=== PATIENT | male | born 1950 | race Caucasian/White ===

== ENCOUNTER → 2016-08-14 | Outpatient (CLI) | payer BC ==
[~2016-08-14] MED LIST: ACET-1311 PO; AMLO-114 PO; ASPI325T45 PO; CARV25TA PO; CLB/200 PO; CLOT1CRE47 TD; DICL1GEL28 TD; EYE; FLCO60 TOP; FLUO0.0543 TD; FRS/40 PO; IPRA1AER2 INH; LATA0.009 OPB; MULT-190 PO; OMEG10007 PO; POTA20TA16 PO; SPIR25TA PO; TRIA0.1C20 TD; [UNRECOGNIZED DRUG - CODE] PO
--- NOTE | 2016-08-14 12:46 | DIAGNOSTIC IMAGING REPORT ---
CHEST CT WITHOUT CONTRAST CT DOSE: 898.43 mGycm HISTORY: Lung nodule R91.1 Lung nodule, solitary ct chest in mid [id number] TECHNIQUE: Multiaxial CT images of the chest were performed without contrast. COMPARISON: CT 02/24/2016. PET CT scan 04/11/2016 FINDINGS: Unchanging 18 x 19 mm nodular density left lung base. Configuration is unaltered. Emphysematous changes previously described as well as bleb formation in the upper right and to a lesser extent upper left lobes appear stable. Several mediastinal as well as subcarinal nodes unchanged IMPRESSION: Stable examination of the chest including unchanging nodular density left lung base. No new or interval process. Electronically signed by: Blayne Pennington M.D. 08/14/2016 12:45 PM Dictated Date/Time: 08/14/2016 12:36 PM
== END | disposition home or self-care (01) ==
LOC: C.CTS 11:44
PROVIDERS: ATTEND Internal Medicine Pulmonary Disease
DX: R91.1 Solitary pulmonary nodule (principal)

== ENCOUNTER → 2017-02-12 | Outpatient (CLI) | payer BC ==
--- NOTE | 2017-02-12 15:49 | DIAGNOSTIC IMAGING REPORT ---
(CHEST) THORAX WITHOUT CLINICAL HISTORY: 67 years-old Male presenting with 6 month follow-up of solitary pulmonary nodule. TECHNIQUE: Multidetector CT imaging of the chest was performed without the use of intravenous contrast. IV contrast: None. A dose lowering technique was used consistent with the principles of ALARA (as low as reasonably achievable). COMPARISON: 08/14/2016. CT DOSE (mGy.cm): The estimated cumulative dose is 1455.59 mGy.cm. FINDINGS: [employer] topogram: Cardiomegaly. On soft tissue windows, 3 mm nodule in the right thyroid lobe. Multiple prominent precarinal and subcarinal lymph nodes measuring up to 11-12 mm in the short axis, previously 11 mm. These are stable to slightly decreased in size overall since the prior exam. Mild atherosclerosis of aortic arch and major branch vessels. Multichamber enlargement of the heart. Aortic valve and coronary artery calcification. No pericardial or pleural effusion. Cholelithiasis noted. On lung windows, extensive paraseptal emphysema and multiple subpleural bulla/blebs noted, the largest at the anterior right upper lobe. Centrilobular emphysema also noted. Similar appearance of the lobular left lower lobe nodule measuring up to 19 mm. The configuration of the nodule and apparent continuity with the pulmonary vasculature could suggest a vascular etiology. Central airways patent. On bone windows, degenerative changes of the spine. IMPRESSION: 1. Stable appearance of the left lower lobe nodular density through the configuration of the nodule and apparent continuity with the pulmonary vasculature could suggest a vascular etiology. Subsequent examination with intravenous contrast is recommended to assess for this possibility. 2. Extensive paraseptal and centrilobular emphysema. 3. Stable to slight interval decrease in prominence of enlarged mediastinal lymph nodes, which could be reactive. 4. Cardiomegaly. Electronically signed by: Chapo Mari M.D. 02/12/2017 3:48 PM Dictated Date/Time: 02/12/2017 3:40 PM
== END | disposition home or self-care (01) ==
LOC: C.CTS 15:26
PROVIDERS: ATTEND Internal Medicine Pulmonary Disease
DX: R91.1 Solitary pulmonary nodule (principal); R91.8 Other nonspecific abnormal finding of lung field; J43.9 Emphysema, unspecified; R59.0 Localized enlarged lymph nodes; I51.7 Cardiomegaly

== ENCOUNTER → 2018-01-23 | Outpatient (CLI) | payer BC ==
[~2018-01-23] MED LIST changes: -AMLO-114 PO; +AMLO10TA3 PO; +ASPECOTC PO; -ASPI325T45 PO; -CLB/200 PO; +POTA-639 PO; -POTA20TA16 PO; +REGADENOSON 0.4 MG/5 ML SYR ONE
--- NOTE | 2018-01-23 19:41 | Myocardial Perfusion Study ---
Myocardial Perfusion Study Rpt Myocardial Perfusion Study Rpt Date of Service 01/23/18 Myocardial Perfusion Study Rpt Procedure: 1. Myocardial perfusion study performed in multiple views/images 2. Lexiscan pharmacologic stress ECG Indications: 1. Preop evaluation 2. Nonischemic cardiomyopathy Consent: Informed written consent was obtained prior to the procedure. Ordering physician: Dr. Joshi Procedural details: For the stress portion of the study, Lexiscan 0.4 mg was intravenously administered followed by a saline flush. This was followed by 34.175 mCi of technetium 99m Cardiolite, injected at 11:20 a.m. on 01/23/2018. 30 minutes following the injection, imaging of the heart was performed in multiple projections. For the rest portion of the study, 11.4 mCi technetium 99m Cardiolite was injected intravenously at 9:20 a.m. on 01/23/2018. 1 hour following the injection, imaging of the heart was performed in the same projections. Lexiscan stress ECG: Resting ECG demonstrated: Sinus rhythm 74 bpm. LBBB. Maximum heart rate: 92 bpm Resting blood pressure: 153/84 mmHg Maximum blood pressure: 160/88 mmHg Maximal, age-predicted heart rate: 60 % Significant ST changes: None Arrhythmia: None Symptoms: Shortness of breath Findings: Rotating raw imaging demonstrated no significant lung uptake. There is no significant motion artifact. Heart size appeared mildly enlarged. Myocardial perfusion demonstrated a small area of mildly reduced uptake involving the basal inferior and inferoseptal wall segments. This defect was fixed and actually appeared to be worse and more extensive in the rest images. There were no significant reversible defects to suggest ischemia. Ejection fraction: 36 % Wall motion: Global hypokinesis with abnormal septal motion, likely secondary to bundle-branch block. No significant transient ischemic dilation. Impression: 1. Myocardial perfusion study was negative for ischemic changes. 2. Fixed defect may be secondary to attenuation artifact, but cannot rule out infarct. 3. Moderately reduced left ventricular systolic function. EF 36%. 4. Global hypokinesis with abnormal septal motion likely secondary to bundle- branch block. 5. Indeterminate Lexiscan ECG.
== END | disposition home or self-care (01) ==
LOC: C.NUCL 08:48
PROVIDERS: ATTEND Internal Medicine Cardiovascular Disease
DX: Z01.818 Encounter for other preprocedural examination (principal); I44.7 Left bundle-branch block, unspecified; I42.9 Cardiomyopathy, unspecified

== ENCOUNTER 2019-12-30 15:33 | Inpatient (IN) ==
[2019-12-30] MEDS ORDERED: SODIUM CHLORIDE 0.9% 500 ML IV SCH (16:15)
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
[2019-12-30 16:43] LABS: Basophils # (auto) 0.03 K/uL (0-0.2); Basophils % (auto) 0.7 %; Eosinophils # (auto) 0.12 K/uL (0-0.5); Eosinophils % (auto) 2.6 %; Hematocrit (blood only) 36.9 % (42-52); Hemoglobin 12.6 g/dL (14.0-18.0); Immature Granulocytes # (auto) 0.03 K/uL (0.00-0.02); Immature Granulocytes % (auto) 0.7 %; Lymphocytes % (auto) 24.1 %; Mean Corpuscular Hemoglobin 34.6 pg (25-34); Mean Corpuscular Hgb Conc 34.1 g/dL (32-36); Mean Corpuscular Volume 101.4 fL (80-100); Mean Platelet Volume 10.4 fL (7.4-10.4); Monocytes # (auto) 0.49 K/uL (0.11-0.59); Monocytes % (auto) 10.7 %; Neutrophils % (auto) 61.2 %; Platelet Count 293 K/uL (130-400); RDW Standard Deviation 62.5 fL (36.4-46.3); Red Blood Count 3.64 M/uL (4.7-6.1); White Blood Count 4.57 K/uL (4.8-10.8)
[2019-12-30 16:52] LABS: Appearance Urine Clear (Clear); Bacteria Urine Automated Negative (Negative); Blood Urine Negative (Negative); Color Urine Dark Yellow; Epithelial Cell Urine Auto 20-30 /lpf (0-5); Glucose Urine UA Negative (Negative); Ketones Urine Negative (Negative); Leukocyte Esterase Urine 3+ (Negative); Nitrite Urine Positive (Negative); Protein Urine Negative (Negative); Specific Gravity Urine 1.016 (1.000-1.030); Urobilinogen Urine Negative (Negative); pH Urine 5.5 (4.5-7.5)
[2019-12-30 17:02] LABS: Partial Thromboplastin Ratio 1.6; Partial Thromboplastin Time 44.8 Seconds (21.0-31.0); Prothrombin Time 61.1 Seconds (9.0-12.0)
[2019-12-30 17:10] LABS: Alanine Aminotransferase 139 U/L (12-78); Albumin Globulin Ratio 0.5 (0.9-2); Albumin Level 2.6 gm/dl (3.4-5.0); Alkaline Phosphatase 443 U/L (45-117); Aspartate Aminotransferase 118 U/L (15-37); BUN Creatinine Ratio 16.9 (10-20); Bilirubin,Total 11.8 mg/dl (0.2-1); Blood Urea Nitrogen 15 mg/dl (7-18); Calcium 8.8 mg/dl (8.5-10.1); Carbon Dioxide 25 mmol/L (21-32); Chloride 107 mmol/L (98-107); Creatinine Clr Calc Pharmacy 106.4 ml/min; Est GFR (African American) 100.2; Est GFR (Non-African American) 86.4; Globulin 4.9 gm/dl (2.5-4.0); Glucose 100 mg/dl (70-99); Lipase 182 U/L (73-393); Potassium 3.4 mmol/L (3.5-5.1); Sodium 139 mmol/L (136-145); Total Protein 7.5 gm/dl (6.4-8.2); Troponin I < 0.015 ng/ml (0-0.045)
[2019-12-30 17:12] LABS: Bilirubin Urine 3+ (Negative)
[2019-12-30 17:13] LABS: Ictotest Urine Positive (Negative)
[2019-12-30 17:14] LABS: Calcium Oxalate Crystals Urine Present (None Prsent); RBC Urine Automated 0-4 /hpf (0-4)
[2019-12-30 17:19] LABS: INR 6.4 (0.9-1.1)
[2019-12-30] MEDS ORDERED: IOVERSOL 100ml IV PRN (18:15)
--- NOTE | 2019-12-30 18:34 | CT Scan Report ---
CT abd pelvis IV con only CT DOSE: 1992.73 mGy.cm HISTORY: Pain. Nausea. yellow, bloating TECHNIQUE: Multiaxial CT images of the abdomen and pelvis were performed following the use of intrave nous contrast. A dose lowering technique was utilized adhering to the principles of ALARA. COMPARISON STUDY: 07/14/2018 FINDINGS: Chronic interstitial change at both lung bases. 1.2 cm nodular density left lung base uncha nged from the prior exam. Gallbladder demonstrates edematous wall change. There is a 9 mm gallstone in the mid common bile duct . There is dilatation the intrahepatic biliary ductal systems of the right as well as left hepatic lo be. Pancreas appears unremarkable. There is no dilatation of the pancreatic duct. There is moderate cortical scarring of the kidneys bilaterally. There is no evidence for renal hydron ephrosis. The bowel pattern overall is nonobstructive. The bladder is midline. There is no significant abdomina l pelvic or inguinal adenopathy. IMPRESSION: 1. Choledocholithiasis with a 9 mm gallstone within the mid common bile duct. 2. Dilated/distended intrahepatic bile ducts 3. Edematous wall of the gallbladder 4. 1.2 cm nodule left lung base considered stable compared to the prior exam. ACT 112: Negative or not required by law. The above report was generated using voice recognition software. It may contain grammatical, syntax or spelling errors. Electronically signed by: Blayne Pennington M.D. 12/30/2019 6:32 PM
[2019-12-30] MEDS ORDERED: CEFEPIME 2,000 MG/20 ML VIAL IV STA (18:43)
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
[2019-12-30] MEDS ORDERED: AZTREONAM 1,000 MG in DEXTROSE 5% 100 ML IV STA (20:16)
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
[2019-12-30] MEDS ORDERED: TRIAMCINOLONE ACET 0.1% CR 15 GM TUBE TOP PRN (21:53)
[2019-12-30] MEDS ORDERED: DICLOFENAC SOD 1% GEL 100 GM TUBE EXT PRN (21:53)
[2019-12-30] MEDS ORDERED: PHYTONADIONE 10 MG in SODIUM CHLORIDE 0.9% 50 ML IV ONE (22:30)
[2019-12-30] MEDS: SODIUM CHLORIDE 0.9% 1000ML 1,000 ML IV SCH (22:49)
[2019-12-30] MEDS: carvediloL 25 MG TAB PO SCH (22:57)
[2019-12-31] MEDS: SODIUM CHLORIDE 0.9% 1000ML 1,000 ML IV SCH ×2 (05:15→09:31)
[2019-12-31 06:14] LABS: Basophils # (auto) 0.03 K/uL (0-0.2); Basophils % (auto) 0.6 %; Eosinophils # (auto) 0.09 K/uL (0-0.5); Eosinophils % (auto) 1.9 %; Hematocrit (blood only) 32.6 % (42-52); Hemoglobin 11.3 g/dL (14.0-18.0); Immature Granulocytes # (auto) 0.03 K/uL (0.00-0.02); Immature Granulocytes % (auto) 0.6 %; Lymphocytes # (auto) 0.86 K/uL (1.2-3.4); Mean Corpuscular Hgb Conc 34.7 g/dL (32-36); Mean Corpuscular Volume 100.9 fL (80-100); Mean Platelet Volume 10.3 fL (7.4-10.4); Monocytes # (auto) 0.45 K/uL (0.11-0.59); Monocytes % (auto) 9.4 %; Neutrophils # (auto) 3.33 K/uL (1.4-6.5); Neutrophils % (auto) 69.5 %; Platelet Count 247 K/uL (130-400); RDW Coefficient of Variation 17.3 % (11.5-14.5); RDW Standard Deviation 63.4 fL (36.4-46.3); Red Blood Count 3.23 M/uL (4.7-6.1); White Blood Count 4.79 K/uL (4.8-10.8)
[2019-12-31 06:23] LABS: INR 1.8 (0.9-1.1); Partial Thromboplastin Ratio 1.2; Partial Thromboplastin Time 34.2 Seconds (21.0-31.0); Prothrombin Time 18.4 Seconds (9.0-12.0)
[2019-12-31 06:56] LABS: Albumin Level 2.3 gm/dl (3.4-5.0); Calcium 8.6 mg/dl (8.5-10.1); Creatinine Clr Calc Pharmacy 134.4 ml/min; Est GFR (Non-African American) 94.9; Potassium 3.1 mmol/L (3.5-5.1)
[2019-12-31 07:00] LABS: Albumin Globulin Ratio 0.6 (0.9-2); Ferritin 288.3 ng/ml (8-388); Globulin 3.9 gm/dl (2.5-4.0); Total Protein 6.2 gm/dl (6.4-8.2)
[2019-12-31] MEDS ORDERED: INDOMETHACIN 50 MG SUPP PR PRN (07:20)
--- NOTE | 2019-12-31 08:09 | Electrocardiogram Report ---
Test Reason : Blood Pressure : / mmHG Vent. Rate : 091 BPM Atrial Rate : 074 BPM P-R Int : 000 ms QRS Dur : 180 ms QT Int : 454 ms P-R-T Axes : 000 254 045 degrees QTc Int : 558 ms Ventricular-paced rhythm with frequent Premature ventricular complexes Biventricular pacemaker detected Abnormal ECG When compared with ECG of 15-JUL-2018 09:09, Premature ventricular complexes are now Present Vent. rate has increased BY 14 BPM Confirmed by Neptali Aguilar ([id number]) on 12/31/2019 8:09:02 AM Referred By: REFERRED SELF Confirmed By:Neptali Aguilar
[2019-12-31] MEDS ORDERED: MULTIVITAMIN TAB PO SCH (09:00)
[2019-12-31] MEDS ORDERED: allopurinoL 300 MG TAB PO SCH (09:00)
[2019-12-31] MEDS ORDERED: SPIRONOLACTONE 25 MG TAB PO SCH (09:00)
[2019-12-31] MEDS: CIPROFLOXACIN / D5W 400 MG/200 ML BAG IV SCH ×2 (09:30→19:45)
[2019-12-31] MEDS: carvediloL 25 MG TAB PO SCH ×2 (09:31→20:55)
--- NOTE | 2019-12-31 10:22 | Hospitalist Progress Note ---
Date of Service December 31, 2019 Assessment & Plan Admission and Anticipated Discharge Date Admission Date: December 30, 2019 Results & Data Results & Data ([facility]) Vital Signs (Past 12 Hours) Vital Signs Temp Pulse Pulse Resp BP BP Pulse Ox 12/31/19 07:08 36.5 C 76 16 97/60 L 94 12/31/19 03:22 76 18 95 12/31/19 00:20 12/31/19 00:00 78 18 94 12/30/19 23:50 36.4 C 78 12 111/76 95 12/30/19 23:04 36.4 C L 81 17 120/75 90 12/30/19 22:44 79 109/63 96 Pulse Ox 12/31/19 07:08 12/31/19 03:22 12/31/19 00:20 94 12/31/19 00:00 12/30/19 23:50 12/30/19 23:04 12/30/19 22:44 PG Care Time/CCT Total # of Minutes Spent Total Time Spent with Patient: Total time spent is greater than 50% in coordination of care (as documented) at patient's floor/unit and/or counseling patient: Coding
[2019-12-31] MEDS ORDERED: GLUCOSE 10 TABS/TUBE PO PRN (10:25)
[2019-12-31] MEDS ORDERED: CARBOHYDRATES FOR HYPOGLYCEMIA PO PRN (10:25)
[2019-12-31] MEDS ORDERED: DEXTROSE 50% 50 ML SYRINGE IV PRN (10:25)
[2019-12-31] MEDS ORDERED: GLUCAGON FOR INJ 1 MG VIAL SQ PRN (10:25)
[2019-12-31] MEDS ORDERED: GLUCOSE 40% GEL 15 GM TUBE PO PRN (10:25)
[2019-12-31] MEDS: POTASSIUM CHLORIDE 40 MEQ in SODIUM CHLORIDE 0.9% 1000ML 1,000 ML IV SCH ×2 (12:29→16:47)
[2019-12-31] MEDS: INSULIN ASPART 100 UNITS/ML 3 ML PEN SC SCH ×3 (12:29→20:56)
[2019-12-31] MEDS ORDERED: carvediloL 12.5 MG TAB PO ONE (12:31)
--- NOTE | 2019-12-31 13:00 | Surgery Progress Note ---
Date of Service December 31, 2019 Assessment & Plan (1) Common bile duct calculus: Patient with history of open cholecystectomy in [place], now with choledocholithiasis. On the initial CT scan there was some concern about gallbladder wall edema. We reviewed the records from his surgery in 2019 from [facility] which showed that he had a laparoscopic converted to open subtotal cholecystectomy. The cystic duct was oversewn and the posterior gallbladder wall was fulgurated and left in place which likely explains the imaging findings. It is unlikely that there is any residual gallbladder to create stones. This is likely either an old stone but now became symptomatic or he may be a common bile duct stone former. There is no surgical intervention indicated at this time. Care per GI and ERCP. Surgery will sign off, call with questions or concerns Subjective 69-year-old male with history of open cholecystectomy for gangrenous cholecystitis now with choledocholithiasis on CT. No change since last night, still no pain, still jaundiced. Physical Exam Constitutional: WD/WN, vitals as above Gastrointestinal (Abdomen): normal bowel sounds, soft, nontender, no hepatosplenomegaly Skin: + jaundice Results & Data Vital Signs (Past 12 Hours) Vital Signs Temp Pulse Pulse Resp BP Pulse Ox 12/31/19 07:08 36.5 C 76 16 97/60 L 94 12/31/19 03:22 76 18 95 PG Care Time/CCT Total # of Minutes Spent Total Time Spent with Patient: Total time spent is greater than 50% in coor dination of care (as documented) at patient's floor/unit and/or counseling patient: Coding Level of Care Code 45076 Inpt Consult Level 2 Diagnoses Common bile duct calculus K80.50
[2019-12-31] MEDS ORDERED: fentaNYL citrate 100 MCG/2 ML VIAL ONE (13:33)
[2019-12-31] MEDS ORDERED: MIDAZOLAM HCL 1 MG/ML 2ML VIAL ONE (13:33)
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
[2019-12-31] MEDS ORDERED: fentaNYL citrate 100 MCG/2 ML VIAL IV PRN (14:12)
[2019-12-31] MEDS ORDERED: ePHEDrine sulfate 50 MG/ML AMP IV PRN (14:12)
[2019-12-31] MEDS ORDERED: ONDANSETRON INJ 2 MG/ML 2 ML VIAL IV PRN (14:12)
[2019-12-31] MEDS ORDERED: ATROPINE SULFATE 0.1 MG/ML 10ML SYR IV PRN (14:12)
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
--- NOTE | 2019-12-31 14:24 | Consultation Report ---
DATE OF CONSULTATION: 12/31/2019 GASTROINTESTINAL CONSULTATION NOTE REASON FOR EVALUATION: Jaundice and probable common bile duct stone. HISTORY OF PRESENT ILLNESS: The patient is a 69-year-old who had a complicated cholecystectomy at [place] in 07/2018 when he presented with right upper quadrant pain at [facility] due to his underlying health conditions. He was transferred to [place] and ended up having an open cholecystectomy. There was a stone in the neck of the gallbladder. The patient for the last month has been complaining of dark urine. He has lost about 6 pounds, but no nausea or vomiting. No fevers or chills. He presented to the hospital and underwent a CAT scan that showed a 9 mm stone in the bile duct and his CAT scan was also interpreted as showing a thickened gallbladder, which is interesting since he ostensibly had a cholecystectomy year and a half ago. The patient does have a history of alcohol consumption. PAST MEDICAL HISTORY: Remarkable for COPD, atrial fibrillation, congestive heart failure, type 2 diabetes, gout, hemochromatosis with phlebotomies in the past. He has hypertension, hyperlipidemia, obesity, metabolic syndrome, obstructive sleep apnea, osteoarthritis. He has a pacemaker, seizure disorder a year ago and history of a pulmonary nodule. He has also had carpal tunnel surgery, cholecystectomy, mandibular surgery. MEDICATIONS: Per list. ALLERGIES: INCLUDE CLINDAMYCIN, SOREN INHIBITORS, AMINOGLYCOSIDES, BACITRACIN, NEOMYCIN, PENICILLIN, POLYMYXIN B AND SULFA. PHYSICAL EXAMINATION: GENERAL: The patient is overweight but in no acute distress. SKIN: Obviously jaundiced. HEENT: Sclerae are icteric. LUNGS: Showed decreased breath sounds. CHEST: Pacemaker in the anterior chest. ABDOMEN: Shows right upper quadrant scar. No masses or tenderness. IMPRESSION AND PLAN: The patient has what appears to be a common duct stone. The patient will undergo an ERCP today. I discussed the risks and benefits of the procedure and he agreed to proceed and signed consent. We will pretreat him with IV Cipro 400 mg and 100 mg of Indocin per rectum to help reduce the risk for pancreatitis.
[2019-12-31] MEDS ORDERED: ONDANSETRON INJ 2 MG/ML 2 ML VIAL ONE (14:39)
[2019-12-31] MEDS ORDERED: LIDOCAINE HCL 2% 2 ML VIAL/AMP(20MG/ML) INFIL ONE (14:39)
[2019-12-31] MEDS ORDERED: PROPOFOL IV EMULSION 10 MG/ML 20 ML VIAL IV ONE (14:39)
[2019-12-31] MEDS ORDERED: SUCCINYLCHOLINE CHLORIDE 20 MG/ML 10 ML VIAL IV ONE (14:39)
[2019-12-31] MEDS ORDERED: PHENYLEPHRINE 100MCG/ML 5ML SYR ONE (14:40)
--- NOTE | 2019-12-31 15:06 | GI REPORT ---
Patient Name: Haresh Morris Procedure Date: 12/31/2019 1:35 PM Date of : 1950 Admit Type: Inpatient Age: 69 Gender: Male Attending MD: Clay Cordova MD Procedure: ERCP Providers: Clay Cordova MD Referring MD: Danielle Granados Md Indications: Bile duct stone(s) Medicines: General Anesthesia, Cipro 400 mg IV Complications: No immediate complications. Estimated Blood Loss: Estimated blood loss: none. Procedure: Pre-Anesthesia Assessment: - Prior to the procedure, a History and Physical was performed, and patient medications, allergies and sensitivities were reviewed. The patient's tolerance of previous anesthesia was reviewed. - The risks and benefits of the procedure and the sedation options and risks were discussed with the patient. All questions were answered and informed consent was obtained. After obtaining informed consent, the scope was passed under direct vision. Throughout the procedure, the patient's blood pressure, pulse, and oxygen saturations were monitored continuously. The scope was introduced through the mouth, and advanced to the duodenum and used to cannulate the bile duct. The ERCP was accomplished without difficulty. The patient tolerated the procedure well. Findings: The major papilla was adjacent to a diverticulum. The bile duct was deeply cannulated with the short-nosed traction sphincterotome. Contrast was injected. I personally interpreted the bile duct images. There was brisk flow of contrast through the ducts. Image quality was excellent. Contrast extended to the main bile duct. The middle third of the main bile duct contained one stone, which was 10 mm in diameter. The lower third of the main bile duct contained a single moderate stenosis 30 mm in length. The dorsal pancreatic sphincterotomy was extended to a total of 7 mm in length with a short nose sphincterotome using ERBE electrocautery. There was no post-sphincterotomy bleeding. One 7 Fr by 7 cm temporary stent with a single external flap and a single internal flap was placed 7 cm into the common bile duct. Bile flowed through the stent. The stent was in good position. Impression: - The major papilla was adjacent to a diverticulum. - A single moderate biliary stricture was found in the lower third of the main bile duct. The stricture was benign appearing. - Choledocholithiasis was found. Removal was not attempted; a stent was inserted. - A minor papilla sphincterotomy was performed. - One temporary stent was placed into the common bile duct. Recommendation: - Return [facility] to [facility] for [facility] care. Clay Cordova M.D. Clay Cordova MD 12/31/2019 3:06:10 PM This report has been signed electronically. Note Initiated On: 12/31/2019 1:35 PM Number of Addenda: 0 I attest to the content of the Intraoperative Record and orders documented therein, exceptions below {[id number]}
--- NOTE | 2019-12-31 15:27 | Operative Report (OR) ---
DATE OF OPERATION: 12/31/2019 The patient underwent an ERCP for common duct stone seen on CT scan along with being jaundiced. The patient received IV Cipro 400 mg prior to the procedure as well as 100 mg of Indocin rectally for pancreatitis prophylaxis. During the procedure, the patient was noted to have a papilla adjacent to a diverticulum. Common bile duct was cannulated preferentially and injected. There is a 1 cm stone in the mid biliary tree with a long bent distal bile duct that is strictured making extraction of the stone impossible without breaking it up. A 7 mm sphincterotomy was performed and a 7-Iranian 7 cm plastic stent was placed to provide biliary drainage, which was accomplished successfully upon placement of the stent. There was no bleeding and the patient tolerated the procedure well. He will need to be transferred to a tertiary center for probable lithotripsy of the stone in order to extract it. I attest to the content of the Intraoperative Record and any orders documented therein. Any exception s are noted below.
--- NOTE | 2019-12-31 15:47 | Anesthesiology Progress Note ---
Date of Service December 31, 2019 Anesthesia Post Procedure Vital Signs Vital Signs: Temp Pulse Pulse Pulse Resp BP BP 12/31/19 15:30 74 18 135/70 12/31/19 15:20 71 18 132/69 12/31/19 15:09 36.1 C L 71 20 135/76 12/31/19 14:07 36.6 C 71 20 116/71 12/31/19 13:30 74 12/31/19 07:08 36.5 C 76 16 97/60 L 12/31/19 03:22 76 18 12/31/19 00:20 12/31/19 00:00 78 18 12/30/19 23:50 36.4 C 78 12 111/76 12/30/19 23:04 36.4 C L 81 17 120/75 12/30/19 22:44 79 12/30/19 22:19 36.6 C 75 20 12/30/19 21:01 70 22 12/30/19 19:44 83 18 12/30/19 18:31 71 14 122/76 12/30/19 17:30 70 14 12/30/19 17:06 70 14 122/69 12/30/19 17:00 72 14 12/30/19 16:45 71 16 12/30/19 15:49 36.5 C 131/88 BP Pulse Ox Pulse Ox 12/31/19 15:30 100 12/31/19 15:20 100 12/31/19 15:09 100 12/31/19 14:07 95 12/31/19 13:30 122/69 94 12/31/19 07:08 94 12/31/19 03:22 95 12/31/19 00:20 94 12/31/19 00:00 94 12/30/19 23:50 95 12/30/19 23:04 90 12/30/19 22:44 109/63 96 12/30/19 22:19 131/84 94 12/30/19 21:01 140/85 98 12/30/19 19:44 140/85 98 12/30/19 18:31 95 12/30/19 17:30 12/30/19 17:06 12/30/19 17:00 12/30/19 16:45 12/30/19 15:49 97 Pain Intensity Generalized: Pain Intensity: 0 Transfer of Care Handoff Completed per policy Notes Mental Status: alert / awake / arousable Patient Amnestic to Procedure: Yes Nausea / Vomiting: adequately controlled Pain: adequately controlled Airway Patency, RR, SpO2: stable & adequate BP & HR: stable & adequate Hydration State: stable & adequate Anesthetic Complications: no major complications apparent and Pt Satisfied with anesthetic care Notes: The patient is awake and his vital signs are stable.
--- NOTE | 2019-12-31 16:06 | Fluoroscopy Report ---
[place] ERCP biliary ductal CLINICAL HISTORY: EXPLORE DUCTS COMPARISON STUDY: CT abdomen and pelvis 12/30/2019 FLUOROSCOPY TIME: 1 minute 18 seconds NUMBER OF FLUOROSCOPIC IMAGES: 7 FINDINGS: Retrograde cannulation of the common bile duct was performed. This confirms presence of a 7 mm filling defect of the mid common duct. This followed by placement of a stent. Stent appears to be adjacent to the distal aspect of the stent. No further images are obtained. IMPRESSION: Confirmation of a 7 mm gallstone within the mid common duct. Placement of a common duct s tent. ACT 112: Negative or not required by law. The above report was generated using voice recognition software. It may contain grammatical, syntax or spelling errors. Electronically signed by: Blayne Pennington M.D. 12/31/2019 4:05 PM
--- NOTE | 2019-12-31 17:56 | Discharge Summary ---
Date of Service December 31, 2019 Admission HPI Per Admitting Provider 69 yo M with PMH PAF, LBBB, bullous emphysema, nonischemic cardiomyopathy s/p ICD placement, DM2, FREDRICK, Htn, CHF, HLD who was advised to come to ED by PCP and software engineer backend due to jaundice. Reports that and daughter have commented that he's been turning yellow for the past 2 days. Denies any nausea, vomiting, abdominal pain, diarrhea. Stools have been pale. Denies hematemesis or hematochezia. Decreased appetite and early satiety; feels like his "stomach is a basketball". WEight loss of 5 pounds in a year. Takes 2.5 mg warfarin daily for PAF. Chart reports hx hemochromatosis but no phlebotomy tests found. Reports 30-40 years of alcohol use with 15 years of "serious drinking". At highest point, drank 1/2 a fifth of alcohol daily, nowdays normally just drinks 1-2 large glasses of wine or a shot of whiskey. Though 1 week ago he was playing cards with his buddies and between the 4 of them they finished 2 fifths of alcohol. Primary Care Provider: Kojo Jacinto MD Admission Exam Per Admitting Provider Constitutional: + morbidly obese (frankly jaundiced) and cooperative; no acute distress and not ill appearing Eyes: scleral icterus, PERRLA Neck: + short neck, + thick neck and + facial hair Respiratory: normal respiratory effort and able to speak in complete sentences; no respiratory distress, no labored breathing, no retractions, no cough and no audible wheezes Auscultation: lungs clear to auscultation bilaterally; no crackles, no rales, no rhonchi and no wheezes Cardiovascular: Rate/Rhythm: regular rate and regular rhythm Heart Sounds: normal S1 and normal S2; no gallop, no murmur and no cardiac rub Vessels: posterior tibial pulses present Extremities: normal capillary refill; no calf tenderness, no pedal edema and no edema Gastrointestinal (Abdomen): Inspection/Auscultation: abdomen normal to inspection, + abdomen distended and normal bowel sounds Percussion/Palpation: abdomen soft and + tympanic to percussion; abdomen nontender, no guarding, abdomen not rigid and no abdominal mass Skin: + jaundice; no purpura Principal Diagnosis Choledocholithiasis, Jaundice Discharge Exam Constitutional + ill appearing and + obese jaundice Eyes + scleral abnormality (icteric sclerae) and PERRL Neck trachea midline, no thyromegaly Respiratory normal respiratory effort; no respiratory distress and no labored breathing Auscultation: + diminished lung sounds Cardiovascular Rate/Rhythm: + irregularly irregular Heart Sounds: + murmur Extremities: normal capillary refill; no calf tenderness Chest (Breasts) Additional Comments: pacemaker Gastrointestinal (Abdomen) Inspection/Auscultation: + abdomen distended, normal bowel sounds and + abdominal edema Percussion/Palpation: abdomen soft; abdomen nontender, no guarding and abdomen not rigid Musculoskeletal Head/Neck/Chest: normocephalic and head atraumatic Extremities: strength 5/5 throughout Skin jaundice diffusely Neurologic PERRL, EOMI, accommodation nl, no face palsy, no dysarthria Psychiatric Orientation: alert and oriented x 3 Lymphatic no cervical or axillary lymphadenopathy Discharge Data Allergies Allergy/AdvReac Type Severity Reaction Status Date / Time sodium phosphate Allergy Severe THROAT Verified 12/30/19 17:33 SWELLING clindamycin Allergy Intermediate RASH Verified 12/30/19 17:33 SOREN Inhibitors Allergy Unknown Unknown Verified 12/30/19 17:33 Aminoglycosides Allergy Unknown Unknown Verified 12/30/19 17:33 bacitracin Allergy Unknown Unknown Verified 12/30/19 17:33 neomycin Allergy Unknown Unknown Verified 12/30/19 17:33 Penicillins Allergy Unknown RASH Verified 12/30/19 17:33 polymyxin B Allergy Unknown Unknown Verified 12/30/19 17:33 Sulfa (Sulfonamide Allergy Unknown Rash Verified 12/30/19 17:33 Antibiotics) Consultations 12/30/19 19:30 ED Decision to Admit Stat 12/30/19 21:53 Consult Gastroenterology Routine Procedures Performed Operation Date: 12/31/19 10:30 Actual Procedures p Endoscopic Retrograde Cholangiopancreatogram,sphincterotomy, placement of biliary stent (Not Applicable) - Clay Cordova Ordered Studies 12/30/19 16:15 CT abd pelvis IV con only Stat 12/31/19 15:00 FL ERCP biliary ductal Routine Hospital Course (1) Choledocholithiasis: (2) Elevated liver enzymes: (3) Jaundice: (4) Chronic systolic CHF (congestive heart failure): (5) Hypertension: (6) Bullous emphysema: (7) Diabetes: (8) Nonischemic cardiomyopathy: (9) FREDRICK (obstructive sleep apnea): (10) Paroxysmal atrial fibrillation: (11) LBBB (left bundle branch block): (12) Pulmonary nodule: (13) Hyperlipidemia: (14) Morbid obesity: (15) DVT prophylaxis: 1.Choledocholithiasis: 69 yo M with PMH PAF, LBBB, bullous emphysema, nonischemic cardiomyopathy, DM2, FREDRICK, HTN, CHF, HLD setn to ED for concern of PAINLESS JAUNDICE, found to have choledocholithiasis despite s/p cholecystectomy Jul [address] [facility] [address] Abd/pelv read: 1. Choledocholithiasis with a 9 mm gallstone within the mid common bile duct. 2. Dilated/distended intrahepatic bile ducts 3. Edematous wall of the gallbladder 4. 1.2 cm nodule left lung base considered stable compared to the prior exam. GI consulted COVID testing negative pre-op ERCP Tbili up to 12.0 AST 99, ALT 114, Alk phos 379 INR was 6.4 on admission --> given 10mg Vit K IV x 1 with repeat INR 1.8 prior to ERCP Cipro IV Abx from Cefepime to cover for cholangitis per GI prior to ERCP * ERCP on 12/30 with stricture below area of stone --> recommended transfer for endoscopic lithotripsy vs ERCP with stone repairer screen crusher tool as not available at this facility. General surgery consulted -- rec transfer Given complex cardiac history, patient had been sent to [facility] for cholecystectomy Jul 2018. --> Nonischemic cardiomyopathy with AV alphonse ablation, s/p pacemaker and EF 25% Spoke with Dr. Cano at [facility], accepted patient. 2. Elevated Liver Enzymes with coagulopathy Secondary to #1 - AST 118, ALT 139, Alk Phos 443 - INR 6.4, PT 61.1, APTT 44.8 --> INR 1.8 after Vit K 10mg IV x 1 (hx ETOH, admits to 1-2 wine per night at [facility] on way home). Follows with coag clinic. Has been elevated despite holding for 5 days and vit K 2.5mg PO per most recent note - ALbumin 2.6 - Ammonia <10 - Lipase WNL - No mention of cirrhosis on CT Abd, but extensive alcohol abuse hx and rapid INR elevation is concerning - Chart says hx hemochromatosis however no iron profile or gene testing found. Iron profile ordered which showed iron elevated at 176H, others--> TIBC 238, transferrin 195L, ferritin 288 Hypokalemia K 3.4 on admission with drop to 3.1 on repeat --> added 40meq to IVF currently infusing Macrocytic Anemia - Hg 11.3/32.6 101.4 - likely secondary to alcohol abuse --> would recommend obtaining B12/folate levels Asymptomatic Bacteriuria - UA positive for nitrite, 3+ bilirubin 3+ Leuk Esterase, epithelial cells and calcium oxalate crystal Gout - continue allopurinol once no longer NPO Chronic systolic CHF, Nonischemic Cardiomyopathy s/p ICD placement carvedilol 25 mg BID, Spironolactone 25 mg as outpatient --> to be continued s/p AV alphonse ablation. Most recent EF 25%. s/p ICD-- Follows with Dr. Joshi locally Paroxysmal Afib rate control as above held INR as was 6.4 on admission and got Vit K 10mg IV x 1. Repeat 1.8 Being transferred --> continue to hold coumadin for intervention DM2 metformin 500 mg BID outpatient holding while inpatient, ISS, bsg ac/hs FREDRICK CPAP nightly Dispo: Patient to be transferred to [facility] via BLS for Endoscopic lithotripsy vs ERCP with stone scarping tool Total Time Total Time Spent Total Time Spent (In Minutes): 180 Discharge Plan Discharge Items Patient Disposition: Transfer Acute Care Hospital Reason For Visit: JAUNDICE Discharge Diagnosis: Choledocholithiasis Condition on Discharge: Good Goals: To remove obstructing common dile duct stone at tertiary facility Activity: As commented below Activity Comment: per accepting facility Non-emergency contact: Primary Care Provider Call non-emergency contact if: you have any medication questions Follow-up/Referrals: Kojo Jacinto MD [Primary Care Provider] - Diet: Other - See Diet Comment Diet Comment: Clear liquids, NPO after midnight Addtl Attending Provider Instructions: You were admitted for jaundice and found to have a stone in your common bile duct. Gastroenterology was consulted and you had an ERCP which was unable to remove this stone. Recommended transfer for further intervention to remove this stone. It has been a pleasure being a part of the medical team providing for you while you have been in the hospital. Take care! Discharged to [facility] with BLS to [facility], Room 524 Pending Studies at Discharge: Yes Studies:: Hemochromatosis DNA Stand-Alone Forms: My [facility] Skilled Items Patient informed of condition?: Yes DNR: No Discharge Level of Care: Other Communicable Disease: No Discharge Prognosis: Stable Lines: Peripheral IV Urinary Catheter: No Medications and DC Order Prescriptions: Continued carvedilol 25 mg tablet 25 mg PO BID RF: 0 metformin 500 mg tablet 500 mg PO BID RF: 0 diclofenac sodium [Voltaren] 1 % gel 1 % TOP UD PRN (Reason: Pain) RF: 0 triamcinolone acetonide 0.1 % cream 1 appln TOP UD RF: 0 fluocinonide 0.05 % cream 1 appln TOP BID PRN (Reason: iritation) RF: 0 warfarin 5 mg tablet 2.5 mg PO DAILY RF: 0 spironolactone 25 mg Tablet 25 mg PO QAM Qty: 1 RF: 0 multivitamin Capsule 1 cap PO QAM RF: 0 allopurinol 300 mg Tablet 300 mg PO DAILY RF: 0 Discharge Orders: Discharge Order (Routine); Ordered 12/31/19 Ordered By: Naheed Patten Admission Data Admit Date/Time: 12/30/19 20:32 Attending Provider: Danielle Granados Admit Provider: Viji Calabrese Primary Care Provider: Kojo Jacinto Other Providers: Adithya Braga ; Clay Cordova Other Interventions: Discharge Summary Assessment (RN) Last Done: 12/31/19 18:40 DC Date/Time DO NOT enter until pt leaves facility: 12/31/19 21:20 Supervising Physician Co-Signing Physician Notes PA Supervision Note: I personally saw and examined the patient. I verified all harden points and agree with VIDAL Patten with the following exceptions and/or additions: Pt had ERCP today which revealed CBD stone and stricture, temporary stent palced. Needs transfer to tertiary care facility for resolution of stone. Pt denies nausea or abd pain. Has low appetite. Denies chest pain or SOB. Vitals reviewed NAD, obese, AAOx3 +scleral icterus RRR no mgr CTAB no wcr Abd +BS soft , mild distension, NT Ext 1+ pitting edema LEs Skin-jaundiced 69 yo male with choledocholithiasis and jaundice. Stable for transfer to [facility] for advanced endoscopic technique for stone removal. -dc IVFs continue abx Coding Level of Care Code D/C Day Management >30 mins Diagnoses Choledocholithiasis K80.50 Elevated liver enzymes R74.8 Jaundice R17 Chronic systolic CHF (congestive heart failure) I50.22 Hypertension I10 Hypertension type: essential hypertension Bullous emphysema J43.9 Diabetes E11.9 Diabetes mellitus complication status: without complication Diabetes mellitus halfway insulin use: without intermodal customer service use Diabetes mellitus type: type 2 Nonischemic cardiomyopathy I42.8 FREDRICK (obstructive sleep apnea) G47.33 Paroxysmal atrial fibrillation I48.0 LBBB (left bundle branch block) I44.7 Pulmonary nodule R91.1 Hyperlipidemia E78.5 Morbid obesity E66.01 DVT prophylaxis Z29.9
--- NOTE | 2020-01-01 01:41 | Billing Data ---
Date of Service January 01, 2020 Coding Level of Care Code 78968 Initial Inpt Care Lvl 3
[2020-01-01] MEDS ORDERED: METFORMIN HCL 500 MG TAB PO SCH (08:00)
== END 2019-12-31 21:20 | disposition short-term general hospital (02) | DRG 445 ==
LOC: ED 15:33 → SUATTDRO 20:32 → 3N 20:32

== ENCOUNTER 2022-09-17 08:00 | Observation (INO) ==
[~2022-09-17 08:00] MED LIST changes: -ACET-1311 PO; -AMLO10TA3 PO; -ASPECOTC PO; +BUPIVACAINE 0.25% PF 30 ML VIAL ONE; -CARV25TA PO; -CLOT1CRE47 TD; -DICL1GEL28 TD; -EYE; -FLCO60 TOP; -FLUO0.0543 TD; -FRS/40 PO; -IPRA1AER2 INH; -LATA0.009 OPB; +LIDOCAINE 1% LOCAL 20 ML VIAL ONE; -MULT-190 PO; -OMEG10007 PO; -POTA-639 PO; -REGADENOSON 0.4 MG/5 ML SYR ONE; -SPIR25TA PO; -TRIA0.1C20 TD; +VANCOMYCIN HCL 1000MG/20ML VIAL ONE; +WATER, STERILE FOR INJ 10 ML VIAL ONE; -[UNRECOGNIZED DRUG - CODE] PO
--- NOTE | 2022-09-17 08:42 | History & Physical Bridge Note ---
Date of Service September 17, 2022 History & Physical Bridge Note I have examined the patient, reviewed the History & Physical and in the interval since the performance of the History & Physical I have noted the following changes of clinical significance: no changes noted
[2022-09-17] MEDS ORDERED: ceFAZolin 330 MG/ML 1 GM VIAL ONE (08:43)
[2022-09-17] MEDS ORDERED: MIDAZOLAM HCL 5 MG/ML 1 ML VIAL ONE (08:43)
[2022-09-17] MEDS ORDERED: fentaNYL citrate PF 100 MCG/2 ML VIAL ONE ×2 (08:43→09:25)
--- NOTE | 2022-09-17 08:45 | Pre Anesthesia Assessment ---
Date of Service September 17, 2022 Pre Sedation Assessment Vital Signs Pulse Resp BP Pulse Ox O2 Del Method 09/17/22 08:23 70 16 137/92 97 Room Air Cardiovascular + regular rate and + regular rhythm Respiratory + respiratory effort normal Pre-Sedation Airway Assessment Smoking Status: Former smoker Hx Sleep Apnea: Yes Hx Difficult Intubation: No Short, Thick Neck: No Thyromental Distance: > or= 3.5 Finger Breadths Oral Cavity: + Dental Abnormalities Mallampati Class: II ASA: ASA3 NPO Status Date of Last Intake of Fluids: 09/16/22 Time of Last Intake of Fluids: 21:00 Procedure Planning Contraindications for Sedation: none Current Medications Reviewed: Yes Notes The planned sedation has been discussed with the patient. Informed Consent was obtained. I have identified the patient, determined the appropriateness of sedation and have assessed the patient immediately prior to the procedure. All medicine(s) and interventions are by my order.
[2022-09-17] MEDS ORDERED: MIDAZOLAM HCL 1 MG/ML 2ML VIAL ONE (09:37)
[2022-09-17] MEDS ORDERED: oxyCODONE HCL IR 5 MG TAB (IMMEDIATE RELEASE) PO PRN (10:11)
[2022-09-17] MEDS ORDERED: ACETAMINOPHEN 325 MG TAB PO PRN ×2 (10:11→10:24)
--- NOTE | 2022-09-17 10:11 | Electrophysiology Report ---
Date of Service September 17, 2022 Electrophysiology Procedure Electrophysiology Procedure Report Procedure performed: Pulse generator change for biventricular ICD and right ventricular lead revision Staff public safety police: Teddy Becker MD Indication: The patient is a 72-year-old gentleman with a history of an ischemic cardiomyopathy who previously undergone implantation of a biventricular ICD. Was noted on outpatient monitoring to have pacing inhibition on the right ventricular lead and presumed lead malfunction. He was subsequently referred for a lead revision. Procedure detail: The patient was informed the risks benefits and alternatives to the intended procedure. He understood which proceed. He was taken to the electrophysiology suite in a fasting state. Conscious sedation was administered per protocol the patient was monitored electrocardiographically throughout today's procedure. Preoperative antibiotic was also administered. The area over the previously implanted device was anesthetized using subcutaneous menstruation of lidocaine and Marcaine solution. Incision was made at this site and carried down to the previously implanted device using a plasma blade. Hemostasis was also achieved using the PlasmaBlade. Device and leads were then freed from the surrounding scar tissue. Attempts were made at this point to evaluate the lead and device. Despite active manipulation of the lead and header no notable inhibition or noise was noted. However, based on prior evaluations was felt that a lead revision was required. The left axillary vein was subsequently accessed using modified Seldinger technique and a sheath was placed over guidewire at this site. Due to some tortuosity a long sheath was required for passage of the right ventricular lead past the bend in the superior vena cava. Under fluoroscopy the lead was advanced into the right ventricular apex. Adequate sensing threshold parameters were obtained prior to active fixation of lead to the endocardial surface. The proximal portion lead was then sutured to the prepectoralis fascia using nonabsorbable suture. The leads were then detached from the old device. New device was subsequently used and the leads attached. The retained right ventricular lead was capped. The leads and device were then encased in an antibiotic impregnated pouch prior to being placed back in the pocket. The pocket was irrigated with an antibiotic solution. It was subsequently closed with 3 layers of absorbable suture. Steri-Strips and sterile dressing were applied. Device was tested noninvasively prior conclusion the procedure. The patient tolerated procedure well. There were no immediate complications. Equipment used: Explanted pulse generator: Delphi Developer Priv[employer] model number [id number] serial number: [id number] New pulse generator: Delphi Developer Medtronic model number [id number] serial number: [id number] Retained and capped right ventricular lead: Delphi Developer Medtronic model 6935 mm serial number [id number] New right ventricular lead: Delphi Developer Medtronic model 6. 935 mm serial number [id number] Right atrial port was plugged with a pin plug model 6725 Measured data: Right ventricular lead: No intrinsic R-waves were measured. Pacing threshold 0.5 volts at 0.4 milliseconds with a pacing impedance of 361 Ohms Impression: Successful right ventricular lead revision and pulse generator change for biventricular ICD MNPG Electrophysiology codes ICD Procedure 1: ICD: 18363 Multi ICD replacement Procedure 2: ICD: 72730 Insert/replace leads, single PG Moderate Sedation Codes Moderate Sedation Codes Procedure 1: Sedation/Anesthesia: 37748 Mod Sedation by the same physician;Init15 Min Child Age 5 & Up Procedure 2: Sedation/Anesthesia: 69355 Mod Sedation by the same physician; Ea Beglllsfma46 Minutes
--- NOTE | 2022-09-17 10:11 | Post Anesthesia Assessment ---
Date of Service September 17, 2022 Post Sedation Assessment Vital Signs Pulse Resp BP Pulse Ox O2 Del Method 09/17/22 08:23 70 16 137/92 97 Room Air Recovery Score Activity: Moves 4 extremities Respiration: Deep Breath/Cough Circulation: +/-20% PreAnes Value Consciousness: Fully Awake Oxygen Saturation: > 92% On Room Air Discharge Sedation Level of Care: Fast Track Phase II Post Sedation Plan On clinical assessment, the patient appears to have tolerated the sedation without complications. Patient is recovering as anticipated. Patient will continue to be monitored by nursing and may be discharged when sedation discharge criteria are met per below protocol. Upon Completions of procedure up to 15 minutes continue every 5 minute vital signs and the P.A.R. score; then discharge to a Phase I or Fast Track to Phase II per the following guidelines: * Discharge Patient to appropriate Phase II area if PAR is 8 or greater or return to pre- procedure baseline. The post - procedure orders will be as directed. * If PAR score is less than 8 or not return to pre-procedure baseline then patient will follow Phase I monitoring till PAR is reached for Phase II. The Phase I may be done in procedure room or may call to secure a Phase I area. * If naloxone or flumazenil are used for reversal, hold in Phase I for continued monitoring from when last reversal dose was given for a minimum of 60 minutes or longer pending the nurse and/or physician discretion of patient condition before discharge to Phase II. Please call the Sedation Physician to re-evaluate and complete post-note for discharge to Phase II area. Do NOT discharge from procedure sedation or Phase 1 until post- sedation evaluation note is complete by procedure /sedation MD Sedation Discharge Instructions to be given to the patient at discharge to home.
[2022-09-17] MEDS ORDERED: ceFAZolin 3000MG/72.5 ML BAG IV SCH (10:45)
[2022-09-17] MEDS: [UNRECOGNIZED DRUG - OTHER] SCH ×3 (11:47→23:37)
[2022-09-17] MEDS ORDERED: LORazepam 1 MG TAB PO PRN (13:17)
[2022-09-17] MEDS ORDERED: carvediloL 12.5 MG TAB PO ONE (13:22)
[2022-09-17] MEDS ORDERED: FUROSEMIDE 20 MG TAB PO ONE (13:24)
[2022-09-17] MEDS ORDERED: ceFAZolin 2000MG 2,000 MG/15 ML SYR IV SCH (17:00)
[2022-09-17] MEDS: carvediloL 25 MG TAB PO SCH (21:07)
[2022-09-18] MEDS: carvediloL 25 MG TAB PO SCH (08:11)
[2022-09-18] MEDS: [UNRECOGNIZED DRUG - OTHER] SCH (08:12)
--- NOTE | 2022-09-18 08:21 | XRay Report ---
XR chest 2V PA/lateral CLINICAL HISTORY: EXACT TIME ORDERED Evaluate for pneumothorax and l TECHNIQUE: 2 views of the chest were obtained. Comparison: Comparison is made to chest radiograph 05/17/2022 FINDINGS: Exam is limited by underpenetration. Partial visualization of an implanted defibrillator. Cardiomegal y is noted. Reticular interstitial opacities are seen. No evidence of pleural effusion or pneumothora x. IMPRESSION: No evidence of pneumothorax. Cardiomegaly and interstitial lung disease again noted. ACT 112: Negative or not required by law. Electronically signed by: Noel Weaver M.D. 09/18/2022 8:20 AM
[2022-09-18] MEDS ORDERED: FUROSEMIDE 20 MG TAB PO SCH (09:00)
--- NOTE | 2022-09-18 09:15 | Discharge Summary ---
Date of Service September 18, 2022 Admission HPI Per Admitting Provider PAtient with prior implant of BiV ICD found to have oversensing and pacing inhibition on outpatient evaluation referred for lead revision. Principal Diagnosis Heart failure Discharge Exam Alert Normal respiratory effort WOund without hematoma, drainage or erythema Discharge Data Allergies Allergy/AdvReac Type Severity Reaction Status Date / Time sodium phosphate Allergy Severe THROAT Verified 09/20/22 10:32 SWELLING clindamycin Allergy Intermediate RASH Verified 09/20/22 10:32 Penicillins Allergy Intermediate RASH Verified 09/20/22 10:32 Sulfa (Sulfonamide Allergy Intermediate Rash Verified 09/20/22 10:32 Antibiotics) SOREN Inhibitors Allergy Unknown Unknown Verified 09/20/22 10:32 Aminoglycosides Allergy Unknown Unknown Verified 09/20/22 10:32 bacitracin Allergy Unknown Unknown Verified 09/20/22 10:32 neomycin Allergy Unknown Unknown Verified 09/20/22 10:32 polymyxin B Allergy Unknown Unknown Verified 09/20/22 10:32 Procedures Performed Operation Date: 09/17/22 09:00 Actual Procedures p ICD Gen Change Multiple - Teddy Becker MD p Insertion Single Lead Only - Teddy Becker MD Ordered Studies 09/17/22 07:00 EP Lab Images for PACS ONCE Hospital Course (1) Nonischemic cardiomyopathy: Plan PAtient underwent ICD generator change and RV lead revision (new implant) on the day of admission. NO complications. Discharged the following day. CXR demonstrated good lead position. No PTX Interrogation revealed good LV lead function. Good threshold on RV lead with poor sensing (R-waves 2.5mV) Total Time Total Time Spent Total Time Spent (In Minutes): 20 Discharge Plan Discharge Items Patient Disposition: Home - Self-Care Reason For Visit: Fractured ICD Lead; Cardiomyopathy Discharge Diagnosis: ICD malfunction Activity: Per Instructions section Lifting Comment: No lifting left arm above shoulder or behind neck for 6 weeks Bathing: Keep incision dry Bathing Comment: Keep wound dry and steri strips intact until f/u in 1 week Driving/Machine Use: Resume 1 day after discharge Non-emergency contact: Athlete Manager Call non-emergency contact if: you have any medication questions, you have a fever, your wound has increased redness, your wound has increased drainage and your wound pain has increased Follow-up/Referrals: Kojo Jacinto MD [Primary Care Provider] - 09/19/22 9:05 am (Will be seen by Iza Santillan at the [facility]) Diet: Carb Consistent or DM2 and Heart Healthy Addtl Attending Provider Instructions: do not resume Xarelto until SaturdaySeptember 21 Pending Studies at Discharge: No Stand-Alone Forms: [facility], Smoking Cessation Medications and DC Order Prescriptions: Continued carvedilol 25 mg tablet 25 mg PO BID triamcinolone acetonide 0.1 % cream 1 appln TOP DIRECTED PRN (Reason: Skin Irritation) fluocinonide 0.05 % cream 1 appln TOP BID PRN (Reason: iritation) Medical Marijuana 0 dose inhalation BID Rx Instructions: INHALATION OR DROP (OIL) (DME) CPAP Supplies Misc .Route Qty: 1 0RF Rx Instructions: Patient needs new tubing, attachments, filters, and masks. Lifetime need, aero care furosemide 20 mg tablet 20 mg PO DAILY oxycodone 5 mg tablet 5 mg PO Q4H Qty: 15 0RF multivitamin Tablet 1 tab PO QAM acetaminophen [Tylenol] 325 mg Tablet 325 mg PO QID PRN (Reason: Pain) Probiotic 3 billion cell Capsule 6 - 12 mmu cells PO DAILY Rx Instructions: administer with a meal, 2 TO 4 CAPSULES DAILY Xarelto 20 mg tablet 20 mg PO QPM Rx Instructions: Must administer with evening meal. Per [facility]. eplerenone 25 mg tablet 25 mg PO DAILY diclofenac sodium 1 % gel 1 ea TOPICAL DIRECTED PRN (Reason: Pain) Discharge Orders: Discharge Order (Routine); Ordered 09/18/22 Ordered By: Teddy Becker Admission Data Admit Date/Time: 09/17/22 10:20 Attending Provider: Teddy Becker Admit Provider: Teddy Becker Primary Care Provider: Kojo Jacinto Other Interventions: Discharge Summary Assessment (RN) Last Done: 09/18/22 09:31 Coding Level of Care Code 38068 IN/OBS DISCH 30 MIN/LESS Diagnoses Nonischemic cardiomyopathy I42.8
== END 2022-09-18 10:15 | disposition home or self-care (01) ==
LOC: 2S 08:00 → EP 08:00

== ENCOUNTER 2022-11-13 15:30 | Observation (INO) ==
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
[2022-11-13 16:06] LABS: Basophils # (auto) 0.03 K/uL (0-0.2); Basophils % (auto) 0.2 %; Eosinophils # (auto) 0.03 K/uL (0-0.50); Eosinophils % (auto) 0.2 %; Hematocrit (blood only) 23.3 % (42.0-52.0); Hemoglobin 7.3 g/dl (14.0-18.0); Immature Granulocytes # (auto) 0.12 K/uL (0.01-0.20); Immature Granulocytes % (auto) 0.9 %; Lymphocytes # (auto) 0.84 K/uL (1.2-3.4); Mean Corpuscular Hemoglobin 26.3 pg (25.0-34.0); Mean Corpuscular Hgb Conc 31.3 g/dL (32.0-36.0); Mean Corpuscular Volume 83.8 fL (80.0-100.0); Mean Platelet Volume 10.6 fL (9.4-12.4); Monocytes # (auto) 0.89 K/uL (0.11-0.59); Monocytes % (auto) 6.3 %; Neutrophils % (auto) 86.4 %; Platelet Count 273 K/uL (130-400); RDW Standard Deviation 52.3 fL (36.4-46.3); Red Blood Count 2.78 M/uL (4.70-6.10); White Blood Count 14.11 K/ul (4.8-10.8)
[2022-11-13] MEDS ORDERED: SODIUM CHLORIDE 0.9% 250 ML IV PRN (16:20)
[2022-11-13 16:23] LABS: Albumin Level 2.8 gm/dl (3.4-5.0); Bilirubin,Total 0.4 mg/dl (0.2-1.0); Calcium 9.2 mg/dl (8.6-10.3); Potassium 4.8 mmol/L (3.5-5.1)
--- NOTE | 2022-11-13 16:24 | XRay Report ---
XR chest 1V portable CLINICAL HISTORY: Chest pain, nonspecific TECHNIQUE: Single frontal radiograph of the chest was obtained. Comparison: Comparison is made to chest radiograph 09/18/2022 FINDINGS: Dual lead pacemaker is seen. Cardiomegaly is noted. Reticular interstitial opacities are seen. No jennifer dence of pleural effusion or pneumothorax. IMPRESSION: Interstitial lung disease and cardiomegaly without acute abnormality. ACT 112: Negative or not required by law. Electronically signed by: Noel Weaver M.D. 11/13/2022 4:22 PM
[2022-11-13 16:28] LABS: Hypochromasia Present
[2022-11-13 16:31] LABS: Albumin Globulin Ratio 0.9 (0.9-2); BUN Creatinine Ratio 25.8 (10-20); Creatinine Clr Calc Pharmacy 52.6 ml/min; Est GFR (African American) 47.4 ml/min; Est GFR (Non-African American) 40.9 ml/min; Globulin 3.7 gm/dl (2.5-4.0); Total Protein 7.1 gm/dl (6.0-8.3)
[2022-11-13 16:32] LABS: Troponin I High Sensitivity 6.9 pg/ml (0-20)
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
[2022-11-13 17:47] LABS: Ferritin 114.4 ng/ml (8-388)
[2022-11-13 18:04] LABS: Vitamin B12 310 pg/ml (180-914)
[2022-11-13 18:05] LABS: Prothrombin Time 10.9 Seconds (9.0-12.0)
[2022-11-13] MEDS ORDERED: DEXTROSE 50% 50 ML SYRINGE IV PRN (18:25)
[2022-11-13] MEDS ORDERED: GLUCAGON FOR INJ 1 MG VIAL SQ PRN (18:25)
[2022-11-13] MEDS ORDERED: CARBOHYDRATES FOR HYPOGLYCEMIA PO PRN (18:25)
[2022-11-13] MEDS ORDERED: GLUCOSE 10 TAB/TUBE PO PRN (18:25)
[2022-11-13] MEDS ORDERED: GLUCOSE 40% GEL 15 GM TUBE PO PRN (18:25)
[2022-11-13 18:30] LABS: Hematocrit (blood only) 37.8 % (42.0-52.0); Hemoglobin 13.2 g/dl (14.0-18.0)
[2022-11-13] MEDS ORDERED: INSULIN ASPART PER UNIT CHARGE SC SCH (18:30)
[2022-11-13] MEDS ORDERED: ALBUT/IPRATROP 3MG/0.5MG NEB 3 ML VIAL NEB STA (18:38)
[2022-11-13] MEDS ORDERED: LACTATED RINGER'S 1,000 ML IV SCH (18:45)
[2022-11-13 19:02] LABS: Reticulocyte % 1.8 % (0.5-2.0); Reticulocytes # 0.07 10^6/uL (0.02-0.10)
--- NOTE | 2022-11-13 20:03 | CT Scan Report ---
Exam(s): CT CHEST Without Contrast EXAM: CT Chest Without Intravenous Contrast CLINICAL HISTORY: Reason for exam: REYES. TECHNIQUE: Axial computed tomography images of the chest without intravenous contrast. CTDI is 20.72 mGy and DLP is 720.87 mGy-cm. Automated exposure control was utilized for the study. A dose lowering technique was utilized adhering to the principles of ALARA. COMPARISON: No relevant prior studies available. FINDINGS: Lungs: Paraseptal emphysema and bullous changes, preferentially involving the anterior aspect of the RIGHT upper lobe. Mild dependent atelectasis/scarring. Pleural space: Unremarkable. No focal infiltrate, pleural effusion, or pneumothorax. Heart: Cardiomegaly. No pericardial effusion. No significant coronary artery calcifications. Bones/joints: Degenerative changes of the spine. No acute fracture. No dislocation. Moderate compression deformity of T12, which appears chronic. Soft tissues: Unremarkable. Vasculature: Atherosclerotic change of the aorta. No thoracic aortic aneurysm. Lymph nodes: Unremarkable. No enlarged lymph nodes. Tubes, lines and devices: Pacemaker leads. IMPRESSION: No focal infiltrate, pleural effusion, or pneumothorax. Moderate compression deformity of T12, which appears chronic. Correlate for site of pain. Electronically signed by: Krishna Solomon MD 11/13/22 20:02 PM
[2022-11-13 20:24] LABS: Adenovirus PCR Not Detected (NotDetected); Bordetella parapertussis PCR Not Detected (NotDetected); Bordetella pertussis PCR Not Detected (NotDetected); Chlamydia pneumoniae PCR Not Detected (NotDetected); Coronavirus 229E PCR Not Detected (NotDetected); Coronavirus CoV-2 (COVID19)PCR Not Detected (NotDetected); Coronavirus HKU1 PCR Not Detected (NotDetected); Coronavirus NL63 PCR Not Detected (NotDetected); Coronavirus OC43PCR Not Detected (NotDetected); Human Metapneumovirus PCR Not Detected (NotDetected); Influenza A PCR Not Detected (NotDetected); Influenza B PCR Not Detected (NotDetected); Mycoplasma pneumoniae PCR Not Detected (NotDetected); Parainfluenza Virus 1 PCR Not Detected (NotDetected); Parainfluenza Virus 2 PCR Not Detected (NotDetected); Parainfluenza Virus 3 PCR Not Detected (NotDetected); Parainfluenza Virus 4 PCR Not Detected (NotDetected); Respiratory Syncytial VirusPCR Not Detected (NotDetected); Rhinovirus/Enterovirus PCR Not Detected (NotDetected)
--- NOTE | 2022-11-13 20:33 | Electrocardiogram Report ---
Test Reason : Blood Pressure : / mmHG Vent. Rate : 084 BPM Atrial Rate : 081 BPM P-R Int : 000 ms QRS Dur : 152 ms QT Int : 426 ms P-R-T Axes : 000 235 072 degrees QTc Int : 503 ms Poor data quality, interpretation may be adversely affected Ventricular-paced rhythm Abnormal ECG When compared with ECG of 20-AUG-2022 16:04, Vent. rate has increased BY 14 BPM Confirmed by Teddy Becker ([id number]) on 11/13/2022 8:33:10 PM Referred By: Confirmed By:Srini Becker
[2022-11-13] MEDS: LANTUS PER UNIT CHARGE SQ SCH (21:44)
[2022-11-13] MEDS: INSULIN ASPART PER UNIT CHARGE SC SCH (21:44)
[2022-11-14] MEDS ORDERED: ACETAMINOPHEN 325 MG TAB PO PRN (00:06)
--- NOTE | 2022-11-14 02:00 | Ultrasound Report ---
Exam(s): US RENAL EXAM: US Retroperitoneal Limited, Renal CLINICAL HISTORY: Reason for exam: APURVA, please monitor for obstruction. TECHNIQUE: Real-time limited ultrasound of the retroperitoneum with image documentation. COMPARISON: Comparison made to prior abdominal ultrasound from November 02, 2022. FINDINGS: Right kidney: Measures 13.9 x 6.8 x 5.5 cm. Upper pole simple cyst measuring 1.6 x 1.6 x 1.5 cm. No stones. No solid mass. No hydronephrosis. Left kidney: Measures 13.1 x 5.5 x 5.1 cm. Mid pole cyst measuring 1.5 x 1.4 x 1 cm. No stones. No solid mass. No hydronephrosis. The urinary bladder is unremarkable. The urinary jets were not identified on today's study. IMPRESSION: No evidence of acute renal pathology. Electronically signed by: Mara Lyn MD 11/14/22 01:59 AM
--- NOTE | 2022-11-14 07:11 | Hospitalist Progress Note ---
Date of Service November 14, 2022 Assessment & Plan (1) APURVA (acute kidney injury): Plan: -Admit to med/tele -Currently stable -Cr today at 1.65, baseline appears to be near 1.0 -Likely due to poor intake and continue diuretic use. -Hold diuretics for now, will give 1L LR at 80 mL/hr -Avoid nephrotoxic agents at this time -Continue xarelto for DVT PPX -AM CBC, CMP, PT/INR (2) Anemia: Plan: -Resolved -Repeat H&H in the ED shows a stable Hgb of 13 -Will cancel 2 units PRBC's ordered by the ED -Continue to monitor am CBC's for now -Will obtain Renal US to monitor to rule out obstruction (3) REYES (dyspnea on exertion): Plan: -Unsure of the etiology of the patient's progressive REYES with acute worsening t suellen during PT -The patient has a previous 30 pack yr smoking hx but stopped approximately 20 yrs ago -Is noted to have interstitial lung disease on CXR today, will obtain a non-con CT for further evaluation -Does have a hx of HFrEF, will obtain repeat TTE tomorrow -On Xarelto, not hypoxic, and without pleuritic chest pain, low suspicion for PE at this time -High sen trop is negative, could consider a stress test during this admission if the rest of his workup is negative -Will give him a DuoNeb now to see if he has any improvement -Continue to monitor on tele for now (4) Hyponatremia: Plan: -Noted to be 128 today -Likely due to dehydration and continued diuretic use -FU on am electrolytes after IV hydration tonight and holding diuretics (5) Cirrhosis: Plan: -Currently stable -Resume furosemide and eplerenone until renal function improves (6) Diabetes: Plan: -Will monitor BSG ACHS, goal is 110-140 -Start 5 units lantus BID, CF of 50 and CR of 15 -DM II diet -Adjust regimen as neded (7) Nonischemic cardiomyopathy: Plan: -Hold diuretics for now until APURVA resolves -Would be cautious with additional IV fluids after the initial 1L LR on admission to prevent volume overload -Continue Carvedilol (8) Paroxysmal atrial fibrillation: Plan: -HR currently controlled -Continue Carvedilol and Xarelto (9) Hypertension: Plan: -Stable -Continue Carvedilol, hold diuretics with APURVA (10) FREDRICK (obstructive sleep apnea): Plan: -HS CPAP ordered Plan The patient was discussed with Dr. Gaytan at the time of the admission Admission and Anticipated Discharge Date Admission Date: November 13, 2022 Review of Systems Review of Systems: All systems reviewed & are unremarkable except as noted in HPI & below Results & Data Results & Data Vital Signs (Past 12 Hours) Vital Signs Temp Pulse Pulse Resp BP Pulse Ox O2 Del Method 11/14/22 02:44 71 14 99 11/14/22 04:22 36.8 C 89 20 107/69 97 Room Air, CPAP 11/14/22 00:11 36.6 C 68 18 105/65 95 Room Air, CPAP 11/13/22 23:21 84 11/13/22 21:20 72 11/13/22 22:58 72 15 98 11/13/22 21:10 Room Air 11/13/22 21:10 36.3 C L 93 H 18 156/94 H 92 Room Air 11/13/22 20:00 71 22 143/91 H 95 Room Air O2 Flow Rate 11/14/22 02:44 2 11/14/22 04:22 11/14/22 00:11 11/13/22 23:21 11/13/22 21:20 11/13/22 22:58 2 11/13/22 21:10 11/13/22 21:10 11/13/22 20:00 (6) Diabetes Diabetes mellitus type: type 2 Diabetes mellitus residential insulin use: without terminal computer operator use Diabetes mellitus complication status: without complication Qualified Code(s): E11.9 - Type 2 diabetes mellitus without complications (9) Hypertension Hypertension type: essential hypertension Qualified Code(s): I10 - Essential (primary) hypertension
[2022-11-14 07:37] LABS: Albumin Globulin Ratio 0.9 (0.9-2); Albumin Level 3.1 gm/dl (3.4-5.0); BUN Creatinine Ratio 18.6 (10-20); Bilirubin,Total 0.6 mg/dl (0.2-1.0); Calcium 9.1 mg/dl (8.6-10.3); Creatinine Clr Calc Pharmacy 130.5 ml/min; Est GFR (African American) 107.8 ml/min; Globulin 3.3 gm/dl (2.5-4.0); Total Protein 6.4 gm/dl (6.0-8.3)
[2022-11-14] MEDS: LANTUS PER UNIT CHARGE SQ SCH ×2 (08:14→08:18)
[2022-11-14] MEDS: INSULIN ASPART PER UNIT CHARGE SC SCH ×3 (08:15→12:26)
[2022-11-14 10:06] LABS: Hematocrit (blood only) 36.1 % (42.0-52.0); Hemoglobin 12.2 g/dl (14.0-18.0); Mean Corpuscular Hemoglobin 34.7 pg (25.0-34.0); Mean Corpuscular Hgb Conc 33.8 g/dL (32.0-36.0); Mean Corpuscular Volume 102.6 fL (80.0-100.0); Platelet Count 210 K/uL (130-400); RDW Coefficient of Variation 14.8 % (11.5-14.5); Red Blood Count 3.52 M/uL (4.70-6.10); White Blood Count 4.66 K/ul (4.8-10.8)
--- NOTE | 2022-11-14 11:30 | XCELERA ---
[id number]
[2022-11-14] MEDS ORDERED: COUGH DROP (SUGAR FREE) LOZ 24 LOZ/1 BOX BUCCAL PRN (13:00)
--- NOTE | 2022-11-14 15:36 | Discharge Summary ---
Date of Service November 14, 2022 Admission HPI Per Admitting Provider Haresh is a 72 year old male with a PMH significant for paroxysmal afib on Xarelto, Porphyria Cutanea Tarda, cirrhosis without esophageal varices, alcohol abuse, FREDRICK, Nonischemic cardiomyopathy S/P biventricular pacemaker placement, HFrEF (LVEF of 50% with grade 2 diastolic dysfunction as of 04/05/22), HTN who presented to the [facility] ED on 11/13/22 due to increased SOB and chest pain while participating in physial therapy. In the ED the patient was found to be stable. Labs were significant for a leukocytosis of 14 with left shift of 12, Hgb of 7.3 (down from 14.3 as of 10/17/22), increased RDW and decreased HCT and MCHC, Cr of 1.63 (baseline is near 1.0), sodium of 128, Bicarb of 17 with AG of 11, alk phos of 137, and covid 19 negative. Chest xray was read as "Interstitial lung disease and cardiomegaly without acute abnormality.". Prior to admission the patient was blood consented and ordered 2 units of PRBC's. At the time of the exam the patient was sitting in bed in no acute distress. He states that he has been having issues with ongoing SOB for the past 5 months or so. Recently he has been going to outpatient PT for his SOB and had been improving. He noticed over the past few weeks that he has been more SOB with exertion than his baseline. Today, while at PT his therapist also noticed that he was very SOB, he also noted increased fatigue and minimal chest tightness with exertion, because of this they sent him into the ED. Of note, he tells me that he has a 20+ year history of Polycythemia and [facility] with his last being earlier this month. He quit smoking approximately 30 years ago and quick drinking approximately a year ago with occasional drinking with friends. He denies recent fever, chills, productive cough, nausea, vomiting, abd pain, dysuria, hematuria, LE swelling, and recent trauma. When asked, he does not believe that he has had recent bloody BM's or melena. He is unsure of the medications he takes as he gets them in pill packs. He has not noticed any recent major bleeding or bruising. He is a full code and would want his to make medical decisions for him if he cannot make them himself. I was able to speak with Dr. Nevarez of [facility], appreciate his help. He was able to confirm that the patient has Porphyria Cutanea Tarda. The typical treatment is phlebotomy to induce an iron deficiency anemia. He agrees with the plan to hold the PRBC's and repeat the H&H and also recommended obtaining a reticulocyte count to rule out hemolysis. Dr. Nevarez stressed that we should be very judicious with transfusions as they can significantly elevated his iron levels causing exacerbations of his condition. He recommended 1 unit of PRBC's at a time if a transfusion is needed overnight. Dr. Nevarez confimred that the patient follows with Dr. Cueva. Please refer to Dr. Gaytan's attestation for any changes to the treatment plan Admission Exam Per Admitting Provider General:In no acute distress, stated age, chronically ill-appearing HEENT:Normocephalic, atraumatic, no scleral icterus, pupils around round, symmetrical, and reactive to light, moist mucus membranes, trachea midline, no thyromegaly Chest/Pulm:No respiratory distress, symmetrical chest expansion, clear breath sounds throughout Cardiac:RRR, no murmurs noted Abdomen:Negative for ascites and bruising, normoactive bowel sounds, soft, non-tender to palpation throughout Musculoskeletal:Symmetrical and without signs of acute trauma, upper and lower extremities with full ROM, no atrophy, spasticity, or flaccidity Extremities:Radial, dorsalis pedis, and posterior tibial pulses are intact and symmetrical, currently with BL compression stockings in place Skin:Warm, dry, no rashes , lesions, or scars noted Neuro:Alert and oriented to person, place, month, year, and president, no focal defects, CN II-XII tested and intact, no tremors noted Psych:No acute distress, calm and cooperative during the exam Principal Diagnosis APURVA Discharge Exam General: No acute distress HEENT: PERRLA. Normal conjunctiva, anicteric sclera. Oropharynx normal. Respiratory: Normal respiratory effort, CTABL. Cardiovascular: RRR without murmurs, gallops, or rubs. No pedal edema. GI: Soft abdomen with normal bowel sounds heard on auscultation. Nontender x4 quadrants Neuro: Alert and oriented x3. Discharge Data Allergies Allergy/AdvReac Type Severity Reaction Status Date / Time sodium phosphate Allergy Severe THROAT Verified 09/20/22 10:32 SWELLING clindamycin Allergy Intermediate RASH Verified 09/20/22 10:32 Penicillins Allergy Intermediate RASH Verified 09/20/22 10:32 Sulfa (Sulfonamide Allergy Intermediate Rash Verified 09/20/22 10:32 Antibiotics) SOREN Inhibitors Allergy Unknown Unknown Verified 09/20/22 10:32 Aminoglycosides Allergy Unknown Unknown Verified 09/20/22 10:32 bacitracin Allergy Unknown Unknown Verified 09/20/22 10:32 neomycin Allergy Unknown Unknown Verified 09/20/22 10:32 polymyxin B Allergy Unknown Unknown Verified 09/20/22 10:32 Consultations 11/13/22 16:37 ED Decision to Admit Stat Ordered Studies 11/13/22 18:12 US Renal Bladder [US renal/blad retro comp] Urgent 11/13/22 18:54 CT chest diagnostic wo con Routine Hospital Course (1) APURVA (acute kidney injury): 72 M with PMH of A-fib (Xarelto), PCT, polycythemia vera, cirrhosis without esophageal varices, alcohol abuse, nonischemic cardiomyopathy status post BiV pacemaker placement, HFrEF, and hypertension presenting with increased shortness of breath and fatigue. Admitted for further work-up, which has been negative. Ready for discharge now that APURVA has resolved on 1 L IV LR. APURVA (acute kidney injury) -Admit to med/tele -Currently stable -Cr on admission at 1.65, baseline appears to be near 1.0 -Likely due to poor intake and continue diuretic use. -Hold diuretics for now, will give 1L LR at 80 mL/hr -Avoid nephrotoxic agents at this time -Continue Xarelto for DVT PPX -APURVA completely resolved. A.m. creatinine 0.7 Anemia -Resolved -Repeat H&H in the ED shows a stable Hgb of 13 -Will cancel 2 units PRBC's ordered by the ED -Continue to monitor am CBC's for now -Will obtain Renal US to monitor to rule out obstruction REYES (dyspnea on exertion) -Unsure of the etiology of the patient's progressive REYES with acute worsening today during PT -The patient has a previous 30 pack yr smoking hx but stopped approximately 20 yrs ago -Is noted to have interstitial lung disease on CXR today, will obtain a non-con CT for further evaluation -Does have a hx of HFrEF, will obtain repeat TTE tomorrow -On Xarelto, not hypoxic, and without pleuritic chest pain, low suspicion for PE at this time -High sen trop is negative, could consider a stress test during this admission if the rest of his workup is negative -Procalcitonin, TSH within normal limits. Hyponatremia -Noted to be 128 today -Likely due to dehydration and continued diuretic use -FU on am electrolytes after IV hydration tonight and holding diuretics Cirrhosis -Currently stable -Resume furosemide and eplerenone until renal function improves Diabetes -Will monitor BSG ACHS, goal is 110-140 -Start 5 units lantus BID, CF of 50 and CR of 15 -DM II diet -Adjust regimen as needed Nonischemic cardiomyopathy -Hold diuretics for now until APURVA resolves -Would be cautious with additional IV fluids after the initial 1L LR on admission to prevent volume overload -Continue Carvedilol Paroxysmal atrial fibrillation -HR currently controlled -Continue Carvedilol and Xarelto Hypertension -Stable -Continue Carvedilol, hold diuretics with APURVA FREDRICK (obstructive sleep apnea) -HS CPAP ordered (2) Anemia: (3) REYES (dyspnea on exertion): (4) Hyponatremia: (5) Cirrhosis: (6) Diabetes: (7) Nonischemic cardiomyopathy: (8) Paroxysmal atrial fibrillation: (9) Hypertension: (10) FREDRICK (obstructive sleep apnea): Total Time Total Time Spent Total Time Spent (In Minutes): Please see attending attestation. Discharge Plan Discharge Items Patient Disposition: Home - Self-Care Reason For Visit: SOB Discharge Diagnosis: APURVA Activity: Per Instructions section Non-emergency contact: Primary Care Provider Call non-emergency contact if: you have any medication questions and your symptoms worsen Follow-up/Referrals: Kojo Jacinto MD [Primary Care Provider] - Diet: Regular Addtl Attending Provider Instructions: Dear Haresh, You came to the emergency room because of fatigue and shortness of breath. You were found to have acute damage to your kidneys, known as acute kidney injury (APURVA). We ordered labs to rule out likely causes of your fatigue. We were able to determine that this was not caused by anemia, or blood loss. We gave you IV fluids to improve your kidney function, which occurred. We now feel you are ready to be discharged home. 1. We made no changes to your medications. Please continue to take your medications as previously instructed unless otherwise directed by your primary care physician. 2. 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 You should also let them know if your symptoms persist at your follow-up clinic appointments. It has been our pleasure to care for you here at [facility]. If you have any questions or concerns about your care, please reach out to us at [phone]. Pending Studies at Discharge: No Stand-Alone Forms: My [facility], Smoking Cessation Medications and DC Order Prescriptions: Continued carvedilol 25 mg tablet 25 mg PO BID triamcinolone acetonide 0.1 % cream 1 appln TOP DIRECTED PRN (Reason: Skin Irritation) Medical Marijuana 0 dose inhalation BID Rx Instructions: INHALATION OR DROP (OIL) (DME) CPAP Supplies Misc .Route Qty: 1 0RF Rx Instructions: Patient needs new tubing, attachments, filters, and masks. Lifetime need, aero care furosemide 20 mg tablet 20 mg PO DAILY allopurinol 300 mg tablet 150 mg PO DAILY multivitamin Tablet 1 tab PO QAM acetaminophen [Tylenol] 325 mg Tablet 325 mg PO QID PRN (Reason: Pain) Xarelto 20 mg tablet 20 mg PO QPM Rx Instructions: Must administer with evening meal. Per [facility]. eplerenone 25 mg tablet 25 mg PO DAILY diclofenac sodium 1 % gel 1 ea TOPICAL DIRECTED PRN (Reason: Pain) Discharge Orders: Discharge Order (Routine); Ordered 11/14/22 Ordered By: Cristian Katz Admission Data Admit Date/Time: 11/13/22 17:54 Attending Provider: Jose M Jackson Admit Provider: Chapo Gaytan Primary Care Provider: Kojo Jacinto Other Providers: Chapo Gaytan Other Interventions: Discharge Summary Assessment (RN) Last Done: 11/14/22 16:35 Supervising Physician Co-Signing Physician Notes Attending attestation Pt seen and examined in concert with Dr. Katz. In agreement with the docume nted findings as noted in the resident documentation with any exceptions or additions as noted here. Resting comfortably in bed. Reports breathing at chronic baseline without chest pain, palpitations, lightheadedness or similar. On examination, S1/S2 nl RRR no MCG. CTAB. Abd NT/ND BS+ve Dyspnea, chronic in the setting of HFrEF, ILD and significant remote smoking hx - baseline at present. Negative procalcitonin, troponins, TSH WNL. APURVA - resolved on repeat BMP, avoid nephrotoxic agents Anemia - resolved on repeat CBC. Hyponatremia - impoved. Else see resident documentation as noted. Total attending physician time spent with this patient's care on the day of discharge: 35 minutes. Resident Activity Tracking Resident Involvement: Resident Care Provided Care Provided: Adult Hospital Medicine
== END 2022-11-14 17:00 | disposition home or self-care (01) | DRG 683 ==
LOC: ED 15:30 → SUATTDRO 17:54 → 2N 17:54 → INTOOBSV 17:54 → 2N 21:01

== ENCOUNTER 2023-10-02 11:27 | Inpatient (IN) ==
[2023-10-02 12:15] LABS: Basophils # (auto) 0.03 K/uL (0.00-0.20); Basophils % (auto) 0.4 %; Eosinophils # (auto) 0.13 K/uL (0.00-0.50); Eosinophils % (auto) 1.9 %; Hematocrit (blood only) 42.3 % (42.0-52.0); Hemoglobin 14.6 g/dl (14.0-18.0); Immature Granulocytes # (auto) 0.02 K/uL (0.01-0.20); Immature Granulocytes % (auto) 0.3 %; Lymphocytes # (auto) 1.59 K/uL (1.20-3.40); Lymphocytes % (auto) 23.3 %; Mean Corpuscular Hemoglobin 34.5 pg (25.0-34.0); Mean Corpuscular Hgb Conc 34.5 g/dL (32.0-36.0); Monocytes # (auto) 0.68 K/uL (0.11-0.59); Neutrophils # (auto) 4.37 K/uL (1.40-6.50); Neutrophils % (auto) 64.1 %; Platelet Count 147 K/uL (130-400); RDW Coefficient of Variation 15.9 % (11.5-14.5); RDW Standard Deviation 58.6 fL (36.4-46.3); Red Blood Count 4.23 M/uL (4.70-6.10); White Blood Count 6.82 K/ul (4.8-10.8)
[2023-10-02 12:21] LABS: INR 1.1 (0.9-1.1); Partial Thromboplastin Ratio 1.1; Partial Thromboplastin Time 31 Seconds (21-31); Prothrombin Time 11.5 Seconds (9.0-12.0)
[2023-10-02 12:45] LABS: Albumin Globulin Ratio 0.9 (0.9-2); Albumin Level 3.7 gm/dl (3.4-5.0); BUN Creatinine Ratio 23.4 (10-20); Bilirubin,Total 0.7 mg/dl (0.2-1.0); Calcium 9.6 mg/dl (8.6-10.3); Creatinine Clr Calc Pharmacy 118.2 ml/min; Est GFR (African American) 102.9 ml/min; Est GFR (Non-African American) 88.8 ml/min; Globulin 4.3 gm/dl (2.5-4.0); Potassium 3.8 mmol/L (3.5-5.1)
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
[2023-10-02] MEDS: SODIUM CHLORIDE 0.9% 1,000 ML IV ONE (16:22)
[2023-10-02] MEDS: MoRPHine SULFATE 4 MG/ML 1 ML CARP\\VIAL IV STA (16:24)
[2023-10-02] MEDS: ONDANSETRON INJ 2 MG/ML 2 ML VIAL IV STA (16:24)
[2023-10-02] MEDS: OPTIRAY 320 100ml IV ONE (16:43)
--- NOTE | 2023-10-02 16:57 | CT Scan Report ---
CT pelvis w/IV con only HISTORY: 73 years-old Male groin/scrotal cellulitis, eval for gas formation acute soft tissue swelli ng of the inguinal tissues COMPARISON: 11/24/2020 TECHNIQUE: Multiple axial CT images of the pelvis were obtained with IV contrast. A dose lowering elda hnique was used consistent with the principals of SAADIA. FINDINGS: Nonspecific perinephric stranding of the kidneys. 4 mm nonobstructing calculus in the inferior pole r ight kidney. Atherosclerosis of the aorta. No pathologically enlarged lymph nodes. Partial distention of the urinary bladder. Prostate calcifications. Colonic diverticulosis. No free fluid within the pe lvis. There is dermal thickening with subcutaneous edema of the scrotum. No acute inflammatory changes in t he peritoneum. No subcutaneous or deep tissue gas. No fluid collections. No acute fracture. Degenerat niocl changes of the spine, pelvis and hips. IMPRESSION: 1. Findings suggestive of scrotal cellulitis. 2. No abscess or perineal inflammatory changes. 3. No acute intrapelvic abnormality. 4. Colonic diverticulosis. ACT 112: Negative or not required by law. The above report was generated using voice recognition software. It may contain grammatical, syntax o r spelling errors. Electronically signed by: John Nichols M.D. 10/02/2023 4:54 PM
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
[2023-10-02] MEDS: DOXYCYCLINE HYCLATE 100 MG in DEXTROSE 5% MINI-B 100 ML IV STA (18:26)
[2023-10-02] MEDS: CEFEPIME 2,000 MG in SYRINGE 0 ML IV STA (18:26)
[2023-10-02] MEDS ORDERED: CARBOHYDRATES FOR HYPOGLYCEMIA PO PRN (18:39)
[2023-10-02] MEDS ORDERED: GLUCAGON FOR INJ 1 MG VIAL SQ PRN (18:39)
[2023-10-02] MEDS ORDERED: DEXTROSE 50% 50 ML SYRINGE IV PRN (18:39)
[2023-10-02] MEDS ORDERED: GLUCOSE 40% GEL 15 GM TUBE PO PRN (18:39)
[2023-10-02] MEDS ORDERED: GLUCOSE 10 TAB/TUBE PO PRN (18:39)
[2023-10-02 18:44] LABS: Appearance Urine Clear (Clear); Bacteria Urine Automated 2+ (Negative); Bilirubin Urine Negative (Negative); Blood Urine 3+ (Negative); Cast Urine Automated 0 /lpf (0-5); Color Urine Yellow; Glucose Urine UA Negative (Negative); Ketones Urine Negative (Negative); Leukocyte Esterase Urine 3+ (Negative); Nitrite Urine Negative (Negative); Protein Urine Negative (Negative); RBC Urine Automated >30 /hpf (0-4); Specific Gravity Urine 1.029 (1.000-1.030); Urobilinogen Urine Negative (Negative); WBC Urine Automated >30 /hpf (0-5)
[2023-10-02] MEDS: ACETAMINOPHEN 500 MG TAB PO STA (18:46)
[2023-10-02] MEDS: TAMSULOSIN HCL 0.4 MG CAP PO ONE (18:46)
[2023-10-02 18:48] LABS: C Reactive Protein 1.42 mg/dl (0-0.5)
--- NOTE | 2023-10-02 19:27 | XRay Report ---
SINGLE VIEW CHEST CLINICAL HISTORY: Hypoxia. FINDINGS: 3 AP, portable, upright chest radiograph is compared to chest x-ray and chest CT dated 11/13. A cardiac AICD is unchanged in position. The heart is enlarged noting atherosclerotic calcific ation of the thoracic aorta. There is pulmonary vascular congestion. Emphysema and chronic interstiti al thickening is similar to previous. Mild bilateral airspace opacities are noted. No large pleural e ffusion or pneumothorax is seen. The skeletal structures are osteopenic. The bony thorax is grossly i ntact. IMPRESSION: 1. Cardiomegaly and AICD without evidence of congestive failure. 2. Bilateral airspace opacities may represent mild pulmonary edema. Chronic clinically. Radiographic follow-up to resolution is recommended. ACT 112: Negative or not required by law. Electronically signed by: Andrés Smith M.D. 10/02/2023 7:26 PM
[2023-10-02] MEDS: INSULIN ASPART PER UNIT CHARGE SC SCH (20:31)
[2023-10-02] MEDS ORDERED: hydrOXYzine HCl 25 MG TAB PO PRN (22:07)
[2023-10-02] MEDS: EPLERENONE~ORDER AWAITING ACTION SCH (22:49)
[2023-10-02] MEDS: allopurinoL 300 MG TAB PO SCH (22:52)
[2023-10-02] MEDS: RIVAROXABAN 20 MG TAB PO SCH (22:52)
[2023-10-02] MEDS: carvediloL 12.5 MG TAB PO SCH (22:53)
--- OUTSIDE RECORDS SUMMARY | 2023-10-02 22:58 | External Medical Summary | Continuity of Care Document ---
Author Name Unknown Organization [facility] [address] [facility] Address [address] [place], [place] [id number] Care Team Providers Care Plastic Shaper Name Role Phone OrvilleKojo parker Primary Care Physician [phone] [id number] Date(s): 08/16/23 - 08/16/[address], [address] [place] [address] [phone] Encounter Diagnosis Atrial fibrillation(Discharge Diagnosis) - 08/16/23 Biventricular implantable cardioverter-defibrillator (ICD) in situ(Discharge Diagnosis) - 08/16/23 Dyslipidemia(Discharge Diagnosis) - 08/16/23 Edema(Discharge Diagnosis) - 08/16/23 HYPERTENSION(Discharge Diagnosis) - 08/16/23 LBBB (left bundle branch block)(Discharge Diagnosis) - 08/16/23 Non-ischemic cardiomyopathy(Discharge Diagnosis) - 08/16/23 Discharge Disposition: Home or Self Care Attending Physician: DO Joshi Jason D Allergies, Adverse Reactions, Alerts Substance Reaction Severity Status clindamycin unknown Active SOREN Inhibitors anaphylaxis Active penicillin Rash Active sulfa drugs lethargy, chills, disorientation Active Assessment and Plan Extracted from: Title:Cardiology Office Visit Note Author:DO Joshi Jason D Date:08/16/23 1.Atrial fibrillation 2.Biventricular implantable cardioverter-defibrillator (ICD) in situ 3.Dyslipidemia 4.Edema 5.HYPERTENSION 6.LBBB (left bundle branch block) 7.Non-ischemic cardiomyopathy From our standpoint he is stable. He is BiV pacing almost 97% of the time. His LV function has improved dramatically with BiV pacing. He is on appropriate heart failure regimens at this point. We discussed a low- salt diet and continuing to monitor his weights. Unfortunately he is back to drinking at least 3 mixed drinks and evening. This is a difficult combination with his alcohol abuse and anticoagulation. He has chronic atrial fibrillation and remains on anticoagulation. This is always a risk-benefit. If he were to have falls or easy bleeding especially with his alcohol use and liver disease we would have to consider stopping it. He will be seen in device clinic in August. We discussed when he could use additional diuretics if he needs them. I reviewed his most recent laboratory studies from 10 days ago and his renal function is stable and he is not excessively prerenal. Will see Yulissa in 4 months time. Immunizations Given and Recorded Vaccine Date Status Refusal Reason influenza virus vaccine, inactivated 05/04/22 Give n influenza virus vaccine, inactivated 03/27/21 Give n influenza virus vaccine, inactivated 04/27/20 Give n influenza virus vaccine, inactivated 03/26/19 Give n influenza virus vaccine, inactivated 03/09/16 Give n influenza virus vaccine, inactivated 05/13/15 Give n influenza virus vaccine, inactivated 03/30/14 Give n influenza virus vaccine, inactivated 04/22/13 Give n influenza virus vaccine, inactivated 06/09/12 Give n hepatitis B adult vaccine 08/28/21 Given hepatitis B adult vaccine 03/27/21 Given hepatitis B adult vaccine 02/23/21 Given hepatitis A adult vaccine 08/28/21 Given hepatitis A adult vaccine 02/23/21 Given SARS-CoV-2 (COVID-19) mRNA BNT-162b2 vax 1 05/22/21 Recorded SARS-CoV-2 (COVID-19) mRNA-1273 vaccine 2 10/03/20 Recorded SARS-CoV-2 (COVID-19) mRNA-1273 vaccine 3 09/05/20 Recorded zoster vaccine, inactivated 04/09/19 Given zoster vaccine, inactivated 01/08/18 Given pneumococcal 23-valent vaccine 4 07/15/18 Recorded pneumococcal 23-valent vaccine 04/05/14 Given tetanus toxoids-diphtheria, Td (Adult) 04/18/16 Gi shasha tetanus toxoids-diphtheria, Td (Adult) 11/29/98 Re corded pneumococcal 13-valent vaccine 06/20/15 Given zoster vaccine live 04/05/14 Given tetanus/diphtheria/pertuss, acel (Tdap) 07/03/05 R ecorded 1Result Comment: 2022-10-01: Historical information-source unspecified 2Result Comment: 2020-11-11: Historical information-source unspecified 3Result Comment: 2020-11-11: Historical information-source unspecified 4Result Comment: 2020-11-11: Historical information-source unspecified Medications allopurinol 300 mg oral tablet Start: 01/02/19 10:12:00 EDT, 1 tab, PO, Daily Start Date: 01/02/19 Status: Ordered bumetanide 1 mg oral tablet Start: 08/16/23 13:45:00 EST, 1 tab, PO, Daily Start Date: 08/16/23 Status: Ordered carvedilol 12.5 mg oral tablet Start: 03/18/23 16:23:00 EDT, See Instructions, Disp# 90 tab, Refills: 11, Take 1 tab (12.5 mg) every morning and 2 tabs (12.5 mg tabs) in the PM for total of 25 mg in the PM., Pharmacy: [id number] Start Date: 03/18/23 Status: Ordered diclofenac 1% topical gel Start: 02/26/22 14:05:00 EDT, See Instructions, Disp# 100 g, Refills: 5, APPLY 2 GRAMS TOPICALLY 4 TIMES A DAY NEEDED FOR PAIN, Pharmacy: [id number] Start Date: 02/26/22 Status: Ordered eplerenone 25 mg oral tablet Start: 04/15/23 15:57:00 EDT, 1 tab, PO, Daily, Disp# 30 tab, Refills: 11, Pharmacy: [id number] Start Date: 04/15/23 Status: Ordered fluocinonide 0.05% topical cream Start: 01/05/22 16:14:00 EDT, See Instructions, Disp# 60 g, Refills: 4, apply topically twice a day, Pharmacy: [id number] Start Date: 01/05/22 Status: Ordered hydrOXYzine pamoate 25 mg oral capsule Start: 01/06/21 16:44:00 EDT, 1 cap, PO, qid, PRN: as needed for itching Start Date: 01/06/21 Status: Ordered Medical Marijuana Start: 02/20/22 14:09:00 EDT Start Date: 02/20/22 Status: Ordered multivitamin Start: 01/19/21 13:07:00 EDT, 1 tab, PO, Daily Start Date: 01/19/21 Status: Ordered Probiotic Formula Start: 03/30/22 15:20:00 EDT Start Date: 03/30/22 Status: Ordered rosuvastatin 5 mg oral tablet Start: 04/17/23 15:55:00 EDT, 1 tab, PO, Daily, Disp# 90 tab, Refills: 3, Pharmacy: [id number] Start Date: 04/17/23 Status: Ordered triamcinolone 0.1% topical cream Start: 12/17/22 16:17:00 EDT, See Instructions, Disp# 454 g, Refills: 2, apply two times a day as directed, Pharmacy: [id number] Start Date: 12/17/22 Status: Ordered Tylenol 500 mg oral tablet Start: 07/28/20 13:24:00 EST, 1-2 tab up to 3 times a day as needed for pain Start Date: 07/28/20 Status: Ordered Xarelto 20 mg oral tablet Start: 01/06/21 16:44:00 EDT, 1 tab, PO, Daily, Rx'ed by Dr. Tirado Start Date: 01/06/21 Status: Ordered Mental Status 08/16/23 Barriers to Learning one year None evide nt Mandatory Health Literacy Documentation Yes Health Literacy Communication Barriers N ever Primary Language Serbian Problem List Condition Confirmation Course Effective Dates Status H ealth Status Informant Macular degeneration (senile) of retina Confirmed Active Alcohol dependence 1 Confirmed Active Atrial fibrillation Confirmed Active Cholelithiasis Confirmed Active Biventricular implantable cardioverter-defibril lator (ICD) in situ Confirmed Active Non-ischemic cardiomyopathy 2 Confirmed Active Left carpal tunnel syndrome Confirmed Active Systolic CHF, chronic Confirmed Active Cirrhosis Confirmed Active Common bile duct stone 3 Confirmed Active COPD 4 Confirmed Active Cubital tunnel syndrome on left Confirmed Active Dyslipidemia Confirmed Active Edema Confirmed Active Gout Confirmed Active S/P carpal tunnel release Confirmed Active HYPERTENSION Confirmed 03/17/10 Active Impaired fasting glucose Confirmed Active LBBB Confirmed Active MRSA carrier 5 Confirmed 03/06/16 Active MORBID OBESITY Confirmed 03/17/10 Active Nodule of flexor tendon sheath Confirmed Active Toenail fungus Confirmed Active Osteoarthritis Confirmed Active PERSONAL HISTORY OF COLONIC POLYPS 6 Confirmed 03/17/10 Active Colon polyp 7 Confirmed Active Porphyria cutanea tarda 8, 9, 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 Joshi 3intraoperational [place] [facility] [place] 4PFT in 07/2012: mild to moderate COPD responsive to bronchodialtor Wound Culture Abscess Right Axilla Swab 2+MRSA 6colonoscopy 2008 7Hx of colon polyp. colonoscopy in 2014 was normal. repeat in [address] Cordova. 8Do not draw if HB<13 9Do not draw if Hct < 34% 10needs theraputic phlebotomy every 2 weeks : auto bipap machine with pressures 5-20 with 2 LPM 02 12sleep study in 07/2012: CPAP at 12cm H2O with c-flex of 2. Diagnosis Diagnosis Type Effective Dates Health Status Clinical Service Informant Atrial fibrillation Discharge Diagnosis 08/16/23 HYPERTENSION Discharge Diagnosis 08/16/23 LBBB (left bundle branch block) Discharge Diagnosis 08/16/23 Edema Discharge Diagnosis 08/16/23 Non-ischemic cardiomyopathy Discharge Diagnosis 08/16/23 Biventricular implantable cardioverter-defibri llator (ICD) in situ Discharge Diagnosis 08/16/23 Dyslipidemia Discharge Diagnosis 08/16/23 Procedures Procedure Date Related Diagnosis Body Site Status Chest CT 1 11/13/22 Completed Chest x-ray 2 11/13/22 Completed Ultrasound--abdomen 3 11/02/22 Com pleted Eye examination 4 10/10/[address] of cervical spine 5 08/20/[address] of head 6 08/20/[address] of thoracic and lumbar spine 7 08/20/22 Completed EGD - Esophagogastroduodenoscopy 8 02/01/22 Completed Ultrasound--abdomen 9 11/02/21 Com pleted Shave biopsy and cauterization of skin 09/21/21 Completed Colonoscopy 10, 11, 12 05/05/[address] of chest 13 01/12/[address] of abdomen and pelvis 14 11/24/20 Completed ERCP 15 12/31/[address] of abdomen and pelvis con only 16 12/30/19 Completed Carpal tunnel release 03/10/19 Com pleted Carpal tunnel release Left 17 03/10/19 Completed X-ray tomography of right shoulder 18 09/21/18 Completed US scan of gallbladder 19 08/01/[address] of abdomen and pelvis 20 07/25/18 Completed CXR - Chest X-ray 21 07/25/18 Comp leted Cholecystectomy 07/2018 Completed Insertion of cardiac biventr icular implantable cardioverter defibrillator (ICD) using fluoroscopic guidance 22 04/22/18 Completed Doppler ultrasound -Arterial - left lower extremity 23 03/18/18 Completed ECHO TRANSESOPHAGEAL 03/18/18 Comp leted Echocardiogram 24 03/13/18 Complet ed CXR - Chest X-ray 25 03/12/[address] 26 12/25/17 Completed X-ray 27 05/17/[address] Thorax 28 02/12/17 Comple ricardo Aortoiliac 29 10/26/[address] of chest 30 08/14/16 Completed Transthoracic echocardiography 31 05/22/16 Completed PET scan 32 04/11/16 Completed Knee X-ray right 33 03/06/16 Compl eted X-ray of left knee 34 03/06/16 Com pleted X-ray of right knee 35 03/06/16 Co mpleted Ultrasound-Right Axillary 36 02/27/16 Completed US - Ultrasound right axillary 37 02/27/[address] of chest 38 02/24/16 Completed US - Ultrasound or right axilla 39 02/23/16 Completed Left wrist x-ray 40 09/23/15 Compl eted Colonoscopy 41 08/13/14 Completed CXR - Chest X-ray 42 08/13/14 Comp leted Cataract surgery--left eye 09/16/13 Completed Right eye cataract surgery 08/26/13 Completed Electroencephalograph 43 07/09/12 Completed Sleep study, simultaneous re cording of ventilation, respiratory effort, ECG or heart rate, and oxygen saturation, attended by a technologist 07/09/12 Compl eted Colonoscopy 08/2008 Completed R CTS Completed Urethral Stricture Repair Completed 1no focal infiltrate, pleural effusion or pneumothorax. moderate compression deformity of T12, whichappears chronic. correlated for site of pain 2interstitial lung disease and cardiomegaly without acute abnormality 31) Possible cirrhosis. NO hepatic lesions identified although sensitvity diminshed given suboptimalpenetration. 2) Obsured pancreas 41. 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 intermediate nonexudative age-related macular degeneration left eye 3. glaucoma suspect both eyes 4. pseudophakia both eyes 5. h/o inferior corneal ulcer left eye 5Impression: There is no evidence of fracture or subluxation involving the cervical spine. Osteopenia and spondylotic change as above Periodontal disease as above. Follow-up with dentistry is recommended. 6Impression: No acute intracranial abnormality. Atrophy and microvascular ischemic changes. 7Impression: An acute superior endplate compression fracture at T12 demonstrating minimal loss of height. No associated retropulsion. There is a mild superior endplate compression fracture at T2 which is age indeterminate but may be acute. Old superior endplate compression deformities at T4 and T9. No acute fractures or subluxation within the lumbar spine. 8Normal esophagus. Portal hypertensive gastropathy, biopsied. Normal duodenal bulb and second portion of the duodenum. 91) Possible cirrhosis. NO hepatic lesions identified although sensitivity diminshed on this exam 2) Mild dilatation of the common bile duct. This could be related to cholecystectomy although correlation with obstructive liver function tests is recommended. 3) Partially obscured pancreas. 10Pathology results: A) Colon, sigmoid, "two polyps", polypectomy: Single fragment of hyperplastic polyp B) Rectum, polypectomy: hyperplastic polyp 11Repeat in 10 years. 12Impression: Redundant colon. Diverticulosis from sigmoid to transverse colon. Two 2 mm polyps in the sigmoid colon, removed with cold biopsy forceps. Resected and retrieved. One 3 mm polyp in the rectum, removed with a cold biopsy forces. Resected and retrieved. The examination was otherwise normalon direct and rertroflexion views. 13Impression: Pulmonary emphysema Stable tubular 20 mm left lower lobwe pulmonary nodule, unchanged in size since 2016 Pneumoblia Interval deveopment of superior endplate T4 and T9 vertebral body compression fractures. 14Impression: Possible proctitis as detailed above. Evaluation is limited due to lack of IV contrast. Previously seen intrahepatic biliar y dilatation is no longer visualized. No definite gallbladder seen however there are multiple fluid-filled ducts are seen within gallbladder fossa associated with mild surrounding fat stranding. Questionable punctate calculus within the anatomical region of he distal common bile duct. Possible compression fracture deformity of T9. Please correlate above-mentioned findings with pointtenderness and recent prior history of back pain. Nonobstructive nephrolithiasis on the right. Stable small left adrenal myelolipoma. Interstitial lung fibrosis and pulmonary nodule within left lower lobe, stable since prior. Furtherevaluation with CT of the chest on nonemergency basis is suggested. 15The major papilla was adjacent to a diverticulum. A single moderate biliary stricture was found in the lower third of the main bile duct. The stricture was benign appearing. Choledocholithiasis was found. Removal was not attempted, a stent was inserted. A minor papilla sphincterotomy was performed. One temprorary stent was placed in the common bile duct. 161. choledocholithiasis with a 9mm gallstone within the mid common bile duct. 2. dilated/ distended intrahepatic bile ducts. 3. edematous wall of the gallbladder. 4. 1.2 cm nodule left lung base considered stable compared to the prior exam 17DrJuancarlos Dee. 18[facility] Impression: 1. No acute fracture 2. Moderate osteoarthritis of the right shoulder 3. A few calcific densities along the superolateral aspect of the right humeral head which suggest calcific tendinitis 191. Findings highly suggestive of acute calculus cholecystitis. Surgical consultation. 2. Hepatomegaly. 20[facility]: 1. Gallbladder distention with moderate pericholecystic infiltrative change. 2. Mild, nonobstructive reactive ileuns. 21Chronic congestive heart failure. 22Implantation of biventricular ICD. 23No evidence of heodynamic significant left lower extremity atrial stenosis 24EF of 20-25% with mild LVH 25Interstitial thickening which favors mild pulmonary edema. Stable cardiomegaly 261. Essentially stable size of the solid 1.7 cm left lower lobe nodule. The possibility of neoplasm cannot exluded. Further evaluation with PET/CT or tissue sampling to be considered. 2. Emphysema. 3. Hepatic steatosis. 27left ankle subacute appearing nondisplaced intra-artucular fracture of the medical malleolus with moderate soft tissue swelling. Romote appearing fractures of the talus with suggested aavascular necrosis and partial articular collapse. Associated at least noderate degenerative changes of the tibiotalar joint Heterogeneous mild bone demineralization. 28Impression: Stable appearance of the left lower lobe nodular density through the configuration o fthe nodule and apparent continuity with the pulmonary vasculature could suggest a vascular etiology. Subsequent examination with intravenous contrast is recommended to assess for this possibility. Extensive paraseptal and centrilobular emphysema Stable to slight interval decreaase in proiminence of enlarged mediastinal lymph nodes, which couldbe reactive. Cardiomegaly 291. Juxtarenal and infrarenal abdominal aorta is within normal limits, no aneurysm or significant stenosis identified. 2. the bilateral iliac arteries are within normal limits; no aneurysm or significant stenosis identified. 30Stable examination of the chest including unchanging nodular density left lung base. No new or interval process. 31Very technically difficulty study, even with the use of Definity contrast, due to patient body havitus. Study is limited. Mildly dilated left ventricle. Mild global hypokinesis with mildly reduced LVsystolic function. Abnormal septal motion consistent with bundle branch block. EF is 45-50%. Severeconcentric left ventricular hypertrophy. Grade I distastolic dysfunction of the left ventricle. Indeterminate E/e'ration. Since prior study of 07/04/12 the LV function has declined from 65% to mildly reduced. A complete report is available with the images in [employer] and is also available in Powerchart. 32The patients 21 mm left lower lobe pulmonary nodule is not FDG avid No evidence of pathological alphonse activity Emphysema 33impression: No acute fracture Advanced 3 compartment osteoarthritis. 34Tricompartmental left knee osteoarthritis as described above most pronounced at the medial compartment where there is frul-ao-uvpa articulation. 351. no acute fracture. 2. Advanced 3 compartment osteoarthritis. 36Interval development of a suspected subcutaneous fluid collection within the right axilla that measures approximately 3.8x1.2x3.6 cm. While nonspecific, this may reflect an abscess. Please correlate with clinical evidence for an infectious process. 37Impression: Interval development of a suspected subcutaneous fluid collection within the right axilla that measures approximately 3.8 x 1.2 x 3.6 cm. While nonspecific, this may reflect an abscess. please correlate with clinical evidence for an infectious process. 38Impression: There is a 3.6 x 1.3 x 2.1 cm irregular lesion a the left lung base. Neoplasm is the diagnosis of exclusion. Moderate emphysema. No airspace consolidation or pleural effusion is seen. Cardiiomegaly with evidence of pulmonary artery hypertension. There is induration of the subcutaneous soft tissues in the right axillary region. Correlate clinically for evidence of contusion or cellulitis. hepatomegaly and hepatic steatosis. Cholelithiasis. Additional changes as above. 39Impression: No fluid collection or other sonographic abnormality identified within the right axilla. 40Impression: negative study 41No specimens taken. Repeat in 5 years. 42Mild bibasilar opacities. The findings could reflect atelectasis or less likely consolidation. Radipgraphic f/u is recommended. Pulmonary vascular congestion w/o overt pulmonary edema. Mild cardipmegaly. 43Dr. Dempsey The study suggests the patient responds well to c-pap with a final setting of continuous positive airway pressure of 12 cm of water with a c-flex of 2. A repeat study in one year would be recommended. Vital Signs Most recent to oldest [Reference Range]: 1 Patient Weight 135 kg (08/16/23 1:54 PM) Heart Rate 71 bpm (08/16/23 1:54 PM) Blood Pressure 114/70mmHg (08/16/23 1:54 PM) BP Location # 1 Right Arm (08/16/23 1:54 PM) Social History Social History Type Response Tobacco 1 Smoking Status Former Smoker, quit > 1 yr Sex Male 1smoked pipe for and cig for 45 year 1ppd or 14oz every 2 weeks ( I had pipe in my mouth at leat 50%of the time). quite1998 Cardiology Outpatient Note * DO Joshi Jason D: PERFORM Event Display: Cardiology Outpt Note Authored Date: [id number] Primary Care Provider MD Jacinto Juan Chief Complaint 4 mon f/u History of Present Illness He denies any chest pain or chest pressure. He is short of breath walking from the waiting room to one of the close exam rooms. This is chronic. He notes he was working in his raised [employer] beds. He drives to them and then sits and works next to them. He has no lightheadedness or dizziness. He denies any palpitations or fluttering. He has had noworsening lower extremity edema and his weight is very stable. He notes his appetite remains quite good. Unfortunately he is back to drinking again. He is tolerating his current medical regimen. He is due to have his device checked in August. He has had no falls or syncopal episodes. He denies any orthostatic symptoms except first thing in the morning. He is on Xarelto with some bruising but denies any dark stools or black stools. Review of Systems PAST MEDICAL HISTORY: 1. Hx of a Severe nonischemic cardiomyopathy with a most recentejection fraction in the range of 50% 04/19/2022. 2. Negative nuclear stress test for ischemia 01/2018 with ejection fraction in the range of 35%. 3. Improvement in his LV function and carotid upstrokes status post BiV pacer and AV alphonse ablation (EF 50% 04/19/2022). 4. Chronic atrial fibrillation status post failed cardioversion and inability to rate control with AV alphonse blockers. 5. Chronic systolic heart failure. 6. Morbid obesity. 7. Obstructive sleep apnea and obesity hypoventilation syndrome, wearing CPAP. 8. Diabetes mellitus type 2. 9. Hypertension. 10. Hyperlipidemia. 11. Chronic anticoagulation with Xarelto. 12. COPD, diabetes mellitus type 2. b. 1.7 cm lung nodule followed by CAT scan. 13. History of left bundle branch block. 14. Status post biventricular defibrillator and AV node ablation 03/2018 to [facility]. 15. History of significant alcohol abuse. Physical Exam Vitals & Measurements HR:71(Monitored) BP:114/70 SpO2:96% WT:135kg WT:135.000kg(Dosing) PHYSICAL EXAMINATION: He is awake, alert, oriented x3, looks older than his stated age. ENT: His carotid upstrokes felt normal. His jugular venous pressure could not be assessed due to his neck size. He had no evidence of carotid bruits. His sclerae are anicteric. His hearing is normal. Lungs: Clear auscultation bilaterally, no rales, rhonchi or wheezing. Heart: Regular rate and rhythm, no appreciable murmurs, rubs, or gallops. Abdomen: Obese, soft, nontender, mildly distended. Positive bowel sounds. Extremities: No clubbing, cyanosis. Mild bilateral lower extremity edema. Diagnostic Results 30 Day Labs Last Updated 08/09/23 13:25 08/09/23 1325 Estimated [id number] 02/09/24 1232 Chol/HDL3 Kord852F HDL34L LDL Chol, [id number] TG101 Non-HDL77 Anion Gap5 BUN17 Ca9.3 Cl-107 KSK076 Cret0.80 Trp665E K4.2 Na139 eGFR CKD-EPI>90 HbA1c6.5H Estimated Average [id number] Alk Lahn786 ALT26 AST26 T Bili0.6 Alb3.8 Prot7.9 Assessment/Plan 1.Atrial fibrillation 2.Biventricular implantable cardioverter-defibrillator (ICD) in situ 3.Dyslipidemia 4.Edema 5.HYPERTENSION 6.LBBB (left bundle branch block) 7.Non-ischemic cardiomyopathy From our standpoint he is stable. He is BiV pacing almost 97% of the time. His LV function has improved dramatically with BiV pacing. He is on appropriate heart failure regimens at this point. We discussed a low- salt diet and continuing to monitor his weights. Unfortunately he is back to drinking at least 3 mixed drinks and evening. This is a difficult combination with his alcohol abuse and anticoagulation. He has chronicatrial fibrillation and remains on anticoagulation. This is always a risk-benefit. If he were to have falls or easy bleeding especially with his alcohol use and liver disease we would have to consider stopping it. He will be seen in device clinic in August. We discussed when he could use additional diuretics ifhe needs them. I reviewed his most recent laboratory studies from 10 days ago and his renal function is stable and he is not excessively prerenal. Will see Yulissa in 4 months time. Problem List/Past Medical History Ongoing Alcohol dependence Ambulatory dysfunction Atrial fibrillation Biventricular implantable cardioverter-defibrillator (ICD) in situ Cholelithiasis Cirrhosis Colon polyp Common bile duct stone COPD Cubital tunnel syndrome on left Dyslipidemia Edema Gout HYPERTENSION Impaired fasting glucose LBBB Left carpal tunnel syndrome Macular degeneration (senile) of retina MORBID OBESITY MRSA carrier Nodule of flexor tendon sheath Non-ischemic cardiomyopathy Osteoarthritis PERSONAL HISTORY OF COLONIC POLYPS Porphyria cutanea tarda Portal hypertensive gastropathy S/P carpal tunnel release Sleep apnea Systolic CHF, chronic Toenail fungus UNSPECIFIED IDIOPATHIC PERIPHERAL NEUROPATHY URIC ACID NEPHROLITHIASIS VITAMIN D DEFICIENCY Weight disorder Historical Abnormal liver enzymes Acute CHF Acute shoulder pain Cirrhosis of liver Collar bone pain Dermatitis 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, right eye, with inactive choroidal neovascularization Hand numbness Hemochromatosis Hypertensive heart disease with CHF (congestive heart failure) Lung mass Numbness and tingling in left hand RUPTURE OF BLADDER, NONTRAUMATIC SEIZURE DISORDER Stiffness of finger joint of right hand Systolic dysfunction Tobacco abuse Procedure/Surgical History Chest x-ray (11/13/2022)Chest CT (11/13/2022)Ultrasound--abdomen (11/02/2022)Eye examination (10/10/2022)CT of thoracic and lumbar spine (08/20/2022)CT of cervical spine (08/20/2022)CT of head (08/20/2022)EGD - Esophagogastroduodenoscopy (02/01/2022)Ultrasound--abdomen ()Shave biopsy and cauterization of skin (09/21/2021)Colonoscopy (05/05/2021)CT of chest (01/12/2021)CT of abdomen and pelvis (11/24/2020)ERCP (12/31/2019)CT of abdomen and pelvis con only (12/30/2019)Carpal tunnel release Left (03/10/2019)Carpal tunnel release (03/10/2019)X-ray tomography of right shoulder (09/21/2018)US scan of gallbladder (08/01/2018)CXR- Chest X-ray (07/25/2018)CT of abdomen and pelvis (07/25/2018)Cholecystectomy (07/2018)Insertion of cardiac biventricular implantable cardioverter defibrillator (ICD) using fluoroscopic guidance (04/22/2018)Doppler ultrasound -Arterial - left lower extremity (03/18/2018)ECHO TRANSESOPHAGEAL (03/18/2018)Echocardiogram (03/13/2018)CXR - Chest X-ray (03/12/2018)Chest CT (12/25/2017)X-ray (05/17/2017)Chest CT Thorax (02/12/2017)Aortoiliac (10/26/2016)CT of chest(08/14/2016)Transthoracic echocardiography (05/22/2016)PET scan (04/11/2016)Knee X-ray right (03/06/2016)X-ray of right knee (03/06/2016)X-ray of left knee (03/06/2016)US - Ultrasound right axillary (02/27/2016)Ultrasound-Right Axillary (02/27/2016)CT of chest (02/24/2016)US - Ultrasound or right axilla (02/23/2016)Left wrist x-ray (09/23/2015)CXR - Chest X-ray (08/13/2014)Colonoscopy (08/13/2014)Cataract surgery--left eye (09/16/2013)Right eye cataract surgery (08/26/2013)Sleep study, simultaneous recording of ventilation, respiratory effort, ECG or heart rate, and oxygen saturation, attended by a technologist (07/09/2012)Electroencephalograph (07/09/2012)Colonoscopy (08/2008)R CTSUrethral Stricture Repair Medications acetaminophen(Tylenol 500 mg oral tablet) allopurinol(allopurinol 300 mg oral tablet), 300 mg= 1 tab, PO, Daily bifidobacterium-lactobacillus(Probiotic Formula) bumetanide(bumetanide 1 mg oral tablet), 1 mg= 1 tab, PO, Daily cannabis(Medical Marijuana) carvedilol(carvedilol 12.5 mg oral tablet), See Instructions, 11 refills diclofenac topical(diclofenac 1% topical gel), See Instructions eplerenone(eplerenone 25 mg oral tablet), 25 mg= 1 tab, PO, Daily, 11 refills fluocinonide topical(fluocinonide 0.05% topical cream), See Instructions, 4 refills hydrOXYzine(hydrOXYzine pamoate 25 mg oral capsule), 25 mg= 1 cap, PO, qid, PRN multivitamin, 1 tab, PO, Daily rivaroxaban(Xarelto 20 mg oral tablet), 20 mg= 1 tab, PO, Daily rosuvastatin(rosuvastatin 5 mg oral tablet), 5 mg= 1 tab, PO, Daily, 3 refills triamcinolone topical(triamcinolone 0.1% topical cream), See Instructions Allergies SOREN Inhibitorsanaphylaxis clindamycinunknown penicillinRash sulfa drugslethargy, chills, disorientation Social History Smoking Status Former Smoker, quit > 1 yr Alcohol - High Risk Type:Liquor - Comments: 10 shots a night Exercise - Does not exercise Tobacco - Denies Tobacco Use - Comments: smoked pipe for and cig for 45 year 1ppd or 14oz every 2 weeks ( I had pipe in my mouth at leat 50% of the time). josé 1998 Family History Brain cancer..: Sister. Diabetes: Father. Stomach cancer..: MGM. Health Status Family Member(s) Mother: History is negative Electronic Signature on File CC: Kojo Jacinto MD [address] [place] [id number] Electronically Reviewed/Signed by: yS Joshi DO Author Signature Dt/Tm:08/16/2023 02:26 PM Marketing Strategistmission worker [facility] [place] [address] [facility], [address] [place] [address] JDF Patient Care team information Care Team Personnel Name: GABBIE Cedillo Tara Position: Nurse Pract - Family Med Member Role: Lifetime Relationship Address: Address: [address] [place] [id number] [place] Name: MD Jacinto Juan Position: Physician - Family Med Member Role: Primary Care Provider Address: Address: [address] [place] [address] [place] Care Team Related Persons Name: CAMI CLEMENTS Address: home [address] [place], [id number]
--- OUTSIDE RECORDS SUMMARY | 2023-10-02 22:58 | External Medical Summary | Summary of Care ---
Author Name Unknown Organization [facility] Address [address] [facility] [place] [address] Phone [phone] Care Team Providers Care Wastewater Engineer Name Role Phone Kojo Jacinto MD Primary Care Provider [phone] Reason for Visit * Reason Comments Follow Up 6-8 weeks dilate OCT OU Eylea * Precert (Within 10 days (routine)) - Authorized Specialty Diagnoses / Procedures Referred By Ashu morales Referred To Contact Ophthalmology Diagnoses Exudative age-related macular degeneration, right eye, with inactive choroidal neovascularization (HCC) Procedures [place] AFLIBERCEPT INJECTION [place] INTRAVITREAL NJX PHARMACOLOGIC AGT SPX Teddy Hawkins DO [address] [place] [address] Referral ID Status Reason Start Date Expiration Date V isits Requested Visits Authorized [id number] Authorized Precert 01/02/2023 01/01/2024 [id number] Encounter Details Date Type Department Care Team (Late st Contact Info) Description 08/15/2023 1:45 PM EST Office Visit Ophthalmology, [facility] [address] [place] [address] Teddy Hawkins DO [address] [place] [address] Exudative age-related macular degeneration of right eye with inactive choroidal neovascularization (HCC)* Allergies Active Allergy Reactions Criticality Noted Date Comments Salvador Inhibitors Anaphylaxis High 07/16/2018 Aminoglycosides Unknown 12/31/2019 Bacitracin Unknown 12/31/2019 Clindamycin Rash Medium 12/31/2019 Neomycin Unknown 12/31/2019 Penicillins 03/29/2010 Elevated temp Polymyxin B Unknown 12/31/2019 Sodium Phosphate Edema airway High 12/31/2019 Sulfa Antibiotics 03/29/2010 Does not remember reaction documented as of this encounter (statuses as of 08/15/2023) Medications Medication Sig Dispensed Refills Start Date End Date Status VOLTAREN 1 % TD GEL topically as directed 0 Active FLUOCINONIDE 0.05 % EX OINT Apply topically to affected area 2 times a day as needed. 0 Active PRESERVISION AREDS 2 PO CAPS Take 1 Capsule by mouth in the morning and 1 Capsule before bedtime. 0 Active spironolactone (ALDACTONE) 25 MG Tablet Take 1 Tablet by mouth in the morning. 0 04/25/2015 Active Carvedilol 25 MG Oral Tablet Take 1 Tablet by mouth in the morning. 0 Active rosuvastatin (CRESTOR) 5 MG Tablet Take 1 Tablet by mouth in the morning. 0 03/27/2019 Active nystatin (NYSTOP) 458222 UNIT/GM powder Apply topically to affected area 3 times a day. 0 11/25/2019 Active acetaminophen (TYLENOL) 500 MG Tablet 2 caps every 8 hours for 3 days, then 1 cap every 4 hours as needed for pain. Do not exceed 3000mg acetaminophen (Tylenol) every 24 hours. 30 Tab 0 01/07/2020 Active senna-docusate (SENOKOT-S) 8.6-50 MG per tablet Take 2 Tabs by mouth 2 times a day. For constipation 60 Tab 0 01/07/2020 Active polyethylene glycol 3350 (MIRALAX) packet Take 1 Packet by mouth 2 times a day. For constipation 14 Each 0 01/07/2020 Active omeprazole (PRILOSEC) 40 MG CPDR Take 1 Cap by mouth 2 times a day 30 minutes before morning and evening meals. 60 Cap 1 03/01/2020 Active Xarelto 20 MG Oral Tablet 1 daily 0 04/06/2021 Active hydrOXYzine Pamoate 25 MG Oral Capsule (Vistaril) As needed 0 03/07/2021 Active Triamcinolone Acetonide 0.025 % External Cream (Aristocort) Apply 1 Application Dosing Unit topically to affected area daily. 0 Active Diclofenac Sodium 1 % External Gel (Voltaren) Apply 1 Application Dosing Unit topically to affected area as needed. 0 05/29/2021 Active Eplerenone 25 MG Oral Tablet Take 1 Tablet by mouth in the morning. 0 04/28/2021 Active Continuation of patient use of medical marijuana is approved Inhale by mouth 1 Dose daily . 0 02/20/2022 Active Allopurinol 300 MG Oral Tablet (Zyloprim) TAKE 1/2 TABLET BY MOUTH ONCE DAILY 45 Tablet 11 12/04/2022 Active Bumex 1 MG Oral Tablet 1 Tablet. 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 Obesity, morbid (more than 1 00 lbs over ideal weight or BMI > 40) Overview: ICD-10 update of inactive term Sleep apnea Overview: uses CPAP History of tobacco use documented as of this encounter (statuses as of 08/15/2023) Resolved Problems Problem Noted Date Diagnosed Date Resolved Date Calculus of bile duct with o bstruction and without cholangitis or cholecystitis 01/02/2020 Respiratory failure without hypercapnia 01/02/2020 01/03/2020 Acute cholecystitis 07/25/2018 01/02/20 20 Serologic abnormality 04/08/20122019 documented as of this encounter (statuses as of 08/15/2023) Immunizations Name Administration Dates Next Due COVID-19 mRNA, LNP-s, No Pre serve, 2-Dose Series (Moderna) 10/03/2020,09/05/2020 HEP A - Hepatitis A (Adult > 18 yrs) 08/28/2021, 02/23/2021 Hepatitis B, 20+ yrs 08/28/2021,03/27/2021,02/23 Pneumococcal Conjugate Vacc, 13 Valent (Prevnar) 06/20/2015 Pneumococcal Polysaccharide PPV23 (Pneumovax) 07/15/2018,04/05/2014 Seasonal Influenza Virus Vac cine, Unspecified Formulation 03/27/2021,05/13/2015,03/30/2014 Seasonal Influenza, PF, 6 M & above, IM , (FluLaval or Fluzone) 03/31/2018 Seasonal Influenza, Quadriva lent Hd (Fluzone Hd) 03/18/2023 Seasonal Influenza, Quadriva lent Hd, 65+ Yrs 04/27/2020 Seasonal Influenza, Split, I IV3, With Preserve, Inj 04/22/2013,06/09/2012 Seasonal Influenza, Trivalen t, Adjuvanted, 65+ yrs 03/25/2019 Seasonal Influenza, Trivalen t, High Dose, No Preserve, IM 03/26/2019,03/09/2016 Varicella Zoster Vaccine (Adult) 04/05/2014 Zoster Vaccine Recombinant (Shingrix) 04/09/2019 ,01/08/2018 documented as of this encounter Social History Tobacco Use Types Packs/Day Years Used Date Smoking Tobacco: Former Cigarettes Q uit: 04/03/1999 Smokeless Tobacco: Never Tobacco Cessation:Counseling Given: No Alcohol Use Standard Drinks/Week Comments Yes 14 (1 standard drink = 0.6 oz pu re alcohol) Sex and Gender Information Value Date Recorded Sex Assigned at Male 04/22/2022 1:13 AM EDT Gender Identity Male 04/22/2022 1:13 AM EDT Sexual Orientation Straight 04/22/2022 1: 13 AM EDT Job Start Date Occupation Industry Not on file Not on file Not on file documented as of this encounter Functional Status Functional Status Response Date of Assess ment Are you deaf or do you have serious difficulty h earing? No 12/31/2019 Are you blind or do you have serious difficulty seeing, even when wearing glasses? No 12/31/2019 Do you have serious difficul ty walking or climbing stairs? (5 years old or older) No 12/31/2019 Do you have difficulty dress ing or bathing? (5 years old or older) No 12/31/2019 Because of a physical, menta l, or emotional condition, do you have difficulty doing errands alone such as visiting a doctor s office or shopping? (15 years old or older) No 12/31/19 20 Cognitive Status Response Date of Assessm ent Because of a physical, menta l, or emotional condition, do you have serious difficulty concentrating, remembering, or making decisions? (5 years old or older) No 12/31/2019 documented as of this encounter Progress Notes * Teddy Hawkins, DO - 08/15/2023 1:45 PM EST [facility]MAIRA [facility]LOOD [facility] [place] Nursing notes reviewed. Eye vitals reviewed. Mood and Affect: normal HPI: Haresh Clements is a 73 year old male who presents for AMD No other eye complaints. Denies significant pain. Base Eye Exam Visual Acuity (Snellen - Linear) Right Left Dist cc 20/30 20/20 -1 Correction: Glasses Tonometry (Tonopen, 1:45 PM) Right Left Pressure 13 11 Pupils Pupils Light Shape React APD Right PERRL 3 Round Brisk None Left PERRL 3 Round Brisk None Visual Agudelo (Counting fingers) Right Left Full Full Extraocular Movement Right Left Full Full Neuro/Psych Oriented x3: Yes Dilation Both eyes: 0.5% Proparacaine @ 1:45 PM Dilation #2 Both eyes: 1.0% Mydriacyl, 2.5% Phenylephrine @ 1:45 PM Dilation Comments Patient cautioned that effects of dilation may last 2-7 hours dependant upon individual reaction. It was discussed that driving while dilated is not recommended. EXTERNAL: The ocular adnexae are unremarkable. SLE: Lids/Lashes: wnl OU Conjunctiva/Sclera: quiet OU Cornea: clear OD; small scar inferiorly OS Anterior Chamber: deep and quiet OU Iris: normal OU; no NVI OU Lens: PCIOL OU Dilated fundus exam OD: vitreous: clear optic nerve: 0.8, no edema/pallor/NVD macula: +rpe mottling, +drusen vessels: wnl midperiphery: wnl periphery: no RT/RD Dilated fundus exam OS: vitreous: clear optic nerve: 0.8, no edema/pallor/NVD macula: +drusen vessels: wnl midperiphery: wnl periphery: no RT/RD OCT Interpretation: OD: +PED w/ resolved recurrent mild SRFluid, no CME -STABLE, prior STABLE, prior STABLE, prior improved, prior worse, prior STABLE, prior STABLE, prior STABLE, prior improved, prior worse, prior STABLE, prior STABLE, prior worse, prior improved/dry worse, prior improved, prior worse, prior 11/15/2020 : +mild druse, no CME/SRfluid - stable OS: +mild drusen, no CME/SRfluid - stable OCT Optic nerve Interpretation - 01/13/2015: OD: 0.83, +ST thinning and possible inferior thinning OS: 0.80, +ST thinning A/P: 1. Exudative Age-Related Macular Degeneration OD -s/p Eylea (05/02/21.......05-31-20, 11-05-19, 09-03-19, 07-02-19, 05-14-19, 02-05-19, 01/16/18, 10-17-2017, 07-25-2017, 04-19-17, 01-10-17, 10-11-16, 07/19/16, 04/24/16, 02/07/16, 11/29/15, 09/27/15, 08/02/15, 06/14/15, 04/26/15, 03/01/15, 01/13/15, 11/19/14, 09/23/14, 08/26/14, 07/15/14, 06/03/14, 04/29/14, 03/25/14, 02/10/14, 12/29/13, 11/19/13, 10/20/13) ->2year since last injection - has gone 30 weeks, 11 months-- h/o mildly worsening SRFluid at 6-8 and 14 weeks on multiple occasions; has gone 1 year in past -pt wants prn tx 2. Intermediate Nonexudative Age-Related Macular Degeneration OS -recommend AREDS2 MVI as directed and Amsler grid qday 3. Glaucoma Suspect OU -IOP wnl, ?NTG -based on c/d ratio and nrr thinning on OCT and exam -HVF 24-2 01/12/[address] Can office shows arcuate defect OD and nasal step OS -monitored by [facility] 4. Pseudophakia OU -08/14 -stable 5. H/o Inferior Corneal ulcer OS -uses cpap at nightime, ?related to exposure -resolved F/u 6-8 weeks - dilate and OCT OU Teddy Hawkins DO [id number] CC: Cherry Blanco, OD PCP: Kojo Jacinto MD documented in this encounter Nursing Notes * Rashmi Orantes, RN - 08/15/2023 1:46 PM EST Haresh Clements is a 73 year old year old male who presents for AMD OD. Last Office Visit: 07/04/2023 (in office), Visit date not found (telemedicine) Patient currently states no change in vision. Are you diabetic? No Do you drive? yes OCT image(s) of both eyes acquired and filed/scanned into chart. documented in this encounter Plan of Treatment Upcoming Encounters Date Type Department Care Team (Late st Contact Info) Description 10/15/2023 2:00 PM EDT Office Visit Ophthalmology, [facility] [address] [place] [address] Teddy Hawkins DO [address] [place] [address] 05/04/2024 1:20 PM EST Office Visit Rheumatology [place] [id number] [facility] [place] [address] Bradley Juárez MD [address] [place] [address] Scheduled Orders Name Type Priority Associated Diagnoses Orde r Schedule RETINA SCAN DIAGNOSTIC IMAGE, POSTERIOR Procedures Routine Exudative age-related macular degeneration of right eye with inactive choroidal neovascularization (HCC) Ordered: 08/15/2023 Health Maintenance Due Date Last Done Comments Depression Screening 1962 DTaP,Tdap,and Td Vaccines (1 - Tdap) 02/10/1967 COLONOSCOPY-EVERY 5 YRS AGES 18-100 08/26/2013 08/26/2008 COVID-19 Vaccine ( - 2022- season) 2023 05/22/2021, 10/03/2020, 09/05/2020 Pneumococcal Vaccine: 65+ Years Completed 07/15/2018, 06/20/2015, 04/05/2014 Zoster Vaccines Completed 04/09/2019, 12/29, 04/05/2014 Hepatitis B Completed 08/28/2021, 03/02, 02/23/2021 Influenza Vaccine (FLU shot) Completed , 03/27/2021, 04/27/2020, Additional history exists GARDASIL-HPV IMMUNIZATION SERIES Aged Out No longer eligible based on patient's age to complete this topic MENINGOCOCCAL (MENACTRA/MENVEO) Aged Out No longer eligible based on patient's age to complete this topic documented as of this encounter Medical Devices Not on filedocumented as of this encounter Visit Diagnoses Diagnosis Exudative age-related macular degeneration of right eye with inactive choroidal neovascularization (HCC)- Primary documented in this encounter Advance Directives Latest Code Status on File Code Status Date Activated Date Inactivated Comments Full Code 01/01/2020 11:13 AM 01/07/2020 7:18 PM Question Answer Comments Discussion of Advance Direct aida occurred with: Not Discussed Does the patient have a Living Will? No Does the patient have Health Care Power of Barnworker Groom? No Code Status History Code Status Date Activated Date Inactivated Comments Full Code 07/16/2018 12:50 AM 07/25/2018 10:04 PM Thi s order reflects the patients wishes and were consensually agreed upon. Care Teams Wastewater Engineer Relationship Specialty Start Date End Date Kojo Jacinto MD [address] [facility] [place] [address] PCP - General Family Medicine 04/29/14 documented as of this encounter
--- OUTSIDE RECORDS SUMMARY | 2023-10-02 22:58 | External Medical Summary | Continuity of Care Document ---
Author Name Unknown Organization [address] [id number] Care Team Providers Care Materials Management Clerk Name Role Phone Kojo Jacinto Primary Care Physician [phone] Encounter [facility] [id number] Date(s): 08/14/23 - 08/14/[address] [address] [phone] Encounter Diagnosis Impaired fasting glucose(Discharge Diagnosis) - 08/14/23 Cirrhosis(Discharge Diagnosis) - 08/14/23 Cyst of skin(Discharge Diagnosis) - 08/14/23 Discharge Disposition: Home or Self Care Attending Physician: GABBIE Cedillo Tara Allergies, Adverse Reactions, Alerts Substance Reaction Severity Status clindamycin unknown Active penicillin Rash Active sulfa drugs lethargy, chills, disorientation Active SOREN Inhibitors anaphylaxis Active Assessment and Plan Extracted from: Title:follow up Author:GABBIE Cedillo Tara Date: 1.Impaired fasting glucose Acute/Chronic: chronic Goal:Resolution/ control Status:stable/controlled Data: records/pt report Plan:Discussed his [id number] is on borderline of pre-diabetes and diabetes. He had been on metformin in the past. He does not want to start another medication. Will hold on meds at this time. Will repeat in 3 mo. Also discussed dietary modification. 2.Cirrhosis Acute/Chronic: chronic Goal:Resolution/ control Status:stable/controlled Data: records/pt report Plan:LFTs are nl. He contd to drink. He is aware of harm. 3.Cyst of skin Acute/Chronic: chronic Goal:Resolution/ control Status:stable/controlled Data: records/pt report Plan: Will give him the [facility] surgery number. time spent reviewing chart, face to face visit, ordersand documentation: 30 min Immunizations Given and Recorded Vaccine Date Status [...] of 25 mg in the PM., Pharmacy: [id number] Start Date: 03/18/23 Status: Ordered diclofenac 1% topical gel Start: 02/26/22 14:05:00 EDT, See Instructions, Disp# 100 g, Refills: 5, APPLY 2 GRAMS TOPICALLY 4 TIMES A DAY NEEDED FOR PAIN, Pharmacy: [id number] Start Date: 02/26/22 Status: Ordered eplerenone 25 mg oral tablet Start: 04/15/23 15:57:00 EDT, 1 tab, PO, Daily, Disp# 30 tab, Refills: 11, Pharmacy: [id number] Start Date: 04/15/23 Status: Ordered fluocinonide 0.05% topical cream Start: 01/05/22 16:14:00 EDT, See Instructions, Disp# 60 g, Refills: 4, apply topically twice a day, Pharmacy: [id number] Start Date: 01/05/22 Status: Ordered [...] Daily, Disp# 90 tab, Refills: 3, Pharmacy: [id number] Start Date: 04/17/23 Status: Ordered triamcinolone 0.1% topical cream Start: 12/17/22 16:17:00 EDT, See Instructions, Disp# 454 g, Refills: 2, apply two times a day as directed, Pharmacy: [id number] Start Date: 12/17/22 Status: Ordered Tylenol 500 mg oral tablet Start: 07/28/20 13:24:00 EST, 1-2 tab up to 3 times a day as needed for pain Start Date: 07/28/20 Status: Ordered Xarelto 20 mg oral tablet Start: 01/06/21 16:44:00 EDT, 1 tab, PO, Daily, Rx'ed by Dr. 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 colonoscopy in 2014 [...] Diagnosis Diagnosis Type Effective Dates Health Status Cl inical Service Informant Cirrhosis Discharge Diagnosis 08/14/23 Impaired fasting glucose Discharge Diagnosis 08/14/23 Cyst of skin Discharge Diagnosis 08/14/23 Procedures Procedure Date Related Diagnosis Body Site [...] implantable cardioverter defibrillator (ICD) using fluoroscopic guidance 04/22/18 Completed Doppler ultrasound -Arterial - left [...] considered stable compared to the prior exam 17Dr. Luiz. 18[facility] Impression: 1. No acute fracture 2. Moderate osteoarthritis of the right shoulder 3. A few calcific densities along the superolateral aspect of the right humeral head which suggest calcific tendinitis 191. Findings highly suggestive of acute calculus cholecystitis. Surgical consultation. 2. Hepatomegaly. 20MN: 1. Gallbladder distention with moderate pericholecystic infiltrative [...] at the medial compartment where there is duty-mf-uall articulation. 351. no acute fracture. 2. Advanced [...] Most recent to oldest [Reference Range]: 1 Height 180.9 cm (08/14/23 1:23 PM) Patient Weight 134.9 kg (08/14/23 1:23 PM) Body Mass Index 41.22 kg/m2 (08/14/23 1:23 PM) Heart Rate 74 bpm (08/14/23 1:23 PM) Respiratory Rate 16 br/min (08/14/23 1:23 PM) Blood Pressure 138/82mmHg (08/14/23 1:23 PM) Cuff Pulse Pressure 56 mmHg (08/14/23 1:23 PM) Social History Social History Type Response Tobacco 1 Smoking Status Former Smoker, quit > 1 yr Sex Male 1smoked pipe for and cig for 45 year 1ppd or 14oz every 2 weeks ( I had pipe in my mouth at leat 50%of the time). quite1998 [facility] Outpt Note * GABBIE Cedillo Tara: PERFORM Event Display: [facility] Outpt Note Authored Date: [id number] Chief Complaint f/u for sore on left buttock History of Present Illness This appt was really supposed to be with VIDAL Alvarado with derm not with me. However pt had labsdone recently and his hgba1c was elevated so we addressed this issue. I had recommended starting metformin. He had been on this in the past and his levels had gone down so did not need it anymore. His LFTs were nl. Review of Systems Constitutional: No fever, chills, sweats EENT:No vision change, eye pain, rhinorrhea, sinus pain, epistaxis, dysphagia, change in hearing,tinnitus, vertigo, oral ulcers or lesions. Pulmonary: No shortness of breath, dyspnea with exertion, cough, hemoptysis, wheezing, chest pain. Cardiovascular: No chest pain, palpitations, syncope, edema, cyanosis, claudication, orthopnea. Psychiatric: No depression, anxiety Dermatologic: cyst on buttocks Endocrine: No weight change, heat or cold intolerance, tremor, insomnia, polyuria, polydipsia, polyphagia, abnormal hair growth, change in nails Physical Exam Vitals & Measurements HR:74(Monitored) RR:16 BP:138/82 SpO2:97% HT:180.9cm WT:134.900kg(Dosing) WT:134.9kg BMI:41.22 PHQ2 Data(Data Documented on:08/14/2023 13:23) Emotional health assessment NEGATIVE head- normocephalic Pulmonary- chest expansion symmetric, CTA (clear to auscultation), eupnea, no adventitious sounds (rales, crackles, wheezes) CV (cardiovascular)- RRR no m/r/g (systolic ejection murmur, rubs, gallops), good peripheral perfusion Neuro:Alert, Oriented Psy:no homicidal or suicidal ideations. Assessment/Plan 1.Impaired fasting glucose Acute/Chronic: chronic Goal:Resolution/ control Status:stable/controlled Data: records/pt report Plan:Discussed his [id number] is on borderline of pre-diabetes and diabetes. He had been on metformin in the past. He does not want to start another medication. Will hold on meds at this time. Will repeat in 3 mo. Also discussed dietary modification. 2.Cirrhosis Acute/Chronic: chronic Goal:Resolution/ control Status:stable/controlled Data: records/pt report Plan:LFTs are nl. He contd to drink. He is aware of harm. 3.Cyst of skin Acute/Chronic: chronic Goal:Resolution/ control Status:stable/controlled Data: records/pt report Plan:Will give him the [facility] surgery number. time spent reviewing chart, face to face visit, ordersand documentation: 30 min Problem List/Past Medical History Ongoing Alcohol dependence [...] mg= 1 tab, PO, Daily bifidobacterium-lactobacillus(Probiotic Formula) cannabis(Medical Marijuana) carvedilol(carvedilol 12.5 mg oral tablet), See Instructions, 11 refills diclofenac topical(diclofenac 1% topical gel), See Instructions eplerenone(eplerenone 25 mg oral tablet), 25 mg= 1 tab, PO, Daily, 11 refills fluocinonide topical(fluocinonide 0.05% topical cream), See Instructions, 4 refills fluticasone-vilanterol(Breo Ellipta 100 mcg-25 mcg/inh inhalation powder), 1 puff, inhaled, Daily furosemide(furosemide 20 mg oral tablet), 20 mg= 1 tab, PO, Daily, 3 refills hydrOXYzine(hydrOXYzine pamoate 25 mg oral capsule), 25 mg= 1 cap, PO, qid, PRN multivitamin, 1 tab, PO, Daily predniSONE(predniSONE 20 mg oral tablet), 20 mg= 1 tab, PO, Daily rivaroxaban(Xarelto 20 mg [...] mouth at leat 50% of the time). quited 1998 Family History Brain cancer..: Sister. Diabetes: Father. Stomach cancer..: MGM. Health Status Family Member(s) Mother: History is negative Immunizations Vaccine Date Status influenza virus vaccine, inactivated 05/04/2022 Given hepatitis B adult vaccine 08/28/2021 Given hepatitis A adult vaccine 08/28/2021 Given SARS-CoV-2 (COVID-19) mRNA BNT-162b2 vax 05/22/2021 Recorded Comments : 2022-10-01: Historical information-source unspecified hepatitis B adult vaccine 03/27/2021 Given influenza virus vaccine, inactivated 03/27/2021 Given hepatitis B adult vaccine 02/23/2021 Given hepatitis A adult vaccine 02/23/2021 Given SARS-CoV-2 (COVID-19) mRNA-1273 vaccine 10/03/2020 Recorded Comments : 2020-11-11: Historical information-source unspecified SARS-CoV-2 (COVID-19) mRNA-1273 vaccine 09/05/2020 Recorded Comments : 2020-11-11: Historical information-source unspecified influenza virus vaccine, inactivated 04/27/2020 Given zoster vaccine, inactivated 04/09/2019 Given influenza virus vaccine, inactivated 03/26/2019 Given pneumococcal 23-valent vaccine 07/15/2018 Recorded Comments : 2020-11-11: Historical information-source unspecified zoster vaccine, inactivated 01/08/2018 Given tetanus toxoids-diphtheria, Td (Adult) 04/18/2016 Given influenza virus vaccine, inactivated 03/09/2016 Given pneumococcal 13-valent vaccine 06/20/2015 Given influenza virus vaccine, inactivated 05/13/2015 Given pneumococcal 23-valent vaccine 04/05/2014 Given zoster vaccine live 04/05/2014 Given influenza virus vaccine, inactivated 03/30/2014 Given influenza virus vaccine, inactivated 04/22/2013 Given influenza virus vaccine, inactivated 06/09/2012 Given tetanus/diphtheria/pertuss, acel (Tdap) 07/03/2005 Recorded tetanus toxoids-diphtheria, Td (Adult) 11/29/1998 Recorded Recommendations Health Maintenance Pending(in the next year) OverDue Medicare Annual Wellness Visit due11/20/22and every 1year Adult Influenza Vaccine due02/28/23and every 1year Due Adult COVID-19 Vaccination due08/14/23Unknown Frequency Adult Social Determinants of Health Screening due08/14/23Unknown Frequency Falls Plan of Care due08/14/23Unknown Frequency Due In Future Diabetic Eye Exam not due until05/13/24and every 366day Diabetes Management A1c not due until08/09/24and every 366day Satisfied(in the past 1 year) Satisfied Body Mass Index on08/14/23.Satisfied by MARIOLA Mohan Heather Diabetes Management A1c on08/09/23.Satisfied by Contributor_system, [email or web address] Lipid Screening on08/09/23.Satisfied by Contributor_system, [id number] Electronic Signature on File Electronically Reviewed/Signed by: GABBIE Reyes Author Signature Dt/Tm:08/14/2023 04:04 PM Department of Family Medicine TB Patient Care team information Care Team Personnel Name: GABBIE Cedillo Tara Position: Nurse Pract - Family Med Member Role: Lifetime Relationship Address: Address: [address] [place] [address] [place] Name: MD Jacinto Juan Position: Physician - Family Med Member Role: Primary Care Provider Address: Address: [address] [place] [address] Care Team Related Persons Name: CAMI CLEMENTS Address: home [address] [place] [address] DR SWANN, [phone]
--- OUTSIDE RECORDS SUMMARY | 2023-10-02 22:58 | External Medical Summary | Continuity of Care Document ---
Author Name Unknown Organization [address] [id number] Care Team Providers Care Animal Ride Manager Name Role Phone Kojo Jacinto Primary Care Physician [phone] Encounter [facility] [id number] Date(s): 08/06/23 - 08/06/[address] [address] [phone] Encounter Diagnosis HYPERTENSION(Discharge Diagnosis) - 08/06/23 Dyslipidemia(Discharge Diagnosis) - 08/06/23 COPD(Discharge Diagnosis) - 08/06/23 Atrial fibrillation(Discharge Diagnosis) - 08/06/23 Non-ischemic cardiomyopathy(Discharge Diagnosis) - 08/06/23 Systolic CHF, chronic(Discharge Diagnosis) - 08/06/23 Cirrhosis(Discharge Diagnosis) - 08/06/23 Portal hypertensive gastropathy(Discharge Diagnosis) - 08/06/23 Alcohol dependence(Discharge Diagnosis) - 08/06/23 Porphyria cutanea tarda(Discharge Diagnosis) - 08/06/23 MORBID OBESITY(Discharge Diagnosis) - 08/06/23 Cyst of skin(Discharge Diagnosis) - 08/06/23 Impaired fasting glucose(Discharge Diagnosis) - 08/06/23 Discharge Disposition: Home or Self Care Attending Physician: GABBIE Cedillo Tara Referring Physician: GABBIE Cedillo Tara Allergies, Adverse Reactions, Alerts Substance Reaction Severity Status clindamycin unknown Active SOREN Inhibitors anaphylaxis Active penicillin Rash Active sulfa drugs lethargy, chills, disorientation Active Assessment and Plan Extracted from: Title:follow up Author:GABBIE Cedillo Tara Date:08/06/23 1.HYPERTENSION Acute/Chronic: chronic Goal:Resolution/ control Status:stable/controlled Data: records/pt report Plan:Contd on present regimen. 2.Dyslipidemia Acute/Chronic: chronic Goal:Resolution/ control Status:stable/controlled Data: records/pt report Plan:will check lipid. 3.COPD Acute/Chronic: chronic Goal:Resolution/ control Status:stable/controlled Data: records/pt report Plan:Dyspnea is stable. Using inhalers. 4.Atrial fibrillation 5.Non-ischemic cardiomyopathy 6.Systolic CHF, chronic Acute/Chronic: chronic Goal:Resolution/ control Status:stable/controlled Data: records/pt report Plan:No signs of CHF. HRR today. Contd on regimen per card. 7.Cirrhosis 8.Portal hypertensive gastropathy 9.Alcohol dependence Acute/Chronic: chronic Goal:Resolution/ control Status:stable/controlled Data: records/pt report Plan:He contd to drink. He is followed by GI. 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 11.MORBID OBESITY Acute/Chronic: chronic Goal:Resolution/ control Status:stable/controlled Data: records/pt report Plan:No weight loss. His mobility is limited so it is hard for him to be active. 12.Cyst of skin Acute/Chronic: chronic Goal:Resolution/ control Status:stable/controlled Data: records/pt report Plan: Refer to surgeon. 13.Impaired fasting glucose Acute/Chronic: chronic Goal:Resolution/ control Status:stable/controlled Data: records/pt report Plan: Will check hgba1c time spent reviewing chart, face to face visit, ordersand documentation: 43 min Immunizations Given and Recorded Vaccine Date [...] PO, Daily Start Date: 01/02/19 Status: Ordered Breo Ellipta 100 mcg-25 mcg/inh inhalation powder Start: 02/08/23 13:53:00 EDT, 1 puff, inhaled, Daily, Disp# 1 each Start Date: 02/08/23 Stop Date: 03/10/23 Status: Ordered carvedilol 12.5 mg oral tablet Start: 03/18/23 16:23:00 EDT, See Instructions, Disp# 90 tab, Refills: 11, Take 1 tab (12.5 mg) every morning and 2 tabs (12.5 mg tabs) in the PM for total of 25 mg in the PM., Pharmacy: [id number] Start Date: 03/18/23 Status: Ordered diclofenac 1% topical gel Start: 02/26/22 14:05:00 EDT, See Instructions, Disp# 100 g, Refills: 5, APPLY 2 GRAMS TOPICALLY 4 TIMES A DAY NEEDED FOR PAIN, Pharmacy: [id number] Start Date: 02/26/22 Status: Ordered eplerenone 25 mg oral tablet Start: 04/15/23 15:57:00 EDT, 1 tab, PO, Daily, Disp# 30 tab, Refills: 11, Pharmacy: [id number] Start Date: 04/15/23 Status: Ordered fluocinonide 0.05% topical cream Start: 01/05/22 16:14:00 EDT, See Instructions, Disp# 60 g, Refills: 4, apply topically twice a day, Pharmacy: [id number] Start Date: 01/05/22 Status: Ordered furosemide 20 mg oral tablet Start: 04/17/23 16:00:00 EDT, 1 tab, PO, Daily, Disp# 90 tab, Refills: 3, Pharmacy: [id number] Start Date: 04/17/23 Status: Ordered hydrOXYzine pamoate 25 mg oral capsule Start: 01/06/21 16:44:00 EDT, 1 cap, PO, qid, PRN: as needed for itching Start Date: 01/06/21 Status: Ordered Medical Marijuana Start: 02/20/22 14:09:00 EDT Start Date: 02/20/22 Status: Ordered multivitamin Start: 01/19/21 13:07:00 EDT, 1 tab, PO, Daily Start Date: 01/19/21 Status: Ordered predniSONE 20 mg oral tablet Start: 08/24/22 14:56:00 EST, 1 tab, PO, Daily Start Date: 08/24/22 Status: Ordered Probiotic Formula Start: 03/30/22 15:20:00 EDT Start Date: 03/30/22 Status: Ordered rosuvastatin 5 mg oral tablet Start: 04/17/23 15:55:00 EDT, 1 tab, PO, Daily, Disp# 90 tab, Refills: 3, Pharmacy: [id number] Start Date: 04/17/23 Status: Ordered triamcinolone 0.1% topical cream Start: 12/17/22 16:17:00 EDT, See Instructions, Disp# 454 g, Refills: 2, apply two times a day as directed, Pharmacy: [id number] Start Date: 12/17/22 Status: Ordered Tylenol 500 mg oral tablet Start: 07/28/20 13:24:00 EST, 1-2 tab up to 3 times a day as needed for pain Start Date: 07/28/20 Status: Ordered Xarelto 20 mg oral tablet Start: 01/06/21 16:44:00 EDT, 1 tab, PO, Daily, Rx'ed by Dr. Tirado Start Date: 01/06/21 Status: Ordered Mental Status 08/06/23 Barriers to Learning one year None evide nt Mandatory Health Literacy Documentation Yes Health Literacy Communication Barriers N ever Primary Language [place] Problem List Condition Confirmation Course Effective Dates [...] Joshi 3intraoperational [place] [facility] [place] 07/2012: mild to moderate [...] Effective Dates Health Status Clinical Service Informant HYPERTENSION Discharge Diagnosis 08/06/23 Dyslipidemia Discharge Diagnosis 08/06/23 COPD Discharge Diagnosis 08/06/23 Non-ischemic cardiomyopathy Discharge Diagnosis 08/06/23 Systolic CHF, chronic Discharge Diagnosis 08/06/23 Portal hypertensive gastropathy Discharge Diagnosis 08/06/23 Porphyria cutanea tarda Discharge Diagnosis 08/06/23 MORBID OBESITY Discharge Diagnosis 08/06/23 Atrial fibrillation Discharge Diagnosis 08/06/23 Cirrhosis Discharge Diagnosis 08/06/23 Alcohol dependence Discharge Diagnosis 08/06/23 Cyst of skin Discharge Diagnosis 08/06/23 Impaired fasting glucose Discharge Diagnosis 08/06/23 Procedures Procedure Date Related Diagnosis Body Site [...] to the prior exam 17Dr. Luiz. 18[facility] Impression: 1. No acute fracture 2. [...] at the medial compartment where there is [id number] articulation. 351. no acute fracture. 2. Advanced [...] oldest [Reference Range]: 1 Height 180.9 cm (08/06/23 2:25 PM) Patient Weight 134.9 kg (08/06/23 2:25 PM) Body Mass Index 41.22 kg/m2 (08/06/23 2:25 PM) Heart Rate 72 bpm (08/06/23 2:25 PM) Respiratory Rate 16 br/min (08/06/23 2:25 PM) Blood Pressure 144/72mmHg (08/06/23 2:25 PM) Cuff Pulse Pressure 72 mmHg (08/06/23 2:25 PM) Social History Social History Type Response Tobacco 1 Smoking Status Former Smoker, quit > 1 yr Sex Male 1smoked pipe for and cig for 45 year 1ppd or 14oz every 2 weeks ( I had pipe in my mouth at leat 50%of the time). quited 1998 [facility] Outpt Note * GABBIE Cedillo Tara: PERFORM Event Display: [facility] Outpt Note Authored Date: [id number] Chief Complaint f/u CHF/HTN, c/o sore on leftt buttock over the last few months, notes had treated in the past History of Present Illness Has cyst on buttock that he has had in the past that is bothering him again. It is not draining at this time. He has been seen by surgeon in the past. Drinking He quit for awhile. He is back to having 2-3 shots a night. FREDRICK uses CPAP nightly. Still having dyspnea on exertion. No worse. Quit smoking 1998. He follows with [facility] for porphyria/phlebotomies. Review of Systems Constitutional: No fever, chills, sweats EENT:No vision change, eye pain, rhinorrhea, sinus pain, epistaxis, dysphagia, change in hearing,tinnitus, vertigo, oral ulcers or lesions. Pulmonary: No shortness of breath, , cough, hemoptysis, wheezing, chest pain. +dyspnea with exertion. Cardiovascular: No chest pain, palpitations, syncope, edema, cyanosis, claudication, orthopnea. Wears compression socks due to edema. GI: No nausea, vomiting, diarrhea, melena, hematochezia, change in appetite, abdominal pain, changein bowel habits or stools Neurologic: No headache, lightheadedness, dizziness Psychiatric: No depression, anxiety, hallucinations, [place], suicidal/homicidal thoughts, binging, purging Dermatologic: Buttock cyst Endocrine: No weight change, heat or cold intolerance, tremor, insomnia, polyuria, polydipsia, polyphagia, abnormal hair growth, change in nails Physical Exam Vitals & Measurements HR:72(Monitored) RR:16 BP:144/72 SpO2:98% HT:180.9cm WT:134.9kg WT:134.900kg(Dosing) BMI:41.22 PHQ2 Data(Data Documented on:08/06/2023 14:25) Emotional health assessment NEGATIVE head- normocephalic eyes- PERRLA , conjunctiva clear, sclera white, anicteric, neck-no lymphadenopathy, masses, or thyromegaly, +carotid pulses, no bruits, trachea midline Pulmonary- chest expansion symmetric, CTA (clear to auscultation), eupnea, no adventitious sounds (rales, crackles, wheezes) CV (cardiovascular)- RRR no m/r/g (systolic ejection murmur, rubs, gallops), good peripheral perfusion extremitiesNo edema. . Has compression stockings on. skin-good turgor w/o lesions, redness, cyanosis, edema nails- no clubbing or deformities w good cap refill Neuro:Alert, Oriented, Psy:no homicidal or suicidal ideations. Assessment/Plan 1.HYPERTENSION Acute/Chronic: chronic Goal:Resolution/ control Status:stable/controlled Data: records/pt report Plan:Contd on present regimen. 2.Dyslipidemia Acute/Chronic: chronic Goal:Resolution/ control Status:stable/controlled Data: records/pt report Plan:will check lipid. 3.COPD Acute/Chronic: chronic Goal:Resolution/ control Status:stable/controlled Data: records/pt report Plan:Dyspnea is stable. Using inhalers. 4.Atrial fibrillation 5.Non-ischemic cardiomyopathy 6.Systolic CHF, chronic Acute/Chronic: chronic Goal:Resolution/ control Status:stable/controlled Data: records/pt report Plan:No signs of CHF. HRR today. Contd on regimen per card. 7.Cirrhosis 8.Portal hypertensive gastropathy 9.Alcohol dependence Acute/Chronic: chronic Goal:Resolution/ control Status:stable/controlled Data: records/pt report Plan:He contd to drink. He is followed by GI. 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 11.MORBID OBESITY Acute/Chronic: chronic Goal:Resolution/ control Status:stable/controlled Data: records/pt report Plan:No weight loss. His mobility is limited so it is hard for him to be active. 12.Cyst of skin Acute/Chronic: chronic Goal:Resolution/ control Status:stable/controlled Data: records/pt report Plan:Refer to surgeon. 13.Impaired fasting glucose Acute/Chronic: chronic Goal:Resolution/ control Status:stable/controlled Data: records/pt report Plan:Will check hgba1c time spent reviewing chart, face to face visit, ordersand documentation: 43 min Problem List/Past Medical History Ongoing Alcohol [...] mouth at leat 50% of the time). quite1998 Family History Brain cancer..: Sister. Diabetes: Father. [...] next year) OverDue Medicare Annual Wellness Visit due05/23/23and every 1year Adult Influenza Vaccine due02/28/23and every 1year Due Diabetes Management A1c due06/13/23and every 366day Adult COVID-19 Vaccination due08/06/23Unknown Frequency Adult Social Determinants of Health Screening due08/06/23Unknown Frequency Falls Plan of Care due08/06/23Unknown Frequency Due In Future Diabetic Eye Exam not due until05/13/24and every 366day Satisfied(in the past 1 year) Satisfied Body Mass Index on08/06/23.Satisfied by MARIOLA Mohan [facility] Lab Results Test Name Test Result Date/Time Na 142 mmol/L 04/05/2023 14:56 EDT K 3.9 mmol/L 04/05/2023 14:56 EDT Cl- 106 mmol/L 04/05/2023 14:56 EDT HCO3 27 mmol/L 04/05/2023 14:56 EDT Anion Gap 9 mmol/L 04/05/2023 14:56 EDT BUN 27 mg/dL 04/05/2023 14:56 EDT Cret 0.83 mg/dL 04/05/2023 14:56 EDT eGFR CKD-EPI >90 mL/min/1.73 m2 04/05/2023 14:56 EDT Glu 115 mg/dL 04/05/2023 14:56 EDT Ca 9.6 mg/dL 04/05/2023 14:56 EDT WBC 6.72 K/uL 04/05/2023 14:56 EDT Hgb 14.9 g/dL 04/05/2023 14:56 EDT Hct 43.0 % 04/05/2023 14:56 EDT RBC 4.22 M/uL 04/05/2023 14:56 EDT MCV 101.9 fL 04/05/2023 14:56 EDT MCHC 34.7 g/dL 04/05/2023 14:56 EDT MCH 35.3 pg 04/05/2023 14:56 EDT RDW 14.3 % 04/05/2023 14:56 EDT Plts 147 K/uL 04/05/2023 14:56 EDT MPV 9.9 fL 04/05/2023 14:56 EDT Type of Diff: AUTO 04/05/2023 14:56 EDT Immature Gran% 0.4 % 04/05/2023 14:56 EDT Neut% 54.9 % 04/05/2023 14:56 EDT Lymph% 30.4 % 04/05/2023 14:56 EDT Upson% 11.0 % 04/05/2023 14:56 EDT Baso% 0.3 % 04/05/2023 14:56 EDT Eos% 3.0 % 04/05/2023 14:56 EDT Immat Gran, Abs 0.03 K/uL 04/05/2023 14:56 EDT Neut, Abs 3.69 K/uL 04/05/2023 14:56 EDT Lymph, Abs 2.04 K/uL 04/05/2023 14:56 EDT Upson, Abs 0.74 K/uL 04/05/2023 14:56 EDT Baso, Abs 0.02 K/uL 04/05/2023 14:56 EDT Eos, Abs 0.20 K/uL 04/05/2023 14:56 EDT ALT 21 unit/L 04/05/2023 14:56 EDT T Bili 0.3 mg/dL 04/05/2023 14:56 EDT Alk Phos 92 unit/L 04/05/2023 14:56 EDT AST 24 unit/L 04/05/2023 14:56 EDT Alb 4.0 g/dL 04/05/2023 14:56 EDT Prot 8.1 g/dL 04/05/2023 14:56 EDT Ferritin 105.9 ng/mL 04/05/2023 14:56 EDT Electronic Signature on File Electronically Reviewed/Signed by: GABBIE Reyes Author Signature Dt/Tm:08/06/2023 03:27 PM Department of Family Medicine TB Patient Care team information Care Team Personnel Name: GABBIE Cedillo Tara Position: Nurse Pract - Family Med Member Role: Lifetime Relationship Address: Address: [address] [place] [address] Name: MD Jacinto Juan Position: Physician - Family Med Member Role: Primary Care Provider Address: Address: [address] [place] [address] Care Team Related Persons Name: CAMI CLEMENTS Address: home [address] [place], [phone]
--- OUTSIDE RECORDS SUMMARY | 2023-10-02 22:58 | External Medical Summary | Continuity of Care Document ---
Author Name Unknown Organization [facility] [address] [place], [place] [id number] Care Team Providers Care Epic Trainer Name Role Phone Kojo Jacinto Primary Care Physician [phone] [id number] Date(s): 08/09/23 - 08/09/23 [facility] 1 [facility] [address] [facility] 1 [place], [place] [phone] Encounter Diagnosis Impaired fasting glucose(Final) - Unspecified cirrhosis of liver(Final) - Hyperlipidemia, unspecified(Final) - Discharge Disposition: Home or Self Care Attending Physician: GABBIE Cedillo Tara Referring Physician: GABBIE Cedillo Tara Allergies, Adverse Reactions, Alerts Substance Reaction Severity Status clindamycin unknown Active sulfa drugs lethargy, chills, disorientation Active SOREN Inhibitors anaphylaxis Active penicillin Rash Active Immunizations Given and Recorded Vaccine Date Status [...] of 25 mg in the PM., Pharmacy: [id number] Start Date: 03/18/23 Status: Ordered diclofenac 1% topical gel Start: 02/26/22 14:05:00 EDT, See Instructions, Disp# 100 g, Refills: 5, APPLY 2 GRAMS TOPICALLY 4 TIMES A DAY NEEDED FOR PAIN, Pharmacy: [id number] Start Date: 02/26/22 Status: Ordered eplerenone 25 mg oral tablet Start: 04/15/23 15:57:00 EDT, 1 tab, PO, Daily, Disp# 30 tab, Refills: 11, Pharmacy: [id number] Start Date: 04/15/23 Status: Ordered fluocinonide 0.05% topical cream Start: 01/05/22 16:14:00 EDT, See Instructions, Disp# 60 g, Refills: 4, apply topically twice a day, Pharmacy: [id number] Start Date: 01/05/22 Status: Ordered furosemide 20 mg oral tablet Start: 04/17/23 16:00:00 EDT, 1 tab, PO, Daily, Disp# 90 tab, Refills: 3, Pharmacy: [id number] Start Date: 04/17/23 Status: [...] Daily, Disp# 90 tab, Refills: 3, Pharmacy: [id number] Start Date: 04/17/23 Status: Ordered triamcinolone 0.1% topical cream Start: 12/17/22 16:17:00 EDT, See Instructions, Disp# 454 g, Refills: 2, apply two times a day as directed, Pharmacy: [id number] Start Date: 12/17/22 Status: Ordered Tylenol 500 mg oral tablet Start: 07/28/20 13:24:00 EST, 1-2 tab up to 3 times a day as needed for pain Start Date: 07/28/20 Status: Ordered Xarelto 20 mg oral tablet Start: 01/06/21 16:44:00 EDT, 1 tab, PO, Daily, Rx'ed by Dr. Tirado Start Date: 01/06/21 Status: Ordered Problem List Condition Confirmation Course Effective Dates [...] Joshi 3intraoperational ERCP removal [place] [facility] [place] [place] 4[place]FT in 07/2012: mild to moderate [...] at 12cm H2O with c-flex of 2. Procedures Procedure Date Related Diagnosis Body Site [...] to the prior exam 17DrJuancarlos Dee. [facility] Impression: 1. No acute fracture 2. Moderate [...] at the medial compartment where there is [id number] articulation. 351. no acute fracture. 2. Advanced [...] study in one year would be recommended. Results Laboratory List Name Date Comprehensive Metabolic Panel (COMP META B PANEL) 08/09/23 Hemoglobin A1C (HEMOGLOBIN, A1C) 08/09/23 Lipid Profile (LIPOPROTEINS) 08/09/23 Most recent to oldest [Reference Range]: 1 eGFR CKD-EPI [>60 mL/min/1.73 m2] >90 mL /min/1.73 m2 1 (08/09/23 12:32 PM) Estimated Average Glucose 140 mg/dL 2 (08/09/23 12:32 PM) Non-HDL 77 mg/dL 3 (08/09/23 12:32 PM) Estimated CrCl 112.22 mL/min (08/09/23 1:25 PM) Anion Gap [5-14 mmol/L] 5 mmol/L (08/09/23 PM) Alb [3.5-5.0 g/dL] 3.8 g/dL (08/09/23 PM) Alk Phos [38-126 unit/L] 112 unit/L (08/09/23 PM) ALT [<50 unit/L] 26 unit/L (08/09/23 PM) AST [15-46 unit/L] 26 unit/L (08/09/23 PM) BUN [7-20 mg/dL] 17 mg/dL (08/09/23 PM) Ca [8.4-10.2 mg/dL] 9.3 mg/dL (08/09/23 PM) Chol/HDL 3 (08/09/23 PM) Chol [125-200 mg/dL] 111 mg/dL *LOW* (08/09/23 PM) Cl- [96-107 mmol/L] 107 mmol/L (08/09/23 PM) HCO3 [22-30 mmol/L] 27 mmol/L (08/09/23 PM) Cret [0.70-1.30 mg/dL] 0.80 mg/dL (08/09/23 PM) HbA1c [4.0-6.0 %] 6.5 % *HI* (08/09/23 PM) Glu [74-106 mg/dL] 119 mg/dL *HI* (08/09/23 PM) HDL [>35 mg/dL] 34 mg/dL *LOW* (08/09/23 PM) K [3.5-5.1 mmol/L] 4.2 mmol/L (08/09/23 PM) LDL Chol, Calculated [50-130 mg/dL] 57 m g/dL (08/09/23 PM) Na [137-145 mmol/L] 139 mmol/L (08/09/23 PM) T Bili [0.2-1.3 mg/dL] 0.6 mg/dL (08/09/23 12:32 PM) Prot [6.3-8.2 g/dL] 7.9 g/dL (08/09/23 12:32 PM) TG [<200 mg/dL] 101 mg/dL (08/09/23 12:32 PM) 1Result Comment: Testing Performed By: Dept of [facility] [address], [address], [place] [address] 2Result Comment: Testing Performed By: Dept of Pathology [facility] [address], [address], [place] [address] 3Result Comment: Testing Performed By: Dept of Pathology [facility] [address], [address], [place] [address] Social History Social History Type Response Tobacco 1 Smoking Status Former Smoker, quit > 1 yr Sex Male 1smoked pipe for and cig for 45 year 1ppd or 14oz every 2 weeks ( I had pipe in my mouth at leat 50%of the time). quite1998 Patient Care team information Care Team Personnel Name: GABBIE Cedillo Tara Position: Nurse Pract - Family Med Member Role: Lifetime Relationship Address: Address: [address] [place] [address] [place] Name: MD Jacinto Juan Position: Physician - Family Med Member Role: Primary Care Provider Address: Address: [address] [place] [address] Care Team Related Persons Name: CAMI CLEMENTS Address: home [address] [place] [address] [address] [place], [phone]
--- OUTSIDE RECORDS SUMMARY | 2023-10-02 22:58 | External Medical Summary | Summary of Care ---
Author Name Unknown Organization [facility] Address [address] [place] [address] Phone [phone] Care Team Providers Care Mortgage Sales Manager Name Role Phone Kojo Jacinto MD Primary Care Provider [phone] Reason for Visit * Reason Comments Follow Up 6-8 week f/u; pt rep orts not feeling as stable/well balanced as of recent * Precert (Within 10 days (routine)) - Authorized Specialty Diagnoses / Procedures Referred By Ashu morales Referred To Contact Ophthalmology Diagnoses Exudative age-related macular degeneration, right eye, with inactive choroidal neovascularization (HCC) Procedures MT AFLIBERCEPT INJECTION MT INTRAVITREAL NJX PHARMACOLOGIC AGT SPX Teddy Hawkins DO [address] [place] [address] Referral ID Status Reason Start Date Expiration Date V isits Requested Visits Authorized [id number] Authorized Precert 01/02/2023 01/01/2024 [id number] Encounter Details Date Type Department Care Team (Late st Contact Info) Description 07/04/2023 1:00 PM EST Office Visit Ophthalmology, [facility] [address] [place] [address] Teddy Hawkins DO [address] [place] [address] Exudative age-related macular degeneration of right eye with inactive choroidal neovascularization (HCC)*; Intermediate stage nonexudative age-related macular degeneration of left eye Allergies Active Allergy Reactions Criticality Noted Date Comments Salvador Inhibitors Anaphylaxis High 07/16/2018 Aminoglycosides Unknown 12/31/2019 Bacitracin Unknown 12/31/2019 Clindamycin Rash Medium 12/31/2019 Neomycin Unknown 12/31/2019 Penicillins 03/29/2010 Elevated temp Polymyxin B Unknown 12/31/2019 Sodium Phosphate Edema airway High 12/31/2019 Sulfa Antibiotics 03/29/2010 Does not remember reaction documented as of this encounter (statuses as of 07/04/2023) Medications Medication Sig Dispensed Refills Start Date [...] the morning. 0 03/27/2019 Active nystatin (NYSTOP) 102641 UNIT/GM powder Apply topically to affected area [...] as of this encounter (statuses as of 07/04/2023) Active Problems Problem Noted Date Diagnosed Date [...] as of this encounter (statuses as of 07/04/2023) Resolved Problems Problem Noted Date Diagnosed Date Resolved Date Calculus of bile duct with o bstruction and without cholangitis or cholecystitis 01/02/2020 Respiratory failure without hypercapnia 01/02/2020 01/03/2020 Acute cholecystitis 07/25/2018 01/02/20 Serologic abnormality 04/08/20122019 documented as of this encounter (statuses as of 07/04/2023) Immunizations Name Administration Dates Next Due COVID-19 [...] Cigarettes Q uit: 04/03/1999 Smokeless Tobacco: Never Alcohol Use Standard Drinks/Week Comments Yes 14 [...] Progress Notes * Teddy Hawkins, DO - 07/04/2023 1:00 PM EST HUMAIRA BLOOD [facility] [place] Nursing notes reviewed. Eye vitals reviewed. Mood and Affect: normal HPI: Haresh Clements is a 73 year old male who presents for AMD No other eye complaints. Denies significant pain. Base Eye Exam Visual Acuity (Snellen - Linear) Right Left Dist cc 20/25 -1 20/25 -1 Tonometry (Tonopen, 1:02 PM) Right Left Pressure 12 12 Pupils Pupils Right PERRL Left PERRL Visual Agudelo (Counting fingers) Right Left Full Full Extraocular Movement Right Left Full, Ortho Full, Ortho Neuro/Psych Oriented x3: Yes Mood/Affect: Normal Dilation Both eyes: 0.5% Proparacaine @ 1:00 PM Dilation #2 Both eyes: 1.0% Mydriacyl, 2.5% Phenylephrine @ 1:01 PM Dilation Comments Patient cautioned that effects [...] Age-Related Macular Degeneration OD -s/p Eylea (05/02/21.......05-31-20, 20, 09-03-19, 07-02-19, 05-14-19, 02-05-19, 01/16/18, 10-17-2017, 07-25-2017, [...] documented in this encounter Nursing Notes * Karuna Foote, MED ASSIST - 07/04/2023 12:55 PM EST Haresh Clements is a 73 year old year old male who presents for exud AMD OD . Last Office Visit: 05/13/2023 (in office), Visit date not found (telemedicine) Patient currently states no change in vision. Are you diabetic? No Do you drive? yes OCT image(s) of both eyes acquired and filed/scanned into chart. documented in this encounter Plan of Treatment Upcoming Encounters Date Type Department Care Team (Late st Contact Info) Description 08/15/2023 1:45 PM EST Office Visit Ophthalmology, [facility] [address] [place] [address] Teddy Hawkins DO [address] [place] [address] 05/04/2024 1:20 PM EST Office Visit Rheumatology [place] [id number] [employer] [place] [address] Bradley Juárez MD [facility] [employer] [place] [address] Scheduled Orders Name Type Priority Associated Diagnoses Orde r Schedule RETINA SCAN DIAGNOSTIC IMAGE, POSTERIOR Procedures Routine Exudative age-related macular degeneration of right eye with inactive choroidal neovascularization (HCC) Intermediate stage nonexudative age-related macular degeneration of left eye Ordered: 07/04/2023 Health Maintenance Due Date Last Done Comments Depression Screening 1962 DTaP,Tdap,and Td Vaccines (1 - Tdap) 02/10/1967 COLONOSCOPY-EVERY 5 YRS AGES 18-100 08/26/2013 08/26/2008 COVID-19 Vaccine (2022-24 season) 2023 05/22/2021, 10/03/2020, 09/05/2020 Pneumococcal Vaccine: [...] eye with inactive choroidal neovascularization (HCC)- Primary Intermediate stage nonexudative age-related macular degeneration of left eye documented in this encounter Advance Directives Latest Code Status on File Code Status Date Activated Date Inactivated Comments Full Code 01/01/2020 11:13 AM 01/07/2020 7:18 PM Question Answer Comments Discussion of Advance Direct aida occurred with: Not Discussed Does the patient have a Living Will? No Does the patient have Health Care Power of Vending Manager? No Code Status History Code Status Date Activated Date Inactivated Comments Full Code 07/16/2018 12:50 AM 07/25/2018 10:04 PM Thi s order reflects the patients wishes and were consensually agreed upon. Care Teams Mortgage Sales Manager Relationship Specialty Start Date End Date Kojo Jacinto MD [address] [place] [address] PCP - General Family Medicine 04/29/14 documented as of this encounter
--- OUTSIDE RECORDS SUMMARY | 2023-10-02 22:58 | External Medical Summary | Continuity of Care Document ---
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 Name Role Phone Kojo Jacinto Primary Care Physician [phone] [facility] [id number] Date(s): 09/13/23 - 09/13/23 [facility] [address] [facility] 2 [facility] RE[address] S[address]ER [address] [phone] Encounter Diagnosis Changing skin lesion(Discharge Diagnosis) - 09/13/23 Candidal intertrigo(Discharge Diagnosis) - 09/13/23 Discharge Disposition: Home or Self Care Attending Physician: JONNY Cedillo Holly C Referring Physician: JONNY Cedillo Holly C Allergies, Adverse Reactions, Alerts Substance Reaction Severity Status clindamycin unknown Active SOREN Inhibitors anaphylaxis Active penicillin Rash Active sulfa drugs lethargy, chills, disorientation Active Assessment and Plan Extracted from: Title:Dermatology Office Visit Note Author:JONNY Cedillo Holly C Date:09/13/23 1.Changing skin lesion Shave biopsy:After thorough discussion of the risks, benefits, and alternatives to the procedure, verbal consent was obtained. All questions were answered to the patient s satisfaction. A timeout process was then performed, during which the patient s name, date, and surgical site were confirmed. The surgical site was prepped with alcohol and anesthetized using 1% lidocainewithepinephrine. The lesion was then removed via tangential shave at the base using aDermabladeand sent for pathology. Hemostasis was achieved withaluminum chloride and electrodessication.Vaseline and dressing applied. The patient was educated on wound healing and scar formation and counseled on proper wound care and signs of infection. Verbal and written instructions were provided. The patient left the clinic ingood condition.Advised we will contact him with a phone call or a letter. If he does not hear from us in 2 weeks please call the office for results. Pictures in chart. Location: 1.6cm Size:left medial buttock 2.Candidal intertrigo Start nystatincream and nystatin powder both ordered twice a day,but will use nystatin cream in the morningand the powder in the eveningdue tothere is not a large amount of powderin the prescription size bottle. Will try to keep dry. He does put pads under abdomen fold to keep dry. Advised patient to call with any problems, questions, or concerns. States understanding. Patient was seen independently,Dr Fossavailable for immediate collaboration as needed during this visit. Will follow up in as needed Immunizations Given and Recorded Vaccine Date Status [...] of 25 mg in the PM., Pharmacy: [id number] Start Date: 03/18/23 Status: Ordered diclofenac 1% topical gel Start: 02/26/22 14:05:00 EDT, See Instructions, Disp# 100 g, Refills: 5, APPLY 2 GRAMS TOPICALLY 4 TIMES A DAY NEEDED FOR PAIN, Pharmacy: [id number] Start Date: 02/26/22 Status: Ordered eplerenone 25 mg oral tablet Start: 04/15/23 15:57:00 EDT, 1 tab, PO, Daily, Disp# 30 tab, Refills: 11, Pharmacy: [id number] Start Date: 04/15/23 Status: Ordered fluocinonide 0.05% topical cream Start: 01/05/22 16:14:00 EDT, See Instructions, Disp# 60 g, Refills: 4, apply topically twice a day, Pharmacy: [id number] Start Date: 01/05/22 Status: Ordered furosemide 20 mg oral tablet Start: 09/13/23 14:14:00 EDT, 1 tab, PO, Daily Start Date: 09/13/23 Status: Ordered hydrOXYzine pamoate 25 mg oral capsule Start: 01/06/21 16:44:00 EDT, 1 cap, PO, qid, PRN: as needed for itching Start Date: 01/06/21 Status: Ordered Medical Marijuana Start: 02/20/22 14:09:00 EDT Start Date: 02/20/22 Status: Ordered multivitamin Start: 01/19/21 13:07:00 EDT, 1 tab, PO, Daily Start Date: 01/19/21 Status: Ordered nystatin 100,000 units/g topical cream Start: 09/13/23 14:44:00 EDT, apply, topical, bid, Disp# 30 g, Refills: 5, apply under abdominal fold bid, Pharmacy: [id number] Start Date: 09/13/23 Status: Ordered nystatin 100,000 units/g topical powder Start: 09/13/23 14:43:00 EDT, apply, topical, bid, Disp# 60 g, Refills: 5, apply under abdominal fold bid, Pharmacy: [id number] Start Date: 09/13/23 Status: Ordered ofloxacin 0.3% ophthalmic solution Start: 09/13/23 14:12:00 EDT, 1 drop, both eyes, qid Start Date: 09/13/23 Status: Ordered prednisoLONE acetate 1% ophthalmic suspension Start: 09/13/23 14:11:00 EDT, 1 drop, both eyes, qid Start Date: 09/13/23 Status: Ordered Probiotic Formula Start: 03/30/22 15:20:00 EDT Start Date: 03/30/22 Status: Ordered rosuvastatin 5 mg oral tablet Start: 04/17/23 15:55:00 EDT, 1 tab, PO, Daily, Disp# 90 tab, Refills: 3, Pharmacy: [id number] Start Date: 04/17/23 Status: Ordered triamcinolone 0.1% topical cream Start: 12/17/22 16:17:00 EDT, See Instructions, Disp# 454 g, Refills: 2, apply two times a day as directed, Pharmacy: [id number] Start Date: 12/17/22 Status: Ordered Tylenol 500 mg oral tablet Start: 07/28/20 13:24:00 EST, 1-2 tab up to 3 times a day as needed for pain Start Date: 07/28/20 Status: Ordered Xarelto 20 mg oral tablet Start: 01/06/21 16:44:00 EDT, 1 tab, PO, Daily, Rx'ed by Dr. Tirado Start Date: 01/06/21 Status: Ordered Xarelto 20 mg oral tablet Start: 09/13/23 14:14:00 EDT Start Date: 09/13/23 Status: Ordered Problem List Condition Confirmation Course Effective Dates Status H ealth Status Informant Macular degeneration (senile) of retina Confirmed Active Alcohol dependence 1 Confirmed Active Atrial fibrillation Confirmed Active Cholelithiasis Confirmed Active Biventricular implantable cardioverter-defibril lator (ICD) in situ Confirmed Active Body mass index 40.0-44.9, adult Confirmed Active Non-ischemic cardiomyopathy 2 Confirmed Active Left carpal tunnel syndrome Confirmed Active Systolic CHF, chronic Confirmed Active Cirrhosis Confirmed Active Common bile duct stone 3 Confirmed Active COPD 4 Confirmed Active Cubital tunnel syndrome on left Confirmed Active Dyslipidemia Confirmed Active Edema Confirmed Active Gout Confirmed Active S/P carpal tunnel release Confirmed Active HYPERTENSION Confirmed 03/17/10 Active Hypertensive heart disease with heart failure Confirmed Active Impaired fasting glucose Confirmed Active LBBB [...] Joshi 3intraoperational ERCP removal of stone in [facility] 01/02/2020 4PFT in 07/2012: mild to moderate [...] Effective Dates Health Status Clinical Service Informant Changing skin lesion Discharge Diagnosis 09/13/23 Candidal intertrigo Discharge Diagnosis 09/13/23 Procedures Procedure Date Related Diagnosis Body Site Status Shave biopsy 1 09/13/[address] 2 11/13/22 Completed Chest x-ray 3 11/13/22 Completed Ultrasound--abdomen 4 11/02/22 Com pleted Eye examination 5 10/10/[address] of cervical spine 6 08/20/[address] of head 7 08/20/[address] of thoracic and lumbar spine 8 08/20/22 Completed EGD - Esophagogastroduodenoscopy 9 02/01/22 Completed Ultrasound--abdomen 10 11/02/21 Co mpleted Shave biopsy and cauterization of skin 09/21/21 Completed Colonoscopy 11, 12, 13 05/05/[address] of chest 14 01/12/[address] of abdomen and pelvis 15 11/24/20 Completed ERCP 16 12/31/[address] of abdomen and pelvis con only 17 12/30/19 Completed Carpal tunnel release 03/10/19 Com pleted Carpal tunnel release Left 18 03/10/19 Completed X-ray tomography of right shoulder 19 09/21/18 Completed US scan of gallbladder 20 08/01/[address] of abdomen and pelvis 21 07/25/18 Completed CXR - Chest X-ray 22 07/25/18 Comp leted Cholecystectomy 07/2018 Completed Insertion of cardiac biventr icular implantable cardioverter defibrillator (ICD) using fluoroscopic guidance 23 04/22/18 Completed Doppler ultrasound -Arterial - left lower extremity 24 03/18/18 Completed ECHO TRANSESOPHAGEAL 03/18/18 Comp leted Echocardiogram 25 03/13/18 Complet ed CXR - Chest X-ray 26 03/12/[address] 27 12/25/17 Completed X-ray 28 05/17/[address] Thorax 29 02/12/17 Comple ricardo Aortoiliac 30 10/26/[address] of chest 31 08/14/16 Completed Transthoracic echocardiography 32 05/22/16 Completed PET scan 33 04/11/16 Completed Knee X-ray right 34 03/06/16 Compl eted X-ray of left knee 35 03/06/16 Com pleted X-ray of right knee 36 03/06/16 Co mpleted Ultrasound-Right Axillary 37 02/27/16 Completed US - Ultrasound right axillary 38 02/27/[address] of chest 39 02/24/16 Completed US - Ultrasound or right axilla 40 02/23/16 Completed Left wrist x-ray 41 09/23/15 Compl eted Colonoscopy 42 08/13/14 Completed CXR - Chest X-ray 43 08/13/14 Comp leted Cataract surgery--left eye 09/16/13 Completed Right eye cataract surgery 08/26/13 Completed Electroencephalograph 44 07/09/12 Completed Sleep study, simultaneous re cording of ventilation, respiratory effort, ECG or heart rate, and oxygen saturation, attended by a technologist 07/09/12 Compl eted Colonoscopy 08/2008 Completed R CTS Completed Urethral Stricture Repair Completed 1left medial buttock 2no focal infiltrate, pleural effusion or pneumothorax. moderate compression deformity of T12, whichappears chronic. correlated for site of pain 3interstitial lung disease and cardiomegaly without acute abnormality 41) Possible cirrhosis. NO hepatic lesions identified although sensitvity diminshed given suboptimalpenetration. 2) Obsured pancreas 51. 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 intermediate nonexudative age-related macular degeneration left eye 3. glaucoma suspect both eyes 4. pseudophakia both eyes 5. h/o inferior corneal ulcer left eye 6Impression: There is no evidence of fracture or subluxation involving the cervical spine. Osteopenia and spondylotic change as above Periodontal disease as above. Follow-up with dentistry is recommended. 7Impression: No acute intracranial abnormality. Atrophy and microvascular ischemic changes. 8Impression: An acute superior endplate compression fracture at T12 demonstrating minimal loss of height. No associated retropulsion. There is a mild superior endplate compression fracture at T2 which is age indeterminate but may be acute. Old superior endplate compression deformities at T4 and T9. No acute fractures or subluxation within the lumbar spine. 9Normal esophagus. Portal hypertensive gastropathy, biopsied. Normal duodenal bulb and second portion of the duodenum. 101) Possible cirrhosis. NO hepatic lesions identified although sensitivity diminshed on this exam 2) Mild dilatation of the common bile duct. This could be related to cholecystectomy although correlation with obstructive liver function tests is recommended. 3) Partially obscured pancreas. 11Pathology results: A) Colon, sigmoid, "two polyps", polypectomy: Single fragment of hyperplastic polyp B) Rectum, polypectomy: hyperplastic polyp 12Repeat in 10 years. 13Impression: Redundant colon. Diverticulosis from sigmoid to transverse colon. Two 2 mm polyps in the sigmoid colon, removed with cold biopsy forceps. Resected and retrieved. One 3 mm polyp in the rectum, removed with a cold biopsy forces. Resected and retrieved. The examination was otherwise normal on direct and rertroflexion views. 14Impression: Pulmonary emphysema Stable tubular 20 mm left lower lobwe pulmonary nodule, unchanged in size since 2016 Pneumoblia Interval deveopment of superior endplate T4 and T9 vertebral body compression fractures. 15Impression: Possible proctitis as detailed above. Evaluation is [...] the chest on nonemergency basis is suggested. 16The major papilla was adjacent to a diverticulum. A single moderate biliary stricture was found in the lower third of the main bile duct. The stricture was benign appearing. Choledocholithiasis was found. Removal was not attempted, a stent was inserted. A minor papilla sphincterotomy was performed. One temprorary stent was placed in the common bile duct. 171. choledocholithiasis with a 9mm gallstone within the mid common bile duct. 2. dilated/ distended intrahepatic bile ducts. 3. edematous wall of the gallbladder. 4. 1.2 cm nodule left lung base considered stable compared to the prior exam 18Dr. Luiz. 19[facility] Impression: 1. No acute fracture 2. Moderate osteoarthritis of the right shoulder 3. A few calcific densities along the superolateral aspect of the right humeral head which suggest calcific tendinitis 201. Findings highly suggestive of acute calculus cholecystitis. Surgical consultation. 2. Hepatomegaly. 21MN: 1. Gallbladder distention with moderate pericholecystic infiltrative change. 2. Mild, nonobstructive reactive ileuns. 22Chronic congestive heart failure. 23Implantation of biventricular ICD. 24No evidence of heodynamic significant left lower extremity atrial stenosis 25EF of 20-25% with mild LVH 26Interstitial thickening which favors mild pulmonary edema. Stable cardiomegaly 271. Essentially stable size of the solid 1.7 cm left lower lobe nodule. The possibility of neoplasm cannot exluded. Further evaluation with PET/CT or tissue sampling to be considered. 2. Emphysema. 3. Hepatic steatosis. 28left ankle subacute appearing nondisplaced intra-artucular fracture of the medical malleolus with moderate soft tissue swelling. Romote appearing fractures of the talus with suggested aavascular necrosis and partial articular collapse. Associated at least noderate degenerative changes of the tibiotalar joint Heterogeneous mild bone demineralization. 29Impression: Stable appearance of the left lower lobe nodular density through the configuration o fthe nodule and apparent continuity with the pulmonary vasculature could suggest a vascular etiology. Subsequent examination with intravenous contrast is recommended to assess for this possibility. Extensive paraseptal and centrilobular emphysema Stable to slight interval decreaase in proiminence of enlarged mediastinal lymph nodes, which couldbe reactive. Cardiomegaly 301. Juxtarenal and infrarenal abdominal aorta is within normal limits, no aneurysm or significant stenosis identified. 2. the bilateral iliac arteries are within normal limits; no aneurysm or significant stenosis identified. 31Stable examination of the chest including unchanging nodular density left lung base. No new or interval process. 32Very technically difficulty study, even with the use of Definity contrast, due to patient body havitus. Study is limited. Mildly dilated left ventricle. Mild global hypokinesis with mildly reduced LVsystolic function. Abnormal septal motion consistent with bundle branch block. EF is 45-50%. Severeconcentric left ventricular hypertrophy. Grade I distastolic dysfunction of the left ventricle. Indeterminate E/e'ration. Since prior study of 1/4/13 the LV function has declined from 65% to mildly reduced. A complete report is available with the images in [employer] and is also available in Powerchart. 33The patients 21 mm left lower lobe pulmonary nodule is not FDG avid No evidence of pathological alphonse activity Emphysema 34impression: No acute fracture Advanced 3 compartment osteoarthritis. 35Tricompartmental left knee osteoarthritis as described above most pronounced at the medial compartment where there is [id number] articulation. 361. no acute fracture. 2. Advanced 3 compartment osteoarthritis. 37Interval development of a suspected subcutaneous fluid collection within the right axilla that measures approximately 3.8x1.2x3.6 cm. While nonspecific, this may reflect an abscess. Please correlate with clinical evidence for an infectious process. 38Impression: Interval development of a suspected subcutaneous fluid collection within the right axilla that measures approximately 3.8 x 1.2 x 3.6 cm. While nonspecific, this may reflect an abscess. please correlate with clinical evidence for an infectious process. 39Impression: There is a 3.6 x 1.3 x [...] hepatic steatosis. Cholelithiasis. Additional changes as above. 40Impression: No fluid collection or other sonographic abnormality identified within the right axilla. 41Impression: negative study 42No specimens taken. Repeat in 5 years. 43Mild bibasilar opacities. The findings could reflect atelectasis or less likely consolidation. Radipgraphic f/u is recommended. Pulmonary vascular congestion w/o overt pulmonary edema. Mild cardipmegaly. 44Dr. Dempsey The study suggests the patient responds well to c-pap with a final setting of continuous positive airway pressure of 12 cm of water with a c-flex of 2. A repeat study in one year would be recommended. Social History Social History Type Response Tobacco 1 Smoking Status Former Smoker, quit > 1 yr Sex Male 1smoked pipe for and cig for 45 year 1ppd or 14oz every 2 weeks ( I had pipe in my mouth at leat 50%of the time). quited 1998 Dermatology Outpatient Note * JONNY Cedillo, Laly Briones: PERFORM, MODIFY Event Display: Dermatology Outpt Note Authored Date: [id number] Chief Complaint RIGHT BUTT CHEEK: HX OF PIMPLE AND BOIL. REMOVED. Returned, not puss filled, causes pain to sit. Comes to a head then heals. History of Present Illness 73 YearsoldMalepatient here for acute visit. Patient reports area of concern today:Lesion on left medialbuttock. Has had off-and-on for years. Has had 2 biopsies in the pastbut is back again. Has a scab area, is very tender at timesto sit on. Cannot get it to heal. It does bleed on occasion. Her abdominal foldred, itchy, burning, for years uses [id number]-[id number] powders and creamswhich keep it under control. Family history melanoma:no Family history of BCC or SCC no Denies history of skin cancer. No other skin areas of concern. Otherwise healthy. 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 Lives with . Physical Exam Well developed, well nourished. no acute distress. normal mood and affect. alert and oriented x 3. Walks with cane and is pain from back. Able to get on exam table. Focused skin exam was performed todayof thebuttocks, 1.6cm tender, thick crusty lesion on left medial buttock. Under abdominal foldblotchy, erythemic, beefy red, with satellitosis. No unusual features under dermoscopy. Further exam was declined. Patient denies any other lesions of concern. Diagnostic Results Diagnosis 1. Skin, left buttock, shave biopsy: - Verrucal keratosis. Mei Smith MD (Electronically signed by) Verified: 09/26/2021 13:13 EDT Performing Location: [facility] Diagnosis 1Skin, buttocks, shave biopsy: - Verrucal keratosis, base not visualized (see Comment). Comment: The findings are consistent with a diagnosis of a wart; however, since the base of thelesion is not visualized, I am unable to entirely exclude the possibility of squamous cell carcinoma (verrucal carcinoma )and if the lesion persists, deeper biopsy may be helpful. Definitive coronoid lamella as can be seen in porokeratosis ptychotropica is not identified. Clinical pathological correlation is required. Vernon Crum MD (Electronically signed by) Verified: 08/04/2021 14:24 EST Performing Location: [facility] Laboratory Assessment/Plan 1.Changing skin lesion Shave biopsy:After thorough discussion of the risks, benefits, and alternatives to the procedure,verbal consent was obtained. All questions were answered to the patients satisfaction. A timeoutprocess was then performed, during which the patients name, date, and surgical site were confirmed. The surgical site was prepped with alcohol and anesthetized using 1% lidocainewithepinephrine. The lesion was then removed via tangential shave at the base using aDermabladeand sent for pathology. Hemostasis was achieved withaluminum chloride and electrodessication.Vaseline and dressing applied. The patient was educated on wound healing and scar formation and counseled on proper wound care and signs of infection. Verbal and written instructions were provided. The patient left the clinic ingood condition.Advised we will contact him with a phone call or a letter. If he doesnot hear from us in 2 weeks please call the office for results. Pictures in chart. Location: 1.6cm Size:left medial buttock 2.Candidal intertrigo Start nystatincream and nystatin powder both ordered twice a day,but will use nystatin cream inthe morningand the powder in the eveningdue tothere is not a large amount of powderin the prescription size bottle. Will try to keep dry. He does put pads under abdomen fold to keep dry. Advised patient to call with any problems, questions, or concerns. States understanding. Patient was seenindependently,Dr Fossavailable for immediate collaboration as needed during this visit. Will follow up in as needed Problem List/Past Medical History Ongoing Alcohol dependence Ambulatory dysfunction Atrial fibrillation Biventricular implantable cardioverter-defibrillator (ICD) in situ Body mass index 40.0-44.9, adult Cholelithiasis Cirrhosis Colon polyp Common bile duct stone COPD Cubital tunnel syndrome on left Dyslipidemia Edema Gout HYPERTENSION Hypertensive heart disease with heart failure Impaired fasting glucose LBBB Left carpal tunnel [...] Systolic dysfunction Tobacco abuse Procedure/Surgical History Chest x-ray| Service Date: 3Chest CT| Service Date: 11/13/2022Ultrasound--abdomen| Service Date: 11/02/2022Eye examination| Service Date: 3CT of thoracic and lumbar spine| Service Date: 3CT of cervical spine| Service Date: 3CT of head| Service Date: 08/20/2022EGD - Esophagogastroduodenoscopy| Service Date: 02/01/2022Ultrasound--abdomen| Service Date: 11/02/2021have biopsy and cauterization of skin| Service Date: 2Colonoscopy| Service Date: 1CT of chest| Service Date: 1CT of abdomen and pelvis| Service Date: 1ERCP| Service Date: 12/31/2019CT of abdomen and pelvis con only| Service Date: 12/30/2019Carpal tunnel release Left| Service Date: 03/10/2019Carpal tunnel release| Service Date: 03/10/2019X-ray tomography of right shoulder| Service Date: 09/21/2018US scanof gallbladder| Service Date: 08/01/2018CXR - Chest X-ray| Service Date: 07/25/2018CT of abdomen and pelvis| Service Date: 07/25/2018Cholecystectomy| Service Date: 07/2018Insertion of cardiac biventricular implantable cardioverter defibrillator (ICD) using fluoroscopic guidance| ServiceDate: 04/22/2018Doppler ultrasound -Arterial - left lower extremity| Service Date: 03/18/2018ECHO TRANSESOPHAGEAL| Service Date: 03/18/2018Echocardiogram| Service Date: 03/13/2018CXR - Chest X-ray| Service Date: 03/12/2018Chest CT| Service Date: 12/25/2017X-ray| Service Date: 05/17/2017Chest CT Thorax| Service Date: 02/12/2017Aortoiliac| Service Date: 10/26/2016CT of chest| Service Date: 08/14/2016Transthoracic echocardiography| Service Date: 05/22/2016PET scan|Service Date: 04/11/2016Knee X-ray right| Service Date: 03/06/2016X-ray of right knee| Service Date: 03/06/2016X-ray of left knee| Service Date: 03/06/2016US - Ultrasound right axillary| Service Date: 02/27/2016Ultrasound-Right Axillary| Service Date: 02/27/2016CT of chest| Service Date: 02/24/2016US - Ultrasound or right axilla| Service Date: 02/23/2016Left wrist x-ray| Service Date: 09/23/2015CXR - Chest X-ray| Service Date: 08/13/2014Colonoscopy| Service Date: 08/13/2014Cataract surgery--left eye| Service Date: 09/16/2013Right eye cataract surgery| Servic e Date: 08/26/2013Sleep study, simultaneous recording of ventilation, respiratory effort, ECG orheart rate, and oxygen saturation, attended by a technologist| Service Date: 07/09/2012Electroencephalograph| Service Date: 07/09/2012Colonoscopy| Service Date: 08/2008R CTSUrethral Stricture Repair Medications acetaminophen(Tylenol 500 mg [...] 0.05% topical cream), See Instructions, 4 refills furosemide(furosemide 20 mg oral tablet), 20 mg= 1 tab, PO, Daily hydrOXYzine(hydrOXYzine pamoate 25 mg oral capsule), 25 mg= 1 cap, PO, qid, PRN multivitamin, 1 tab, PO, Daily nystatin topical(nystatin 100,000 units/g topical powder), apply, topical, bid, 5 refills nystatin topical(nystatin 100,000 units/g topical cream), apply, topical, bid, 5 refills ofloxacin ophthalmic(ofloxacin 0.3% ophthalmic solution), 1 drop, both eyes, qid prednisoLONE ophthalmic(prednisoLONE acetate 1% ophthalmic suspension), 1 drop, both eyes, qid rivaroxaban(Xarelto 20 mg oral tablet), 20 mg= 1 tab, PO, Daily rivaroxaban(Xarelto 20 mg oral tablet) rosuvastatin(rosuvastatin 5 mg oral tablet), 5 mg= [...] History is negative Electronic Signature on File Electronically Reviewed/Signed by: Laly Cedillo PA-C Author Signature Dt/Tm:09/13/2023 02:52 PM Department of Dermatology Electronically Reviewed/Signed by: Hiram Foss MD Cosigner Signature Dt/Tm: 09/15/2023 11:28 AM Department of Dermatology [facility] Patient Care team information Care Team Personnel Name: GABBIE Cedillo Tara Position: Nurse Pract - Family Med Member Role: Lifetime Relationship Address: Address: [address] [place] [id number] Name: MD Jacinto Juan Position: Physician - Family Med Member Role: Primary Care Provider Address: Address: [address] [place] [address] Care Team Related Persons Name: CAMI CLEMENTS Address: home [address] [place] [address] [address] SWANN, [phone]
--- OUTSIDE RECORDS SUMMARY | 2023-10-02 22:58 | External Medical Summary | Continuity of Care Document ---
Author Name Unknown Organization [address] Address [address] [place], [place] [id number] Care Team Providers Care Biofuels Technology Manager Name Role Phone OrvilleAnn Marie parkeran Primary Care Physician [phone] Encounter [facility] [id number] Date(s): 09/26/23 - 09/26/[address], [address] [place] [address] [phone] Discharge Disposition: Home or Self Care Attending Physician: DO Joshi Jason D Referring Physician: DO Josih Jason D Allergies, Adverse Reactions, Alerts Substance Reaction Severity Status clindamycin unknown Active SOREN Inhibitors anaphylaxis Active penicillin Rash Active sulfa drugs lethargy, chills, disorientation Active Immunizations Given and Recorded Vaccine Date [...] of 25 mg in the PM., Pharmacy: [id number] Start Date: 03/18/23 Status: Ordered diclofenac 1% topical gel Start: 02/26/22 14:05:00 EDT, See Instructions, Disp# 100 g, Refills: 5, APPLY 2 GRAMS TOPICALLY 4 TIMES A DAY NEEDED FOR PAIN, Pharmacy: [id number] Start Date: 02/26/22 Status: Ordered eplerenone 25 mg oral tablet Start: 04/15/23 15:57:00 EDT, 1 tab, PO, Daily, Disp# 30 tab, Refills: 11, Pharmacy: [id number] Start Date: 04/15/23 Status: Ordered fluocinonide 0.05% topical cream Start: 01/05/22 16:14:00 EDT, See Instructions, Disp# 60 g, Refills: 4, apply topically twice a day, Pharmacy: [id number] Start Date: 01/05/22 [...] 5, apply under abdominal fold bid, Pharmacy: [id number] Start Date: 09/13/23 Status: Ordered nystatin 100,000 units/g topical powder Start: 09/13/23 14:43:00 EDT, apply, topical, bid, Disp# 60 g, Refills: 5, apply under abdominal fold bid, Pharmacy: [id number] Start Date: 09/13/23 Status: Ordered [...] Daily, Disp# 90 tab, Refills: 3, Pharmacy: [id number] Start Date: 04/17/23 Status: Ordered triamcinolone 0.1% topical cream Start: 12/17/22 16:17:00 EDT, See Instructions, Disp# 454 g, Refills: 2, apply two times a day as directed, Pharmacy: [id number] Start Date: 12/17/22 Status: Ordered [...] Joshi 3intraoperational ERCP removal of [place] [facility] [place] 4PFT in 07/2012: mild to moderate [...] was otherwise normalon direct and rertroflexion views. 14Impression: Pulmonary emphysema [...] to the prior exam 18Dr. Luiz. 19[facility] Impression: 1. No acute fracture 2. [...] at the medial compartment where there is aogv-qd-waon articulation. 361. no acute fracture. 2. Advanced [...] at leat 50%of the time). quited 1998 Cardiology * Event Display: Cardiac Device Check Authored Date: Please click on link to see image. Patient Care team information Care Team Personnel Name: GABBIE Cedillo Tara Position: Nurse Pract - Family Med Member Role: Lifetime Relationship Address: Address: [address] [place] [address] Name: MD Jacinto Juan Position: Physician - Family Med Member Role: Primary Care Provider Address: Address: [address] [place] [address] Care Team Related Persons Name: CAMI CLEMENTS Address: home [address] [place], [phone]
[2023-10-03] MEDS: CEFEPIME 2,000 MG in SYRINGE 0 ML IV SCH (00:22)
[2023-10-03] MEDS: ACETAMINOPHEN 325 MG TAB PO SCH (00:22)
[2023-10-03 07:36] LABS: Estimated Average Glucose 134 mg/dl; Hemoglobin A1C 6.3 % (4.5-5.6)
[2023-10-03] MEDS: carvediloL 12.5 MG TAB PO SCH (07:56)
[2023-10-03] MEDS: TAMSULOSIN HCL 0.4 MG CAP PO SCH (07:56)
[2023-10-03] MEDS: BUMETANIDE 1 MG TAB PO SCH (07:57)
--- NOTE | 2023-10-03 15:13 | Hospitalist Progress Note ---
Date of Service October 03, 2023 Assessment & Plan (1) Cellulitis of scrotum: Plan: -Currently stable and non-toxic appearing -Was sent to the ED from [facility] today due to concerns of scrotal cellulitis -Was initially prescribed topical nystatin cream and powder for irritation of the scrotum and groin last month -Patient states these made the irritation worse -Skin overlying the scrotum and BL groin appearred erythematous and boggy, scrotum is mildly swollen but no signs of Jackson gangrene -No signs of infection in the perineal region -CT of the pelvis w/IV con was consistent with scrotal cellulitis >No abscess or perineal inflammatory changes >No signs of gas in the infected area -WBC is WNL Currently on cefepime Urine culture growing gram-negative lisa. Follow culture results Flomax started. Will see if this improves his weak urine stream (2) Hypoxia: Plan: -Patient had an episode of hypoxia to 85% on RA on admission -He was given 4 mg IV morphine at 1614 -Suspect the morphine and his hx of FREDRICK lead to his hypoxia -Currently stable on RA -Lungs are clear on exam, chest x-ray showed mild pulmonary edema. However patient is completely asymptomatic -Incentive spirometry, prn O2 to keep SpO2 at or above 92% -Continue HS CPAP (3) Alcohol abuse: Plan: -Has been drinking 2-3 shots of vodka nightly -Last drink was approximately 2100 last night -No signs of withdrawal at this time, vitals are stable -Continue to monitor for signs of withdrawal (4) Atrial fibrillation: Plan: -Currently in NSR -Will obtain ECG on admission -Continue Xarelto -Continue Carvedilol (5) Hypertension: Plan: -Stable -Continue Carvedilol and Eplerenone (6) Cirrhosis: Plan: -LFT's WNL (7) Diabetes: Plan: -Monitor BSG ACHS, goal is 110-140 with active infection -Does not appear to be on medical management at home -Hgb A1c in 2019 was 5.7 -Start CF of 50 and CR of 15 ACHS for now -Current A1c is 6.3. Patient has been informed that he may need to get started back on metformin (8) Nonischemic cardiomyopathy: Plan: -Euvolemic on exam -Continue Bumex and Eplerenone (9) Porphyria cutanea tarda: Plan: -CBC is stable -Monitor daily CBC (10) FREDRICK (obstructive sleep apnea): Plan: -HS CPAP ordered Admission and Anticipated Discharge Date Admission Date: October 02, 2023 Subjective Patient says that he feels better today. His scrotal pain is improving. Review of Systems Review of Systems: All systems reviewed & are unremarkable except as noted in Subjective Physical Exam Physical Exam: General: Awake, conversant Heart: S1, S2/regular rate and rhythm, no murmur rubs or gallops Lungs: Clear to auscultation bilaterally. Normal effort Abdomen: Soft/nontender/nondistended. No hepatosplenomegaly. Skin over scrotum is erythematous. No open wounds seen. Less boggy today. Extremities: No clubbing/cyanosis. No edema Behavior: Appropriate, cooperative Results & Data Results & Data Vital Signs (Past 12 Hours) Vital Signs Temp Pulse Pulse Resp BP BP Pulse Ox 10/03/23 12:10 36.6 C 71 16 96/63 L 91 10/03/23 10:42 10/03/23 07:50 91 10/03/23 07:43 36.5 C 71 16 106/69 83 L 10/03/23 07:41 36.5 C 71 16 106/69 84 L 10/03/23 06:00 74 10/03/23 03:17 36.6 C 73 18 131/77 92 O2 Del Method 10/03/23 12:10 Room Air 10/03/23 10:42 Room Air 10/03/23 07:50 Room Air 10/03/23 07:43 Room Air 10/03/23 07:41 Room Air 10/03/23 06:00 10/03/23 03:17 Room Air Laboratory Results Abnormal lab results 10/02/23 10/02/23 10/03/23 Range/Units 11:50 18:05 08:11 ESR 53 H (0-20) mm/hr POC Glucose 101 H (70-99) mg/dl Hemoglobin A1c 6.3 H (4.5-5.6) % C-Reactive Protein 1.42 H (0-0.5) mg/dl Urine Blood 3+ H (Negative) Ur Leukocyte Esterase 3+ H (Negative) Urine WBC (Auto) >30 H (0-5) /hpf Urine RBC (Auto) >30 H (0-4) /hpf U Epithel Cells (Auto) 10-20 H (0-5) /lpf Urine Bacteria (Auto) 2+ H (Negative) PG Care Time/CCT Total # of Minutes Spent Total Time Spent with Patient: Total time spent is greater than 50% in coordination of care (as documented) at patient's floor/unit and/or counseling patient: Coding Level of Care Code 47415 SUB INP/OBS CARE 2/35MIN Diagnoses Cellulitis of scrotum N49.2 Hypoxia R09.02 Alcohol abuse F10.10 Atrial fibrillation I48.91 Essential hypertension I10 Hypertension type: essential hypertension Cirrhosis K74.60 Type 2 diabetes mellitus without complication, without long-term current use of insulin E11.9 Diabetes mellitus type: type 2 Diabetes mellitus terminal operations manager insulin use: without terminal operations manager use Diabetes mellitus complication status: without complication Nonischemic cardiomyopathy I42.8 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
[2023-10-03] MEDS: MoRPHine SULFATE 2 MG/ML CARP IV PRN (20:19)
[2023-10-04 06:38] LABS: Hematocrit (blood only) 38.3 % (42.0-52.0); Hemoglobin 12.9 g/dl (14.0-18.0); Mean Corpuscular Hemoglobin 34.4 pg (25.0-34.0); Mean Corpuscular Hgb Conc 33.7 g/dL (32.0-36.0); Mean Corpuscular Volume 102.1 fL (80.0-100.0); Mean Platelet Volume 9.9 fL (9.4-12.4); Platelet Count 132 K/uL (130-400); RDW Coefficient of Variation 15.9 % (11.5-14.5); RDW Standard Deviation 60.2 fL (36.4-46.3); Red Blood Count 3.75 M/uL (4.70-6.10); White Blood Count 5.66 K/ul (4.8-10.8)
[2023-10-04 07:02] LABS: BUN Creatinine Ratio 24.7 (10-20); Calcium 8.7 mg/dl (8.6-10.3); Creatinine Clr Calc Pharmacy 117.3 ml/min; Est GFR (African American) 102.9 ml/min; Est GFR (Non-African American) 88.8 ml/min; Potassium 3.6 mmol/L (3.5-5.1)
[2023-10-04] MEDS ORDERED: cefTRIAXone SODIUM 1,000 MG in DEXTROSE 5 % MINI-B 50 ML IV SCH (08:00)
[2023-10-04] MEDS: cefTRIAXone SODIUM 2,000 MG in DEXTROSE 5 % MINI-B 50 ML IV SCH (08:34)
--- NOTE | 2023-10-04 14:49 | Hospitalist Progress Note ---
Date of Service October 04, 2023 Assessment & Plan (1) Cellulitis of scrotum: Plan: -Currently stable and non-toxic appearing -Was sent to the ED from the Dermatology Clinic today due to concerns of scrotal cellulitis -Was initially prescribed topical nystatin cream and powder for irritation of the scrotum and groin last month -Patient states these made the irritation worse -Skin overlying the scrotum and BL groin appearred erythematous and boggy, scrotum is mildly swollen but no signs of Jackson gangrene -No signs of infection in the perineal region -CT of the pelvis w/IV con was consistent with scrotal cellulitis >No abscess or perineal inflammatory changes >No signs of gas in the infected area -WBC is WNL Switched from cefepime to ceftriaxone Urine culture growing Morganella sensitive to ceftriaxone Flomax started. Will see if this improves his weak urine stream (2) Hypoxia: Plan: -Patient had an episode of hypoxia to 85% on RA on admission -He was given 4 mg IV morphine at 1614 -Suspect the morphine and his hx of FREDRICK lead to his hypoxia -Currently stable on RA -Lungs are clear on exam, chest x-ray showed mild pulmonary edema. However patient is completely asymptomatic -Incentive spirometry, prn O2 to keep SpO2 at or above 92% -Continue HS CPAP (3) Alcohol abuse: Plan: -Has been drinking 2-3 shots of vodka nightly -Last drink was approximately 2100 last night -No signs of withdrawal at this time, vitals are stable -Continue to monitor for signs of withdrawal (4) Atrial fibrillation: Plan: -Currently in NSR -Will obtain ECG on admission -Continue Xarelto -Continue Carvedilol (5) Hypertension: Plan: -Stable -Continue Carvedilol and Eplerenone ( to bring this medicine from home) (6) Cirrhosis: Plan: -LFT's WNL (7) Diabetes: Plan: -Monitor BSG ACHS, goal is 110-140 with active infection -Does not appear to be on medical management at home -Hgb A1c in 2019 was 5.7 -Start CF of 50 and CR of 15 ACHS for now -Current A1c is 6.3. Patient has been informed that he may need to get started back on metformin (8) Nonischemic cardiomyopathy: Plan: -Euvolemic on exam -Continue Bumex and Eplerenone ( to bring this medicine from home) (9) Porphyria cutanea tarda: Plan: -CBC is stable -Monitor daily CBC (10) FREDRICK (obstructive sleep apnea): Plan: -HS CPAP ordered Admission and Anticipated Discharge Date Admission Date: October 02, 2023 Subjective Patient feels better overall. Pain improving. Review of Systems Review of Systems: All systems reviewed & are unremarkable except as noted in Subjective Physical Exam Physical Exam: General: Awake, conversant Heart: S1, S2/regular rate and rhythm, no murmur rubs or gallops Lungs: Clear to auscultation bilaterally. Normal effort Abdomen: Soft/nontender/nondistended. No hepatosplenomegaly. Skin over scrotum is erythematous. No open wounds seen. Swelling improved further. Swelling improved further. Extremities: No clubbing/cyanosis. No edema Behavior: Appropriate, cooperative Results & Data Results & Data Vital Signs (Past 12 Hours) Vital Signs Temp Pulse Pulse Resp BP Pulse Ox O2 Del Method 10/04/23 12:02 36.4 C L 71 17 145/96 H 98 Room Air 10/04/23 09:20 Room Air 10/04/23 09:20 72 10/04/23 08:26 36.3 C L 74 16 163/97 H 95 Room Air 10/04/23 03:26 20 94 10/04/23 03:02 78 18 162/91 H 91 Room Air O2 Flow Rate 10/04/23 12:02 10/04/23 09:20 10/04/23 09:20 10/04/23 08:26 10/04/23 03:26 2 10/04/23 03:02 Laboratory Results Abnormal lab results 10/03/23 10/04/23 10/04/23 Range/Units 20:18 05:55 11:48 RBC 3.75 L (4.70-6.10) M/uL Hgb 12.9 L (14.0-18.0) g/dl Hct 38.3 L (42.0-52.0) % MCV 102.1 H (80.0-100.0) fL MCH 34.4 H (25.0-34.0) pg RDW Std Deviation 60.2 H (36.4-46.3) fL RDW Coeff of Cindy 15.9 H (11.5-14.5) % BUN/Creatinine Ratio 24.7 H (10-20) POC Glucose 104 H 107 H (70-99) mg/dl PG Care Time/CCT Total # of Minutes Spent Total Time Spent with Patient: Total time spent is greater than 50% in coordination of care (as documented) at patient's floor/unit and/or counseling patient: Coding Level of Care Code 53113 SUB INP/OBS CARE 2/35MIN Diagnoses Cellulitis of scrotum N49.2 Hypoxia R09.02 Alcohol abuse F10.10 Atrial fibrillation I48.91 Essential hypertension I10 Hypertension type: essential hypertension Cirrhosis K74.60 Type 2 diabetes mellitus without complication, without long-term current use of insulin E11.9 Diabetes mellitus type: type 2 Diabetes mellitus intermediate insulin use: without intermediate use Diabetes mellitus complication status: without complication Nonischemic cardiomyopathy I42.8 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
--- NOTE | 2023-10-05 06:05 | Electrocardiogram Report ---
Test Reason : Blood Pressure : / mmHG Vent. Rate : 071 BPM Atrial Rate : 375 BPM P-R Int : 000 ms QRS Dur : 168 ms QT Int : 490 ms P-R-T Axes : 000 192 021 degrees QTc Int : 532 ms Poor data quality, interpretation may be adversely affected Ventricular-paced rhythm Abnormal ECG When compared with ECG of 08-MAR-2023 16:30, Vent. rate has decreased BY 17 BPM Confirmed by Kp Corbett ([id number]) on 10/05/2023 6:04:58 AM Referred By: REFERRED SELF Confirmed By:Kp Corbett
[2023-10-05 06:11] LABS: Hematocrit (blood only) 38.6 % (42.0-52.0); Hemoglobin 13.2 g/dl (14.0-18.0); Mean Corpuscular Hemoglobin 34.5 pg (25.0-34.0); Mean Corpuscular Hgb Conc 34.2 g/dL (32.0-36.0); Mean Corpuscular Volume 100.8 fL (80.0-100.0); Platelet Count 137 K/uL (130-400); RDW Coefficient of Variation 15.5 % (11.5-14.5); RDW Standard Deviation 57.5 fL (36.4-46.3); Red Blood Count 3.83 M/uL (4.70-6.10)
--- NOTE | 2023-10-05 13:25 | Hospitalist Progress Note ---
Date of Service October 05, 2023 Assessment & Plan (1) Cellulitis of scrotum: Plan: -Currently stable and non-toxic appearing -Was sent to the ED from the [facility]atology Clinic today due to concerns of scrotal cellulitis -Was initially prescribed topical nystatin cream and powder for irritation of the scrotum and groin last month -Patient states these made the irritation worse -Skin overlying the scrotum and BL groin appearred erythematous and boggy, scrotum is mildly swollen but no signs of Jackson gangrene -No signs of infection in the perineal region -CT of the pelvis w/IV con was consistent with scrotal cellulitis >No abscess or perineal inflammatory changes >No signs of gas in the infected area -WBC is WNL Switched from cefepime to ceftriaxone. Will now transition to p.o. Keflex Urine culture growing Morganella sensitive to cephalosporins Flomax started. Patient reports mild improvement in urinary stream (2) Hypoxia: Plan: -Patient had an episode of hypoxia to 85% on RA on admission -He was given 4 mg IV morphine at 1614 -Suspect the morphine and his hx of FREDRICK lead to his hypoxia -Currently stable on RA -Lungs are clear on exam, chest x-ray showed mild pulmonary edema. However patient is completely asymptomatic -Incentive spirometry, prn O2 to keep SpO2 at or above 92% -Continue HS CPAP (3) Alcohol abuse: Plan: -Has been drinking 2-3 shots of vodka nightly -Last drink was approximately 2100 last night -No signs of withdrawal at this time, vitals are stable -Continue to monitor for signs of withdrawal (4) Atrial fibrillation: Plan: -Currently in NSR -Will obtain ECG on admission -Continue Xarelto -Continue Carvedilol (5) Hypertension: Plan: -Stable -Continue Carvedilol and Eplerenone ( to bring this medicine from home) (6) Cirrhosis: Plan: -LFT's WNL (7) Diabetes: Plan: -Monitor BSG ACHS, goal is 110-140 with active infection -Does not appear to be on medical management at home -Hgb A1c in 2019 was 5.7 -Start CF of 50 and CR of 15 ACHS for now -Current A1c is 6.3. Patient has been informed that he may need to get started back on metformin (8) Nonischemic cardiomyopathy: Plan: -Euvolemic on exam -Continue Bumex and Eplerenone ( to bring this medicine from home) (9) Porphyria cutanea tarda: Plan: -CBC is stable -Monitor daily CBC (10) FREDRICK (obstructive sleep apnea): Plan: -HS CPAP ordered Plan Likely discharge tomorrow Downgrade to Medr unit Admission and Anticipated Discharge Date Admission Date: October 02, 2023 Subjective Patient says that his scrotal pain is improving. He thinks that his urinary frequency and dribbling is also improving Review of Systems Review of Systems: All systems reviewed & are unremarkable except as noted in Subjective Physical Exam Physical Exam: General: Awake, conversant Heart: S1, S2/regular rate and rhythm, no murmur rubs or gallops Lungs: Clear to auscultation bilaterally. Normal effort Abdomen: Soft/nontender/nondistended. No hepatosplenomegaly. Skin over scrotum is less erythematous. No open wounds seen. Swelling improved further. Swelling improved further. Extremities: No clubbing/cyanosis. No edema Behavior: Appropriate, cooperative Results & Data Results & Data Vital Signs (Past 12 Hours) Vital Signs Temp Pulse Pulse Resp BP BP Pulse Ox 10/05/23 11:01 36.5 C 66 17 142/93 H 100 10/05/23 08:18 36.4 C L 71 18 155/102 H 92 10/05/23 07:31 70 10/05/23 07:15 10/05/23 02:54 36.5 C 69 18 122/73 100 O2 Del Method 10/05/23 11:01 Room Air 10/05/23 08:18 Room Air 10/05/23 07:31 10/05/23 07:15 Room Air 10/05/23 02:54 Room Air, CPAP Laboratory Results Abnormal lab results 10/04/23 10/05/23 10/05/23 Range/Units 20:12 05:43 11:43 RBC 3.83 L (4.70-6.10) M/uL Hgb 13.2 L (14.0-18.0) g/dl Hct 38.6 L (42.0-52.0) % MCV 100.8 H (80.0-100.0) fL MCH 34.5 H (25.0-34.0) pg RDW Std Deviation 57.5 H (36.4-46.3) fL RDW Coeff of Cindy 15.5 H (11.5-14.5) % POC Glucose 106 H 114 H (70-99) mg/dl PG Care Time/CCT Total # of Minutes Spent Total Time Spent with Patient: Total time spent is greater than 50% in coordination of care (as documented) at patient's floor/unit and/or counseling patient: Coding Level of Care Code 68713 SUB INP/OBS CARE 2/35MIN Diagnoses Cellulitis of scrotum N49.2 Hypoxia R09.02 Alcohol abuse F10.10 Atrial fibrillation I48.91 Essential hypertension I10 Hypertension type: essential hypertension Cirrhosis K74.60 Type 2 diabetes mellitus without complication, without long-term current use of insulin E11.9 Diabetes mellitus type: type 2 Diabetes mellitus retirement insulin use: without retirement use Diabetes mellitus complication status: without complication Nonischemic cardiomyopathy I42.8 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
[2023-10-05] MEDS: cephALEXin 500 MG CAP PO SCH (18:17)
[2023-10-06 07:20] LABS: Hematocrit (blood only) 38.6 % (42.0-52.0); Hemoglobin 13.6 g/dl (14.0-18.0); Mean Corpuscular Hemoglobin 34.8 pg (25.0-34.0); Mean Corpuscular Hgb Conc 35.2 g/dL (32.0-36.0); Mean Corpuscular Volume 98.7 fL (80.0-100.0); Mean Platelet Volume 9.8 fL (9.4-12.4); Platelet Count 142 K/uL (130-400); RDW Coefficient of Variation 15.5 % (11.5-14.5); RDW Standard Deviation 56.7 fL (36.4-46.3); Red Blood Count 3.91 M/uL (4.70-6.10); White Blood Count 5.65 K/ul (4.8-10.8)
--- NOTE | 2023-10-06 08:56 | Discharge Summary ---
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 He was noted to be stable on arrival to the ED but was reported to be hypoxic at 85% on RA while in the ED. Labs including CBC and CMP were unremarkable. CT of the pelvis w/IV con was read as "1. Findings suggestive of scrotal cellulitis. 2. No abscess or perineal inflammatory changes. 3. No acute intrapelvic abnormality. 4. Colonic diverticulosis.". The patient was given a dose of Doxycycline, 4 mg IV morphine, 1L NSS, and 4 mg IV zofran prior to admission. At the time of the exam the patient was sitting in bed in no acute distress. States that he had been seen by his [facility] [facility] last month for a cyst on his back. While at the appointment they noted erythema and irritation of his scrotum and groin. They prescribed him Nystatin powder and cream for this. Review of his prescription hx shows he picked these up on 09/13/23. He tried the cream for 3 days but it did not appear to be helping. He then switched to the powered for a few days. After trying the powder the irritation became worse. He was seen for follow up in the Urology Clinic this am and they sent him to the ED due to concerns for cellulitis. He is currently drinking 2-3 shots of Vodka a night, last drink was last night around 2100. Denies recent withdrawal symptoms if he does not drink and denies withdrawal symptoms at this time. He denies recent fever, chills, chest pain, SOB, cough, abd pain, nausea, vomiting, dysuria, hematuria, diarrhea, melena, and recent trauma. When asked, he states he has had a weak urine stream for years, this often causes urine to make contact with his scrotum and groin making them wet and irritated. He has not been prescribed medication for his weak stream in the past but would be inserted in trying while admitted. He is a full code and his would make decisions for him if he cannot make them himself. I spoke to the Pharmacy in regards to the patient receiving cephalosporins in the past. The patient has received both Cefepime and Cefazolin at [facility] in the past without reported complications. Please refer to Dr. Olivo's attestation for any changes to the treatment plan Admission Exam Per Admitting Provider General: In no acute distress, stated age, chronically ill appearing but non- toxic HEENT: Normocephalic, atraumatic, no scleral icterus, pupils around round, symmetrical, and reactive to light, moist mucus membranes, trachea midline, no thyromegaly Chest/Pulm: No respiratory distress, symmetrical chest expansion, clear breath sounds throughout Cardiac: RRR, no murmurs noted Abdomen: Negative for ascites and bruising, normoactive bowel sounds, soft, non- tender to palpation throughout : Skin overlying the scrotum is erythematous and boggy, no signs of open wounds or current drainage, no eschar, curst noted near the penile head without signs of acute drainage >Skin overlying the groin and medial upper thigh are similar to scrotal findings Musculoskeletal: Symmetrical and without signs of acute trauma, upper and lower extremities with full ROM, no atrophy, spasticity, or flaccidity Extremities: Radial, dorsalis pedis, and posterior tibial pulses are intact and symmetrical, no edema noted in the BL LE's Skin: See exam Neuro: Alert and oriented to person, place, month, year, and president, no focal defects, no tremors noted Psych: No acute distress, calm and cooperative during the exam Principal Diagnosis Scrotal cellulitis - UTI - Likely BPH Discharge Exam General: Awake, conversant Heart: S1, S2/regular rate and rhythm, no murmur rubs or gallops Lungs: Clear to auscultation bilaterally. Normal effort Abdomen: Soft/nontender/nondistended. No hepatosplenomegaly. Skin over scrotum is much less erythematous. No open wounds seen. Swelling improved further. Extremities: No clubbing/cyanosis. No edema Behavior: Appropriate, cooperative Discharge Data Allergies Allergy/AdvReac Type Severity Reaction Status Date / Time sodium phosphate Allergy Severe THROAT Verified 05/10/23 14:39 SWELLING clindamycin Allergy Intermediate RASH Verified 05/10/23 14:39 Penicillins Allergy Intermediate RASH Verified 05/10/23 14:39 Sulfa (Sulfonamide Allergy Intermediate Rash Verified 05/10/23 14:39 Antibiotics) SOREN Inhibitors Allergy Unknown Unknown Verified 05/10/23 14:39 Aminoglycosides Allergy Unknown Unknown Verified 05/10/23 14:39 bacitracin Allergy Unknown Unknown Verified 05/10/23 14:39 neomycin Allergy Unknown Unknown Verified 05/10/23 14:39 polymyxin B Allergy Unknown Unknown Verified 05/10/23 14:39 Consultations 10/02/23 17:51 ED Decision to Admit Stat Ordered Studies 10/02/23 16:13 CT pelvis w/IV con only Stat Hospital Course (1) Cellulitis of scrotum: -Currently stable and non-toxic appearing -Was sent to the ED from the Dermatology Clinic today due to concerns of scrotal cellulitis -Was initially prescribed topical nystatin cream and powder for irritation of the scrotum and groin last month -Patient states these made the irritation worse -Skin overlying the scrotum and BL groin appearred erythematous and boggy, scrotum is mildly swollen but no signs of Jackson gangrene -No signs of infection in the perineal region -CT of the pelvis w/IV con was consistent with scrotal cellulitis >No abscess or perineal inflammatory changes >No signs of gas in the infected area -WBC is WNL Switched from cefepime to ceftriaxone. Transition to p.o. Keflex yesterday Patient continues to improve on p.o. Keflex Urine culture growing Morganella sensitive to cephalosporins Flomax started. Patient reports mild improvement in urinary stream. Will continue Flomax (2) Hypoxia: -Patient had an episode of hypoxia to 85% on RA on admission -He was given 4 mg IV morphine at 1614 -Suspect the morphine and his hx of FREDRICK lead to his hypoxia -Currently stable on RA -Lungs are clear on exam, chest x-ray showed mild pulmonary edema. However patient is completely asymptomatic -Incentive spirometry, prn O2 to keep SpO2 at or above 92% -Continue HS CPAP (3) Alcohol abuse: -Has been drinking 2-3 shots of vodka nightly -Last drink was approximately 2100 last night -No signs of withdrawal during this hospital stay (4) Atrial fibrillation: -Currently in NSR -Will obtain ECG on admission -Continue Xarelto -Continue Carvedilol (5) Hypertension: -Stable -Continue Carvedilol and Eplerenone (6) Cirrhosis: -LFT's WNL (7) Diabetes: -Monitor BSG ACHS, goal is 110-140 with active infection -Does not appear to be on medical management at home -Hgb A1c in 2019 was 5.7 -Start CF of 50 and CR of 15 ACHS for now -Current A1c is 6.3. Patient has been informed that he may need to get started back on metformin (8) Nonischemic cardiomyopathy: -Euvolemic on exam -Continue Bumex and Eplerenone (9) Porphyria cutanea tarda: -CBC is stable -Monitor daily CBC (10) FREDRICK (obstructive sleep apnea): -HS CPAP ordered Plan Likely discharge tomorrow Downgrade to MedSurg unit Total Time Total Time Spent Total Time Spent (In Minutes): 35 Discharge Plan Discharge Items Patient Disposition: Home - Self-Care Reason For Visit: SCROTAL CELLULITIS, HYPOXIA Discharge Diagnosis: Scrotal cellulitis - UTI - Likely prostate enlargement Activity: Resume your previous activity Non-emergency contact: Primary Care Provider Call non-emergency contact if: you have any medication questions and your symptoms worsen Follow-up/Referrals: Kojo Jacinto MD [Primary Care Provider] - Diet: Carb Consistent or DM2 and Heart Healthy Addtl Attending Provider Instructions: Advised to follow-up with PCP in 1 week Advised to note that your most recent hemoglobin A1c was 6.3. You will need to work on lifestyle modification and may need to go back on metformin. This will need to be pursued by your primary care physician Advised to note that you are being discharged on an antibiotic to complete the course for treatment of scrotal cellulitis as well as urinary tract infection Advised to note that you have been started on Flomax to help with your urinary symptoms. You may have a prostate enlargement that needs to be addressed by your primary care physician Pending Studies at Discharge: No Stand-Alone Forms: My [facility] Medications and DC Order Prescriptions: New tamsulosin 0.4 mg Capsule 0.4 mg PO QAM 30 Days Qty: 30 0RF cephalexin 500 mg Capsule 500 mg PO BID 4 Days Qty: 8 0RF Continued triamcinolone acetonide 0.1 % cream 1 appln TOP DIRECTED PRN (Reason: Skin Irritation) Xarelto 20 mg tablet 20 mg PO QPM Qty: 90 1RF Rx Instructions: Must administer with evening meal. Per [facility]. Medical Marijuana 0 dose inhalation BID PRN (Reason: Pain) Rx Instructions: INHALATION OR DROP (OIL) (DME) CPAP Supplies Misc .Route Qty: 1 0RF Rx Instructions: Patient needs new tubing, attachments, filters, and masks. Lifetime need, aero care allopurinol 300 mg tablet 150 mg PO HS multivitamin Tablet 1 tab PO QAM acetaminophen [Tylenol] 325 mg Tablet 650 mg PO QID PRN (Reason: Pain) eplerenone 25 mg tablet 25 mg PO QAM diclofenac sodium 1 % gel 1 ea TOPICAL DIRECTED PRN (Reason: Pain) hydroxyzine HCl 25 mg Tablet 50 mg PO HS carvedilol 12.5 mg tablet See Rx Instructions .ROUTE .COMPLEX Rx Instructions: Take 12.5mg by mouth in the morning and 25mg by mouth at bedtime Ocuvite Adult 50 Plus 250 mg (90 mg-160 mg) Capsule 1 cap PO BID bumetanide 1 mg tablet 1 mg PO QAM Discharge Orders: Discharge Order (Routine); Ordered 10/06/23 Ordered By: Archana Rodriguez Admission Data Admit Date/Time: 10/02/23 19:37 Attending Provider: Archana Rodriguez Admit Provider: Romeo Olivo Primary Care Provider: Kojo Jacinto Other Providers: Romeo Olivo Coding Level of Care Code 82560 INP/OBS DISCH >30 MIN Diagnoses Cellulitis of scrotum N49.2 Hypoxia R09.02 Alcohol abuse F10.10 Atrial fibrillation I48.91 Essential hypertension I10 Hypertension type: essential hypertension Cirrhosis K74.60 Type 2 diabetes mellitus without complication, without long-term current use of insulin E11.9 Diabetes mellitus complication status: without complication Diabetes mellitus regulatory compliance manager insulin use: without regulatory compliance manager use Diabetes mellitus type: type 2 Nonischemic cardiomyopathy I42.8 Porphyria cutanea tarda E80.1 FREDRICK (obstructive sleep apnea) G47.33
== END 2023-10-06 09:35 | disposition home or self-care (01) | DRG 728 ==
LOC: ED 11:27 → 2N 19:37 → SUATTDRO 19:37 → 2N 21:32

== ENCOUNTER 2024-06-22 16:02 | Inpatient (IN) ==
[2024-06-22 17:20] LABS: Basophils # (auto) 0.04 K/uL (0.00-0.20); Basophils % (auto) 0.4 %; Eosinophils # (auto) 0.13 K/uL (0.00-0.50); Eosinophils % (auto) 1.3 %; Hematocrit (blood only) 41.2 % (42.0-52.0); Hemoglobin 14.4 g/dl (14.0-18.0); Immature Granulocytes # (auto) 0.12 K/uL (0.01-0.20); Immature Granulocytes % (auto) 1.2 %; Lymphocytes # (auto) 1.35 K/uL (1.20-3.40); Mean Platelet Volume 9.9 fL (9.4-12.4); Monocytes # (auto) 0.72 K/uL (0.11-0.59); Monocytes % (auto) 7.4 %; Neutrophils # (auto) 7.31 K/uL (1.40-6.50); Neutrophils % (auto) 75.7 %; Platelet Count 197 K/uL (130-400); RDW Coefficient of Variation 14.3 % (11.5-14.5); RDW Standard Deviation 52.4 fL (36.4-46.3); Red Blood Count 4.12 M/uL (4.70-6.10); White Blood Count 9.67 K/ul (4.8-10.8)
[2024-06-22 17:24] LABS: Alanine Aminotransferase 50 U/L (7-52); Albumin Globulin Ratio 0.9 (0.9-2); Albumin Level 3.7 gm/dl (3.4-5.0); Alkaline Phosphatase 120 U/L (34-104); Anion Gap 7 (3-11); Aspartate Aminotransferase 27 U/L (13-39); BUN Creatinine Ratio 22.7 (10-20); Blood Urea Nitrogen 15 mg/dl (6-23); Calcium 9.5 mg/dl (8.6-10.3); Carbon Dioxide 30 mmol/L (21-32); Chloride 104 mmol/L (98-107); Globulin 4.1 gm/dl (2.5-4.0); Glucose 97 mg/dl (70-99(Fasting)); Potassium 3.8 mmol/L (3.5-5.1); Sodium 141 mmol/L (136-145); Total Protein 7.8 gm/dl (6.0-8.3)
[2024-06-22] MEDS ORDERED: CEFEPIME 2,000 MG in SYRINGE 7.5 ML IV STA (17:40)
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
[2024-06-22 18:16] LABS: Magnesium 1.7 mg/dl (1.7-2.4)
[2024-06-22] MEDS: OPTIRAY 320 100ml IV ONE (18:22)
[2024-06-22 18:38] LABS: Partial Thromboplastin Time 28 Seconds (21-31)
--- NOTE | 2024-06-22 18:45 | CT Scan Report ---
EXAM: CT Abdomen and Pelvis With Intravenous Contrast INDICATION: Left groin and scrotal infection. TECHNIQUE: Axial computed tomography images of the abdomen and pelvis with intravenous contrast. Sagittal and coronal reformatted images were created and reviewed. This CT exam was performed using one or more of the following dose reduction techniques: automated exposure control, adjustment of the mA and/or kV according to patient size, and/or use of iterative reconstruction technique. CONTRAST: 91 ml of Optiray 320 was administered intravenously. COMPARISON: CT pelvis 10/02/[address] abdomen and pelvis 02/13/2021 FINDINGS: Limitations: None. Lung bases: There are now extensive irregular nodules ranging in size in both lung bases largest measuring 3.5 cm diameter. Pleural space: No basilar pleural effusion. Heart: Cardiomegaly noted. Cardiac pacing device noted. Metallic artifact limits assessment of lead integrity. Mediastinum: No abnormality noted. ABDOMEN: Liver: No abnormality noted. Gallbladder and bile ducts: Stable mild left hepatic lobe pneumobilia. Fatty liver. Normal hepatic contour. Small amount of air in the gallbladder likely secondary to prior sphincterotomy. The common bile duct is normal for age. No calcified stones. Pancreas: The pancreatic head is inflamed. Homogeneous enhancement of the pancreas. No mass, gas, calcification or ductal dilatation. Spleen: No significant abnormality noted. Adrenals: No significant abnormality noted. Kidneys and ureters: Simple bilateral renal cysts noted. No follow-up necessary. No stones or hydronephrosis. There is a punctate stone in the lower right kidney. Bilateral renal scarring stable. Stomach and bowel: Moderate amounts of stool scattered throughout the colon. Diverticulosis. No diverticulitis or obstruction. PELVIS: Appendix: No findings to suggest acute appendicitis. Bladder: No filling defects to suggest mass or large stone. No inflammation. Reproductive: No abnormalities noted. ABDOMEN and PELVIS: Intraperitoneal space: No free air. No significant fluid collection. Bones/joints: Moderate to severe degenerative changes noted throughout the spine with multiple chronic appearing compression deformities with mild height loss. No lytic or blastic lesions. Soft tissues: No significant abnormality noted. Vasculature: Atherosclerotic calcification of the aorta and branches. No aneurysm. Lymph nodes: New right retrocrural lymph node measures 3 cm short axis dimension. There are prominent normal-sized peripancreatic nodes likely reactive. There are shotty retroperitoneal nodes. IMPRESSION: 1. Acute pancreatitis. 2. Innumerable pulmonary nodules in the lung bases most consistent with metastatic disease. 3. New retrocrural, peripancreatic and retroperitoneal lymph nodes could reflect metastatic disease. ACT 112: Negative or not required by law. Electronically signed by Beverly Cardenas 06-22-2024 6:45 PM
[2024-06-22] MEDS: SODIUM CHLORIDE 0.9% 1,000 ML IV ONE (18:50)
[2024-06-22 19:13] LABS: Lipase 588 U/L (11-82)
[2024-06-22] MEDS: metroNIDAZOLE 500 MG/100 ML BAG IV STA (19:17)
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
[2024-06-22] MEDS ORDERED: DEXTROSE 50% 50 ML SYRINGE IV PRN (19:22)
[2024-06-22] MEDS ORDERED: CARBOHYDRATES FOR HYPOGLYCEMIA PO PRN (19:22)
[2024-06-22] MEDS ORDERED: GLUCOSE 10 TAB/TUBE PO PRN (19:22)
[2024-06-22] MEDS ORDERED: GLUCAGON FOR INJ 1 MG VIAL SQ PRN (19:22)
[2024-06-22] MEDS ORDERED: GLUCOSE 40% GEL 15 GM TUBE PO PRN (19:22)
[2024-06-22] MEDS ORDERED: LORazepam 2 MG/1 ML VIAL IV PRN (19:53)
[2024-06-22] MEDS ORDERED: ACETAMINOPHEN 500 MG TAB PO PRN (19:56)
[2024-06-22] MEDS: CEFEPIME 2000MG 2,000 MG/20 ML SYR IV STA (20:21)
[2024-06-22] MEDS: cefTRIAXone SODIUM 2,000 MG/50 ML BAG IV ONE (20:23)
[2024-06-22] MEDS: FOLIC ACID 1 MG TAB PO ONE (20:24)
[2024-06-22] MEDS: THIAMINE HCL 100 MG TAB PO ONE (20:24)
[2024-06-22] MEDS ORDERED: ACETAMINOPHEN 325 MG TAB PO PRN (22:52)
[2024-06-22] MEDS: INSULIN ASPART PER UNIT CHARGE SC SCH (22:53)
[2024-06-22] MEDS: LANTUS PER UNIT CHARGE SQ SCH (22:53)
[2024-06-22] MEDS: carvediloL 12.5 MG TAB PO SCH (23:11)
[2024-06-23] MEDS: RIVAROXABAN 20 MG TAB PO SCH (00:21)
[2024-06-23] MEDS: ALBUT/IPRATROP 3MG/0.5MG NEB 3 ML VIAL NEB ONE (01:15)
[2024-06-23] MEDS: metroNIDAZOLE 500 MG/100 ML BAG IV SCH (03:26)
[2024-06-23 07:54] LABS: Calcium 8.5 mg/dl (8.6-10.3); Creatinine Clr Calc Pharmacy 149.2 ml/min; Potassium 3.9 mmol/L (3.5-5.1)
[2024-06-23 07:56] LABS: Basophils # (auto) 0.04 K/uL (0.00-0.20); Basophils % (auto) 0.4 %; Eosinophils # (auto) 0.04 K/uL (0.00-0.50); Eosinophils % (auto) 0.4 %; Hematocrit (blood only) 34.8 % (42.0-52.0); Hemoglobin 11.9 g/dl (14.0-18.0); Immature Granulocytes # (auto) 0.09 K/uL (0.01-0.20); Immature Granulocytes % (auto) 0.8 %; Lymphocytes # (auto) 1.22 K/uL (1.20-3.40); Lymphocytes % (auto) 11.4 %; Mean Corpuscular Hemoglobin 34.3 pg (25.0-34.0); Mean Corpuscular Hgb Conc 34.2 g/dL (32.0-36.0); Mean Corpuscular Volume 100.3 fL (80.0-100.0); Monocytes # (auto) 0.84 K/uL (0.11-0.59); Monocytes % (auto) 7.9 %; Neutrophils # (auto) 8.43 K/uL (1.40-6.50); Neutrophils % (auto) 79.1 %; Platelet Count 167 K/uL (130-400); RDW Coefficient of Variation 14.3 % (11.5-14.5); RDW Standard Deviation 53.1 fL (36.4-46.3); Red Blood Count 3.47 M/uL (4.70-6.10); White Blood Count 10.66 K/ul (4.8-10.8)
[2024-06-23] MEDS: FOLIC ACID 1 MG TAB PO SCH (08:33)
[2024-06-23] MEDS: hydrOXYzine HCl 25 MG TAB PO SCH (08:33)
[2024-06-23] MEDS: ROSUVASTATIN CALCIUM 5 MG TAB PO SCH (08:33)
[2024-06-23] MEDS: BUMETANIDE 1 MG TAB PO SCH (08:34)
[2024-06-23] MEDS: carvediloL 12.5 MG TAB PO SCH (08:35)
[2024-06-23] MEDS: THIAMINE HCL 100 MG TAB PO SCH (08:36)
[2024-06-23] MEDS: OPTIRAY 320 100ml IV ONE (11:06)
--- NOTE | 2024-06-23 11:31 | CT Scan Report ---
CT chest diagnostic w con CLINICAL HISTORY: Further characterize nodules/lymphadenopathy TECHNIQUE: Multidetector row helical CT of the chest was performed with intravenous contrast. Coronal and sagittal reformations were obtained. Automated dose lowering techniques and/or adjustment accord ing to patient size were utilized for this exam. CT DOSE: 1385.55 mGy.cm Comparison: Comparison is made to chest 11/13/[address] abdomen pelvis 06/22/2024 FINDINGS: Lungs and pleura: Predominantly paraseptal emphysematous changes are seen. There are innumerable pulm onary nodules favoring the lower lobes measuring up to 39 mm on the left. Heart and pericardium: Cardiomegaly is seen with biatrial enlargement. Vessels: Mild atherosclerotic changes in the aorta and coronary arteries. No evidence of pulmonary em bolus within the limits of a nondedicated exam. Mediastinum and sterling: Subcentimeter lymph nodes are seen. Chest wall and lower neck: Unremarkable. Abdomen: Partial evaluation of the adrenal nodule and prominent ana hepatis node. Bones: Degenerative changes in the thoracic spine. IMPRESSION: Innumerable pulmonary nodules are concerning for metastatic disease. No shayla lymphadenopathy is seen . ACT 112: Negative or not required by law. Electronically signed by: Noel Weaver M.D. 06/23/2024 11:30 AM
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
--- NOTE | 2024-06-23 15:22 | Hospitalist Progress Note ---
Date of Service June 23, 2024 Assessment & Plan (1) Cellulitis of scrotum: Plan: Presented with recurrent left groin cellulitis x 1 week. History of same infection about 2-3 years ago, completely resolved after treatment at that time - Left leg/groin drainage, warmth, tenderness, erythema consistent with cellulitis - CT A/P does not show any evidence of deep abscess or perineal involvement - Wound care consulted - Blood cultures pending, continue to monitor - Continue Ceftriaxone and Flagyl (2) Pulmonary nodule: Plan: Innumerable pulmonary nodules noted on chest CT, suspect metastatic cancer - CT shows innumerable pulmonary nodules in the lung bases consistent with metastatic disease in addition to new retrocrural, peripancreatic, retroperitoneal lymph nodes - Oncology consulted -- consider IR guided biopsy of pulmonary nodule. Will follow-up to discuss biopsy results outpatient in 1-2 weeks. Will arrange outpatient PET/CT scan with or without brain MRI depending on pathology - IR CT guided left lung biopsy ordered - If IR biopsy not possible, will consult pulmonology for evaluation for bronchoscopy/EBUS with biopsy (3) Diabetes mellitus, type 2: Plan: Well controlled diabetic with A1c 6.3% - BSG 110-180 - Basal bolus insulin with SSI --Goal BSG Range: Low 110_mg/dL, High 180_mg/dL --Correction Factor: 30_mg/dL/unit --Carbohydrate ratio = _15_ g/unit --BSGs ACHS if eating, q6h if npo (4) Pancreatitis: Plan: Acute pancreatitis noted on CT. Do not see evidence of a mass or obstruction. Patient does have chronic alcohol use - Lipase elevated at 588. Bilirubin and LFTs are normal, no evidence of obstructive disease. CBD normal for age, small amount of gallbladder air suspected to be due to prior sphincterotomy - Clinically patient does not have abdominal pain, suspect subacute given elevated lipase and longstanding alcohol use - Diet as tolerated, 1 L supplemental IVF given on admission - If pain develops then make NPO and add antiemetic/narcotic pain control and IV fluids (5) Alcohol use disorder: Plan: History of 3-5 shots of whiskey per night use - Low risk for withdrawal as he is ~1 week out from any alcohol and has had alcohol free weeks recently - Patient is interested in stopping drinking entirely and notes that this has not been good for his health and feels it is likely that time. Encouragement provided - AWSS at risk protocol ordered Plan Ordered chest CT Consulted oncology Ordered IR biopsy Chronic/Stable Problems: - A-fib: Continue Xarelto, carvedilol - Hypertension: Continue beta-jennifer, eplerenone DVT prophylaxis: Anticoagulated CODE STATUS: DNR/DNI Admission and Anticipated Discharge Date Admission Date: June 22, 2024 Supervising Physician Co-Signing Physician Notes The patient was not seen by me. The chart was reviewed. Case discussed with VIDAL Burdick. Agree with assessment and plan Subjective Patient seen and evaluated at bedside. He reports that his groin infection started approximately 1 week ago. He reports he had the same infection about 2- 3 years ago, but it had resolved completely. He states that his current infection "seems improved compared to 1 week ago." He states that he has been short of breath chronically for the past few years, but feels his shortness of breath is acutely exacerbated x 1 week. He reports he can barely climb stairs now due to dyspnea. He reports that he uses a CPAP at bedtime, but denies supplemental O2 use during the day at home. We discussed his antibiotic regimen for his current infection, as well as an oncology consult based on the pulmonary nodules noted on chest CT. No additional complaints or concerns at this time. Physical Exam Physical Exam: General: No acute distress, nondiaphoretic. Class 3 obesity. Skin: Left groin and left abdominal fold with demarcated warmth, erythema, tenderness and superficial ulceration. Some clear drainage but no obvious purulence. Foul odor present. Scrotal edema is present. No crepitus. Cardiac: Regular rate and rhythm without murmurs gallops or rubs. Pulm: Clear to auscultation bilaterally without wheezes, rales or rhonchi. RR 20 bpm. 96% on 4 L via NC. No respiratory distress. Abdominal: Soft, nontender, nondistended. Bowel sounds present. Neuro: A&O x3. No focal neurological deficits. Results & Data Results & Data Vital Signs (Past 12 Hours) Vital Signs Temp Pulse Resp BP Pulse Ox O2 Del Method O2 Flow Rate 06/23/24 14:33 97.5 F L 72 20 131/85 96 Nasal Cannula 06/23/24 08:00 98.1 F 71 22 130/79 93 Nasal Cannula 4 06/23/24 07:30 Nasal Cannula 4 Laboratory Results Reviewed CBC Reviewed BMP Reviewed blood cultures Diagnostic Findings Reviewed chest CT Chest CT 06/23/24 10:23 CT chest diagnostic w con CLINICAL HISTORY: Further characterize nodules/lymphadenopathy TECHNIQUE: Multidetector row helical CT of the chest was performed with intravenous contrast. Coronal and sagittal reformations were obtained. Automated dose lowering techniques and/or adjustment according to patient size were utilized for this exam. CT DOSE: 1385.55 mGy.cm Comparison: Comparison is made to chest 11/13/[address] abdomen pelvis 06/22/2024 FINDINGS: Lungs and pleura: Predominantly paraseptal emphysematous changes are seen. There are innumerable pulmonary nodules favoring the lower lobes measuring up to 39 mm on the left. Heart and pericardium: Cardiomegaly is seen with biatrial enlargement. Vessels: Mild atherosclerotic changes in the aorta and coronary arteries. No evidence of pulmonary embolus within the limits of a nondedicated exam. Mediastinum and sterling: Subcentimeter lymph nodes are seen. Chest wall and lower neck: Unremarkable. Abdomen: Partial evaluation of the adrenal nodule and prominent ana hepatis node. Bones: Degenerative changes in the thoracic spine. IMPRESSION: Innumerable pulmonary nodules are concerning for metastatic disease. No shayla l ymphadenopathy is seen. ACT 112: Negative or not required by law. Electronically signed by: Noel Weaver M.D. 06/23/2024 11:30 AM PG Care Time/CCT Total # of Minutes Spent Total Time Spent with Patient: Total time spent is greater than 50% in coordination of care (as documented) at patient's floor/unit and/or counseling patient: Coding Level of Care Code 68724 SUB INP/OBS CARE 3/50MIN Diagnoses Cellulitis of scrotum N49.2 Pulmonary nodule R91.1 Diabetes mellitus, type 2 E11.9 Pancreatitis K85.90 Acute pancreatitis complication: no infection or necrosis Chronicity: acute Pancreatitis type: unspecified pancreatitis type Alcohol use disorder F10.90 (4) Pancreatitis Acute pancreatitis complication: no infection or necrosis Chronicity: acute Pancreatitis type: unspecified pancreatitis type Qualified Code(s): K85.90 - Acute pancreatitis without necrosis or infection, unspecified
[2024-06-23] MEDS: POLYETHYLENE (MIRALAX) 17 GM PACK PO PRN (16:47)
[2024-06-23] MEDS: INFLUENZA VACC TS2024-25(65y+)/PF (IIV3) 0.5mL Syr IM ONE (18:56)
[2024-06-23] MEDS: cefTRIAXone SODIUM 2,000 MG/50 ML BAG IV SCH (19:42)
[2024-06-24 06:30] LABS: Basophils # (auto) 0.03 K/uL (0.00-0.20); Basophils % (auto) 0.3 %; Eosinophils # (auto) 0.07 K/uL (0.00-0.50); Eosinophils % (auto) 0.7 %; Hematocrit (blood only) 34.7 % (42.0-52.0); Immature Granulocytes # (auto) 0.12 K/uL (0.01-0.20); Immature Granulocytes % (auto) 1.2 %; Lymphocytes # (auto) 1.36 K/uL (1.20-3.40); Lymphocytes % (auto) 13.4 %; Mean Corpuscular Hemoglobin 34.4 pg (25.0-34.0); Mean Corpuscular Hgb Conc 34.6 g/dL (32.0-36.0); Mean Corpuscular Volume 99.4 fL (80.0-100.0); Mean Platelet Volume 9.5 fL (9.4-12.4); Monocytes # (auto) 0.88 K/uL (0.11-0.59); Monocytes % (auto) 8.7 %; Neutrophils # (auto) 7.67 K/uL (1.40-6.50); Neutrophils % (auto) 75.7 %; Platelet Count 157 K/uL (130-400); RDW Coefficient of Variation 14.1 % (11.5-14.5); RDW Standard Deviation 50.9 fL (36.4-46.3); Red Blood Count 3.49 M/uL (4.70-6.10); White Blood Count 10.13 K/ul (4.8-10.8)
[2024-06-24 07:04] LABS: Calcium 8.2 mg/dl (8.6-10.3); Potassium 3.6 mmol/L (3.5-5.1)
[2024-06-24 07:09] LABS: BUN Creatinine Ratio 21.1 (10-20); Creatinine Clr Calc Pharmacy 164.9 ml/min
--- NOTE | 2024-06-24 10:37 | Hospitalist Progress Note ---
Date of Service June 24, 2024 Assessment & Plan (1) Cellulitis of scrotum: Plan: Presented with recurrent left groin cellulitis x 1 week. History of same infection about 2-3 years ago, completely resolved after treatment at that time - Left leg/groin drainage, warmth, tenderness, erythema consistent with cellulitis - CT A/P does not show any evidence of deep abscess or perineal involvement - Wound care consulted - Blood cultures negative x 24 hours, continue to monitor - Continue Ceftriaxone and Flagyl (2) Pulmonary nodule: Plan: Innumerable pulmonary nodules noted on chest CT, suspect metastatic cancer - CT shows innumerable pulmonary nodules in the lung bases consistent with metastatic disease in addition to new retrocrural, peripancreatic, retroperitoneal lymph nodes - Oncology consulted -- consider IR guided biopsy of pulmonary nodule. Will follow-up to discuss biopsy results outpatient in 1-2 weeks. Will arrange outpatient PET/CT scan with or without brain MRI depending on pathology - IR CT guided left lung biopsy ordered - If IR biopsy not possible, will consult pulmonology for evaluation for bronchoscopy/EBUS with biopsy (3) Diabetes mellitus, type 2: Plan: Well controlled diabetic with A1c 6.3% - BSG 110-180 - Basal bolus insulin with SSI --Goal BSG Range: Low 110_mg/dL, High 180_mg/dL --Correction Factor: 30_mg/dL/unit --Carbohydrate ratio = _15_ g/unit --BSGs ACHS if eating, q6h if npo (4) Pancreatitis: Plan: Acute pancreatitis noted on CT. Do not see evidence of a mass or obstruction. Patient does have chronic alcohol use - Lipase elevated at 588. Bilirubin and LFTs are normal, no evidence of obstru ctive disease. CBD normal for age, small amount of gallbladder air suspected to be due to prior sphincterotomy - Clinically patient does not have abdominal pain, suspect subacute given elevated lipase and longstanding alcohol use - Diet as tolerated, 1 L supplemental IVF given on admission - If pain develops then make NPO and add antiemetic/narcotic pain control and IV fluids (5) Alcohol use disorder: Plan: History of 3-5 shots of whiskey per night use - Low risk for withdrawal as he is ~1 week out from any alcohol and has had alcohol free weeks recently - Patient is interested in stopping drinking entirely and notes that this has not been good for his health and feels it is likely that time. Encouragement provided - AWSS at risk protocol ordered Plan Updated at bedside Chronic/Stable Problems: - A-fib: Continue Xarelto, carvedilol - Hypertension: Continue beta-jennifer, eplerenone DVT prophylaxis: Anticoagulated CODE STATUS: DNR/DNI Admission and Anticipated Discharge Date Admission Date: June 22, 2024 Supervising Physician Co-Signing Physician Notes The patient was not seen by me. The chart was reviewed. Case discussed with VIDAL Burdick. Agree with assessment and plan Subjective Patient seen and evaluated at bedside with his present. He reports feeling significantly better today. He notes that his groin infection seems improved, he had a BM, and his appetite is improved. He continues to be dyspneic, more prominently with ambulation or when lying flat. He was not wearing his nasal cannula and reports that it "doesn't make much of a difference." He denies abdominal pain. No additional complaints or concerns at this time. Physical Exam Physical Exam: General: No acute distress, nondiaphoretic. Class 3 obesity. Skin: Left groin and left abdominal fold with IMPROVING warmth, erythema, and superficial ulceration. Some clear drainage but no obvious purulence. No foul odor is present. Scrotal edema is improving. Cardiac: Regular rate and rhythm without murmurs gallops or rubs. Pulm: Clear to auscultation bilaterally without wheezes, rales or rhonchi. No respiratory distress. 92% on 4L via NC. Abdominal: Soft, nontender, nondistended. Bowel sounds present. Neuro: A&O x3. No focal neurological deficits. Results & Data Results & Data Vital Signs (Past 12 Hours) Vital Signs Temp Pulse Resp BP Pulse Ox O2 Del Method O2 Flow Rate 06/24/24 07:45 Nasal Cannula 4 06/24/24 07:33 98.4 F 72 18 129/73 92 Room Air Laboratory Results Reviewed CBC Reviewed BMP Reviewed blood cultures PG Care Time/CCT Total # of Minutes Spent Total Time Spent with Patient: Total time spent is greater than 50% in coordination of care (as documented) at patient's floor/unit and/or counseling patient: Coding Level of Care Code 32287 SUB INP/OBS CARE 3/50MIN Diagnoses Cellulitis of scrotum N49.2 Pulmonary nodule R91.1 Diabetes mellitus, type 2 E11.9 Pancreatitis K85.90 Acute pancreatitis complication: no infection or necrosis Chronicity: acute Pancreatitis type: unspecified pancreatitis type Alcohol use disorder F10.90 (4) Pancreatitis Acute pancreatitis complication: no infection or necrosis Chronicity: acute Pancreatitis type: unspecified pancreatitis type Qualified Code(s): K85.90 - Acute pancreatitis without necrosis or infection, unspecified
[2024-06-25 08:11] LABS: Basophils # (auto) 0.03 K/uL (0.00-0.20); Basophils % (auto) 0.4 %; Eosinophils # (auto) 0.17 K/uL (0.00-0.50); Hematocrit (blood only) 34.9 % (42.0-52.0); Hemoglobin 12.1 g/dl (14.0-18.0); Immature Granulocytes # (auto) 0.06 K/uL (0.01-0.20); Immature Granulocytes % (auto) 0.7 %; Lymphocytes # (auto) 1.24 K/uL (1.20-3.40); Lymphocytes % (auto) 14.9 %; Mean Corpuscular Hemoglobin 34.9 pg (25.0-34.0); Mean Corpuscular Hgb Conc 34.7 g/dL (32.0-36.0); Mean Corpuscular Volume 100.6 fL (80.0-100.0); Monocytes # (auto) 0.67 K/uL (0.11-0.59); Monocytes % (auto) 8.1 %; Neutrophils # (auto) 6.13 K/uL (1.40-6.50); Neutrophils % (auto) 73.9 %; Platelet Count 190 K/uL (130-400); RDW Coefficient of Variation 13.9 % (11.5-14.5); RDW Standard Deviation 51.3 fL (36.4-46.3); Red Blood Count 3.47 M/uL (4.70-6.10)
[2024-06-25 08:12] LABS: BUN Creatinine Ratio 21.7 (10-20); Calcium 8.4 mg/dl (8.6-10.3); Creatinine Clr Calc Pharmacy 136.2 ml/min; Potassium 3.4 mmol/L (3.5-5.1)
--- NOTE | 2024-06-25 08:33 | Hospitalist Progress Note ---
Date of Service June 25, 2024 Assessment & Plan (1) Cellulitis of scrotum: Plan: Presented with recurrent left groin cellulitis x 1 week. History of same infection about 2-3 years ago, completely resolved after treatment at that time Left leg/groin drainage, warmth, tenderness, erythema consistent with cellulitis CT A/P does not show any evidence of deep abscess or perineal involvement Remains on Ceftriaxone/Flagyl WBC wnl, afebrile BCx NGTD x 48 hours - monitor Wound care consulted Consideration for Augmentin (vs Clindamycin) given need for anaerobic coverage in patient w/ hx DM (controlled A1c). Notable was dc last admission w/ such on Keflex Monitor exam/labs in AM (2) Atrial fibrillation: Plan: chronic, follows with Dr Joshi. Pacemaker in place . No EKG on admission obtained K 3.4, PO replacement ordered. Mag wnl 2.0. Continues xarelto, coreg 12.5mg QAM, 25mg HS. Notable has FREDRICK/no CPAP ordered and will ensure in place for this evening - encouraged use) Will interrogate pacemaker given increased SOB symptoms, monitor for CXR if needed On bumex 1mg PO daily , epleronone (non formulary will see if able to have bring in) -- Did have 1L IVF on admission given pancreatitis, will check BNP w/ next labs given EF 50-55% in 2022. Monitor (3) Pancreatitis: Plan: Acute pancreatitis noted on CT. Do not see evidence of a mass or obstruction. Patient does have chronic alcohol use Lipase 588, elevated. suspect subacute given elevated lipase and longstanding alcohol use Bili and LFTs wnl and no obstruction on CTAP. CBD normal for age, small amount of gallbladder air suspected 2nd to prior sphincterotomy Was given 1L IVF on admission, deferred additional and no increased pain and tolerating diabetic diet . As above, possible volume overload Presently tolerating diet without issue but if develops pain would made NPO and need for IVF but again given possible volume overload from IVF w/ increased SOB will defer IVF for now and is tolerating diet without issue (diet changed to LOW FAT for completeness and to prevent issues) Monitor LFTs w/ AM labs and will check B12/folate given MCV >100 likely 2nd to alcohol use (4) Pulmonary nodule: Plan: Innumerable pulmonary nodules noted on chest CT, suspect metastatic cancer CT shows innumerable pulmonary nodules in the lung bases consistent with metastatic disease in addition to new retrocrural, peripancreatic, retroperitoneal lymph nodes Oncology consulted -- consider IR guided biopsy of pulmonary nodule. Per IR provide, not back til Saturday. Per Dr Cueva, can be arranged outpatient. CM to assist with arranging. -- notable if IR bx not possible, will need ref to pulm for eval for bronch/EBUS w/ biopsy (5) Diabetes mellitus, type 2: Plan: Well controlled diabetic with A1c 6.3% BSG 110-180 Basal bolus insulin with SSI --Goal BSG Range: Low 110_mg/dL, High 180_mg/dL --Correction Factor: 30_mg/dL/unit --Carbohydrate ratio = _15_ g/unit --BSGs ACHS if eating, q6h if npo (6) Alcohol use disorder: Plan: History of 3-5 shots of whiskey per night use Low risk for withdrawal as he is ~1 week out from any alcohol and has had alcohol free weeks recently Patient is interested in stopping drinking entirely and notes that this has not been good for his health and feels it is likely that time. Encouragement provided AWSS at risk protocol ordered Check B12/folate, replacement as indicated. empiric thiamine 100mg once daily Plan CODE STATUS: DNR/DNI DVT prophylaxis: Anticoagulated with xarelto given hx afib Dispo: continued inpatient stay on IV abx, can convert to PO in am pending exam. Will see about /family bringing in eplerenone and encouraged CPAP for tonight, possible dose diuretics pending BNP as provided 1L IVF on admission w/ EF 50-55%. Will check EKG for completeness given afib/SOB complaints, also checking pacemaker interrogation. Hopeful dc in next 24-48 hours on PO antibiotics, wound care follow up. Encourage alcohol cessation. Admission and Anticipated Discharge Date Admission Date: June 22, 2024 Supervising Physician Co-Signing Physician Notes The patient was not seen by me. The chart was reviewed. Case discussed with VIDAL Oropeza. Agree with assessment and plan Subjective Eval this morning, sitting up in bed, no acute distress. Reports redness/cellulitis much improved. Discussed appearance on exam and wanting another day of IV antibiotics prior to transition to oral at dc. He does endorse some shortness of breath, worse recently. Does have hx afib, K 3.4 and PO replacement ordered. He does have FREDRICK and has CPAP but hasn' been using while here and will order for tonight. No CP/fever reported. Decent appetite, moving bowels. Discussed possible dc in AM on oral pending exam vs another day if not significantly improved. Questions/concerns addressed at this time. Physical Exam 2 Physical Exam: General: 74yo obese male siting up in bed, NAD, reports improvement in cellulitis/pain, HEENT: head atraumatic, normocephalic, mmm, +facial hair Resp: even/unlabored, slightly diminished in the bases but no cough/tachypnea, on room air CV: regular, faint systolic murmur, trace pedal edema but pulses present/calves nontender GI: +BS, soft/NT : LEFT groin/abdominal fold with IMPROVEMENT in scrotal edema/cellulitic appearance, , decreased tenderness, no active drainage, dressing c/d/i MSK/Neuro: nonfocal, moves all extremities, answering questions appropriately Psych: AOx3, cooperative with exam Results & Data Results & Data Vital Signs (Past 12 Hours) Vital Signs Temp Pulse Resp BP Pulse Ox O2 Del Method 06/25/24 07:42 36.4 C L 40 L 16 152/74 H 95 Room Air Laboratory Results 06/25/24 06:52 06/25/24 06:52 Mg2.0 PG Care Time/CCT Total # of Minutes Spent Total Time Spent with Patient: Total time spent is greater than 50% in coordination of care (as documented) at patient's floor/unit and/or counseling patient: Coding Level of Care Code 60138 SUB INP/OBS CARE 3/50MIN Diagnoses Cellulitis of scrotum N49.2 Atrial fibrillation I48.91 Pancreatitis K85.90 Acute pancreatitis complication: no infection or necrosis Chronicity: acute Pancreatitis type: unspecified pancreatitis type Pulmonary nodule R91.1 Diabetes mellitus, type 2 E11.9 Alcohol use disorder F10.90 (3) Pancreatitis Acute pancreatitis complication: no infection or necrosis Chronicity: acute Pancreatitis type: unspecified pancreatitis type Qualified Code(s): K85.90 - Acute pancreatitis without necrosis or infection, unspecified
[2024-06-25] MEDS: POTASSIUM CHLORIDE CRTAB 20 MEQ TABCR PO STA (08:45)
[2024-06-25 09:56] LABS: Bilirubin Direct 0.1 mg/dl (0-0.2); Bilirubin,Total 0.8 mg/dl (0.2-1.0); Total Protein 6.8 gm/dl (6.0-8.3)
--- NOTE | 2024-06-25 17:25 | Electrocardiogram Report ---
Test Reason : Blood Pressure : */* mmHG Vent. Rate : 76 BPM Atrial Rate : 535 BPM P-R Int : * ms QRS Dur : 182 ms QT Int : 494 ms P-R-T Axes : * 180 22 degrees QTcB Int : 555 ms Ventricular-paced rhythm with PVCs Abnormal ECG When compared with ECG of 02-Oct-2023 19:20, Vent. rate has increased by 5 bpm Confirmed by Teddy Becker ([id number] on 06/25/2024 5:24:57 PM Referred By: REFERRED SELF Confirmed By: Teddy Becker
[2024-06-25] MEDS: metroNIDAZOLE 500 MG TAB PO SCH (20:03)
--- NOTE | 2024-06-26 08:36 | Hospitalist Progress Note ---
Date of Service June 26, 2024 Assessment & Plan (1) Cellulitis of scrotum: Plan: Presented with recurrent left groin cellulitis x 1 week. History of same infection about 2-3 years ago, completely resolved after treatment at that time Left leg/groin drainage, warmth, tenderness, erythema consistent with cellulitis CT A/P does not show any evidence of deep abscess or perineal involvement. No gas concerning for Jackson's however is DM but A1c well controlled Ceftriaxone/Flagyl IV Blood cultures remain NGTD Wound care Improved appearance on exam 06/25 however unchanged appearance today. Notable did get dose Cefepime on admission x 1 --> Was going to switch to Augmentin or Clindamycin however allergy with rash to such --> Discussed w/ supervising provider and SWITCHED TO CIPROFLOXAXIN/continues on FLAGYL and if improvement on exam can dc on such PT/OT consults pending Additional Bumex 1mg for elevated BNP to 167 with SOB symptoms and 1L IVF on admission. CPAP HS encouraged. K stable and mag 2.0. Hopeful dc 06/27 on Cipro/Flagyl to complete the course. (2) Atrial fibrillation: Plan: chronic, follows with Dr Joshi. Pacemaker in place . No EKG on admission obtained Pacemaker with no acute issues, good battery life Repleted K however with additional bumex ordered and will order extra 40meq to keep K closer to 4. Mag stable. Encouraged CPAP last night, did use. Continues on carvedilol, xarelto. HRs stable, no palpitations reported (3) Pancreatitis: Plan: Acute pancreatitis noted on CT. Do not see evidence of a mass or obstruction. Patient does have chronic alcohol use Lipase 588, elevated -suspect subacute given elevated lipase and longstanding alcohol use Bili and LFTs wnl and no obstruction on CTAP. CBD normal for age, small amount of gallbladder air suspected 2nd to prior sphincterotomy 1L IVF on admission, no pain and tolerating low fat diet. LFTs stable on repeat No increased abdominal pain reported and remains on low fat diet Alcohol cessation rec at dc (4) Pulmonary nodule: Plan: Innumerable pulmonary nodules noted on chest CT, suspect metastatic cancer CT shows innumerable pulmonary nodules in the lung bases consistent with metastatic disease in addition to new retrocrural, peripancreatic, retroperitoneal lymph nodes Oncology consulted -- consider IR guided biopsy of pulmonary nodule. Per IR provide, not back til Saturday. Per Dr Cueva, can be arranged outpatient. CM to assist with arranging. -- notable if IR bx not possible, will need ref to pulm for eval for bronch/EBUS w/ biopsy (5) Diabetes mellitus, type 2: Plan: Well controlled diabetic with A1c 6.3% BSG 110-180 Basal bolus insulin with SSI with BSGs acceptable . Plans to resume home regimen at dc (6) Alcohol use disorder: Plan: History of 3-5 shots of whiskey per night use Low risk for withdrawal as he is ~1 week out from any alcohol and has had alcohol free weeks recently Patient is interested in stopping drinking entirely and notes that this has not been good for his health and feels it is likely that time. Encouragement provided AWSS at risk protocol ordered B12/folate wnl, continues on thiamine No evidence for DTs at present time, continued avoidance to be encouraged at dc Plan DVT prophylaxis: Xarelto continued Dispo: continued inpatient stay, converted abx to Levaquin to cover for pseudomonas and continues on flagyl for anaerobic coverage. -->If improved on such plan to dc in AM 06/26 on oral regimen to complete course. PT/OT consults pending Additional bumex x1 for elevated BNP given IVF on admission. Home eplerenone if family able to bring will resume. Will check EKG in AM on FLQ to ensure stable QTC Admission and Anticipated Discharge Date Admission Date: June 22, 2024 Supervising Physician Co-Signing Physician Notes The patient was not seen by me. The chart was reviewed. Case discussed with VIDAL Oropeza. Agree with assessment and plan Subjective Eval this morning, reports feeling better/improvement in cellulitis, hopeful for dc today if possible. Discussed exam does not appear significantly improved and would prefer switching to oral agents to cover and if improved on such can dc in AM. Discussed breathing, stable SOB but hasn't been super active. Did use CPAP last night but not all night -- encouraged. Discussed additional dose lasix. Passing gas but no BM, fullness but no pain. Bowel regimen added. Physical Exam 2 Physical Exam: General: 74yo obese male siting up in bed, NAD, reports improvement in cellulitis/pain, HEENT: head atraumatic, normocephalic, mmm, +facial hair Resp: even/unlabored, slightly diminished in the bases but no cough/tachypnea, on room air CV: regular, faint systolic murmur, trace pedal edema but pulses present/calves nontender GI: +BS, soft/NT : LEFT groin/abdominal fold with UNCHANGED in scrotal edema/cellulitic appearance, , decreased tenderness, scant purulent drainage drainage MSK/Neuro: nonfocal, moves all extremities, answering questions appropriately Psych: AOx3, cooperative with exam Results & Data Results & Data Vital Signs (Past 12 Hours) Vital Signs Temp Pulse Pulse Resp BP Pulse Ox O2 Del Method 06/26/24 07:41 36.6 C 69 18 145/92 H 93 Room Air 06/25/24 23:30 71 22 96 O2 Flow Rate 06/26/24 07:41 06/25/24 23:30 2 Laboratory Results 06/26/24 08:10 06/26/24 08:10 Mag 2.0 BNP 167 B12 405 Folate >22.3 TSH 4.2 PG Care Time/CCT Total # of Minutes Spent Total Time Spent with Patient: Total time spent is greater than 50% in coordination of care (as documented) at patient's floor/unit and/or counseling patient: Coding Level of Care Code 30920 SUB INP/OBS CARE 3/50MIN Diagnoses Cellulitis of scrotum N49.2 Atrial fibrillation I48.91 Pancreatitis K85.90 Acute pancreatitis complication: no infection or necrosis Chronicity: acute Pancreatitis type: unspecified pancreatitis type Pulmonary nodule R91.1 Diabetes mellitus, type 2 E11.9 Alcohol use disorder F10.90 (3) Pancreatitis Acute pancreatitis complication: no infection or necrosis Chronicity: acute Pancreatitis type: unspecified pancreatitis type Qualified Code(s): K85.90 - Acute pancreatitis without necrosis or infection, unspecified
[2024-06-26 08:50] LABS: Hemoglobin 13.1 g/dl (14.0-18.0); Mean Corpuscular Hemoglobin 34.4 pg (25.0-34.0); Mean Corpuscular Hgb Conc 34.5 g/dL (32.0-36.0); Mean Corpuscular Volume 99.7 fL (80.0-100.0); Mean Platelet Volume 9.5 fL (9.4-12.4); Platelet Count 228 K/uL (130-400); RDW Coefficient of Variation 13.9 % (11.5-14.5); RDW Standard Deviation 51.1 fL (36.4-46.3); Red Blood Count 3.81 M/uL (4.70-6.10); White Blood Count 7.52 K/ul (4.8-10.8)
[2024-06-26 08:54] LABS: BUN Creatinine Ratio 20.8 (10-20); Calcium 8.5 mg/dl (8.6-10.3); Creatinine Clr Calc Pharmacy 130.6 ml/min; Potassium 3.5 mmol/L (3.5-5.1)
[2024-06-26 09:08] LABS: Thyroid Stimulating Hormone 4.219 uIu/ml (0.300-4.500)
[2024-06-26 09:19] LABS: Folate (Folic Acid),Ser orPlas > 22.30 ng/ml (>5.38)
[2024-06-26 09:20] LABS: Vitamin B12 405 pg/ml (180-914)
[2024-06-26] MEDS: DOCUSATE SODIUM 100 MG CAP PO SCH (10:18)
[2024-06-26] MEDS: BUMETANIDE 1 MG TAB PO ONE (10:18)
[2024-06-26] MEDS: POTASSIUM CHLORIDE CRTAB 20 MEQ TABCR PO STA (10:18)
[2024-06-26] MEDS: CIPROFLOXACIN 250 MG TAB PO SCH (10:19)
--- NOTE | 2024-06-26 15:54 | Electrocardiogram Report ---
Test Reason : Blood Pressure : */* mmHG Vent. Rate : 72 BPM Atrial Rate : 60 BPM P-R Int : * ms QRS Dur : 182 ms QT Int : 482 ms P-R-T Axes : * 179 32 degrees QTcB Int : 527 ms Ventricular-paced rhythm Abnormal ECG When compared with ECG of 25-Jun-2024 11:48, Vent. rate has decreased by 4 bpm Confirmed by Teddy Becker ([id number]) on 06/26/2024 3:54:13 PM Referred By: REFERRED SELF Confirmed By: Teddy Becker
[2024-06-27 07:08] LABS: Hematocrit (blood only) 38.1 % (42.0-52.0); Hemoglobin 13.1 g/dl (14.0-18.0); Mean Corpuscular Hemoglobin 34.6 pg (25.0-34.0); Mean Corpuscular Hgb Conc 34.4 g/dL (32.0-36.0); Mean Corpuscular Volume 100.5 fL (80.0-100.0); Mean Platelet Volume 9.7 fL (9.4-12.4); Platelet Count 236 K/uL (130-400); RDW Coefficient of Variation 13.9 % (11.5-14.5); RDW Standard Deviation 51.8 fL (36.4-46.3); Red Blood Count 3.79 M/uL (4.70-6.10); White Blood Count 7.57 K/ul (4.8-10.8)
[2024-06-27 07:16] LABS: BUN Creatinine Ratio 19.7 (10-20); Calcium 8.5 mg/dl (8.6-10.3); Creatinine Clr Calc Pharmacy 123.7 ml/min; Magnesium 1.9 mg/dl (1.7-2.4); Potassium 3.8 mmol/L (3.5-5.1)
--- NOTE | 2024-06-27 07:40 | Hospitalist Progress Note ---
Date of Service June 27, 2024 Assessment & Plan (1) Cellulitis of scrotum: Plan: Presented with recurrent left groin cellulitis x 1 week. History of same infection about 2-3 years ago, completely resolved after treatment at that time Left leg/groin drainage, warmth, tenderness, erythema consistent with cellulitis CT A/P does not show any evidence of deep abscess or perineal involvement. No gas concerning for Jackson's however is DM but A1c well controlled Ceftriaxone/Flagyl IV Blood cultures remain NGTD Wound care Improved appearance on exam 06/25 however unchanged appearance today. Notable did get dose Cefepime on admission x 1 --> Was going to switch to Augmentin or Clindamycin however allergy with rash to such --> Discussed w/ supervising provider and SWITCHED TO CIPROFLOXAXIN/continues on FLAGYL and if improvement on exam can dc on such PT/OT consults pending Additional Bumex 1mg for elevated BNP to 167 with SOB symptoms and 1L IVF on admission. CPAP HS encouraged. K stable and mag 2.0. Hopeful dc 06/27 on Cipro/Flagyl to complete the course. (2) Atrial fibrillation: Plan: chronic, follows with Dr Joshi. Pacemaker in place . No EKG on admission obtained Pacemaker with no acute issues, good battery life Repleted K however with additional bumex ordered and will order extra 40meq to keep K closer to 4. Mag stable. Encouraged CPAP last night, did use. Continues on carvedilol, xarelto. HRs stable, no palpitations reported (3) Pancreatitis: Plan: Acute pancreatitis noted on CT. Do not see evidence of a mass or obstruction. Patient does have chronic alcohol use Lipase 588, elevated -suspect subacute given elevated lipase and longstanding alcohol use Bili and LFTs wnl and no obstruction on CTAP. CBD normal for age, small amount of gallbladder air suspected 2nd to prior sphincterotomy 1L IVF on admission, no pain and tolerating low fat diet. LFTs stable on repeat No increased abdominal pain reported and remains on low fat diet Alcohol cessation rec at dc (4) Pulmonary nodule: Plan: Innumerable pulmonary nodules noted on chest CT, suspect metastatic cancer CT shows innumerable pulmonary nodules in the lung bases consistent with metastatic disease in addition to new retrocrural, peripancreatic, retroperitoneal lymph nodes Oncology consulted -- consider IR guided biopsy of pulmonary nodule. Per IR provide, not back til Saturday. Per Dr Cueva, can be arranged outpatient. CM to assist with arranging. -- notable if IR bx not possible, will need ref to pulm for eval for bronch/EBUS w/ biopsy (5) Diabetes mellitus, type 2: Plan: Well controlled diabetic with A1c 6.3% BSG 110-180 Basal bolus insulin with SSI with BSGs acceptable . Plans to resume home regimen at dc (6) Alcohol use disorder: Plan: History of 3-5 shots of whiskey per night use Low risk for withdrawal as he is ~1 week out from any alcohol and has had alcohol free weeks recently Patient is interested in stopping drinking entirely and notes that this has not been good for his health and feels it is likely that time. Encouragement provided AWSS at risk protocol ordered B12/folate wnl, continues on thiamine No evidence for DTs at present time, continued avoidance to be encouraged at dc Plan DVT prophylaxis: Xarelto continued Dispo: continued inpatient stay, converted abx to Levaquin to cover for pseudomonas and continues on flagyl for anaerobic coverage. -->If improved on such plan to dc in AM 06/26 on oral regimen to complete course. PT/OT consults pending Additional bumex x1 for elevated BNP given IVF on admission. Home eplerenone if family able to bring will resume. Will check EKG in AM on FLQ to ensure stable QTC Admission and Anticipated Discharge Date Admission Date: June 22, 2024 Results & Data Results & Data Vital Signs (Past 12 Hours) Vital Signs Temp Pulse Resp BP Pulse Ox O2 Del Method O2 Flow Rate 06/26/24 22:40 36.6 C 71 20 136/95 93 Room Air 06/26/24 22:27 22 95 2 06/26/24 21:06 Nasal Cannula 2 PG Care Time/CCT Total # of Minutes Spent Total Time Spent with Patient: Total time spent is greater than 50% in coordination of care (as documented) at patient's floor/unit and/or counseling patient: Coding Diagnoses Cellulitis of scrotum N49.2 Atrial fibrillation I48.91 Pancreatitis K85.90 Acute pancreatitis complication: no infection or necrosis Chronicity: acute Pancreatitis type: unspecified pancreatitis type Pulmonary nodule R91.1 Diabetes mellitus, type 2 E11.9 Alcohol use disorder F10.90 (3) Pancreatitis Acute pancreatitis complication: no infection or necrosis Chronicity: acute Pancreatitis type: unspecified pancreatitis type Qualified Code(s): K85.90 - Acute pancreatitis without necrosis or infection, unspecified
[2024-06-27 07:53] VITALS: RESP 16; TEMP 97.3
[2024-06-27] MEDS: BUMETANIDE 1 MG TAB PO ONE (08:48)
[2024-06-27] MEDS: POTASSIUM CHLORIDE CRTAB 20 MEQ TABCR PO STA (09:04)
[2024-06-27 09:11] VITALS: BP 128/76; PULSE 76; O2SAT 96
--- NOTE | 2024-06-27 09:21 | XRay Report ---
XR chest 1V portable CLINICAL HISTORY: wheezing TECHNIQUE: Single frontal radiograph of the chest was obtained. Comparison: Comparison is made to chest radiograph 10/02/2023 FINDINGS: An implanted pacemaker is seen. Cardiomegaly is noted. Interval partial improvement in multifocal air space opacities. No evidence of pleural effusion or pneumothorax. IMPRESSION: Interval partial improvement in multifocal airspace opacities. ACT 112: Negative or not required by law. Electronically signed by: Noel Weaver M.D. 06/27/2024 9:20 AM
--- NOTE | 2024-06-27 10:50 | Discharge Summary ---
Discharge Summary Date of Service June 27, 2024 Principal Dx & Hospital Course #1 = Principal Diagnosis (1) Cellulitis of scrotum: Presented with recurrent left groin cellulitis x 1 week. History of same infection about 2-3 years ago, completely resolved after treatment at that time Left leg/groin drainage, warmth, tenderness, erythema consistent with cellulitis CT A/P does not show any evidence of deep abscess or perineal involvement. No gas concerning for Jackson's however is DM but A1c well controlled Ceftriaxone/Flagyl IV iniailly, and improved on 06/25 however did get cefepime x 1 on admission and did not improve on 06/26 and given groin/hx DM switched Ceftriaxone IV to CIPRO PO BID with SIGNIFICANT improvement on exam and decision to discharge on Cipro/Flagyl to complete the course. Much less redness/no significant tenderness on exam and suspect needed coverage for pseudomonas. WBC without elevation,. BCx NGTD, afebrile. Wound care consulted and instructions/supplies provided Of note, did get pharmacy to send meds for day of discharge evening as in [facility]/lost and inpatient and he is traveling to her after leaving the hospital. EKG obtained/stable QTC w/ Cipro use. Also did give additional bumex 1mg PO on 06/26, repeat 06/27 and improvement in breathing/CXR and discussed may need increased dosing but would discuss with Dr Joshi in followup . CPAP compliance encouraged and could worsen his symptoms but was notable provided 1L IVF for pancreatitis on CTAP on admission with plans for outpatient IR bx of lung nodule for concerns for metastatic disease. [place] 6 [place], switched to pipe tobacco later in life. Encouraged cessation. (2) Atrial fibrillation: chronic, follows with Dr Joshi. Pacemaker in place . Additional bumex/Kcl provided, mag stable. Rates controlled. BNP/CXR improved with additional bumex dosing Remained on coreg/xarelto, home eprelonone NF and could have been reason needing additional diuretic as well as suspect used for CHF as well as HTN, and could have had mild acute on chronic CHF exacerbation w/ preserved EF 2nd to IVF as well as increased salt load/alcohol at home prior to admission. EKG w/ stable V paced. Pacemaker interrogation with no acute issues, good battery life Outpt f/u Dr Joshi recommended (3) Pancreatitis: Acute pancreatitis noted on CT. Do not see evidence of a mass or obstruction. Patient does have chronic alcohol use Lipase 588, elevated -suspected subacute given elevated lipase and longstanding alcohol use Bili and LFTs wnl and no obstruction on CTAP. CBD normal for age, small amount of gallbladder air suspected 2nd to prior sphincterotomy 1L IVF on admission, no pain and tolerating low fat diet w LFTs stable on repeat and remained on low fat diet encouraged low fat diet at dc, alcohol cessation. (4) Pulmonary nodule: Innumerable pulmonary nodules noted on chest CT, suspect metastatic cancer CT shows innumerable pulmonary nodules in the lung bases consistent with metastatic disease in addition to new retrocrural, peripancreatic, retroperitoneal lymph nodes Oncology consulted -- consider IR guided biopsy of pulmonary nodule. Per IR provide, not back til Saturday. Per Dr Cueva, can be arranged outpatient. CM to assist with arranging at dc and to call the patient after dc when arranged As above, does have risk factors w/ his smoking (5) Diabetes mellitus, type 2: Well controlled diabetic with A1c 6.3% BSG 110-180 Basal bolus insulin with SSI with BSGs acceptable . Plans to resume home regimen at dc (6) Alcohol use disorder: History of 3-5 shots of whiskey per night use Low risk for withdrawal as he is ~1 week out from any alcohol and has had alcohol free weeks recently Patient is interested in stopping drinking entirely and notes that this has not been good for his health and feels it is likely that time. Encouragement provided AWSS at risk protocol ordered B12/folate wnl, continues on thiamine No evidence for DTs at present time, continued avoidance to be encouraged at dc Plan DVT prophylaxis: Xarelto continued while inpatient Discharged on Cipro/Flagyl to complete course, wound care. Outpt f/u PCP and Dr Joshi Notes For Next Care Provider Ensure IR biopsy arranged in followup for pulmonary nodules, pulm ref if unable to reach Low fat diet/alcohol cessation encouraged His was found missing while inpatient and hospitalized in [place] and have provided pills for his abx tonight/tomorrow AM to prevent missing doses during this time. Consideration for increased bumex dosing if needed as responded nicely to additional dosing while inpatient but defer to PCP/Cardiology in follow up. Discussed prn dosing for weight gain Medication Changes From Visit Ciprofloxacin BID, Flagyl TID to complete course Admission HPI Per Admitting Provider Haresh is a 74-year-old male with a past medical history of recurrent cellulitis, A-fib on Xarelto, alcohol abuse, nonischemic cardiomyopathy, DM 2, alcoholic cirrhosis who presents to the emergency department with left leg/groin cellulitis. 5 days worsening groin/leg cellulitis. Draining, nonpurulent. No discreet abscess. No fevers or chills but has had worsening pain and tenderness similar to his prior cellulitis. Has tolerated ceftriaxone well despite penicillin allergy in the past. He is a former heavy pipe user 20 years heavy pipe use. Does not currently use tobacco products. He drinks 3- 5 shots of whiskey in the evenings, periodically goes for several weeks just to see if he is "in control "and reports he has had multiple alcohol free days recently, and has not had any alcohol use since last Saturday 6 days ago and has no signs of withdrawal. He has not had any weight loss. Last colonoscopy within the last 5 years was reportedly without any concerns. No melena or hematochezia. Has a chronic cough but without hemoptysis or sputum production. No night sweats. Medical History: Reviewed Medications: Reviewed Surgical History: Reviewed Family history: Reviewed Allergies: Reviewed Social History: Code Status: DNR/DNI. Discussed this with patient at bedside, he was previously full code. Reports that in the event that he were to slip and break his neck or if there is a emergency where his breathing or heart stopped for any reason he would not want resuscitation. Updated to DNR/DNI. Admission Exam Per Admitting Provider General: A&Ox3. NAD. Cooperative. HEENT: Atraumatic, normocephalic. Pulm: CTAB A&P. -wheezes, -rales, -rhonchi. Symmetrical chest rise. No increased work of breathing. No respiratory distress. Cardiac: RRR, -mrg. Radial pulses intact and symmetrical. Abdominal: Softly distended, nontender Extremities: Left groin and proximal thigh with demarcated warmth, erythema, tenderness and superficial ulceration. Some clear drainage but no obvious purulence. Scrotal edema is present. No crepitus. Discharge Exam General: 74yo obese male siting up in bed, NAD, reports improvement in cellulitis/pain, MUCH IMPROVED on exam, ambulating int he room with less difficulty/discomfort, dressed/ready to go HEENT: head atraumatic, normocephalic, mmm, +facial hair Resp: even/unlabored, slightly diminished in the bases (IMPROVED) but no cough/tachypnea, on room air CV: irregularly irregular/paced on EKG, faint systolic murmur, trace pedal edema improving, pulses present/calves nontender GI: +BS, soft/NT : LEFT groin/abdominal fold with SIGNIFICANT improvement in cellulitis/scrotal edema, scant purulant drainage but no significant tenderness, no abscess/fluid collection or evidence for fourniers MSK/Neuro: nonfocal, moves all extremities, answering questions appropriately Psych: AOx3, cooperative with exam Discharge Plan Discharge Items Patient Disposition: Home - Self-Care Reason For Visit: L GROIN CELLULITIS Discharge Diagnosis: Left groin cellulitis Condition on Discharge: Fair Goals: You have been hospitalized for an acute medical problem. During your stay at [facility], we have made an effort to correct the problem that brought you to the hospital while keeping you as comfortable as possible. Medications were used to bring your condition under control and your discharge instructions will include directions for any medications you should take after leaving the hospital. Please make sure you see your Primary Care Provider as part of your follow up plan. Activity: As commented below Non-emergency contact: Primary Care Provider and [facility] Call non-emergency contact if: you have any medication questions, your symptoms worsen, your pain is not controlled, your pain is worsening and you have a fever Follow-up/Referrals: Sy Joshi DO [Physician] - Kojo Jacinto MD [Primary Care Provider] - Diet: Carb Consistent or DM2 and Low Fat Addtl Attending Provider Instructions: You have been hospitalized for a cellulitis of your groin. We treated you initially with IV antibiotics and have transitioned you to CIPROFLOXACIN and METRONIDAZOLE which is to be continued at discharge for a total of 6 more days to complete the course. Please continue to keep the area clean/dry. Clean and dry the abdominal with soap/water (can use spray bottle if needed), gently pat dry and apply the AQUACELL AG (DRESSING given by nursing) to open area and cover the abdominal pads tucked into the fold. Change TWICE daily (and as needed). Please keep the area as dry as possible. Please continue low salt diet as well as continued use of your cardiac medications as prescribed by Dr Joshi. You have been given an extra dose of bumex for the past two days with improvement in your breathing and should be monitoring your weight and if increased may benefit from TWICE daily dosing of this but would discuss this with Dr Joshi to make sure keeping an eye on your kidney function/electrolytes. You did have evidence for pulmonary (lung) nodules on imaging and recommendations to get a biopsy for further evaluation to make sure not dealing with an underlying cancer. This is to be arranged at discharge to be done once healed from cellulitis infection. It is strongly encouraged to avoid alcohol given your pancreatitis but have been stable and tolerating diet without issue. Please continue low fat diet at discharge to prevent any worsened issues as well as avoidance of alcohol. Please follow up with primary care in 7-10 days to monitor your progress after hospitalization. Please monitor and return to the ER for any increased redness/drainage, fever, swelling/pain, or for any other symptoms concerning for you. It has been a pleasure being a part of the medical team providing for you while you have been in the hospital. Take care! Pending Studies at Discharge: Yes Studies:: blood cultures -- no growth to date Stand-Alone Forms: [facility] [email or web address], Smoking Cessation Medications and DC Order Prescriptions: New metronidazole 500 mg Tablet 500 mg PO Q8H 6 Days Qty: 18 0RF ciprofloxacin HCl 750 mg tablet 750 mg PO BID 5 Days Qty: 10 0RF Continued triamcinolone acetonide 0.1 % cream 1 appln TOP DIRECTED PRN (Reason: Skin Irritation) tamsulosin 0.4 mg capsule 0.4 mg PO DAILY Adult 50 Plus Probiotic 4 billion cell capsule 4,000 mmu cells PO DAILY Rx Instructions: administer with a meal rosuvastatin 5 mg tablet 5 mg PO DAILY Xarelto 20 mg tablet 20 mg PO QPM Qty: 90 1RF Rx Instructions: Must administer with evening meal. Per [facility]. nystatin 100,000 unit/gram cream 1 applic topical BID Qty: 15 2RF Medical Marijuana 0 dose inhalation BID PRN (Reason: Pain) Rx Instructions: INHALATION OR DROP (OIL) allopurinol 300 mg tablet 300 mg PO HS multivitamin Tablet 1 tab PO QAM acetaminophen [Tylenol] 325 mg Tablet 650 mg PO QID PRN (Reason: Pain) eplerenone 25 mg tablet 25 mg PO QAM diclofenac sodium 1 % gel 1 ea TOPICAL QID PRN (Reason: Pain) hydroxyzine HCl 25 mg tablet 25 mg PO QID carvedilol 12.5 mg tablet See Rx Instructions .ROUTE .COMPLEX Rx Instructions: Take 12.5mg by mouth in the morning and 25mg by mouth at bedtime Ocuvite Adult 50 Plus 250 mg (90 mg-160 mg) Capsule 1 cap PO BID bumetanide 1 mg tablet 1 mg PO QAM finasteride 5 mg tablet 5 mg PO DAILY No Action (DME) CPAP Supplies Misc .Route Qty: 1 0RF Rx Instructions: Patient needs new tubing, attachments, filters, and masks. Lifetime need, aero care Discharge Orders: Discharge Order (Routine); Ordered 06/27/24 Ordered By: Naheed Ivory/Other Patient Handouts: Nutrition for Wound Healing, High Blood Sugar (Hyperglycemia), Hypoglycemia (Low Blood Sugar), Managing Type 2 Diabetes, Cellulitis Dc Admission Data Admit Date/Time: 06/22/24 19:53 Attending Provider: Haresh Mixon Admit Provider: Chapo Gaytan Primary Care Provider: Kojo Jacinto Other Providers: Chapo Gaytan; Merle Cueva Other Interventions: Discharge Summary Assessment (RN) Last Done: 06/27/24 11:06 Hospital Stay Data Consultations 06/22/24 18:59 ED Decision to Admit Stat 06/23/24 11:37 Consult Oncology Routine Diagnostic Imagining Performed Abdomen/Pelvis CT 06/22/24 17:40 EXAM: CT Abdomen and Pelvis With Intravenous Contrast INDICATION: Left groin and scrotal infection. TECHNIQUE: Axial computed tomography images of the abdomen and pelvis with intravenous contrast. Sagittal and coronal reformatted images were created and reviewed. This CT exam was performed using one or more of the following dose reduction techniques: automated exposure control, adjustment of the mA and/or kV according to patient size, and/or use of iterative reconstruction technique. CONTRAST: 91 ml of Optiray 320 was administered intravenously. COMPARISON: CT pelvis 10/02/[address] abdomen and pelvis 02/13/2021 FINDINGS: Limitations: None. Lung bases: There are now extensive irregular nodules ranging in size in both lung bases largest measuring 3.5 cm diameter. Pleural space: No basilar pleural effusion. Heart: Cardiomegaly noted. Cardiac pacing device noted. Metallic artifact limits assessment of lead integrity. Mediastinum: No abnormality noted. ABDOMEN: Liver: No abnormality noted. Gallbladder and bile ducts: Stable mild left hepatic lobe pneumobilia. Fatty liver. Normal hepatic contour. Small amount of air in the gallbladder likely secondary to prior sphincterotomy. The common bile duct is normal for age. No calcified stones. Pancreas: The pancreatic head is inflamed. Homogeneous enhancement of the pancreas. No mass, gas, calcification or ductal dilatation. Spleen: No significant abnormality noted. Adrenals: No significant abnormality noted. Kidneys and ureters: Simple bilateral renal cysts noted. No follow-up necessary. No stones or hydronephrosis. There is a punctate stone in the lower right kidney. Bilateral renal scarring stable. Stomach and bowel: Moderate amounts of stool scattered throughout the colon. Diverticulosis. No diverticulitis or obstruction. PELVIS: Appendix: No findings to suggest acute appendicitis. Bladder: No filling defects to suggest mass or large stone. No inflammation. Reproductive: No abnormalities noted. ABDOMEN and PELVIS: Intraperitoneal space: No free air. No significant fluid collection. Bones/joints: Moderate to severe degenerative changes noted throughout the spine with multiple chronic appearing compression deformities with mild height loss. No lytic or blastic lesions. Soft tissues: No significant abnormality noted. Vasculature: Atherosclerotic calcification of the aorta and branches. No aneurysm. Lymph nodes: New right retrocrural lymph node measures 3 cm short axis dimension. There are prominent normal-sized peripancreatic nodes likely reactive. There are shotty retroperitoneal nodes. IMPRESSION: 1. Acute pancreatitis. 2. Innumerable pulmonary nodules in the lung bases most consistent with metastatic disease. 3. New retrocrural, peripancreatic and retroperitoneal lymph nodes could reflect metastatic disease. ACT 112: Negative or not required by law. Electronically signed by Beverly Cardenas 06-22-2024 6:[address] 06/23/24 10:23 CT chest diagnostic w con CLINICAL HISTORY: Further characterize nodules/lymphadenopathy TECHNIQUE: Multidetector row helical CT of the chest was performed with intravenous contrast. Coronal and sagittal reformations were obtained. Automated dose lowering techniques and/or adjustment according to patient size were utilized for this exam. CT DOSE: 1385.55 mGy.cm Comparison: Comparison is made to chest 11/13/[address] abdomen pelvis 06/22/2024 FINDINGS: Lungs and pleura: Predominantly paraseptal emphysematous changes are seen. There are innumerable pulmonary nodules favoring the lower lobes measuring up to 39 mm on the left. Heart and pericardium: Cardiomegaly is seen with biatrial enlargement. Vessels: Mild atherosclerotic changes in the aorta and coronary arteries. No evidence of pulmonary embolus within the limits of a nondedicated exam. Mediastinum and sterling: Subcentimeter lymph nodes are seen. Chest wall and lower neck: Unremarkable. Abdomen: Partial evaluation of the adrenal nodule and prominent ana hepatis node. Bones: Degenerative changes in the thoracic spine. IMPRESSION: Innumerable pulmonary nodules are concerning for metastatic disease. No shayla lymphadenopathy is seen. ACT 112: Negative or not required by law. Electronically signed by: Noel Weaver M.D. 06/23/2024 11:30 AM Chest X-Ray 06/27/24 07:42 XR chest 1V portable CLINICAL HISTORY: wheezing TECHNIQUE: Single frontal radiograph of the chest was obtained. Comparison: Comparison is made to chest radiograph 10/02/2023 FINDINGS: An implanted pacemaker is seen. Cardiomegaly is noted. Interval partial improvement in multifocal airspace opacities. No evidence of pleural effusion or pneumothorax. IMPRESSION: Interval partial improvement in multifocal airspace opacities. ACT 112: Negative or not required by law. Electronically signed by: Noel Weaver M.D. 06/27/2024 9:20 AM Pending Results Patient Have Any Pending Studies at Discharge: Yes Discharge Instructions Given to Patient (Per Discharging Provider) You have been hospitalized for a cellulitis of your groin. We treated you initially with IV antibiotics and have transitioned you to CIPROFLOXACIN and METRONIDAZOLE which is to be continued at discharge for a total of 6 more days to complete the course. Please continue to keep the area clean/dry. Clean and dry the abdominal with soap/water (can use spray bottle if needed), gently pat dry and apply the AQUACELL AG (DRESSING given by nursing) to open area and cover the abdominal pads tucked into the fold. Change TWICE daily (and as needed). Please keep the area as dry as possible. Please continue low salt diet as well as continued use of your cardiac medications as prescribed by Dr Joshi. You have been given an extra dose of bumex for the past two days with improvement in your breathing and should be monitoring your weight and if increased may benefit from TWICE daily dosing of this but would discuss this with Dr Joshi to make sure keeping an eye on your kidney function/electrolytes. You did have evidence for pulmonary (lung) nodules on imaging and recommendations to get a biopsy for further evaluation to make sure not dealing with an underlying cancer. This is to be arranged at discharge to be done once healed from cellulitis infection. It is strongly encouraged to avoid alcohol given your pancreatitis but have been stable and tolerating diet without issue. Please continue low fat diet at discharge to prevent any worsened issues as well as avoidance of alcohol. Please follow up with primary care in 7-10 days to monitor your progress after hospitalization. Please monitor and return to the ER for any increased redness/drainage, fever, swelling/pain, or for any other symptoms concerning for you. It has been a pleasure being a part of the medical team providing for you while you have been in the hospital. Take care! Supervising Physician Co-Signing Physician Notes The patient was not seen by me. The chart was reviewed. Case discussed with VIDAL Oropeza. Agree with assessment and plan Total Time Total Time Spent Total Time Spent (In Minutes): 45 Coding Level of Care Code 25685 INP/OBS DISCH >30 MIN Diagnoses Cellulitis of scrotum N49.2 Atrial fibrillation I48.91 Pancreatitis K85.90 Acute pancreatitis complication: no infection or necrosis Chronicity: acute Pancreatitis type: unspecified pancreatitis type Pulmonary nodule R91.1 Diabetes mellitus, type 2 E11.9 Alcohol use disorder F10.90
[2024-06-27] MEDS ORDERED: CIPROFLOXACIN 250 MG TAB PO SCH (11:00)
[2024-06-27] MEDS ORDERED: metroNIDAZOLE 500 MG TAB PO SCH (12:00)
--- NOTE | 2024-06-29 08:58 | Electrocardiogram Report ---
Test Reason : Blood Pressure : */* mmHG Vent. Rate : 78 BPM Atrial Rate : 78 BPM P-R Int : * ms QRS Dur : 148 ms QT Int : 448 ms P-R-T Axes : 90 193 11 degrees QTcB Int : 510 ms Ventricular-paced rhythm Abnormal ECG When compared with ECG of 26-Jun-2024 09:23, Vent. rate has increased by 6 bpm Confirmed by Crissy Dobbs (Octavio) on 06/29/2024 8:58:08 AM Referred By: REFERRED SELF Confirmed By: Crissy Dobbs
== END 2024-06-27 12:20 | disposition home or self-care (01) | DRG 602 ==
LOC: ED 16:02 → SUATTDRO 19:53 → 3W 19:53
DX: L03.314 Cellulitis of groin; L03.116 Cellulitis of left lower limb; C78.00 Secondary malignant neoplasm of unspecified lung; Z66 Do not resuscitate; K85.20 Alcohol induced acute pancreatitis without necrosis or infection; K70.30 Alcoholic cirrhosis of liver without ascites; E11.9 Type 2 diabetes mellitus without complications; I42.8 Other cardiomyopathies; Z83.3 Family history of diabetes mellitus; Z88.0 Allergy status to penicillin; C80.1 Malignant (primary) neoplasm, unspecified; J44.9 Chronic obstructive pulmonary disease, unspecified; C79.89 Secondary malignant neoplasm of other specified sites; E80.1 Porphyria cutanea tarda; F10.20 Alcohol dependence, uncomplicated; I48.91 Unspecified atrial fibrillation; Z95.810 Presence of automatic (implantable) cardiac defibrillator; Z79.01 Long term (current) use of anticoagulants; Z88.2 Allergy status to sulfonamides; Z87.891 Personal history of nicotine dependence; N49.2 Inflammatory disorders of scrotum; I10 Essential (primary) hypertension

== ENCOUNTER 2024-07-06 19:07 | Inpatient (IN) ==
[2024-07-06 19:41] LABS: Basophils # (auto) 0.03 K/uL (0.00-0.20); Basophils % (auto) 0.3 %; Eosinophils # (auto) 0.11 K/uL (0.00-0.50); Eosinophils % (auto) 1.1 %; Hematocrit (blood only) 40.4 % (42.0-52.0); Hemoglobin 13.8 g/dl (14.0-18.0); Immature Granulocytes # (auto) 0.12 K/uL (0.01-0.20); Immature Granulocytes % (auto) 1.2 %; Lymphocytes # (auto) 1.38 K/uL (1.20-3.40); Lymphocytes % (auto) 13.9 %; Mean Corpuscular Hemoglobin 34.2 pg (25.0-34.0); Mean Corpuscular Hgb Conc 34.2 g/dL (32.0-36.0); Mean Platelet Volume 9.4 fL (9.4-12.4); Monocytes # (auto) 0.93 K/uL (0.11-0.59); Monocytes % (auto) 9.4 %; Neutrophils # (auto) 7.35 K/uL (1.40-6.50); Neutrophils % (auto) 74.1 %; Platelet Count 242 K/uL (130-400); RDW Coefficient of Variation 13.9 % (11.5-14.5); RDW Standard Deviation 51.2 fL (36.4-46.3); Red Blood Count 4.04 M/uL (4.70-6.10); White Blood Count 9.92 K/ul (4.8-10.8)
[2024-07-06 19:57] LABS: Albumin Globulin Ratio 0.7 (0.9-2); Albumin Level 3.1 gm/dl (3.4-5.0); BUN Creatinine Ratio 25.4 (10-20); Bilirubin,Total 1.1 mg/dl (0.2-1.0); Calcium 8.8 mg/dl (8.6-10.3); Globulin 4.4 gm/dl (2.5-4.0); Total Protein 7.5 gm/dl (6.0-8.3)
[2024-07-06] MEDS: HYDROmorphone INJ 0.5 MG/0.5 ML SYR IV PRN (21:39)
[2024-07-06] MEDS: ONDANSETRON INJ 2 MG/ML 2 ML VIAL IV STA (21:39)
[2024-07-06] MEDS: SODIUM CHLORIDE 0.9% 500 ML IV ONE (21:40)
[2024-07-06] MEDS: SODIUM CHLORIDE 0.9% 1,000 ML IV SCH (23:46)
--- NOTE | 2024-07-07 00:31 | CT Scan Report ---
Exam(s): CT L SPINE EXAM: CT Lumbar Spine Without Intravenous Contrast CLINICAL HISTORY: Reason for exam: lumbar back pain, fall. TECHNIQUE: Axial computed tomography images of the lumbar spine without intravenous contrast. CTDI is 39 mGy and DLP is 1343 mGy-cm. Automated exposure control was utilized for the study. A dose lowering technique was utilized adhering to the principles of ALARA. COMPARISON: No relevant prior studies available. 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 Previous measurements: 3.1 x 3.3 x 7.0 cm. There is a chronic appearing T12 compression fracture with approximately 25% anterior height loss. No acute fracture or osseous destruction identified. Discs/spinal canal/neural foramina: There is multilevel thoracolumbar degenerative disc disease with marginal osteophytes and vacuum disc changes noted throughout the lumbar spine. There is a large circumferential disc osteophyte complex at L5-S1 with moderate to severe bilateral foraminal stenosis noted at L2-3 through L5-S1. Soft tissues: Unremarkable. Vasculature: There are moderate aortic atherosclerotic calcifications. Lungs: There is patchy nodular bilateral basilar airspace consolidation. IMPRESSION: 1. There is an enlarging 3.0 x 4.0 x 7.7 cm cm retrocrural periaortic alphonse mass at the level of the lower thoracic and upper lumbar spine. 2. There is a chronic appearing T12 compression fracture with approximately 25% anterior height loss. Electronically signed by: Rafa Najera MD 07/07/24 00:30 AM
--- NOTE | 2024-07-07 00:32 | CT Scan Report ---
Exam(s): CT PELVIS Without Contrast EXAM: CT Pelvis Without Intravenous Contrast CLINICAL HISTORY: Reason for exam: posterior pelvis pain, fall. TECHNIQUE: Axial computed tomography images of the pelvis without intravenous contrast. CTDI is 39 mGy and DLP is 1343 mGy-cm. Automated exposure control was utilized for the study. A dose lowering technique was utilized adhering to the principles of ALARA. COMPARISON: No relevant prior studies available. FINDINGS: Bowel: Unremarkable. No obstruction. No mucosal thickening. Appendix: No findings to suggest acute appendicitis. Intraperitoneal space: The urinary bladder is distended.. No pelvic mass or free fluid identified. No free air. Bladder: Unremarkable. No stones. Reproductive: Unremarkable as visualized. Bones/joints: There is advanced lower lumbar degenerative disc disease. There are generalized decreased bony mineralization. No acute fracture or destructive osseous abnormality of the pelvis identified. No dislocation. Soft tissues: Unremarkable. Vasculature: Unremarkable. No lower abdominal aortic aneurysm. Lymph nodes: Unremarkable. No enlarged lymph nodes. IMPRESSION: 1. No acute fracture or destructive osseous abnormality of the pelvis identified. 2. The urinary bladder is distended.. 3. There is advanced lower lumbar degenerative disc disease. 4. There are generalized decreased bony mineralization. Electronically signed by: Rafa Najera MD 07/07/24 00:31 AM
[2024-07-07 01:04] LABS: Appearance Urine Clear (Clear); Bacteria Urine Automated None Seen (None Seen); Bilirubin Urine Negative (Negative); Blood Urine Negative (Negative); Color Urine Dark Yellow; Epithelial Cell Urine Auto 0-2 /hpf (0-2); Glucose Urine UA Negative (Negative); Ketones Urine 1+ (Negative); Leukocyte Esterase Urine 1+ (Negative); Nitrite Urine Negative (Negative); Protein Urine 1+ (Negative); RBC Urine Automated 0-2 /hpf (0-2); Specific Gravity Urine 1.027 (1.000-1.030); Urobilinogen Urine Negative (Negative); pH Urine 5.5 (4.5-7.5)
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
[2024-07-07] MEDS ORDERED: HYDROmorphone INJ 0.5 MG/0.5 ML SYR IV PRN ×2 (03:37→10:58)
[2024-07-07] MEDS: HYDROmorphone INJ 0.5 MG/0.5 ML SYR IV PRN ×2 (03:49→11:36)
--- NOTE | 2024-07-07 08:57 | Electrocardiogram Report ---
Test Reason : Blood Pressure : */* mmHG Vent. Rate : 71 BPM Atrial Rate : 78 BPM P-R Int : * ms QRS Dur : 184 ms QT Int : 498 ms P-R-T Axes : * 170 8 degrees QTcB Int : 541 ms Ventricular-paced rhythm Abnormal ECG When compared with ECG of 27-Jun-2024 06:48, Vent. rate has decreased by 7 bpm Confirmed by Neptali Aguilar ([id number]) on 07/07/2024 8:57:03 AM Referred By: REFERRED SELF Confirmed By: Neptali Aguilar
[2024-07-07] MEDS ORDERED: carvediloL 12.5 MG TAB PO SCH (09:00)
[2024-07-07] MEDS ORDERED: NYSTATIN CR 15 GM TUBE EXT SCH (09:00)
[2024-07-07] MEDS: FINASTERIDE 5 MG TAB PO SCH (10:48)
[2024-07-07] MEDS: carvediloL 12.5 MG TAB PO SCH (10:48)
[2024-07-07] MEDS: TAMSULOSIN HCL 0.4 MG CAP PO SCH (10:48)
[2024-07-07] MEDS: ROSUVASTATIN CALCIUM 5 MG TAB PO SCH (10:49)
[2024-07-07] MEDS: CYCLOBENZAPRINE HCL 5 MG TAB PO SCH (10:49)
[2024-07-07] MEDS: hydrOXYzine HCl 25 MG TAB PO SCH (10:50)
[2024-07-07] MEDS: BUMETANIDE 1 MG TAB PO SCH (10:51)
[2024-07-07] MEDS: ACETAMINOPHEN 500 MG TAB PO SCH (10:53)
--- NOTE | 2024-07-07 10:56 | Communication Note ---
Date of Service: July 07, 2024 Bridge note: Patient admitted overnight for back pain. Seen at the bedside. Reports his pain is relatively unchanged, does ache in his low mid back. He feels he is gradually lost rings over many months but has not had sudden worsening of his strength just gradual loss. He reports his back has hurt for around 4 days and has difficulty ambulating due to severe pain in his back which also makes his ambulation more limited, but again notes that strength loss has been chronic. Denies urinary incontinence/retention. Denies saddle anesthesia. Ankle dorsiflexion/plantarflexion and hip flexion are with good strength and symmetrical, but fatigues easily. Sensation to soft touch is intact in the feet and saddle region without deficit or asymmetry. Feels that medications are starting to help but still remains in pain. Has not had an MRI of his spine before. Is pending workup of a intra-abdominal mass and outpatient biopsy. He is on Xarelto currently. Tylenol, heat, Flexeril, Lidoderm, Voltaren continued. Dilaudid switched to scaled analgesia based on breakthrough level of pain. Did discuss potential MRI given his possible underlying malignancy and weakness. Patient does feel that his pain is similar to episodic intermittent back pain he has had before with a herniated disc and partial compression fracture, although slightly worse in intensity. Unfortunately MRI is not able to be obtained as his ventricular pacemaker is not MRI compatible/conditional.As he does not have focal deficits on his exam we will continue symptomatic management pain control PT/OT as tolerated. On afternoon reassessment continues to have poor pain control, some radiating pain across the back. Trial dex 6mg qd ordered
[2024-07-07] MEDS ORDERED: DEXAMETHASONE SOD INJ 4 MG/ML VIAL IV SCH (14:00)
[2024-07-07] MEDS: dexAMETHasone 6 MG in SYRINGE 0 ML IV SCH (14:54)
[2024-07-07] MEDS: LIDOCAINE 5% 1 PATCH TD SCH (14:55)
[2024-07-07] MEDS: DICLOFENAC SOD 1% GEL 100 GM TUBE EXT PRN (14:59)
[2024-07-07] MEDS: allopurinoL 300 MG TAB PO SCH (21:12)
[2024-07-07] MEDS: carvediloL 25 MG TAB PO SCH (21:13)
[2024-07-07] MEDS: RIVAROXABAN 20 MG TAB PO SCH (21:13)
[2024-07-08] MEDS: HYDROmorphone INJ 0.5 MG/0.5 ML SYR IV STA (01:52)
[2024-07-08 06:49] LABS: Hematocrit (blood only) 35.9 % (42.0-52.0); Mean Corpuscular Hemoglobin 34.2 pg (25.0-34.0); Mean Corpuscular Hgb Conc 33.4 g/dL (32.0-36.0); Mean Corpuscular Volume 102.3 fL (80.0-100.0); Mean Platelet Volume 9.9 fL (9.4-12.4); Platelet Count 245 K/uL (130-400); RDW Coefficient of Variation 13.6 % (11.5-14.5); RDW Standard Deviation 51.5 fL (36.4-46.3); Red Blood Count 3.51 M/uL (4.70-6.10); White Blood Count 8.36 K/ul (4.8-10.8)
[2024-07-08 07:18] LABS: BUN Creatinine Ratio 33.8 (10-20); Calcium 8.5 mg/dl (8.6-10.3); Creatinine Clr Calc Pharmacy 133.9 ml/min; Potassium 4.6 mmol/L (3.5-5.1)
--- NOTE | 2024-07-08 17:24 | Hospitalist Progress Note ---
Date of Service July 08, 2024 Assessment & Plan (1) Intractable back pain: Plan: Patient with acute on chronic back pain, inability to stand or ambulate due to pain. No trauma, no fever/chills does have multiple pulmonary nodules and retrocrural mass at level of mid back / thoraciclumbar junction. unfortunately cannot obtain MRI due to pacemaker incompatibility. It is somewhat reassuring that his pain is well below the level of the retrocrural mass and there is no radiation of the pain or neurological symptoms other than mild left lower extremity hip flexor weakness which may be chronic - continue dexamethasone -Tylenol 1000mg po TID -Heat -Flexeril 5mg po - increase to 3 times daily -Voltaren gel -Lidoderm -Dilaudid PRN -PT/OT evaluation appreciated CBC and BMP reviewed today and notable for Hg 12, MCV 102, normal lytes and BUN/Cr (2) Ambulatory dysfunction: Plan: Due to ongoing back pain -Pain control as above -PT/OT evaluation - needed max assist x 2 to get up to standing 07/08 (3) Intraabdominal mass: Plan: multiple pulmonary nodules and retrocrural abdominal mass found on CT last admission, suspicious for malignancy obtained further information, he did have pulmonary appointment scheduled 07/[address] Benton to set up bronch/biopsy. He missed this appointment, however, presumably because he had fallen at home and he did come in to ED later same day held xarelto in case biopsy able to be set up soon. Last dose 1/8 AM. Plan Chronic Medical Issues: BPH -Continue Flomax 0.4mg po daily and Finasteride 5mg po daily Hyperlipidemia -Continue Crestor 5mg po daily Atrial fibrillation, chronic heart failure, pacemaker. Followed by Dr. Joshi -on xarelto, held, continue carvedilol, statin -continue bumex but increase dose because up 5 pounds since recent discharge DM type 2 with A1c 6.3% -continue premeal insulin Alcohol use disorder - 3-5 shots of whisky nightly - has been working on cessation/reduction recently. B12/folate wnl, cont thiamine. Did not have withdrawal recent admission Stable macrocytic anemia - macrocytosis related to EtOH, B12/folate normal. Recent admission for scrotal cellulitis, mild biochemical asymptomatic pancreatitis possibly alcohol induced, resolved DVT ppx - on xarelto holding, start enox if remaining in hospital past tomorrow Admission and Anticipated Discharge Date Admission Date: July 07, 2024 Subjective low back pain remains severe but has improved some and he was able to stand with PT/OT today no radiation down buttocks/legs pain is bandlike across low lumbar region. no midback pain L thigh mild pain when I had him raise L heel off bed. LLE mildly weaker than RLE at hip flexor and he thinks that is chronic, was noted last admission by VIDAL Patten as well Physical Exam 2 Physical Exam: PHYSICAL EXAMINATION Last 24h vital signs reviewed, see documentation in flowsheet General: comfortable appearing, no distress, reclining in bed HEENT: Normocephalic, atraumatic, pupils round and equal, sclerae anicteric, no conjunctival injection, moist mucus membranes Lungs: Normal respiratory effort. Clear to auscultation bilaterally. No RRW Heart: Regular rate and rhythm, no murmurs. No JVD Abdomen: Soft, nontender, nondistended. Bowel sounds present. Extremities: Warm, dry, well-perfused. 2+ lower extremity edema. nontender to palpation L-spine Neuro: Alert and oriented x 4, face symmetric, moves 4 extremities well, mild weakness of left hip flexor 4+/5 compared to right, hampered by pain. dorsi and plantarflexion are 5 out of 5 bilaterally Psych: Normal affect and behavior Results & Data Results & Data Vital Signs (Past 12 Hours) Vital Signs Temp Pulse Pulse Resp BP Pulse Ox O2 Del Method 07/08/24 14:57 97.3 F L 68 16 125/77 96 Room Air 07/08/24 12:09 Nasal Cannula 07/08/24 12:06 97.5 F L 70 18 126/78 99 Room Air 07/08/24 07:55 97.5 F L 89 18 162/96 H 93 Room Air O2 Flow Rate 07/08/24 14:57 07/08/24 12:09 2 07/08/24 12:06 07/08/24 07:55 Laboratory Results 07/08/24 05:46 07/08/24 05:46 PG Care Time/CCT Total # of Minutes Spent Total Time Spent with Patient: Total time spent is greater than 50% in coordination of care (as documented) at patient's floor/unit and/or counseling patient: Coding Level of Care Code 84200 SUB INP/OBS CARE 2/35MIN Diagnoses Intractable back pain M54.9 Ambulatory dysfunction R26.2 Intraabdominal mass R19.00
[2024-07-08] MEDS: CYCLOBENZAPRINE HCL 5 MG TAB PO SCH (18:07)
[2024-07-08] MEDS: ONDANSETRON INJ 2 MG/ML 2 ML VIAL IV PRN (22:14)
[2024-07-09] MEDS: BUMETANIDE 1 MG TAB PO SCH (08:42)
--- NOTE | 2024-07-09 16:01 | Hospitalist Progress Note ---
Date of Service July 09, 2024 Assessment & Plan (1) Intractable back pain: Plan: Patient with acute on chronic back pain, inability to stand or ambulate due to pain. No trauma, no fever/chills does have multiple pulmonary nodules and retrocrural mass at level of mid back / thoraciclumbar junction. unfortunately cannot obtain MRI due to pacemaker incompatibility. It is somewhat reassuring that his pain is well below the level of the retrocrural mass and there is no radiation of the pain or neurological symptoms other than mild left lower extremity hip flexor weakness which may be chronic #intractable low back pain, ambulatory dysfunction - continue dexamethasone, change to po. 5 day course -Tylenol 1000mg po TID -Heat -Flexeril 5mg po tid for muscle spasm component -Voltaren gel -Lidoderm -Dilaudid PRN - using 0.5 mg doses -PT/OT evaluation 07/08 - needed 2pa to stand (2) Intraabdominal mass: Plan: multiple pulmonary nodules and retrocrural abdominal mass found on CT last admission, suspicious for malignancy obtained further information, he did have pulmonary appointment scheduled 07/[address] Benton to set up bronch/biopsy. He missed this appointment, however, presumably because he had fallen at home and he did come in to ED later same day held xarelto in case biopsy able to be set up soon. Last dose 1/8 AM. Plan Chronic Medical Issues: BPH -Continue Flomax 0.4mg po daily and Finasteride 5mg po daily Hyperlipidemia -Continue Crestor 5mg po daily Atrial fibrillation, chronic heart failure, pacemaker. Followed by Dr. Joshi -on xarelto, held, continue carvedilol, statin -continue bumex but increased dose to 2 mg daily because up 5 pounds since recent discharge -BMP over weekend DM type 2 with A1c 6.3% -continue premeal insulin - BG at goal Alcohol use disorder - 3-5 shots of whisky nightly - has been working on cessation/reduction recently. B12/folate wnl, cont thiamine. Did not have withdrawal recent admission Stable macrocytic anemia - macrocytosis related to EtOH, B12/folate normal. Recent admission for scrotal cellulitis, mild biochemical asymptomatic pancreatitis possibly alcohol induced, resolved DVT ppx - on xarelto holding, start enoxaparin until xarelto resumed Admission and Anticipated Discharge Date Admission Date: July 09, 2024 Subjective low back pain continues to be severe and continues nonradiating mobility improved however, sat on EOB 45 minutes just now Physical Exam Physical Exam: PHYSICAL EXAMINATION Last 24h vital signs reviewed, see documentation in flowsheet General: sitting on EOB HEENT: Normocephalic, atraumatic, pupils round and equal, sclerae anicteric, no conjunctival injection, moist mucus membranes Lungs: Normal respiratory effort. Clear to auscultation bilaterally. No RRW Heart: Regular rate and rhythm, no murmurs. No JVD Abdomen: Soft, nontender, nondistended. Bowel sounds present. Extremities: Warm, dry, well-perfused. 2+ lower extremity edema. Lspine nontender to palp. Pain is well above SI joints. Paraspinous mm tight bilaterally Neuro: Alert and oriented x 4, face symmetric, moves 4 extremities well Psych: Normal affect and behavior Results & Data Results & Data Vital Signs (Past 12 Hours) Vital Signs Temp Pulse Resp BP Pulse Ox O2 Del Method 07/09/24 15:09 97.7 F 69 18 127/85 94 Room Air 07/09/24 08:30 Room Air 07/09/24 07:13 97.5 F L 68 17 117/68 96 Room Air PG Care Time/CCT Total # of Minutes Spent Total Time Spent with Patient: Total time spent is greater than 50% in coordination of care (as documented) at patient's floor/unit and/or counseling patient: Coding Level of Care Code 41059 SUB INP/OBS CARE 2/35MIN Diagnoses Intractable back pain M54.9 Intraabdominal mass R19.00
--- NOTE | 2024-07-10 16:03 | Hospitalist Progress Note ---
Date of Service July 10, 2024 Assessment & Plan (1) Intractable back pain: Plan: Patient with acute on chronic back pain, inability to stand or ambulate due to pain. No trauma, no fever/chills does have multiple pulmonary nodules and retrocrural mass at level of mid back / thoraciclumbar junction. unfortunately cannot obtain MRI due to pacemaker incompatibility. It is somewhat reassuring that his pain is well below the level of the retrocrural mass and there is no radiation of the pain or neurological symptoms other than mild left lower extremity hip flexor weakness which may be chronic #intractable low back pain, ambulatory dysfunction. back pain improving but he has significant generalized weakness today he was able to get up and stand with PT but only able to do some sidestepping and is not ambulatory. Will need rehab - continue dexamethasone, change to po. 5 day course, last dose 07/11 -Tylenol 1000mg po TID -Heat -Flexeril 5mg po tid for muscle spasm component -Voltaren gel -Lidoderm -Dilaudid PRN - using 0.5 mg doses continue PT/OT (2) Intraabdominal mass: Plan: multiple pulmonary nodules and retrocrural abdominal mass found on CT last admission, suspicious for malignancy obtained further information, he did have pulmonary appointment scheduled 07/[address] Benton to set up bronch/biopsy. He missed this appointment, however, presumably because he had fallen at home and he did come in to ED later same day held xarelto in case biopsy able to be set up soon. Last dose 1/8 AM. Plan Chronic Medical Issues: BPH -Continue Flomax 0.4mg po daily and Finasteride 5mg po daily Hyperlipidemia -Continue Crestor 5mg po daily Atrial fibrillation, chronic heart failure, pacemaker. Followed by Dr. Joshi -on xarelto, held, continue carvedilol, statin -continue bumex but increased dose to 2 mg daily because up 5 pounds since recent discharge -BMP over weekend DM type 2 with A1c 6.3% -continue premeal insulin - BG at goal Alcohol use disorder - 3-5 shots of whisky nightly - has been working on cessation/reduction recently. B12/folate wnl, cont thiamine. Did not have withdrawal recent admission Stable macrocytic anemia - macrocytosis related to EtOH, B12/folate normal. Recent admission for scrotal cellulitis, mild biochemical asymptomatic pancreatitis possibly alcohol induced, resolved DVT ppx - on xarelto holding, start enoxaparin until xarelto resumed Admission and Anticipated Discharge Date Admission Date: July 09, 2024 Subjective low back pain continues to slowly improve left thigh pain was minimal and resolved has been able to sit on the edge of the bed for longer, stood up with PT was able to do a little bit of sidestepping had significant dyspnea on exertion Physical Exam 2 Physical Exam: PHYSICAL EXAMINATION Last 24h vital signs reviewed, see documentation in flowsheet General: comfortable appearing, no distress HEENT: Normocephalic, atraumatic, pupils round and equal, sclerae anicteric, no conjunctival injection, moist mucus membranes Lungs: Normal respiratory effort. Clear to auscultation bilaterally. No RRW Heart: Regular rate and rhythm, no murmurs. No JVD Abdomen: Soft, nontender, nondistended. Bowel sounds present. Extremities: Warm, dry, well-perfused. 2+ lower extremity edema. Neuro: Alert and oriented x 4, face symmetric, moves 4 extremities well, left hip flexor remains weaker than right distal lower extremity strength 5 out of 5 and symmetric Psych: Normal affect and behavior Results & Data Results & Data Vital Signs (Past 12 Hours) Vital Signs Temp Pulse Pulse Resp BP Pulse Ox O2 Del Method 07/10/24 15:05 97.5 F L 71 18 137/92 94 Room Air 07/10/24 11:58 97.5 F L 67 17 132/76 96 Room Air 07/10/24 09:00 Room Air, Nasal Cannula 07/10/24 07:56 97.9 F 64 18 134/77 98 Nasal Cannula O2 Flow Rate 07/10/24 15:05 07/10/24 11:58 07/10/24 09:00 07/10/24 07:56 2 Laboratory Results 07/08/24 05:46 07/08/24 05:46 PG Care Time/CCT Total # of Minutes Spent Total Time Spent with Patient: Total time spent is greater than 50% in coordination of care (as documented) at patient's floor/unit and/or counseling patient: Coding Level of Care Code 06862 SUB INP/OBS CARE 2/35MIN Diagnoses Intractable back pain M54.9 Intraabdominal mass R19.00
[2024-07-10] MEDS ORDERED: oxyCODONE HCL IR 5 MG TAB (IMMEDIATE RELEASE) PO PRN (16:05)
[2024-07-10] MEDS: oxyCODONE HCL IR 5 MG TAB (IMMEDIATE RELEASE) PO PRN (16:47)
[2024-07-10] MEDS: dexAMETHasone 4 MG TAB PO ONE (16:47)
--- NOTE | 2024-07-11 15:06 | Hospitalist Progress Note ---
Date of Service July 11, 2024 Assessment & Plan (1) Intractable back pain: Plan: Patient with acute on chronic back pain, inability to stand or ambulate due to pain. No trauma, no fever/chills does have multiple pulmonary nodules and retrocrural mass at level of mid back / thoraciclumbar junction. unfortunately cannot obtain MRI due to pacemaker incompatibility. It is somewhat reassuring that his pain is well below the level of the retrocrural mass and there is no radiation of the pain or neurological symptoms other than mild left lower extremity hip flexor weakness which may be chronic #intractable low back pain, ambulatory dysfunction. back pain improving but he has significant generalized weakness today he was able to get up and stand with PT but only able to do some sidestepping and is not ambulatory. Will need rehab - continue dexamethasone, change to po. 5 day course, last dose 07/11 -Tylenol 1000mg po TID -Heat -Flexeril 5mg po tid for muscle spasm component -Voltaren gel -Lidoderm -Dilaudid PRN - using 0.5 mg doses and 10 mg oxycodone - no doses of opioids today so far continue PT/OT - rehab referrals (2) Intraabdominal mass: Plan: multiple pulmonary nodules and retrocrural abdominal mass found on CT last admission, suspicious for malignancy obtained further information, he did have pulmonary appointment scheduled 07/[address] Benton to set up bronch/biopsy. He missed this appointment, however, presumably because he had fallen at home and he did come in to ED later same day held xarelto in case biopsy able to be set up soon. Last dose 07/08 AM. Plan Chronic Medical Issues: Atrial fibrillation, chronic heart failure, pacemaker. Followed by Dr. Joshi Heart failure with mid-range ejection fraction - EF 45% last Echo 03/31/24 with rwma's, technically very difficult study Not overtly decompensated, however, I wonder if he has been chronically volume overloaded and this is aggravating his REYES -trial IV bumex - 1 mg this afternoon, potassium 40 meq, AM BMP -continue bumex 2 mg po daily for discharge -on xarelto, held, continue carvedilol, statin BPH -Continue Flomax 0.4mg po daily and Finasteride 5mg po daily Hyperlipidemia -Continue Crestor 5mg po daily DM type 2 with A1c 6.3% -continue premeal insulin - BG at goal Alcohol use disorder - 3-5 shots of whisky nightly - has been working on cessation/reduction recently. B12/folate wnl, cont thiamine. Did not have withdrawal recent admission Stable macrocytic anemia - macrocytosis related to EtOH, B12/folate normal. Morbid obesity BMI 50 Recent admission for scrotal cellulitis, mild biochemical asymptomatic pancreatitis possibly alcohol induced, resolved DVT ppx - on xarelto holding, started enoxaparin until xarelto resumed Admission and Anticipated Discharge Date Admission Date: July 09, 2024 Subjective Back pain slowly improving and mobility slowly improving Again sitting up on EOB. Right now feels better sitting Leg edema slowly improving He has significant REYES with minimal exertion - standing and taking few steps with PT, this has been somewhat chronic however Physical Exam Physical Exam: PHYSICAL EXAMINATION Last 24h vital signs reviewed, see documentation in flowsheet General: sitting on EOB HEENT: MMM poor dentition Lungs: Normal respiratory effort. L>R basilar crackles. No wheezing Heart: Regular rate and rhythm, no murmurs. has pabon hard to see neck vv Abdomen: Soft, nontender, nondistended. Bowel sounds present. Extremities: Warm, dry, well-perfused. 2+ lower extremity edema improved compared to several days ago. Neuro: Alert and oriented x 4, face symmetric, moves 4 extremities well Psych: Normal affect and behavior Results & Data Results & Data Vital Signs (Past 12 Hours) Vital Signs Temp Pulse Resp BP Pulse Ox O2 Del Method 07/11/24 07:16 97.5 F L 69 16 167/92 H 95 Room Air PG Care Time/CCT Total # of Minutes Spent Total Time Spent with Patient: Total time spent is greater than 50% in coordination of care (as documented) at patient's floor/unit and/or counseling patient: Coding Level of Care Code 96629 SUB INP/OBS CARE 2/35MIN Diagnoses Intractable back pain M54.9 Intraabdominal mass R19.00
[2024-07-11] MEDS: POTASSIUM CHLORIDE CRTAB 20 MEQ TABCR PO ONE (15:09)
[2024-07-11] MEDS: BUMETANIDE 1 MG in SYRINGE 0 ML IV ONE (15:09)
[2024-07-12 06:03] LABS: Hemoglobin 14.3 g/dl (14.0-18.0); Mean Corpuscular Hemoglobin 33.8 pg (25.0-34.0); Mean Corpuscular Hgb Conc 34.9 g/dL (32.0-36.0); Mean Corpuscular Volume 96.9 fL (80.0-100.0); Mean Platelet Volume 9.7 fL (9.4-12.4); Platelet Count 211 K/uL (130-400); RDW Coefficient of Variation 12.9 % (11.5-14.5); RDW Standard Deviation 46.1 fL (36.4-46.3); Red Blood Count 4.23 M/uL (4.70-6.10); White Blood Count 9.85 K/ul (4.8-10.8)
[2024-07-12 06:18] LABS: BUN Creatinine Ratio 42.9 (10-20); Calcium 8.6 mg/dl (8.6-10.3); Creatinine Clr Calc Pharmacy 155.5 ml/min; Potassium 4.1 mmol/L (3.5-5.1)
[2024-07-12] MEDS ORDERED: LORazepam 2 MG/1 ML VIAL IV STA (10:17)
[2024-07-12] MEDS ORDERED: Nursing to Pharmacy Communication SCH (12:45)
[2024-07-12] MEDS: LORazepam 2 MG/1 ML VIAL IV STA (12:49)
[2024-07-12] MEDS: ENOXAPARIN INJ 40 MG/0.4 ML SYR SQ ONE (12:49)
[2024-07-12] MEDS: diazePAM 5 MG/ML 10ML VIAL IV STA (13:16)
--- NOTE | 2024-07-12 14:24 | Hospitalist Progress Note ---
Date of Service July 12, 2024 Assessment & Plan (1) Intractable back pain: Plan: Patient with acute on chronic back pain, inability to stand or ambulate due to pain. No trauma, no fever/chills does have multiple pulmonary nodules and retrocrural mass at level of mid back / thoraciclumbar junction. unfortunately cannot obtain MRI due to pacemaker incompatibility. It is somewhat reassuring that his pain is well below the level of the retrocrural mass and there is no radiation of the pain or neurological symptoms other than mild left lower extremity hip flexor weakness which may be chronic #intractable low back pain, ambulatory dysfunction. back pain improving but he has significant generalized weakness today he was able to get up and stand with PT but only able to do some sidestepping and is not ambulatory. Will need rehab -dexamethasone x 5 days through 07/11. Didn't seem to make a big difference -Tylenol 1000mg po TID -Heat -Flexeril 5mg po tid for muscle spasm component -Voltaren gel -Lidoderm -Dilaudid PRN - using 0.5 mg doses and 10 mg oxycodone - has been pretty sparing with these -today lorazepam 0.5 mg IV for acute muscle spasm continue PT/OT - rehab referrals (2) Intraabdominal mass: Plan: multiple pulmonary nodules and retrocrural abdominal mass found on CT last admission, suspicious for malignancy obtained further information, he did have pulmonary appointment scheduled 07/[address] Benton to set up bronch/biopsy. He missed this appointment, however, presumably because he had fallen at home and he did come in to ED later same day held xarelto in case biopsy able to be set up soon. Last dose 1/[address] Benton Saturday, npo p mn in case Plan Chronic Medical Issues: Atrial fibrillation, chronic heart failure, pacemaker. Followed by Dr. Joshi Heart failure with mid-range ejection fraction - EF 45% last Echo 03/31/24 with rwma's, technically very difficult study Not overtly decompensated, however, I wonder if he has been chronically volume overloaded and this is aggravating his REYES -IV bumex 07/11 with significant output/improvement in leg edema. BMP today stable normal lytes no change in Cr. BUN up. -continue bumex 2 mg po daily - stay on this for discharge -on xarelto, held, continue carvedilol, statin BPH -Continue Flomax 0.4mg po daily and Finasteride 5mg po daily Hyperlipidemia -Continue Crestor 5mg po daily DM type 2 with A1c 6.3% -continue premeal insulin - BG at goal Alcohol use disorder - 3-5 shots of whisky nightly - has been working on cessation/reduction recently. B12/folate wnl, cont thiamine. Has not had any alcohol withdrawal. Stable macrocytic anemia - macrocytosis related to EtOH, B12/folate normal. Morbid obesity BMI 50 Recent admission for scrotal cellulitis, mild biochemical asymptomatic pancreatitis possibly alcohol induced, resolved DVT ppx - on xarelto holding, enoxaparin until xarelto resumed Admission and Anticipated Discharge Date Admission Date: July 09, 2024 Subjective dyspnea about the same, leg edema much improved, large UOP yesterday this morning his low back is really hurting, no change in quality/location/character of pain, nonradiating Physical Exam 2 Physical Exam: PHYSICAL EXAMINATION Last 24h vital signs reviewed, see documentation in flowsheet General: lying flat in bed and looks uncomfortable HEENT: MMM poor dentition Lungs: Normal respiratory effort. CTAB anteriorly Heart: Regular rate and rhythm, no murmurs. has pabon hard to see neck vv Abdomen: Soft, nontender, nondistended. Bowel sounds present. Extremities: Warm, dry, well-perfused. 2+ lower extremity edema much improved compared to yesterday Neuro: Alert and oriented x 4, face symmetric, moves 4 extremities well Psych: Normal affect and behavior Results & Data Results & Data Vital Signs (Past 12 Hours) Vital Signs Temp Pulse Resp BP Pulse Ox O2 Del Method 07/12/24 07:36 97.3 F L 61 18 146/93 H 93 Room Air Laboratory Results 07/12/24 05:31 07/12/24 05:31 PG Care Time/CCT Total # of Minutes Spent Total Time Spent with Patient: Total time spent is greater than 50% in coordination of care (as documented) at patient's floor/unit and/or counseling patient: Coding Level of Care Code 12002 SUB INP/OBS CARE 2/35MIN Diagnoses Intractable back pain M54.9 Intraabdominal mass R19.00
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
[2024-07-13] MEDS: ENOXAPARIN INJ 40 MG/0.4 ML SYR SQ SCH (16:44)
--- NOTE | 2024-07-13 19:29 | Hospitalist Progress Note ---
Date of Service July 13, 2024 Assessment & Plan (1) Intractable back pain: Plan: Patient with acute on chronic back pain, inability to stand or ambulate due to pain. No trauma, no fever/chills does have multiple pulmonary nodules and retrocrural mass at level of mid back / thoraciclumbar junction. unfortunately cannot obtain MRI due to pacemaker incompatibility. It is somewhat reassuring that his pain is well below the level of the retrocrural mass and there is no radiation of the pain or neurological symptoms other than mild left lower extremity hip flexor weakness which may be chronic #intractable low back pain, ambulatory dysfunction. back pain improving but he has significant generalized weakness today he was able to get up and stand with PT but only able to do some sidestepping and is not ambulatory. Will need rehab -dexamethasone x 5 days through 07/11. Had slow improvement, then pain flared again since 07/12. Restarted steroids today - 5 days ordered has gout, on allopurinol. 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 expect bigger steroid response if so. ordered AM uric acid, CRP, ESR. Very slow to improve -Tylenol 1000mg po TID -Heat -Flexeril 5mg po tid for muscle spasm component. lorazepam IV dose didn't help 07/13 -Voltaren gel -Lidoderm -Dilaudid PRN - using 0.5 mg doses and 10 mg oxycodone - has been pretty sparing with these continue PT/OT - rehab referrals (2) Intraabdominal mass: Plan: multiple pulmonary nodules and retrocrural abdominal mass found on CT last admission, suspicious for malignancy last dose xarelto was AM - has been held while attempting to arrange biopsy consulted pulmonary recommended IR biopsy, reviewed again with IR today, Ct guided biopsy of pulmonary mass scheduled for 07/16 -npo p mn 07/15 -xarelto still held -enox bid prophylaxis dose in meantime, through AM of 07/15 Plan Chronic Medical Issues: Atrial fibrillation, chronic heart failure, pacemaker. Followed by Dr. Joshi Heart failure with mid-range ejection fraction - EF 45% last Echo 03/31/24 with rwma's, technically very difficult study Not overtly decompensated, however, I wonder if he has been chronically volume overloaded and this is aggravating his REYES -IV bumex 07/11 with significant output/improvement in leg edema. -continue bumex 2 mg po daily - stay on this for discharge. Down 5 pounds this admission. -on xarelto, held, continue carvedilol, statin -AM BMP BPH -Continue Flomax 0.4mg po daily and Finasteride 5mg po daily Hyperlipidemia -Continue Crestor 5mg po daily DM type 2 with A1c 6.3% -continue premeal insulin - BG at goal Alcohol use disorder - 3-5 shots of whisky nightly - has been working on cessation/reduction recently. B12/folate wnl, cont thiamine. Has not had any alcohol withdrawal. Stable macrocytic anemia - macrocytosis related to EtOH, B12/folate normal. Morbid obesity BMI 50 Recent admission for scrotal cellulitis, mild biochemical asymptomatic pancreatitis possibly alcohol induced, resolved DVT ppx - on xarelto holding, enoxaparin ppx until xarelto resumed Admission and Anticipated Discharge Date Admission Date: July 09, 2024 Subjective Back pain flared up again really bad starting yesterday. Lorazepam IV dose didn't help. Leg edema sig improved, REYES relatively unchanged Physical Exam 2 Physical Exam: PHYSICAL EXAMINATION Last 24h vital signs reviewed, see documentation in flowsheet General: reclining in bed, lying pretty flat HEENT: MMM poor dentition Lungs: Normal respiratory effort. CTAB anteriorly Heart: Regular rate and rhythm, no murmurs. has pabon hard to see neck vv Abdomen: Soft, nontender, nondistended. Bowel sounds present. Extremities: Warm, dry, well-perfused. 2+ lower extremity edema much improved compared to few days ago Neuro: Alert and oriented x 4, face symmetric, moves 4 extremities well Psych: Normal affect and behavior Results & Data Results & Data Vital Signs (Past 12 Hours) Vital Signs Temp Pulse Resp BP Pulse Ox O2 Del Method O2 Flow Rate 07/13/24 15:58 97.5 F L 72 18 97/60 L 95 Nasal Cannula 2 Laboratory Results 07/12/24 05:31 07/12/24 05:31 PG Care Time/CCT Total # of Minutes Spent Total Time Spent with Patient: Total time spent is greater than 50% in coordination of care (as documented) at patient's floor/unit and/or counseling patient: Coding Level of Care Code 71647 SUB INP/OBS CARE 2/35MIN Diagnoses Intractable back pain M54.9 Intraabdominal mass R19.00
[2024-07-13] MEDS: predniSONE 20 MG TAB PO SCH (21:10)
[2024-07-14 07:39] LABS: BUN Creatinine Ratio 39.8 (10-20); C Reactive Protein 9.95 mg/dl (0-0.5); Creatinine Clr Calc Pharmacy 94.3 ml/min; Potassium 4.4 mmol/L (3.5-5.1); Uric Acid 5.5 mg/dl (2.6-7.2)
[2024-07-14 07:45] LABS: Prothrombin Time 11.3 Seconds (9.0-12.0)
[2024-07-14] MEDS: INSULIN ASPART PER UNIT CHARGE SC SCH (12:19)
[2024-07-14 12:58] LABS: Magnesium 1.9 mg/dl (1.7-2.4)
--- NOTE | 2024-07-14 13:02 | Hospitalist Progress Note ---
Date of Service July 14, 2024 Assessment & Plan (1) Intractable back pain: Plan: presumed 2nd to retroperitoneal mass does have l-spine DJD as well which could be contributing obtained t-spine CT today - no acute fractures, no metastatic disease in the spine - but DJD of t-spine as well unfortunately cannot have MRI as pacemaker is incompatible currently on oxy's prn, dilaudid IV prn, prednisone, flexeril TID despite the above is NOT comfortable he cannot roll in bed without having severe pain poor candidate for oxycontin, MS-contin, fentanyl patch due to obesity and probable tendencies towards CO2 retention thus, will use Butrans patch 5mcg cautiously; start such today (2) Intraabdominal mass: Plan: multiple pulmonary nodules and retrocrural abdominal mass found on CT last a dmission - highly suspicious for malignancy CT-guided bx of one of the nodules planned for 07/16 Xarelto is on hold - last dose 07/07/24 currently on lovenox 40mg BID will hold after tomorrow am's dose (3) Chronic systolic CHF (congestive heart failure): Plan: EF 45% last Echo 03/31/24 with regional WMAs technically very difficult study per the report looks compensated on exam today cont coreg BID cont bumex daily uncertain why he is not on SOREN or ARB therapy (4) COPD (chronic obstructive pulmonary disease): Plan: could be contributing to dyspnea, but not in exacerbation at this time consider repeat CT study - r/o PEs in light of suspected stage 4 malignancy (5) Diabetes mellitus, type 2: Plan: a1c 6.3% in 03/2024 with steroids he is uncontrolled will add lantus-novolog BSG checks ac/hs DM diet (6) Pacemaker: Plan: interrogation requested EKG today - pacing with PVCs (bigem pattern) (7) Atrial fibrillation: Plan: history of such cont Coreg Xarelto on hold for biopsy on 07/16 (8) Morbid obesity with body mass index (BMI) of 40.0 or higher: Plan: BMI 40.8 (9) FREDRICK (obstructive sleep apnea): Plan: CPAP Plan BPH - continue Flomax 0.4mg po daily and Finasteride 5mg po daily Hyperlipidemia - Continue Crestor 5mg po daily Alcohol use disorder - 3-5 shots of whisky nightly - has been working on cessation/reduction recently. B12/folate wnl, add thiamine. Has not had any alcohol withdrawal to date here. Chronic etoh use could be affecting his response to pain meds. Recent admission for scrotal cellulitis - resolved DVT ppx - on xarelto holding, enoxaparin ppx until xarelto resumed (hold latter after tomorrow AM's dose) Admission and Anticipated Discharge Date Admission Date: July 09, 2024 Subjective patient's main complaint is that of mid to low back pain constant, but much worse with any attempt at movement including trying to roll in the bed no radicular pain in legs mild dyspnea "but I'm always like that" appetite fair at best fatigued didn't "feel well this am" BP machines were reading HRs in the 40s EKG obtained - paced with PVCs in bigem pattern but not bradycardic denies chest pain or nausea/vomiting Review of Systems Review of Systems: gen - no fevers or chills cv - no substernal cp pulm - no wheezing GI - no N/V Physical Exam Physical Exam: gen - obese, very uncomfortable; with trying to roll in bed he has SEVERE pain neck - no JVD mouth - MMM heart - irregular, s1 s2, not bradycardic, no murmur lungs - CTA b/l, no rales abd - soft NT ND BS+ ext - trace edema b/l, pulses 2+ b/l feet back - very tender to palpation from low t-spine region down to sacral region in the midline Results & Data Results & Data Vital Signs (Past 12 Hours) Vital Signs Temp Pulse Resp BP Pulse Ox O2 Del Method O2 Flow Rate 07/14/24 11:44 36.4 C L 52 L 20 126/70 95 Nasal Cannula 2 07/14/24 07:54 36.4 C L 72 16 146/73 H 96 Room Air 07/14/24 07:54 Room Air Laboratory Results Laboratory Results - last 48 hr 07/14/24 07/14/24 07/14/24 07:04 11:42 16:29 ESR 74 H PT 11.3 INR 1.0 Sodium 134 L Potassium 4.4 Chloride 93 L Carbon Dioxide 35 H Anion Gap 6 BUN 35 H Creatinine 0.88 Est Cr Clr Drug Dosing 94.3 eGFR 89.12 BUN/Creatinine Ratio 39.8 H Glucose 225 H POC Glucose 264 H 209 H Uric Acid 5.5 Calcium 9.0 Magnesium 1.9 C-Reactive Protein 9.95 H Diagnostic Findings Thoracic Spine CT 07/14/24 12:59 CT OF THE THORACIC SPINE CLINICAL HISTORY: severe back pain, retrocrural mass, compression Fx COMPARISON STUDY: Chest CT June 23, 2024. TECHNIQUE: Helical axial images of the thoracic spine were obtained. Sagittal and coronal reconstructions were viewed. Automated exposure control was utilized for the study. A dose lowering technique was utilized adhering to the principles of ALARA. FINDINGS: Alignment of the thoracic spine is anatomic. There are compression fractures involving the superior endplates of T2, T4, T9 and T12. Moderate loss of height of the T9 and T12 vertebra is noted. There is mild loss of height of the T2 and T4 vertebral bodies. There is no retropulsion. These fractures are similar to chest CT of June 23, 2024 and were also present on CT of November 13, 2022. No interval fractures are present. Central canal and neural foramen are suboptimally assessed given CT technique. No overtly suspicious osseous lesions are identified within the thoracic spine. There is mild multilevel disc space narrowing and moderate osteophytosis within the thoracic spine. Facet joints are intact. Innumerable pulmonary lesions are partially on this exam. These are better depicted on chest CT of June 23, 2024. There is underlying emphysema. A hypodense 6.6 x 3.6 x 3.6 cm retrocrural abnormalities present. This measures near water attenuation. IMPRESSION: 1. No acute thoracic spine fracture or subluxation. 2. Multiple old thoracic spine compression fractures, as described above. 3. Mild multilevel degenerative disc disease and facet arthrosis within the thoracic spine. 4. Partially visualized innumerable pulmonary lesions. These are likely neoplastic and suspicious for metastatic disease. 5. Indeterminate hypodense 6.6 x 3.6 x 3.6 cm retrocrural lesion. ACT 112: Negative or not required by law. Electronically signed by: Orion Goodrich M.D. 07/14/2024 3:52 PM PG Care Time/CCT Total # of Minutes Spent Total Time Spent with Patient: Total time spent is greater than 50% in coordination of care (as documented) at patient's floor/unit and/or counseling patient: Coding Level of Care Code 04305 SUB INP/OBS CARE 3/50MIN Diagnoses Intractable back pain M54.9 Intraabdominal mass R19.00 Chronic systolic CHF (congestive heart failure) I50.22 COPD (chronic obstructive pulmonary disease) J44.9 Diabetes mellitus, type 2 E11.9 Pacemaker Z95.0 Atrial fibrillation I48.91 Morbid obesity with body mass index (BMI) of 40.0 or higher E66.01 FREDRICK (obstructive sleep apnea) G47.33
[2024-07-14] MEDS: BUPRENORPHINE 5 MCG/HR TDSY TD SCH (13:30)
[2024-07-14] MEDS: CHECK BUPRENORPHINE PATCH SCH (15:47)
--- NOTE | 2024-07-14 15:54 | CT Scan Report ---
CT OF THE THORACIC SPINE CLINICAL HISTORY: severe back pain, retrocrural mass, compression Fx COMPARISON STUDY: Chest CT June 23, 2024. TECHNIQUE: Helical axial images of the thoracic spine were obtained. Sagittal and coronal reconstru ctions were viewed. Automated exposure control was utilized for the study. A dose lowering techniqu e was utilized adhering to the principles of ALARA. FINDINGS: Alignment of the thoracic spine is anatomic. There are compression fractures involving the superior endplates of T2, T4, T9 and T12. Moderate loss of height of the T9 and T12 vertebra is noted . There is mild loss of height of the T2 and T4 vertebral bodies. There is no retropulsion. These fra ctures are similar to chest CT of June 23, 2024 and were also present on CT of November 13, 2022. No i nterval fractures are present. Central canal and neural foramen are suboptimally assessed given CT te chnique. No overtly suspicious osseous lesions are identified within the thoracic spine. There is mil d multilevel disc space narrowing and moderate osteophytosis within the thoracic spine. Facet joints are intact. Innumerable pulmonary lesions are partially on this exam. These are better depicted on ch est CT of June 23, 2024. There is underlying emphysema. A hypodense 6.6 x 3.6 x 3.6 cm retrocrura l abnormalities present. This measures near water attenuation. IMPRESSION: 1. No acute thoracic spine fracture or subluxation. 2. Multiple old thoracic spine compression fractures, as described above. 3. Mild multilevel degenerative disc disease and facet arthrosis within the thoracic spine. 4. Partially visualized innumerable pulmonary lesions. These are likely neoplastic and suspicious for metastatic disease. 5. Indeterminate hypodense 6.6 x 3.6 x 3.6 cm retrocrural lesion. ACT 112: Negative or not required by law. Electronically signed by: Orion Goodrich M.D. 07/14/2024 3:52 PM
[2024-07-14] MEDS: LANTUS PER UNIT CHARGE SQ SCH (22:39)
--- NOTE | 2024-07-15 08:08 | XRay Report ---
EXAM: XR chest 1V portable CLINICAL HISTORY: DYSPNEA. TECHNIQUE: An X-ray image of the chest is obtained in AP projection. COMPARISON: No prior studies are available for comparison. FINDINGS: Pulmonary Parenchyma: Patchy bilateral alveolar densities were seen. Diffuse prominent bronchovascular markings and hilar vessels. Blunting of right costophrenic angle. Left costophrenic obscured by ICD device. Heart and Mediastinum: Cardiomegaly ICD device seen Bony Thorax: The bony thorax appears intact without fractures or deformities. Soft Tissues: Soft tissues overlying the chest wall are unremarkable. IMPRESSION: 1. Patchy bilateral alveolar densities seen, diffuse prominent bronchovascular markings and hilar vessels due to either infectious process, versus pulmonary edema 2. Blunting of the right costophrenic angle could be due to pleural effusion 3. Cardiomegaly 4. ICD device seen Electronically signed by Pastor Nielsen 07-15-2024 08:08 AM
[2024-07-15] MEDS: LANTUS PER UNIT CHARGE SQ SCH (08:30)
[2024-07-15 10:49] LABS: BUN Creatinine Ratio 40.5 (10-20); Calcium 8.7 mg/dl (8.6-10.3); Creatinine Clr Calc Pharmacy 104.4 ml/min; Potassium 3.6 mmol/L (3.5-5.1)
--- NOTE | 2024-07-15 19:16 | Hospitalist Progress Note ---
Date of Service July 15, 2024 Assessment & Plan (1) Intractable back pain: Plan: presumed 2nd to retrocurall mass does have l-spine DJD as well which could be contributing t-spine CT - no acute fractures, no metastatic disease in the spine - but DJD of t-spine as well unfortunately cannot have MRI as pacemaker is incompatible pain improved with addition of butrans patch 5mcg cont oxy prn cont steroids but wean to 30mg/day tomorrow cont dilaudid IV prn cont tylenol 1gm TID scheduled adjust meds as needed (2) Intraabdominal mass: Plan: multiple pulmonary nodules and retrocrural abdominal mass found on CT last admission - highly suspicious for malignancy CT-guided bx of one of the nodules planned for 07/16 - NPO after MN tonight for such Xarelto is on hold - last dose 07/07/24 currently on lovenox 40mg BID - HOLDING after this AM's dose appreciate IR assistance (3) Chronic systolic CHF (congestive heart failure): Plan: EF 45% last Echo 03/31/24 with regional WMAs technically very difficult study per the report looks compensated on exam today cont coreg BID cont bumex daily uncertain why he is not on SOREN or ARB therapy (4) COPD (chronic obstructive pulmonary disease): Plan: could be contributing to dyspnea, but not in exacerbation at this time consider repeat CT study - r/o PEs in light of suspected stage 4 malignancy (5) Diabetes mellitus, type 2: Plan: a1c 6.3% in 03/2024 with steroids he is uncontrolled cont lantus-novolog - adjust both today BSG checks ac/hs DM diet (6) Pacemaker: Plan: interrogation requested EKG today - pacing with PVCs (bigem pattern) (7) Atrial fibrillation: Plan: history of such cont Coreg Xarelto on hold for biopsy on 07/16 (8) Morbid obesity with body mass index (BMI) of 40.0 or higher: Plan: BMI 40.8 (9) FREDRICK (obstructive sleep apnea): Plan: CPAP Plan BPH - continue Flomax 0.4mg po daily and Finasteride 5mg po daily Hyperlipidemia - Continue Crestor 5mg po daily Alcohol use disorder - 3-5 shots of whisky nightly - has been working on cessation/reduction recently. B12/folate wnl, add thiamine. Has not had any alcohol withdrawal to date here. Chronic etoh use could be affecting his response to pain meds. Recent admission for scrotal cellulitis - resolved DVT ppx - lovenox this am, then hold tonight's dose & thereafter for IR bx of pulm nodule cont PT/OT rehab advised by therapy Admission and Anticipated Discharge Date Admission Date: July 09, 2024 Subjective pt's back pain IS better with Butrans he does not feel sleepy or confused from the Butrans since yesterday has only needed 2 doses of oxy no dilaudid IV needed was able to work with PT today - most he has done since admission no leg pains/radicular pain dyspnea continues with exertion even a little dyspnea at rest at times eating fair denies new complaints Review of Systems Review of Systems: gen - no fevers cv - no cp, no orthopnea pulm - no cough GI - no abd pain or N/V ; last stool 07/11 Physical Exam Physical Exam: gen - obese, much more comfortable today; still with pain with moving in bed but improved from yesterday; pleasant neck - no JVD mouth - MMM heart - irregular, s1 s2, not bradycardic, no murmur lungs - CTA b/l, no rales abd - soft NT ND BS+ ext - no edema b/l, pulses 2+ b/l feet back - still very tender to palpation from low t-spine region down to sacral region in the midline; strength b/l legs 5/5 Results & Data Results & Data Vital Signs (Past 12 Hours) Vital Signs Temp Pulse Pulse Resp BP Pulse Ox O2 Del Method 07/15/24 15:14 36.4 C L 70 17 140/70 94 Room Air 07/15/24 08:19 72 123/85 07/15/24 07:54 Nasal Cannula 07/15/24 07:35 36.5 C 75 17 136/66 98 Nasal Cannula O2 Flow Rate 07/15/24 15:14 07/15/24 08:19 07/15/24 07:54 2 07/15/24 07:35 2 Laboratory Results Laboratory Results - last 24 hr 07/14/24 07/15/24 07/15/24 20:35 07:33 10:13 Sodium 135 L Potassium 3.6 Chloride 94 L Carbon Dioxide 35 H Anion Gap 6 BUN 30 H Creatinine 0.74 Est Cr Clr Drug Dosing 104.4 eGFR 93.90 BUN/Creatinine Ratio 40.5 H Glucose 185 H POC Glucose 193 H 133 H Calcium 8.7 07/15/24 07/15/24 11:51 16:23 Sodium Potassium Chloride Carbon Dioxide Anion Gap BUN Creatinine Est Cr Clr Drug Dosing eGFR BUN/Creatinine Ratio Glucose POC Glucose 215 H 182 H Calcium Diagnostic Findings Thoracic Spine CT 07/14/24 12:59 CT OF THE THORACIC SPINE CLINICAL HISTORY: severe back pain, retrocrural mass, compression Fx COMPARISON STUDY: Chest CT June 23, 2024. TECHNIQUE: Helical axial images of the thoracic spine were obtained. Sagittal and coronal reconstructions were viewed. Automated exposure control was utilized for the study. A dose lowering technique was utilized adhering to the principles of ALARA. FINDINGS: Alignment of the thoracic spine is anatomic. There are compression fractures involving the superior endplates of T2, T4, T9 and T12. Moderate loss of height of the T9 and T12 vertebra is noted. There is mild loss of height of the T2 and T4 vertebral bodies. There is no retropulsion. These fractures are similar to chest CT of June 23, 2024 and were also present on CT of November 13, 2022. No interval fractures are present. Central canal and neural foramen are suboptimally assessed given CT technique. No overtly suspicious osseous lesions are identified within the thoracic spine. There is mild multilevel disc space narrowing and moderate osteophytosis within the thoracic spine. Facet joints are intact. Innumerable pulmonary lesions are partially on this exam. These are better depicted on chest CT of June 23, 2024. There is underlying emphysema. A hypodense 6.6 x 3.6 x 3.6 cm retrocrural abnormalities present. This measures near water attenuation. IMPRESSION: 1. No acute thoracic spine fracture or subluxation. 2. Multiple old thoracic spine compression fractures, as described above. 3. Mild multilevel degenerative disc disease and facet arthrosis within the thoracic spine. 4. Partially visualized innumerable pulmonary lesions. These are likely neoplastic and suspicious for metastatic disease. 5. Indeterminate hypodense 6.6 x 3.6 x 3.6 cm retrocrural lesion. ACT 112: Negative or not required by law. Electronically signed by: Orion Goodrich M.D. 07/14/2024 3:52 PM Chest X-Ray 07/15/24 07:00 EXAM: XR chest 1V portable CLINICAL HISTORY: DYSPNEA. TECHNIQUE: An X-ray image of the chest is obtained in AP projection. COMPARISON: No prior studies are available for comparison. FINDINGS: Pulmonary Parenchyma: Patchy bilateral alveolar densities were seen. Diffuse prominent bronchovascular markings and hilar vessels. Blunting of right costophrenic angle. Left costophrenic obscured by ICD device. Heart and Mediastinum: Cardiomegaly ICD device seen Bony Thorax: The bony thorax appears intact without fractures or deformities. Soft Tissues: Soft tissues overlying the chest wall are unremarkable. IMPRESSION: 1. Patchy bilateral alveolar densities seen, diffuse prominent bronchovascular markings and hilar vessels due to either infectious process, versus pulmonary edema 2. Blunting of the right costophrenic angle could be due to pleural effusion 3. Cardiomegaly 4. ICD device seen Electronically signed by Pastor Nielsen 07-15-2024 08:08 AM PG Care Time/CCT Total # of Minutes Spent Total Time Spent with Patient: Total time spent is greater than 50% in coordination of care (as documented) at patient's floor/unit and/or counseling patient: Coding Level of Care Code 50246 SUB INP/OBS CARE 2/35MIN Diagnoses Intractable back pain M54.9 Intraabdominal mass R19.00 Chronic systolic CHF (congestive heart failure) I50.22 COPD (chronic obstructive pulmonary disease) J44.9 Diabetes mellitus, type 2 E11.9 Pacemaker Z95.0 Atrial fibrillation I48.91 Morbid obesity with body mass index (BMI) of 40.0 or higher E66.01 FREDRICK (obstructive sleep apnea) G47.33
--- NOTE | 2024-07-16 07:32 | Electrocardiogram Report ---
Test Reason : Blood Pressure : */* mmHG Vent. Rate : 82 BPM Atrial Rate : 82 BPM P-R Int : * ms QRS Dur : 182 ms QT Int : 500 ms P-R-T Axes : * 182 6 degrees QTcB Int : 584 ms Ventricular-paced rhythm and PVCs in a pattern of bigeminy Abnormal ECG When compared with ECG of 06-Jul-2024 19:17, Vent. rate has increased by 11 bpm Premature ventricular complexes are now Present Confirmed by Kp Corbett ([id number]) on 07/16/2024 7:32:20 AM Referred By: REFERRED SELF Confirmed By: Kp Corbett
[2024-07-16 07:34] LABS: Creatinine Clr Calc Pharmacy 131.2 ml/min
[2024-07-16] MEDS: predniSONE 10 MG TABLET PO SCH (08:03)
[2024-07-16] MEDS ORDERED: Nursing to Pharmacy Communication SCH (09:00)
[2024-07-16] MEDS: fentaNYL citrate PF 100 MCG/2 ML VIAL ONE (10:10)
--- NOTE | 2024-07-16 10:55 | Radiology Progress Note ---
Date of Service July 16, 2024 Radiology Progress Note Pt presents to CT for image guided lung mass biopsy. He was placed in left decub position on table and scans were performed. While in the decub position, the pt began to c/o back pain. Thinking it was positional related, 25mcg fentanyl IV was given for back pain. Shortly after the meds, pt c/o of some chest discomfort. Systolic BP was noted in the 90s, HR in the 40s and pulse ox in the 80s. We immediately placed him supine and vitals returned to baseline. Was going to see if pt could tolerate biopsy on his back, put still c/o lower back and and was moving on exam table. At that time, the procedure was cancelled. Pt returned back to floor. D/W Ezio Holt. Results & Data Vital Signs (Past 12 Hours) Vital Signs Temp Pulse Resp BP Pulse Ox O2 Del Method 07/16/24 07:45 Room Air 07/16/24 07:13 36.4 C L 77 17 120/86 96 Room Air
[2024-07-16] MEDS: BUPRENORPHINE 5 MCG/HR TDSY TD SCH (10:59)
--- NOTE | 2024-07-16 19:03 | XRay Report ---
EXAM: Radiographs of the Left Hip 3 Views INDICATION: Left calf pain. TECHNIQUE: Front view pelvis and AP and frog leg lateral views of the left hip. COMPARISON: Pelvic CT 07/06/2024 FINDINGS: Limitations: None. Bones/joints: The pelvis is tilted to the right. There is mild symmetrical narrowing of the medial acetabular joints. Femoral heads intact. There is an oblique lucency across the intertrochanteric femur. There are similar lucencies in different obliquity which are clearly skin folds. Degenerative changes noted in the lower lumbar segments visualized. Soft tissues: No abnormality noted. No radiopaque foreign body noted. Vasculature: Atherosclerotic calcification in the groin. IMPRESSION: Oblique lucency across the intertrochanteric left femur is thought to be artifact. However, a hairline fracture is not completely excluded. If additional imaging is clinically warranted, CT is the modality of choice. ACT 112: Negative or not required by law. Electronically signed by Beverly Cardenas 07-16-2024 7:02 PM
--- NOTE | 2024-07-16 19:22 | Hospitalist Progress Note ---
Date of Service July 16, 2024 Assessment & Plan (1) Intractable back pain: Plan: presumed 2nd to retrocurall mass l-spine and t-spine CTs with considerable DJD which could be contributing neither CT showed metastatic disease but MRI would be better at picking up mets - unfortunately cannot have MRI as pacemaker is incompatible pain improved with addition of butrans patch 5mcg; suspect he will need titration in a few days, however cont oxy prn cont prednisone 30mg/day and wean about every 3-4 days cont dilaudid IV prn cont tylenol 1gm TID scheduled (2) Left hip pain: Plan: x-rays obtained - ?hairline fracture will obtain CT left hip for more information if not intrinsic hip disease could be referred pain from the lumbar spine cont steroids, pain meds, etc. (3) Intraabdominal mass: Plan: multiple pulmonary nodules and retrocrural abdominal mass found on CT last admission - highly suspicious for malignancy CT-guided bx of one of the nodules was planned for today but unfortunately he was too uncomfortable/too painful to achieve the right positioning to allow safe biopsy procedure scratched rescheduled for tomorrow, 07/17, under anesthesia in the OR appreciate IR & anesthesia assistance care was d/w both services today Xarelto is on hold - last dose 07/07/24 had been on lovenox 40mg SC BID in bindu of Xarelto but continue to hold until after the biopsy (4) Chronic systolic CHF (congestive heart failure): Plan: EF 45% last Echo 03/31/24 with regional WMAs technically very difficult study per the report again compensated on exam cont coreg BID cont bumex daily uncertain why he is not on SOREN or ARB therapy (5) COPD (chronic obstructive pulmonary disease): Plan: could be contributing to dyspnea, but not in exacerbation at this time consider repeat CT study - r/o PEs in light of suspected stage 4 malignancy (6) Diabetes mellitus, type 2: Plan: a1c 6.3% in 03/2024 improved control with addition of lantus-novolog no changes today (7) Pacemaker: Plan: interrogation requested; I still have not been able to locate the report EKG today - pacing with PVCs (bigem pattern) (8) Atrial fibrillation: Plan: history of such cont Coreg Xarelto on hold for biopsy on 07/16 (9) Morbid obesity with body mass index (BMI) of 40.0 or higher: Plan: BMI 40.8 (10) FREDRICK (obstructive sleep apnea): Plan: CPAP Plan BPH - continue Flomax 0.4mg po daily and Finasteride 5mg po daily Hyperlipidemia - Continue Crestor 5mg po daily Alcohol use disorder - 3-5 shots of whisky nightly - has been working on cessation/reduction recently. B12/folate wnl, add thiamine. Has not had any alcohol withdrawal to date here. Recent admission for scrotal cellulitis - resolved Groin rash - looks candidal - add nystatin powder TID cont PT/OT rehab advised by therapy again care d/w IR, anesthesia & pulmonary today Admission and Anticipated Discharge Date Admission Date: July 09, 2024 Subjective patient went for biopsy this am and unfortunately could not be completed due to pain & discomfort and difficulty getting good positioning (as a result of his pain) prior to going for biopsy it was discovered that the pt's Butrans patch had fallen off the patch could not be found, and it was later replaced I saw patient following his lung biopsy attempt he was upset about the events of the day other than low back pain he is now having left hip pain denies groin pain on left, but the pain is lateral left hip hurts to raise (flex) the left hip joint eating ok dyspnea is about the same I had [place] correspondence today with Isacc Hernadez from IR, anesthesia, as well as pulmonary trying to come up with the best plan for a lung nodule biopsy plan is for anesthesia to consult to provide sedation for the biopsy; likely will be done in the OR tomorrow Review of Systems Review of Systems: CV - no chest pain GI - no abd pain or N/V Physical Exam Physical Exam: gen - obese, still uncomfortable with moving about in the bed (but mobility is better vs earlier this week) neck - no JVD mouth - MMM, poor dentition heart - irregular, s1 s2, no murmur lungs - CTA b/l, no rales abd - soft NT ND BS+ ext - no edema b/l, pulses 2+ b/l feet back - still very tender to palpation from low t-spine region down to sacral region in the midline; strength b/l legs 5/5 musculo - left hip - no tenderness with palpation of trochanteric bursal region; with active/passive flexion of L hip he has pain; no gross deformity psych - a little agitated today Results & Data Results & Data Vital Signs (Past 12 Hours) Vital Signs Temp Pulse Resp BP Pulse Ox O2 Del Method O2 Flow Rate 07/16/24 14:40 37.1 C 76 16 113/82 95 Nasal Cannula 3 07/16/24 11:20 36.5 C 61 18 114/78 97 Nasal Cannula 2 07/16/24 07:45 Room Air Laboratory Results Laboratory Results - last 24 hr 07/16/24 07/16/24 07/16/24 06:40 07:25 10:50 Creatinine 0.63 Est Cr Clr Drug Dosing 131.2 eGFR 98.58 POC Glucose 108 H 136 H 07/16/24 07/16/24 11:30 16:18 Creatinine Est Cr Clr Drug Dosing eGFR POC Glucose 157 H 205 H Diagnostic Findings Hip/Pelvis X-Ray 07/16/24 17:59 EXAM: Radiographs of the Left Hip 3 Views INDICATION: Left calf pain. TECHNIQUE: Front view pelvis and AP and frog leg lateral views of the left hip. COMPARISON: Pelvic CT 07/06/2024 FINDINGS: Limitations: None. Bones/joints: The pelvis is tilted to the right. There is mild symmetrical narrowing of the medial acetabular joints. Femoral heads intact. There is an oblique lucency across the intertrochanteric femur. There are similar lucencies in different obliquity which are clearly skin folds. Degenerative changes noted in the lower lumbar segments visualized. Soft tissues: No abnormality noted. No radiopaque foreign body noted. Vasculature: Atherosclerotic calcification in the groin. IMPRESSION: Oblique lucency across the intertrochanteric left femur is thought to be artifact. However, a hairline fracture is not completely excluded. If additional imaging is clinically warranted, CT is the modality of choice. ACT 112: Negative or not required by law. Electronically signed by Beverly Cardenas 07-16-2024 7:02 PM PG Care Time/CCT Total # of Minutes Spent Total Time Spent with Patient: Total time spent is greater than 50% in coordination of care (as documented) at patient's floor/unit and/or counseling patient: Coding Level of Care Code 95812 SUB INP/OBS CARE 3/50MIN Diagnoses Intractable back pain M54.9 Left hip pain M25.552 Intraabdominal mass R19.00 Chronic systolic CHF (congestive heart failure) I50.22 COPD (chronic obstructive pulmonary disease) J44.9 Diabetes mellitus, type 2 E11.9 Pacemaker Z95.0 Atrial fibrillation I48.91 Morbid obesity with body mass index (BMI) of 40.0 or higher E66.01 FREDRICK (obstructive sleep apnea) G47.33
[2024-07-16] MEDS: NYSTATIN POWDER 15GM BTL EXT SCH (20:54)
[2024-07-17] MEDS ORDERED: Nursing to Pharmacy Communication SCH ×2 (04:30→12:30)
[2024-07-17] MEDS: INSULIN ASPART PER UNIT CHARGE SC SCH ×2 (06:31→17:55)
[2024-07-17 07:39] LABS: BUN Creatinine Ratio 41.5 (10-20); Calcium 8.9 mg/dl (8.6-10.3); Creatinine Clr Calc Pharmacy 101.1 ml/min; Potassium 3.9 mmol/L (3.5-5.1)
[2024-07-17 07:41] LABS: Hematocrit (blood only) 42.8 % (42.0-52.0); Hemoglobin 14.2 g/dl (14.0-18.0); Mean Corpuscular Hemoglobin 33.1 pg (25.0-34.0); Mean Corpuscular Hgb Conc 33.2 g/dL (32.0-36.0); Mean Corpuscular Volume 99.8 fL (80.0-100.0); Mean Platelet Volume 10.2 fL (9.4-12.4); Platelet Count 175 K/uL (130-400); RDW Coefficient of Variation 13.2 % (11.5-14.5); RDW Standard Deviation 48.2 fL (36.4-46.3); Red Blood Count 4.29 M/uL (4.70-6.10)
[2024-07-17] MEDS ORDERED: MIDAZOLAM HCL 1 MG/ML 2ML VIAL ONE (12:43)
[2024-07-17] MEDS ORDERED: fentaNYL citrate PF 100 MCG/2 ML VIAL ONE (12:43)
[2024-07-17] MEDS ORDERED: PROPOFOL IV EMULSION 10 MG/ML 20 ML VIAL IV ONE (12:44)
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
[2024-07-17] MEDS ORDERED: ONDANSETRON INJ 2 MG/ML 2 ML VIAL IV PRN (13:07)
[2024-07-17] MEDS ORDERED: HYDROmorphone INJ 1 MG/ML SYRINGE IV PRN (13:07)
[2024-07-17] MEDS ORDERED: ATROPINE SULFATE 0.1 MG/ML 10ML SYR IV PRN (13:07)
[2024-07-17] MEDS ORDERED: ePHEDrine sulfate 50 MG/ML AMP IV PRN (13:07)
[2024-07-17] MEDS ORDERED: fentaNYL citrate PF 100 MCG/2 ML VIAL IV PRN (13:07)
[2024-07-17] MEDS: LACTATED RINGER'S 1,000 ML IV SCH (14:50)
--- NOTE | 2024-07-17 15:02 | CT Scan Report ---
CT hip LT wo con HISTORY: 74 years-old Male abnl L hip x-rays, pain; fracture? COMPARISON: CT pelvis 07/06/2024 TECHNIQUE: Multiple axial CT images of the left hip were obtained without IV contrast. A dose lowerin g technique was used consistent with the principals of SAADIA. FINDINGS: Decompressed urinary bladder with wall thickening. Prostatomegaly. No acute intrapelvic abnormality i dentified. Arterial calcifications. Unremarkable soft tissues and musculature. No hip joint effusion. 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 No acute fracture, dislocation, avascular necrosis or suspicious bone lesion. IMPRESSION: Xilf-zo-nxsdwioa osteoarthritis of the left hip without acute fracture or dislocation. ACT 112: Negative or not required by law. The above report was generated using voice recognition software. It may contain grammatical, syntax o r spelling errors. Electronically signed by: John Nichols M.D. 07/17/2024 2:22 PM
--- NOTE | 2024-07-17 15:17 | Anesthesiology Progress Note ---
Date of Service July 17, 2024 Anesthesia Post Procedure Vital Signs Vital Signs: Temp Pulse Pulse Pulse Resp BP BP 07/17/24 14:30 70 17 110/72 07/17/24 14:20 36.4 C L 70 16 107/77 07/17/24 14:10 70 13 114/72 07/17/24 14:00 36.5 C 70 24 136/86 07/17/24 12:20 36.4 C L 73 73 18 132/86 07/17/24 10:24 07/17/24 08:01 36.4 C L 73 17 132/86 07/16/24 21:31 07/16/24 19:56 36.2 C L 59 L 18 120/75 Pulse Ox O2 Del Method O2 Flow Rate 07/17/24 14:30 96 Nasal Cannula 4 07/17/24 14:20 97 Nasal Cannula 4 07/17/24 14:10 94 Nasal Cannula 4 07/17/24 14:00 96 Oxymask 4 07/17/24 12:20 94 Nasal Cannula 2 07/17/24 10:24 Nasal Cannula 2 07/17/24 08:01 94 Nasal Cannula 2 07/16/24 21:31 Nasal Cannula 2 07/16/24 19:56 90 Room Air Pain Intensity Lower Back: Pain Intensity: 6 Transfer of Care Handoff Completed per policy Notes Mental Status: alert / awake / arousable Patient Amnestic to Procedure: Yes Nausea / Vomiting: adequately controlled Pain: adequately controlled Airway Patency, RR, SpO2: stable & adequate BP & HR: stable & adequate Hydration State: stable & adequate Anesthetic Complications: no major complications apparent
--- NOTE | 2024-07-17 15:18 | CT Scan Report ---
CT-guided right lung mass core biopsy INDICATION: Bilateral lung masses PROCEDURE: Procedure and risks were explained. Informed consent was obtained. A final timeout was com pleted. Percutaneous biopsy was originally attempted on July 16, 2024, but this was unsuccessful d ue to patient movement/discomfort. The patient was then brought back today on July 17, 2024 for pe rcutaneous lung biopsy with anesthesia. The patient was placed in a left decubitus position on the CT exam table. The right thorax was prepped and draped in sterile fashion. 1% lidocaine was utilized fo r skin anesthesia. The patient received monitored anesthesia care throughout the procedure. Utilizing CT guidance, a 19-gauge coaxial needle was advanced into the right lung mass. A 20-gauge co re biopsy needle was advanced, and 2 cores were obtained and given to the pathologist for review. The coaxial needle was removed and Band-Aid applied. The patient tolerated the procedure well. Post CT i maging demonstrated no evidence for bleeding/pneumothorax. A chest x-ray will be obtained to hours po st procedure and vital signs will be monitored via anesthesia protocol. IMPRESSION: Right lung mass core biopsy as above. Performed, dictated, and signed by Shawn Hernadez PA-C; to be co-signed by Dr. John Nichols. Electronically signed by: John Nichols M.D. 07/17/2024 2:55 PM
--- NOTE | 2024-07-17 17:56 | XRay Report ---
EXAM: XR chest 1V portable CLINICAL HISTORY: Right lung biopsy. TECHNIQUE: An X-ray image of the chest is obtained in AP projection. COMPARISON: 07/15/2024 FINDINGS: Pulmonary Parenchyma: Patchy bilateral, rounded and irregular densities again seen. Prominence of the hilar vessels again seen. Blunting of right costophrenic angle. Left costophrenic obscured by ICD device. Heart and Mediastinum: Cardiomegaly ICD device Bony Thorax: The bony thorax appears intact without fractures or deformities. Soft Tissues: Soft tissues overlying the chest wall are unremarkable. IMPRESSION: No visualized pneumothorax. Diffuse, rounded and irregular opacities are again seen. Electronically signed by Teddy Eugene 07-17-2024 4:31 PM
--- NOTE | 2024-07-17 21:00 | Hospitalist Progress Note ---
Date of Service July 17, 2024 Assessment & Plan (1) Intractable back pain: Plan: presumed 2nd to retrocurall mass l-spine and t-spine CTs with considerable DJD which could be contributing neither CT showed metastatic disease but MRI would be better at picking up mets - unfortunately cannot have MRI as pacemaker is incompatible pain improved with addition of butrans patch 5mcg -- initiated 07/14/24 suspect he will need dose titration -- still requiring oxy's 2-3 times/day and dilaudid IV as well, and still remains very uncomfortable even just laying in bed cont oxy prn cont prednisone 30mg/day, day #2 at this dose; wean about every 3-4 days cont dilaudid IV prn cont tylenol 1gm TID scheduled (2) Left hip pain: Plan: x-rays obtained - ?hairline fracture obtained CT left hip - NO FRACTURE; moderate OA seen if not intrinsic hip disease could be referred pain from the lumbar spine cont steroids, pain meds, etc. (3) Intraabdominal mass: Plan: multiple pulmonary nodules and retrocrural abdominal mass found on CT last admission - highly suspicious for malignancy s/p CT-guided bx of one of the nodules today, 07/17, by Isacc Hernadez from IR appreciate his assistance appreciate anesthesia assistance Xarelto remains on hold lovenox SC on hold can likely resume chemical anticoagulation tomorrow (24-hours post-bx) cxr post-bx without complicating pneumothorax (4) Chronic systolic CHF (congestive heart failure): Plan: EF 45% last Echo 03/31/24 with regional [facility] technically very difficult study per the report compensated cont coreg BID place bumex on hold due to multiple instances of prolonged NPO status this week and he looks actually on dry side uncertain why he is not on SOREN or ARB therapy (5) COPD (chronic obstructive pulmonary disease): Plan: could be contributing to dyspnea, but not in exacerbation at this time consider repeat CT study - r/o PEs in light of suspected stage 4 malignancy (6) Diabetes mellitus, type 2: Plan: a1c 6.3% in 03/2024 improved control with addition of lantus-novolog (7) Pacemaker: Plan: interrogation requested; I still have not been able to locate the report EKG today - pacing with PVCs (bigem pattern) (8) Atrial fibrillation: Plan: history of such cont Coreg Xarelto on hold for biopsy today (9) Morbid obesity with body mass index (BMI) of 40.0 or higher: Plan: BMI 40.8 (10) FREDRICK (obstructive sleep apnea): Plan: CPAP Plan BPH - continue Flomax 0.4mg po daily and Finasteride 5mg po daily Hyperlipidemia - Continue Crestor 5mg po daily Alcohol use disorder - 3-5 shots of whisky nightly - has been working on cessation/reduction recently. B12/folate wnl add thiamine 200mg BID NO alcohol withdrawal to date while hospitalized Recent admission for scrotal cellulitis - resolved Groin rash - candidal - nystatin powder TID cont PT/OT rehab advised by therapy care d/w pulmonary (DR Benton) Admission and Anticipated Discharge Date Admission Date: July 09, 2024 Subjective patient underwent successful CT-guided Bx of a pulmonary nodule (likely metastatic deposit) under anesthesia today I saw him post-procedure and he was resting in bed he also had CT L hip - NEGATIVE for fracture; made him aware of those findings he still has considerable low back pain with any movement although he does voice improvement in such since earlier this week eating ok no chest pain no abd pain no NEW areas of pain no paresthesias of legs Review of Systems Review of Systems: gen - no fevers cv - no chest pain, no orthopnea pulm - dyspnea with movement/activity even in the bed GI - no N/V Physical Exam Physical Exam: gen - obese, he grimaces when he tries to move in bed; awake/alert neck - no JVD mouth - MMM, poor dentition heart - irregular, s1 s2, no murmur lungs - CTA b/l, no rales abd - soft NT ND BS+ ext - no edema b/l, pulses 2+ b/l feet Results & Data Results & Data Vital Signs (Past 12 Hours) Vital Signs Temp Pulse Pulse Pulse Pulse Resp BP 07/17/24 20:52 36.3 C L 63 18 125/80 07/17/24 20:30 07/17/24 17:23 37.0 C 80 16 117/80 07/17/24 14:30 70 17 110/72 07/17/24 14:20 36.4 C L 70 16 107/77 07/17/24 14:10 70 13 114/72 07/17/24 14:00 36.5 C 70 24 136/86 07/17/24 12:20 36.4 C L 73 73 18 132/86 07/17/24 10:24 Pulse Ox O2 Del Method O2 Flow Rate 07/17/24 20:52 97 Nasal Cannula 2 07/17/24 20:30 Nasal Cannula 2 07/17/24 17:23 95 Room Air 07/17/24 14:30 96 Nasal Cannula 4 07/17/24 14:20 97 Nasal Cannula 4 07/17/24 14:10 94 Nasal Cannula 4 07/17/24 14:00 96 Oxymask 4 07/17/24 12:20 94 Nasal Cannula 2 07/17/24 10:24 Nasal Cannula 2 Laboratory Results Laboratory Results - last 24 hr 07/17/24 07/17/24 07/17/24 06:24 06:37 07:35 WBC 7.60 RBC 4.29 L Hgb 14.2 Hct 42.8 MCV 99.8 MCH 33.1 MCHC 33.2 RDW Std Deviation 48.2 H RDW Coeff of Cindy 13.2 Plt Count 175 MPV 10.2 Sodium 136 Potassium 3.9 Chloride 95 L Carbon Dioxide 38 H Anion Gap 3 BUN 34 H Creatinine 0.82 Est Cr Clr Drug Dosing 101.1 eGFR 91.04 BUN/Creatinine Ratio 41.5 H Glucose 101 H POC Glucose 119 H 97 Calcium 8.9 07/17/24 07/17/24 07/17/24 11:20 14:10 16:20 WBC RBC Hgb Hct MCV MCH MCHC RDW Std Deviation RDW Coeff of Cindy Plt Count MPV Sodium Potassium Chloride Carbon Dioxide Anion Gap BUN Creatinine Est Cr Clr Drug Dosing eGFR BUN/Creatinine Ratio Glucose POC Glucose 151 H 157 H 195 H Calcium 07/17/24 19:36 WBC RBC Hgb Hct MCV MCH MCHC RDW Std Deviation RDW Coeff of Cindy Plt Count MPV Sodium Potassium Chloride Carbon Dioxide Anion Gap BUN Creatinine Est Cr Clr Drug Dosing eGFR BUN/Creatinine Ratio Glucose POC Glucose 192 H Calcium PG Care Time/CCT Total # of Minutes Spent Total Time Spent with Patient: Total time spent is greater than 50% in coordination of care (as documented) at patient's floor/unit and/or counseling patient: Coding Level of Care Code 47180 SUB INP/OBS CARE 2/35MIN Diagnoses Intractable back pain M54.9 Left hip pain M25.552 Intraabdominal mass R19.00 Chronic systolic CHF (congestive heart failure) I50.22 COPD (chronic obstructive pulmonary disease) J44.9 Diabetes mellitus, type 2 E11.9 Pacemaker Z95.0 Atrial fibrillation I48.91 Morbid obesity with body mass index (BMI) of 40.0 or higher E66.01 FREDRICK (obstructive sleep apnea) G47.33
[2024-07-18 10:23] LABS: Hematocrit (blood only) 41.9 % (42.0-52.0); Hemoglobin 14.4 g/dl (14.0-18.0); Mean Corpuscular Hemoglobin 34.2 pg (25.0-34.0); Mean Corpuscular Hgb Conc 34.4 g/dL (32.0-36.0); Mean Corpuscular Volume 99.5 fL (80.0-100.0); Mean Platelet Volume 10.1 fL (9.4-12.4); Platelet Count 169 K/uL (130-400); RDW Coefficient of Variation 13.2 % (11.5-14.5); RDW Standard Deviation 48.6 fL (36.4-46.3); Red Blood Count 4.21 M/uL (4.70-6.10); White Blood Count 8.13 K/ul (4.8-10.8)
[2024-07-18 10:34] LABS: Creatinine Clr Calc Pharmacy 110.6 ml/min
[2024-07-18] MEDS: THIAMINE HCL 100 MG TAB PO SCH (11:24)
--- NOTE | 2024-07-18 19:01 | Hospitalist Progress Note ---
Date of Service July 18, 2024 Assessment & Plan (1) Intractable back pain: Plan: presumed 2nd to retrocrural mass l-spine and t-spine CTs with considerable DJD which could be contributing neither CT showed metastatic disease but MRI would be better at picking up mets - unfortunately cannot have MRI as pacemaker is incompatible also with chronic compression fractures on imaging -- T2, T4, T9 and T12 pain improved with addition of butrans patch 5mcg -- initiated 07/14/24 he may need dose titration -- re-eval tomorrow cont oxy prn cont prednisone 30mg/day, day #3 at this dose; wean to 20mg/day starting 07/19 cont dilaudid IV prn cont tylenol 1gm TID scheduled check 25-OH vit D level in light of compression fractures consider miacalcin (2) Left hip pain: Plan: x-rays obtained - ?hairline fracture obtained CT left hip - NO FRACTURE; moderate OA seen if not intrinsic hip disease could be referred pain from the lumbar spine cont steroids, pain meds, etc. (3) Intraabdominal mass: Plan: multiple pulmonary nodules and retrocrural abdominal mass found on CT last admission - highly suspicious for malignancy s/p CT-guided bx of one of the pulmonary nodules 07/17 by Isacc Hernadez from IR appreciate his assistance appreciate anesthesia assistance David remains on hold cxr post-bx without complicating pneumothorax H/H stable today, and biopsy site is clean and without hematoma thus, start back lovenox 40mg BID for DVT proph await pathology from the biopsy - perhaps will have some results on Saturday (4) Chronic systolic CHF (congestive heart failure): Plan: EF 45% last Echo 03/31/24 with [facility] technically very difficult study per the report compensated cont coreg BID place bumex on hold due to multiple instances of prolonged NPO status this week and he looks actually on dry side might need to resume tomorrow uncertain why he is not on SOREN or ARB therapy (5) COPD (chronic obstructive pulmonary disease): Plan: could be contributing to dyspnea, but not in exacerbation at this time consider repeat CT study - r/o PEs in light of suspected stage 4 malignancy - if dyspnea worsens or persists (6) Diabetes mellitus, type 2: Plan: a1c 6.3% in 03/2024 improved control with addition of lantus-novolog (7) Pacemaker: Plan: interrogation requested; I still have not been able to locate the report EKG today - pacing with PVCs (bigem pattern) (8) Atrial fibrillation: Plan: history of such cont Coreg Xarelpat is on hold in case his biopsy results are inconclusive and he needs repeat biopsy from another site (9) Morbid obesity with body mass index (BMI) of 40.0 or higher: Plan: BMI 40.8 (10) FREDRICK (obstructive sleep apnea): Plan: CPAP Plan BPH - continue Flomax 0.4mg po daily and Finasteride 5mg po daily Hyperlipidemia - Continue Crestor 5mg po daily Alcohol use disorder - 3-5 shots of whisky nightly - has been working on cessation/reduction recently. B12/folate wnl add thiamine 200mg BID NO alcohol withdrawal to date while hospitalized Recent admission for scrotal cellulitis - resolved Groin rash - candidal - nystatin powder TID cont PT/OT rehab advised by therapy progressing Admission and Anticipated Discharge Date Admission Date: July 09, 2024 Subjective sitting at side of bed during my visit just finished his meal entire tray was eaten pain remains in lower t-spine/l-spine region "better" in comparison to earlier this week requiring oxy prn about 1x/day ambulation/movement is easier than earlier this week denies dyspnea denies pain at site of his pulmonary biopsy no new complaints no new areas of pain Review of Systems Review of Systems: CV - no chest pain pulm - no dyspnea GI - no N/V; moving bowels - voiding w/o LUTS Physical Exam Physical Exam: gen - obese, sitting at side of bed today, NAD neck - no JVD mouth - MMM, poor dentition heart - irregular, s1 s2, no murmur lungs - CTA b/l, no rales abd - soft NT ND BS+ ext - no edema b/l, pulses 2+ b/l feet chest wall - right flank/lower chest wall -- site of previous bx site clean, no drainage, no ecchymoses, no swelling psych - a/o x 3 Results & Data Results & Data Vital Signs (Past 12 Hours) Vital Signs Temp Pulse Resp BP Pulse Ox O2 Del Method O2 Flow Rate 07/18/24 15:29 36.5 C 69 16 133/83 98 Nasal Cannula 2 07/18/24 10:53 Nasal Cannula 2 07/18/24 07:20 36.4 C L 70 18 139/80 96 Nasal Cannula 2 Laboratory Results Laboratory Results - last 24 hr 07/17/24 07/18/24 07/18/24 19:36 07:42 09:57 WBC 8.13 RBC 4.21 L Hgb 14.4 Hct 41.9 L MCV 99.5 MCH 34.2 H MCHC 34.4 RDW Std Deviation 48.6 H RDW Coeff of Cindy 13.2 Plt Count 169 MPV 10.1 Creatinine 0.74 Est Cr Clr Drug Dosing 110.6 eGFR 93.90 POC Glucose 192 H 108 H 07/18/24 07/18/24 11:36 16:31 WBC RBC Hgb Hct MCV MCH MCHC RDW Std Deviation RDW Coeff of Cindy Plt Count MPV Creatinine Est Cr Clr Drug Dosing eGFR POC Glucose 237 H 119 H PG Care Time/CCT Total # of Minutes Spent Total Time Spent with Patient: Total time spent is greater than 50% in coordination of care (as documented) at patient's floor/unit and/or counseling patient: Coding Level of Care Code 27070 SUB INP/OBS CARE 235MIN Diagnoses Intractable back pain M54.9 Left hip pain M25.552 Intraabdominal mass R19.00 Chronic systolic CHF (congestive heart failure) I50.22 COPD (chronic obstructive pulmonary disease) J44.9 Diabetes mellitus, type 2 E11.9 Pacemaker Z95.0 Atrial fibrillation I48.91 Morbid obesity with body mass index (BMI) of 40.0 or higher E66.01 FREDRICK (obstructive sleep apnea) G47.33
[2024-07-18] MEDS: ENOXAPARIN INJ 40 MG/0.4 ML SYR SQ SCH (20:21)
[2024-07-19 07:53] LABS: BUN Creatinine Ratio 34.4 (10-20); Calcium 8.9 mg/dl (8.6-10.3); Creatinine Clr Calc Pharmacy 127.9 ml/min; Potassium 4.2 mmol/L (3.5-5.1)
[2024-07-19] MEDS: predniSONE 20 MG TAB PO SCH (08:57)
--- NOTE | 2024-07-19 11:24 | Hospitalist Progress Note ---
Date of Service July 19, 2024 Assessment & Plan (1) Intractable back pain: Plan: presumed 2nd to retrocrural mass l-spine and t-spine CTs with considerable DJD which could be contributing neither CT showed metastatic disease but MRI would be better at picking up mets - unfortunately cannot have MRI as pacemaker is incompatible also with chronic compression fractures on imaging -- T2, T4, T9 and T12 pain improved with addition of butrans patch 5mcg -- initiated 07/14/24 offered to increase the patch strength today but patient uncertain whether he needs such cont oxy prn cont prednisone wean - cut to 20mg/day starting today, 07/19 cont dilaudid IV prn cont tylenol 1gm TID scheduled (2) Left hip pain: Plan: x-rays obtained - ?hairline fracture obtained CT left hip - NO FRACTURE; moderate OA seen if not intrinsic hip disease could be referred pain from the lumbar spine cont steroids, pain meds, etc. (3) Intraabdominal mass: Plan: multiple pulmonary nodules and retrocrural abdominal mass found on CT last admission - highly suspicious for malignancy s/p CT-guided bx of one of the pulmonary nodules 07/17 by Isacc Hernadez from IR appreciate his assistance appreciate anesthesia assistance await pathology from the pulmonary nodule biopsy which will dictate next steps (4) Chronic systolic CHF (congestive heart failure): Plan: EF 45% last Echo 03/31/24 with [facility] technically very difficult study per the report compensated cont coreg BID resume bumex today (wheezes may be pulm edema) uncertain why he is not on SOREN or ARB therapy (5) COPD (chronic obstructive pulmonary disease): Plan: interestingly he had normal PFTs in 2020 intermittent wheezing - due to pulm edema (ie "Cardiac wheezing"?) (6) Diabetes mellitus, type 2: Plan: a1c 6.3% in 03/2024 controlled with lantus-novolog (7) Pacemaker: Plan: interrogation requested; I still have not been able to locate the report EKG today - pacing with PVCs (bigem pattern) (8) Atrial fibrillation: Plan: history of such cont Coreg Xarelto is on hold in case his biopsy results are inconclusive and he needs repeat biopsy from another site (9) Morbid obesity with body mass index (BMI) of 40.0 or higher: (10) FREDRICK (obstructive sleep apnea): Plan: CPAP (11) Vitamin D deficiency: Plan: 25 OH vit D 13.7 start ergocalciferol 37627 units weekly x 6-8 weeks (12) Thoracic compression fracture: Plan: multiple T2, T4, T9 and T12 chronic/old [id number] - 1. Rx vit D def 2. add miacalcin nasal spray daily Plan BPH - continue Flomax 0.4mg po daily and Finasteride 5mg po daily Hyperlipidemia - Continue Crestor 5mg po daily Alcohol use disorder - 3-5 shots of whisky nightly - has been working on cessation/reduction recently. B12/folate wnl add thiamine 200mg BID NO alcohol withdrawal to date while hospitalized Recent admission for scrotal cellulitis - resolved Groin rash - candidal - nystatin powder TID cont PT/OT rehab advised by therapy progressing Admission and Anticipated Discharge Date Admission Date: July 09, 2024 Subjective slept good last pm feels a little more congested in the chest back pain - about the same as yesterday no new issues Review of Systems Review of Systems: CV - no chest pain pulm - mild dyspnea at times GI - no abd pain or N/V Physical Exam Physical Exam: gen - obese, laying in bed, grimaces at times when shifting in the bed (due to back pain) neck - no JVD mouth - MMM, poor dentition heart - irregular, s1 s2, no murmur lungs - mild wheezes b/l abd - soft NT ND BS+ ext - no edema b/l, pulses 2+ b/l feet Results & Data Results & Data Vital Signs (Past 12 Hours) Vital Signs Temp Pulse Resp BP Pulse Ox O2 Del Method O2 Flow Rate 07/19/24 07:06 36.4 C L 71 18 147/77 H 95 Nasal Cannula 2 Laboratory Results Laboratory Results - last 24 hr 07/18/24 07/18/24 07/18/24 11:36 16:31 20:11 Sodium Potassium Chloride Carbon Dioxide Anion Gap BUN Creatinine Est Cr Clr Drug Dosing eGFR BUN/Creatinine Ratio Glucose POC Glucose 237 H 119 H 185 H Calcium 25-OH Vitamin D Total 07/19/24 07/19/24 07/19/24 07:18 07:18 07:18 Sodium 137 Potassium 4.2 Chloride 98 Carbon Dioxide 35 H Anion Gap 4 BUN 22 Creatinine 0.62 0.64 Est Cr Clr Drug Dosing 132.0 127.9 eGFR 99.06 BUN/Creatinine Ratio Glucose POC Glucose Calcium 25-OH Vitamin D Total 07/19/24 07/19/24 07:18 07:40 Sodium Potassium Chloride Carbon Dioxide Anion Gap BUN Creatinine Est Cr Clr Drug Dosing eGFR 98.11 BUN/Creatinine Ratio 34.4 H Glucose 85 POC Glucose 76 Calcium 8.9 25-OH Vitamin D Total 13.7 L PG Care Time/CCT Total # of Minutes Spent Total Time Spent with Patient: Total time spent is greater than 50% in coordination of care (as documented) at patient's floor/unit and/or counseling patient: Coding Level of Care Code 13548 SUB INP/OBS CARE 2/35MIN Diagnoses Intractable back pain M54.9 Left hip pain M25.552 Intraabdominal mass R19.00 Chronic systolic CHF (congestive heart failure) I50.22 COPD (chronic obstructive pulmonary disease) J44.9 Diabetes mellitus, type 2 E11.9 Pacemaker Z95.0 Atrial fibrillation I48.91 Morbid obesity with body mass index (BMI) of 40.0 or higher E66.01 FREDRICK (obstructive sleep apnea) G47.33 Vitamin D deficiency E55.9 Thoracic compression fracture S22.000A
[2024-07-19] MEDS: oxyCODONE HCL IR 5 MG TAB (IMMEDIATE RELEASE) PO PRN (11:49)
[2024-07-19] MEDS: BACLOFEN 10 MG TAB PO SCH (11:49)
[2024-07-19] MEDS: ERGOCALCIFEROL 1250 MCG (50,000 UNITS) CAP PO SCH (13:31)
[2024-07-19] MEDS: BUMETANIDE 1 MG TAB PO ONE (13:31)
[2024-07-19] MEDS: CALCITONIN SALMON NA 200 IU/AC 3.7 ML BTL SCH (13:32)
[2024-07-20 08:48] LABS: BUN Creatinine Ratio 35.8 (10-20); Calcium 8.8 mg/dl (8.6-10.3); Creatinine Clr Calc Pharmacy 122.1 ml/min; Magnesium 1.7 mg/dl (1.7-2.4); Potassium 3.6 mmol/L (3.5-5.1)
[2024-07-20] MEDS: POTASSIUM CHLORIDE CRTAB 20 MEQ TABCR PO STA (09:02)
[2024-07-20] MEDS: BUMETANIDE 2 MG in SYRINGE 0 ML IV ONE (09:02)
[2024-07-20] MEDS: ALBUT/IPRATROP 3MG/0.5MG NEB 3 ML VIAL NEB SCH (09:07)
--- NOTE | 2024-07-20 18:42 | Hospitalist Progress Note ---
Date of Service July 20, 2024 Assessment & Plan (1) Intractable back pain: Plan: presumed 2nd to retrocrural mass l-spine and t-spine CTs with considerable DJD which could be contributing neither CT showed metastatic disease but MRI would be better at picking up mets - unfortunately cannot have MRI as pacemaker is incompatible also with chronic compression fractures on imaging -- T2, T4, T9 and T12 pain improved with addition of butrans patch 5mcg -- initiated 07/14/24 offered to increase the patch strength but patient thus far has declined stating pain is much better cont oxy prn cont prednisone wean - currently on 20mg/day -- would wean to 10mg on 07/22/24 cont dilaudid IV prn cont tylenol 1gm TID scheduled cont baclofen 5mg TID (2) Left hip pain: Plan: x-rays obtained - ?hairline fracture thus - obtained CT left hip - NO FRACTURE; moderate OA seen if not intrinsic hip disease could be referred pain from the lumbar spine cont steroids, pain meds, etc. (3) Intraabdominal mass: Plan: multiple pulmonary nodules and retrocrural abdominal mass found on CT last admission - highly suspicious for malignancy s/p CT-guided bx of one of the pulmonary nodules 07/17 by Isacc Hernadez from [facility] appreciate his assistance appreciate anesthesia assistance await pathology from the pulmonary nodule biopsy which will dictate next steps (4) Chronic systolic CHF (congestive heart failure): Plan: EF 45% last Echo 03/31/24 with [facility] technically very difficult study per the report ?decompensated (wheezing on exam may be pulm edema) gave bumex 2mg IV x 1 today, 07/21 cont coreg BID if BMP is stable in am tomorrow would place on standing PO bumex dose uncertain why he is not on SOREN or ARB therapy but should be on low-dose of one (5) COPD (chronic obstructive pulmonary disease): Plan: interestingly he had normal PFTs in 2020 intermittent wheezing - due to pulm edema (ie "Cardiac wheezing")?? placed on duonebs QID diurese w/ bumex (6) Diabetes mellitus, type 2: Plan: a1c 6.3% in 03/2024 controlled with lantus-novolog (7) Pacemaker: Plan: interrogation done last week - normal pacer function, 5+ years of battery remaining, no recent tachy-arrhythmia events (8) Atrial fibrillation: Plan: history of such cont Coreg David is on hold in case his biopsy results are inconclusive and he needs repeat biopsy from another site (9) Morbid obesity with body mass index (BMI) of 40.0 or higher: Plan: BMI 45 (10) FREDRICK (obstructive sleep apnea): Plan: typically on CPAP at , but he does not have his home unit with him, and no one can bring it for him ( has dementia, does not drive, etc) he declines use of hospital issued CPAP (11) Vitamin D deficiency: Plan: 25 OH vit D 13.7 ergocalciferol 47127 units weekly x 6-8 weeks (12) Thoracic compression fracture: Plan: multiple T2, T4, T9 and T12 chronic/old [id number] - 1. Rx vit D def 2. miacalcin nasal spray daily (in the event some of his compression fx's are causing pain) Plan BPH - continue Flomax 0.4mg po daily and Finasteride 5mg po daily Hyperlipidemia - Continue Crestor 5mg po daily Alcohol use disorder - 3-5 shots of whisky nightly - has been working on cessation/reduction recently. B12/folate wnl Cont thiamine 200mg BID NO alcohol withdrawal while hospitalized Recent admission for scrotal cellulitis - resolved Groin rash - candidal - nystatin powder TID cont PT/OT rehab advised by therapy await pathology results from lung biopsy Admission and Anticipated Discharge Date Admission Date: July 09, 2024 Subjective no events overnight back pain - relatively controlled he is shifting in bed, sitting up, walking (albeit it is short distances) more easily this am had wheezes per staff duonebs ordered - they have improved bumex also given Review of Systems Review of Systems: gen - appetite is good CV - no chest pain pulm - no significant cough GI - no N/V Physical Exam Physical Exam: gen - obese, sitting at side of bed comfortably, looks decent today; NAD; pleasant neck - no JVD mouth - MMM, poor dentition heart - irregular, s1 s2, no murmur lungs - no wheezes, no rales, good airation abd - soft NT ND BS+ ext - no edema b/l, pulses 2+ b/l feet Results & Data Results & Data Vital Signs (Past 12 Hours) Vital Signs Temp Pulse Resp BP Pulse Ox O2 Del Method O2 Flow Rate 07/20/24 15:26 36.4 C L 74 18 121/81 95 Nasal Cannula 2 07/20/24 14:32 84 18 94 Nasal Cannula 2 07/20/24 11:14 74 20 94 Room Air 07/20/24 09:13 76 20 90 Room Air 07/20/24 07:53 36.4 C L 69 16 151/88 H 95 Nasal Cannula 2 07/20/24 07:45 Nasal Cannula 2 Laboratory Results Laboratory Results - last 24 hr 07/20/24 07/20/24 07/20/24 07:25 07:52 11:18 Sodium 138 Potassium 3.6 Chloride 98 Carbon Dioxide 36 H Anion Gap 4 BUN 24 H Creatinine 0.67 Est Cr Clr Drug Dosing 122.1 eGFR 96.77 BUN/Creatinine Ratio 35.8 H Glucose 77 POC Glucose 88 126 H Calcium 8.8 Magnesium 1.7 07/20/24 16:25 POC Glucose 168 H Diagnostic Findings lung biopsy - path pending PG Care Time/CCT Total # of Minutes Spent Total Time Spent with Patient: Total time spent is greater than 50% in coordination of care (as documented) at patient's floor/unit and/or counseling patient: Coding Level of Care Code 87523 SUB INP/OBS CARE 2/35MIN Diagnoses Intractable back pain M54.9 Left hip pain M25.552 Intraabdominal mass R19.00 Chronic systolic CHF (congestive heart failure) I50.22 COPD (chronic obstructive pulmonary disease) J44.9 Diabetes mellitus, type 2 E11.9 Pacemaker Z95.0 Atrial fibrillation I48.91 Morbid obesity with body mass index (BMI) of 40.0 or higher E66.01 FREDRICK (obstructive sleep apnea) G47.33 Vitamin D deficiency E55.9 Thoracic compression fracture S22.000A
[2024-07-21 08:35] LABS: BUN Creatinine Ratio 37.1 (10-20); Calcium 8.9 mg/dl (8.6-10.3); Creatinine Clr Calc Pharmacy 116.9 ml/min; Potassium 3.9 mmol/L (3.5-5.1)
[2024-07-21] MEDS ORDERED: ALBUT/IPRATROP 3MG/0.5MG NEB 3 ML VIAL NEB PRN (11:29)
--- NOTE | 2024-07-21 12:25 | Palliative Care Consultation ---
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 Previous measurements: 3.1 x 3.3 x 7.0 cm. There is a chronic appearing T12 compression fracture with approximately 25% anterior height loss. No acute fracture or osseous destruction identified. Discs/spinal canal/neural foramina: There is multilevel thoracolumbar degenerative disc disease with marginal osteophytes and vacuum disc changes noted throughout the lumbar spine. There is a large circumferential disc osteophyte complex at L5-S1 with moderate to severe bilateral foraminal stenosis noted at L2-3 through L5-S1. Soft tissues: Unremarkable. Vasculature: There are moderate aortic atherosclerotic calcifications. Lungs: There is patchy nodular bilateral basilar airspace consolidation. IMPRESSION: 1. There is an enlarging 3.0 x 4.0 x 7.7 cm cm retrocrural periaortic alphonse mass at the level of the lower thoracic and upper lumbar spine. 2. There is a chronic appearing T12 compression fracture with approximately 25% anterior height loss. Electronically signed by: Rafa Najera MD 07/07/24 00:[address] 07/06/24 21:28 Exam(s): CT PELVIS Without Contrast EXAM: CT Pelvis Without Intravenous Contrast CLINICAL HISTORY: Reason for exam: posterior pelvis pain, fall. TECHNIQUE: Axial computed tomography images of the pelvis without intravenous contrast. CTDI is 39 mGy and DLP is 1343 mGy-cm. Automated exposure control was utilized for the study. A dose lowering technique was utilized adhering to the principles of ALARA. COMPARISON: No relevant prior studies available. FINDINGS: Bowel: Unremarkable. No obstruction. No mucosal thickening. Appendix: No findings to suggest acute appendicitis. Intraperitoneal space: The urinary bladder is distended.. No pelvic mass or free fluid identified. No free air. Bladder: Unremarkable. No stones. Reproductive: Unremarkable as visualized. Bones/joints: There is advanced lower lumbar degenerative disc disease. There are generalized decreased bony mineralization. No acute fracture or destructive osseous abnormality of the pelvis identified. No dislocation. Soft tissues: Unremarkable. Vasculature: Unremarkable. No lower abdominal aortic aneurysm. Lymph nodes: Unremarkable. No enlarged lymph nodes. IMPRESSION: 1. No acute fracture or destructive osseous abnormality of the pelvis identified. 2. The urinary bladder is distended.. 3. There is advanced lower lumbar degenerative disc disease. 4. There are generalized decreased bony mineralization. Electronically signed by: Rafa Najera MD 07/07/24 00:[address] 07/14/24 12:59 CT OF THE THORACIC SPINE CLINICAL HISTORY: severe back pain, retrocrural mass, compression Fx COMPARISON STUDY: Chest CT June 23, 2024. TECHNIQUE: Helical axial images of the thoracic spine were obtained. Sagittal and coronal reconstructions were viewed. Automated exposure control was utilized for the study. A dose lowering technique was utilized adhering to the principles of ALARA. FINDINGS: Alignment of the thoracic spine is anatomic. There are compression fractures involving the superior endplates of T2, T4, T9 and T12. Moderate loss of height of the T9 and T12 vertebra is noted. There is mild loss of height of the T2 and T4 vertebral bodies. There is no retropulsion. These fractures are similar to chest CT of June 23, 2024 and were also present on CT of November 13, 2022. No interval fractures are present. Central canal and neural foramen are suboptimally assessed given CT technique. No overtly suspicious osseous lesions are identified within the thoracic spine. There is mild multilevel disc space narrowing and moderate osteophytosis within the thoracic spine. Facet joints are intact. Innumerable pulmonary lesions are partially on this exam. These are better depicted on chest CT of June 23, 2024. There is underlying emphysema. A hypodense 6.6 x 3.6 x 3.6 cm retrocrural abnormalities present. This measures near water attenuation. IMPRESSION: 1. No acute thoracic spine fracture or subluxation. 2. Multiple old thoracic spine compression fractures, as described above. 3. Mild multilevel degenerative disc disease and facet arthrosis within the thoracic spine. 4. Partially visualized innumerable pulmonary lesions. These are likely neoplastic and suspicious for metastatic disease. 5. Indeterminate hypodense 6.6 x 3.6 x 3.6 cm retrocrural lesion. ACT 112: Negative or not required by law. Electronically signed by: Orion Goodrich M.D. 07/14/2024 3:52 PM Chest X-Ray 07/15/24 07:00 EXAM: XR chest 1V portable CLINICAL HISTORY: DYSPNEA. TECHNIQUE: An X-ray image of the chest is obtained in AP projection. COMPARISON: No prior studies are available for comparison. FINDINGS: Pulmonary Parenchyma: Patchy bilateral alveolar densities were seen. Diffuse prominent bronchovascular markings and hilar vessels. Blunting of right costophrenic angle. Left costophrenic obscured by ICD device. Heart and Mediastinum: Cardiomegaly ICD device seen Bony Thorax: The bony thorax appears intact without fractures or deformities. Soft Tissues: Soft tissues overlying the chest wall are unremarkable. IMPRESSION: 1. Patchy bilateral alveolar densities seen, diffuse prominent bronchovascular markings and hilar vessels due to either infectious process, versus pulmonary edema 2. Blunting of the right costophrenic angle could be due to pleural effusion 3. Cardiomegaly 4. ICD device seen Electronically signed by Pastor Nielsen 07-15-2024 08:08 AM Hip/Pelvis X-Ray 07/16/24 17:59 EXAM: Radiographs of the Left Hip 3 Views INDICATION: Left calf pain. TECHNIQUE: Front view pelvis and AP and frog leg lateral views of the left hip. COMPARISON: Pelvic CT 07/06/2024 FINDINGS: Limitations: None. Bones/joints: The pelvis is tilted to the right. There is mild symmetrical narrowing of the medial acetabular joints. Femoral heads intact. There is an oblique lucency across the intertrochanteric femur. There are similar lucencies in different obliquity which are clearly skin folds. Degenerative changes noted in the lower lumbar segments visualized. Soft tissues: No abnormality noted. No radiopaque foreign body noted. Vasculature: Atherosclerotic calcification in the groin. IMPRESSION: Oblique lucency across the intertrochanteric left femur is thought to be artifact. However, a hairline fracture is not completely excluded. If additional imaging is clinically warranted, CT is the modality of choice. ACT 112: Negative or not required by law. Electronically signed by Beverly Cardenas 07-16-2024 7:[address] 07/16/24 19:23 CT hip LT wo con HISTORY: 74 years-old Male abnl L hip x-rays, pain; fracture? COMPARISON: CT pelvis 07/06/2024 TECHNIQUE: Multiple axial CT images of the left hip were obtained without IV contrast. A dose lowering technique was used consistent with the principals of ALARA. FINDINGS: Decompressed urinary bladder with wall thickening. Prostatomegaly. No acute intrapelvic abnormality identified. Arterial calcifications. Unremarkable soft tissues and musculature. No hip joint effusion. [id number]-us-[id number] osteoarthritis of the left femoral acetabular joint. No acute fracture, dislocation, avascular necrosis or suspicious bone lesion. IMPRESSION: Ndlj-yf-lrriabdo osteoarthritis of the left hip without acute fracture or dislocation. ACT 112: Negative or not required by law. The above report was generated using voice recognition software. It may contain grammatical, syntax or spelling errors. Electronically signed by: John Nichols M.D. 07/17/2024 2:[address] 07/17/24 13:00 CT-guided right lung mass core biopsy INDICATION: Bilateral lung masses PROCEDURE: Procedure and risks were explained. Informed consent was obtained. A final timeout was completed. Percutaneous biopsy was originally attempted on July 16, 2024, but this was unsuccessful due to patient movement/discomfort. The patient was then brought back today on July 17, 2024 for percutaneous lung biopsy with anesthesia. The patient was placed in a left decubitus position on the CT exam table. The right thorax was prepped and draped in sterile fashion. 1% lidocaine was utilized for skin anesthesia. The patient received monitored anesthesia care throughout the procedure. Utilizing CT guidance, a 19-gauge coaxial needle was advanced into the right lung mass. A 20-gauge core biopsy needle was advanced, and 2 cores were obtained and given to the pathologist for review. The coaxial needle was removed and Band-Aid applied. The patient tolerated the procedure well. Post CT imaging demonstrated no evidence for bleeding/pneumothorax. A chest x-ray will be obtained to hours post procedure and vital signs will be monitored via anesthesia protocol. IMPRESSION: Right lung mass core biopsy as above. Performed, dictated, and signed by Shawn Hernadez PA-C; to be co-signed by Dr. John Nichols. Electronically signed by: John Nichols M.D. 07/17/2024 2:55 PM Chest X-Ray 07/17/24 16:00 EXAM: XR chest 1V portable CLINICAL HISTORY: Right lung biopsy. TECHNIQUE: An X-ray image of the chest is obtained in AP projection. COMPARISON: 07/15/2024 FINDINGS: Pulmonary Parenchyma: Patchy bilateral, rounded and irregular densities again seen. Prominence of the hilar vessels again seen. Blunting of right costophrenic angle. Left costophrenic obscured by ICD device. Heart and Mediastinum: Cardiomegaly ICD device Bony Thorax: The bony thorax appears intact without fractures or deformities. Soft Tissues: Soft tissues overlying the chest wall are unremarkable. IMPRESSION: No visualized pneumothorax. Diffuse, rounded and irregular opacities are again seen. Electronically signed by Teddy Eugene 07-17-2024 4:31 PM Medications Administered Vital Signs Temp 36.5 C 07/21/24 08:00 Pulse 63 07/21/24 08:00 Resp 16 07/21/24 08:00 BP 149/88 H 07/21/24 08:00 Pulse Ox 94 07/21/24 08:00 O2 Del Method Room Air, Nasal Cannula 07/21/24 11:24 O2 Flow Rate 2 07/21/24 08:00 Intake & Output 07/20/24 07/21/24 07/21/24 18:59 06:59 18:59 Output Total 400 / 850 450 / 850 200 / 200 Balance -400 / -850 -450 / -850 -200 / -200 Output: Urine 400 / 850 450 / 850 200 / 200 Other: # Urine Diapers 225 PG Care Time/CCT Total # of Minutes Spent Total Time Spent with Patient: Total time spent is greater than 50% in coordination of care (as documented) at patient's floor/unit and/or counseling patient: I spent 130 minutes overall addressing this case: 15 min in medical data review/discussion with referring provider(s) and/or preparation for the visit 20 min in direct interaction with the patient/exam 60 min in Advance Care Planning/Goals of Care discussions as detailed above in note (must be >16min) 15 min in subsequent review and synthesis of assessment and plan 20 min communicating with other providers regarding the patient's case: med onc, primary team nursing, care mgt Prolonged Care Time Prolonged Care Time: Yes Total Prolonged Care Time: 30 Advanced Care Planning 64304 Advanced Care Planning 30 Min 45004 Advanced Care Planning Additional 30 [place] [address] IN/OBS CONSULT LVL 4,60M (25 - SIGNIFICANT, SEPARATELY IDENTIFIABLE ) Patient Type New History Comprehensive Exam Comprehensive Medical Decision Making High Complexity Diagnoses Cancer related pain G89.3 Weakness generalized R53.1 Recurrent falls R29.6 Advanced care planning/counseling discussion Z71.89 Ambulatory dysfunction R26.2 Palliative care by specialist Z51.5 COPD (chronic obstructive pulmonary disease) J44.9 Alcohol abuse F10.10 Bullous emphysema J43.9 Intraabdominal mass R19.00 Additional Codes Prolonged Care Time - Prolonged Care Time: Yes ([id number]) Advanced Care Planning - 13103 Advanced Care Planning 30 Min: 63605 Advanced Care Planning 30 Min ([id number]) Advanced Care Planning - 43451 Advanced Care Planning Additional 30 Min: 27361 Advanced Care Planning Additional 30 Min ([id number])
[2024-07-21] MEDS ORDERED: POLYETHYLENE (MIRALAX) 17 GM PACK PO PRN (14:16)
--- NOTE | 2024-07-21 16:07 | Hospitalist Progress Note ---
Date of Service July 21, 2024 Assessment & Plan (1) Intractable back pain: Plan: Patient originally presented to the ED on 07/07/24 for intractable back pain and weakness. (Possible, Suspected, Likely) Retrocrural tumor/cancer CT scan of thoracic spine: indeterminate hypodense 6.6x3.6x3.6cm retrocrural lesion. Innumerable pulmonary lesions - likely neoplastic and suspicious for metastatic disease Underwent IR bx of pulm nodule 07/17 - path results + for mucinous adenocarcinoma. Oncology consulted, appreciate recommendations. Head CT pending Palliative consulted and recommendations included d/c Butrans patch. Oxycodone increased to 15mg PO q6h for pain switched from full code to DNR/DNI patient would be open to cancer treatment if improved his QOL. - patient to discuss further w/ onc. Will decrease prednisone to 10mg starting 07/22 x 3 days to complete taper. continue scheduled tylenol and baclofen (2) Mucinous adenocarcinoma of lung: Plan: refer to plan #1 (3) Left hip pain: Plan: Left Hip CT: no fx. moderate OA if not intrinsic hip disease could be referred pain from the lumbar spine please refer to plan #1 for pain regimen (4) Chronic systolic CHF (congestive heart failure): Plan: EF 45% last Echo 03/31/24 with regional [facility] technically very difficult study per the report gave bumex 2mg IV x cont coreg BID Plan to resume outpatient 1mg PO Bumex 07/22, creatinine stable. Consider SOREN/ARB therapy. (5) COPD (chronic obstructive pulmonary disease): Plan: normal PFTs in 2020 placed on duonebs prn diurese w/ bumex (6) Diabetes mellitus, type 2: Plan: a1c 6.3% in 03/2024 controlled with lantus-novolog (7) Atrial fibrillation: Plan: history of such cont Coreg Xarelto resumed 07/21. (8) FREDRICK (obstructive sleep apnea): Plan: typically on CPAP at HS, but he does not have his home unit with him, and no one can bring it for him ( has dementia, does not drive, etc) he declines use of hospital issued CPAP (9) Thoracic compression fracture: Plan: multiple T2, T4, T9 and T12 chronic/old ybak-ekt-zqxz - 1. Rx vit D def 2. miacalcin nasal spray daily (in the event some of his compression fx's are causing pain) Plan BPH - continue Flomax 0.4mg po daily and Finasteride 5mg po daily Hyperlipidemia - Continue Crestor 5mg po daily Alcohol use disorder - 3-5 shots of whisky nightly - has been working on cessation/reduction recently. B12/folate wnl Cont thiamine 200mg BID NO alcohol withdrawal while hospitalized Groin rash - candidal - nystatin powder TID cont PT/OT - rehab advised by therapy CM applied for auth for rehab 07/21. Discussed w/ palliative care provider extensively 07/21. Admission and Anticipated Discharge Date Admission Date: July 09, 2024 Subjective Patient seen and examined this morning w/ PT. Patient frustrated and yelling at time of encounter. Reports he was lying in bed for 2 hours without help. Reports he does not want to go to rehab because he can't do it. Patient then was able to sit up in bed. He was apologetic re-examined patient this afternoon and he appeared more calm. Was apologetic and was open to rehab if this would help him get better. discussed pathology findings w/ patient as well. Physical Exam Constitutional: WD/WN, vitals as above Eyes: PERRL, conjunctivae normal, anicteric sclerae Respiratory: CTA Cardiovascular: RRR, no murmur, no edema Results & Data Results & Data Vital Signs (Past 12 Hours) Vital Signs Temp Pulse Resp BP Pulse Ox O2 Del Method O2 Flow Rate 07/21/24 15:26 36.4 C L 69 18 108/67 94 Nasal Cannula 2.5 07/21/24 11:24 Room Air, Nasal Cannula 07/21/24 08:00 36.5 C 63 16 149/88 H 94 Nasal Cannula 2 07/21/24 07:37 82 16 96 Nasal Cannula 2 PG Care Time/CCT Total # of Minutes Spent Total Time Spent with Patient: Total time spent is greater than 50% in coordination of care (as documented) at patient's floor/unit and/or counseling patient: Coding Level of Care Code 38530 SUB INP/OBS CARE 3/50MIN Diagnoses Intractable back pain M54.9 Mucinous adenocarcinoma of lung C34.90 Left hip pain M25.552 Chronic systolic CHF (congestive heart failure) I50.22 COPD (chronic obstructive pulmonary disease) J44.9 Diabetes mellitus, type 2 E11.9 Atrial fibrillation I48.91 FREDRICK (obstructive sleep apnea) G47.33 Thoracic compression fracture S22.000A
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
[2024-07-21] MEDS: oxyCODONE HCL IR 5 MG TAB (IMMEDIATE RELEASE) PO PRN (20:38)
[2024-07-22 08:38] LABS: Hematocrit (blood only) 43.1 % (42.0-52.0); Hemoglobin 14.9 g/dl (14.0-18.0); Mean Corpuscular Hemoglobin 33.6 pg (25.0-34.0); Mean Corpuscular Hgb Conc 34.6 g/dL (32.0-36.0); Mean Corpuscular Volume 97.1 fL (80.0-100.0); Mean Platelet Volume 9.9 fL (9.4-12.4); Platelet Count 158 K/uL (130-400); RDW Coefficient of Variation 13.6 % (11.5-14.5); RDW Standard Deviation 48.8 fL (36.4-46.3); Red Blood Count 4.44 M/uL (4.70-6.10); White Blood Count 8.54 K/ul (4.8-10.8)
[2024-07-22 08:55] LABS: Calcium 8.8 mg/dl (8.6-10.3); Creatinine Clr Calc Pharmacy 138.1 ml/min; Potassium 4.1 mmol/L (3.5-5.1)
[2024-07-22] MEDS: predniSONE 10 MG TABLET PO SCH (09:21)
[2024-07-22] MEDS: BUMETANIDE 1 MG TAB PO SCH (09:22)
[2024-07-22] MEDS: DOCUSATE SODIUM/SENNA 50/8.6MG TAB PO SCH (09:44)
[2024-07-22] MEDS ORDERED: HYDROmorphone PCA 30 MG/30 ML IV PRN (11:22)
[2024-07-22] MEDS ORDERED: NALOXONE HCL 0.4 MG/1 ML VIAL/CARP IV PRN ×2 (11:22→11:29)
[2024-07-22] MEDS: HYDROmorphone INJ 0.5 MG/0.5 ML SYR IV PRN (12:03)
[2024-07-22] MEDS: MoRPHine SULFATE PCA 30 MG/30 ML IV PRN (12:25)
[2024-07-22] MEDS: MoRPHine Bolus from PCA IV STA (12:32)
[2024-07-22] MEDS: HYDROmorphone Bolus from PCA IV STA (12:37)
--- NOTE | 2024-07-22 16:17 | Hospitalist Progress Note ---
Date of Service July 22, 2024 Assessment & Plan (1) Intractable back pain: Plan: Patient originally presented to the ED on 07/07/24 for intractable back pain and weakness. (Possible, Suspected, Likely) Retrocrural tumor/cancer CT scan of thoracic spine: indeterminate hypodense 6.6x3.6x3.6cm retrocrural lesion. Innumerable pulmonary lesions - likely neoplastic and suspicious for metastatic disease Underwent IR bx of pulm nodule 07/17 - path results + for mucinous adenocarcinoma. Oncology consulted, appreciate recommendations. Head CT pending Palliative consulted and following Butrans patch discontinued 07/21. Oxycodone discontinued 07/22 Started on Morphine TRUANT OFFICER 07/22 w/ 0.5mg IV Diluadid for breakthrough pain. Finish prednisone taper, last dose 07/24 consider pain management consult if pain continues to remain uncontrolled. Heme onc consultation 07/21 - discussed options with patient - patient is open to immunotherapy but also agreeable to hospice if he continues to decline continue to re-evaluate goals of care daily. CBC/BMP stable AM CBC/BMP (2) Mucinous adenocarcinoma of lung: Plan: refer to plan #1 (3) Left hip pain: Plan: Left Hip CT: no fx. moderate OA if not intrinsic hip disease could be referred pain from the lumbar spine please refer to plan #1 for pain regimen (4) Chronic systolic CHF (congestive heart failure): Plan: EF 45% last Echo 03/31/24 with regional [facility] technically very difficult study per the report gave bumex 2mg IV x cont coreg BID Continue PO Bumex Consider SOREN/ARB therapy. (5) COPD (chronic obstructive pulmonary disease): Plan: normal PFTs in 2020 placed on duonebs prn (6) Diabetes mellitus, type 2: Plan: a1c 6.3% in 03/2024 controlled with lantus-novolog (7) Atrial fibrillation: Plan: cont Coreg Xarelto resumed 07/21. (8) FREDRICK (obstructive sleep apnea): Plan: typically on CPAP at HS, but he does not have his home unit with him, and no one can bring it for him ( has dementia, does not drive, etc) he declines use of hospital issued CPAP (9) Thoracic compression fracture: Plan: multiple T2, T4, T9 and T12 chronic/old [id number] - 1. Rx vit D def 2. miacalcin nasal spray daily (in the event some of his compression fx's are causing pain) Plan BPH - continue Flomax 0.4mg po daily and Finasteride 5mg po daily Hyperlipidemia - Continue Crestor 5mg po daily Alcohol use disorder - 3-5 shots of whisky nightly - has been working on c essation/reduction recently. B12/folate wnl Cont thiamine 200mg BID NO alcohol withdrawal while hospitalized Groin rash - candidal - nystatin powder TID cont PT/OT - rehab advised by therapy Discussed w/ palliative care provider extensively 07/21 and 07/22 CM was able to provide contact information for patient's daughter, Chuck Morris who is his POA. She was called 07/22 and updated on her father's hospitalization. Chuck has asked to only be notified of "major" events in the future. Phone number: [phone] Admission and Anticipated Discharge Date Admission Date: July 09, 2024 Subjective Patient seen and examined this morning. Patient appeared uncomfortable at time of encounter and was in severe back pain. He reports the increase in his prn oxycodone yesterday did not do anything for his pain. He denied any additional complaints. He continues to consider hospice. Physical Exam Constitutional: uncomfortable, wincing in pain Respiratory: normal respiratory effort, lungs clear to auscultation Cardiovascular: RRR, no murmur, no edema Psychiatric: A+Ox3, euthymic affect Results & Data Results & Data Vital Signs (Past 12 Hours) Vital Signs Temp Pulse Resp BP Pulse Ox O2 Del Method O2 Flow Rate 07/22/24 15:23 36.4 C L 74 18 134/85 95 Nasal Cannula 2 07/22/24 08:18 36.7 C 60 18 154/75 H 91 Nasal Cannula 3 07/22/24 07:22 Nasal Cannula 2 PG Care Time/CCT Total # of Minutes Spent Total Time Spent with Patient: Total time spent is greater than 50% in coordination of care (as documented) at patient's floor/unit and/or counseling patient: Coding Level of Care Code 41433 SUB INP/OBS CARE 3/50MIN Diagnoses Intractable back pain M54.9 Mucinous adenocarcinoma of lung C34.90 Left hip pain M25.552 Chronic systolic CHF (congestive heart failure) I50.22 COPD (chronic obstructive pulmonary disease) J44.9 Diabetes mellitus, type 2 E11.9 Atrial fibrillation I48.91 FREDRICK (obstructive sleep apnea) G47.33 Thoracic compression fracture S22.000A
--- NOTE | 2024-07-22 17:18 | Communication Note ---
Date of Service: July 22, 2024 Palliative Med Tram Driver Note 517pm [place] message from nursing - pt is sedated on MS infusion with resp rate dropping into 8-10, sats 94% I have stopped continuous rate I reduced bolus dose to 1mg q20min i have dc dilaudid IV prn option USE NARCAN IF INDICATED he is presently awake, sitting at edge of the bed and eating dinner with RR 21 Priority tiger reply sent with above guidance will recheck vitals in 20mmin Thank you for allowing us to participate in the ongoing care of this patient. Please page with any additional concerns. Roman Dyson DNP Director, Palliative Medicine
--- NOTE | 2024-07-22 17:20 | Palliative Care Progress Note ---
Date of Service July 22, 2024 Assessment & Plan (1) Cancer related pain: Plan: very severe cancer related pain uncontrolled on escalating doses butrans and oxycodone Begin MS MOSAICIST trial with MS 2mg per hour and 2mg MOSAICIST q15min orders written continue bowel regimen (2) Dyspnea and respiratory abnormalities: Plan: see #1 regimen ordered (3) Advanced care planning/counseling discussion: Plan: I had a 45min face to face urgetn ACP discussion with pt at bedside. I expressed my worries to pt that his symptoms are intensifying in spite of escalating treatment pierce pain and dyspnea. He is in clear distress today and he states that he does not feel pain is managed. He states he feel this is his cancer getting worse and adds that he knows he has an advanced cancer that is not curable, and that overall his time is limited. He states he does not want to suffer or have a prolonged . He states if things get worse he would want comfort care and not "drag out the dying part, I just want it to be peaceful." He reaffirms DNR/DNI. We agreed if he acutely worsens then he would want us to move him over to comfort care. I offered to call his daughter and he declined. He would not agree to share her contact info, and his cannot be updated because of her advanced dementia. He states "it's fine, this is the way i want it." (4) Weakness generalized: (5) Intractable back pain: (6) Mucinous adenocarcinoma of lung: (7) Recurrent falls: (8) Palliative care by specialist: Plan Very severe cancer pain, transitioned to MS MOSAICIST I am worried he is acutely worsening from his very advanced stage cancer. He may acutely decline and if he does, he wants to be comfort care. He continues to decline my offer update his daughter and will not provide contact information for daughter. The only info in chart is his who now has advanced dementia. Thank you for allowing us to participate in the ongoing care of this patient. Please page with any additional concerns. Roman Dyson DNP Director, Palliative Medicine Admission and Anticipated Discharge Date Admission Date: July 09, 2024 Subjective pt seen on AM rounds severe pain and no relief with increased regimen states he is in agony any movement triggers pain tachypnea noted agitated and in distress pain is abdomen, back, across chest and upper shoulders Review of Systems Review of Systems: All systems reviewed & are unremarkable except as noted in Subjective Physical Exam Constitutional: + acute distress, + ill appearing, + fra il appearing, + disheveled and + in distress Eyes: PERRL, conjunctivae normal, anicteric sclerae ENMT: Mouth: + muffled voice, + dentition abnormality, + gingival abnormality, + dental caries, + poor dentition and + loose teeth Neck: trachea midline, no thyromegaly normal visual inspection, + nuchal rigidity and + limited neck extension Respiratory: + uses accessory muscles, + cough, + pro longed expiratory phase, + pursed lip breathing and symmetric chest movement; + not able to speak in complete sentence Auscultation: + diminished lung sounds and + rhonchi Cardiovascular: Rate/Rhythm: + irregularly irregular Gastrointestinal (Abdomen): Inspection/Auscultation: normal bowel sounds and + significant pannus Percussion/Palpation: + guarding and abdomen soft; abdomen nontender and abdomen not rigid Musculoskeletal: Head/Neck/Chest: + limited ROM of neck Spine: + limited cervical ROM, + limited thoraco-lumbar ROM, + pain with thoraco-lumbar ROM, + thoracic spinal tenderness and + lumbar spinal tenderness Extremities: + limited ROM of extremities and + abnormal strength Skin: + turgor decreased, + skin atrophy, + dr y skin, + excoriations, + hair thinning and + scarring alopecia; + abnormal skin elasticity Neurologic: awake Psychiatric: Orientation: alert, oriented to person, oriented to place, oriented to time and cooperative Apperance: + disheveled Speech: + pressured speech Affect: + anxious affect and + labile affect Cognition: + recent memory not intact Insight: + limited insight and + impaired insight Judgment: + limited judgement Results & Data Vital Signs (Past 12 Hours) Vital Signs Temp Pulse Resp BP Pulse Ox O2 Del Method O2 Flow Rate 07/22/24 15:23 36.4 C L 74 18 134/85 95 Nasal Cannula 2 07/22/24 08:18 36.7 C 60 18 154/75 H 91 Nasal Cannula 3 07/22/24 07:22 Nasal Cannula 2 Laboratory Results 07/22/24 07/22/24 07/22/24 Range/Units 16:41 12:06 08:01 WBC 8.54 (4.8-10.8) K/ul RBC 4.44 L (4.70-6.10) M/uL Hgb 14.9 (14.0-18.0) g/dl Hct 43.1 (42.0-52.0) % MCV 97.1 (80.0-100.0) fL MCH 33.6 (25.0-34.0) pg MCHC 34.6 (32.0-36.0) g/dL RDW Std Deviation 48.8 H (36.4-46.3) fL RDW Coeff of Cindy 13.6 (11.5-14.5) % Plt Count 158 (130-400) K/uL MPV 9.9 (9.4-12.4) fL Sodium 134 L (136-145) mmol/L Potassium 4.1 (3.5-5.1) mmol/L Chloride 96 L (98-107) mmol/L Carbon Dioxide 35 H (21-32) mmol/L Anion Gap 3 (3-11) BUN 24 H (6-23) mg/dl Creatinine 0.60 (0.6-1.4) mg/dl Est Cr Clr Drug Dosing 138.1 ml/min eGFR 100.04 BUN/Creatinine Ratio 40.0 H (10-20) Glucose 85 (70-99(Fasting)) mg/dl POC Glucose 160 H 171 H (70-99) mg/dl Calcium 8.8 (8.6-10.3) mg/dl Magnesium (1.7-2.4) mg/dl 25-OH Vitamin D Total (30-100) ng/ml 07/21/24 07/21/24 07/21/24 Range/Units 20:46 16:44 11:34 WBC (4.8-10.8) K/ul RBC (4.70-6.10) M/uL Hgb (14.0-18.0) g/dl Hct (42.0-52.0) % MCV (80.0-100.0) fL MCH (25.0-34.0) pg MCHC (32.0-36.0) g/dL RDW Std Deviation (36.4-46.3) fL RDW Coeff of Cindy (11.5-14.5) % Plt Count (130-400) K/uL MPV (9.4-12.4) fL Sodium (136-145) mmol/L Potassium (3.5-5.1) mmol/L Chloride (98-107) mmol/L Carbon Dioxide (21-32) mmol/L Anion Gap (3-11) BUN (6-23) mg/dl Creatinine (0.6-1.4) mg/dl Est Cr Clr Drug Dosing ml/min eGFR BUN/Creatinine Ratio (10-20) Glucose (70-99(Fasting)) mg/dl POC Glucose 87 138 H 117 H (70-99) mg/dl Calcium (8.6-10.3) mg/dl Magnesium (1.7-2.4) mg/dl 25-OH Vitamin D Total (30-100) ng/ml 07/21/24 07/21/24 07/20/24 Range/Units 07:40 07:19 20:28 WBC (4.8-10.8) K/ul RBC (4.70-6.10) M/uL Hgb (14.0-18.0) g/dl Hct (42.0-52.0) % MCV (80.0-100.0) fL MCH (25.0-34.0) pg MCHC (32.0-36.0) g/dL RDW Std Deviation (36.4-46.3) fL RDW Coeff of Cindy (11.5-14.5) % Plt Count (130-400) K/uL MPV (9.4-12.4) fL Sodium 138 (136-145) mmol/L Potassium 3.9 (3.5-5.1) mmol/L Chloride 98 (98-107) mmol/L Carbon Dioxide 36 H (21-32) mmol/L Anion Gap 4 (3-11) BUN 26 H (6-23) mg/dl Creatinine 0.70 (0.6-1.4) mg/dl Est Cr Clr Drug Dosing 116.9 ml/min eGFR 95.49 BUN/Creatinine Ratio 37.1 H (10-20) Glucose 82 (70-99(Fasting)) mg/dl POC Glucose 74 139 H (70-99) mg/dl Calcium 8.9 (8.6-10.3) mg/dl Magnesium (1.7-2.4) mg/dl 25-OH Vitamin D Total (30-100) ng/ml 07/20/24 07/20/24 07/20/24 Range/Units 16:25 11:18 07:52 WBC (4.8-10.8) K/ul RBC (4.70-6.10) M/uL Hgb (14.0-18.0) g/dl Hct (42.0-52.0) % MCV (80.0-100.0) fL MCH (25.0-34.0) pg MCHC (32.0-36.0) g/dL RDW Std Deviation (36.4-46.3) fL RDW Coeff of Cindy (11.5-14.5) % Plt Count (130-400) K/uL MPV (9.4-12.4) fL Sodium 138 (136-145) mmol/L Potassium 3.6 (3.5-5.1) mmol/L Chloride 98 (98-107) mmol/L Carbon Dioxide 36 H (21-32) mmol/L Anion Gap 4 (3-11) BUN 24 H (6-23) mg/dl Creatinine 0.67 (0.6-1.4) mg/dl Est Cr Clr Drug Dosing 122.1 ml/min eGFR 96.77 BUN/Creatinine Ratio 35.8 H (10-20) Glucose 77 (70-99(Fasting)) mg/dl POC Glucose 168 H 126 H (70-99) mg/dl Calcium 8.8 (8.6-10.3) mg/dl Magnesium 1.7 (1.7-2.4) mg/dl 25-OH Vitamin D Total (30-100) ng/ml 07/20/24 07/19/24 07/19/24 Range/Units 07:25 20:49 16:39 WBC (4.8-10.8) K/ul RBC (4.70-6.10) M/uL Hgb (14.0-18.0) g/dl Hct (42.0-52.0) % MCV (80.0-100.0) fL MCH (25.0-34.0) pg MCHC (32.0-36.0) g/dL RDW Std Deviation (36.4-46.3) fL RDW Coeff of Cindy (11.5-14.5) % Plt Count (130-400) K/uL MPV (9.4-12.4) fL Sodium (136-145) mmol/L Potassium (3.5-5.1) mmol/L Chloride (98-107) mmol/L Carbon Dioxide (21-32) mmol/L Anion Gap (3-11) BUN (6-23) mg/dl Creatinine (0.6-1.4) mg/dl Est Cr Clr Drug Dosing ml/min eGFR BUN/Creatinine Ratio (10-20) Glucose (70-99(Fasting)) mg/dl POC Glucose 88 108 H 123 H (70-99) mg/dl Calcium (8.6-10.3) mg/dl Magnesium (1.7-2.4) mg/dl 25-OH Vitamin D Total (30-100) ng/ml 07/19/24 07/19/24 07/19/24 Range/Units 11:35 07:40 07:18 WBC (4.8-10.8) K/ul RBC (4.70-6.10) M/uL Hgb (14.0-18.0) g/dl Hct (42.0-52.0) % MCV (80.0-100.0) fL MCH (25.0-34.0) pg MCHC (32.0-36.0) g/dL RDW Std Deviation (36.4-46.3) fL RDW Coeff of Cindy (11.5-14.5) % Plt Count (130-400) K/uL MPV (9.4-12.4) fL Sodium (136-145) mmol/L Potassium (3.5-5.1) mmol/L Chloride (98-107) mmol/L Carbon Dioxide (21-32) mmol/L Anion Gap (3-11) BUN (6-23) mg/dl Creatinine (0.6-1.4) mg/dl Est Cr Clr Drug Dosing ml/min eGFR 98.11 BUN/Creatinine Ratio 34.4 H (10-20) Glucose 85 (70-99(Fasting)) mg/dl POC Glucose 166 H 76 (70-99) mg/dl Calcium 8.9 (8.6-10.3) mg/dl Magnesium (1.7-2.4) mg/dl 25-OH Vitamin D Total 13.7 L (30-100) ng/ml 07/19/24 07/19/24 07/19/24 Range/Units 07:18 07:18 07:18 WBC (4.8-10.8) K/ul RBC (4.70-6.10) M/uL Hgb (14.0-18.0) g/dl Hct (42.0-52.0) % MCV (80.0-100.0) fL MCH (25.0-34.0) pg MCHC (32.0-36.0) g/dL RDW Std Deviation (36.4-46.3) fL RDW Coeff of Cindy (11.5-14.5) % Plt Count (130-400) K/uL MPV (9.4-12.4) fL Sodium 137 (136-145) mmol/L Potassium 4.2 (3.5-5.1) mmol/L Chloride 98 (98-107) mmol/L Carbon Dioxide 35 H (21-32) mmol/L Anion Gap 4 (3-11) BUN 22 (6-23) mg/dl Creatinine 0.64 0.62 (0.6-1.4) mg/dl Est Cr Clr Drug Dosing 127.9 132.0 ml/min eGFR 99.06 BUN/Creatinine Ratio (10-20) Glucose (70-99(Fasting)) mg/dl POC Glucose (70-99) mg/dl Calcium (8.6-10.3) mg/dl Magnesium (1.7-2.4) mg/dl 25-OH Vitamin D Total (30-100) ng/ml 07/18/24 07/18/24 07/18/24 Range/Units 20:11 16:31 11:36 WBC (4.8-10.8) K/ul RBC (4.70-6.10) M/uL Hgb (14.0-18.0) g/dl Hct (42.0-52.0) % MCV (80.0-100.0) fL MCH (25.0-34.0) pg MCHC (32.0-36.0) g/dL RDW Std Deviation (36.4-46.3) fL RDW Coeff of Cindy (11.5-14.5) % Plt Count (130-400) K/uL MPV (9.4-12.4) fL Sodium (136-145) mmol/L Potassium (3.5-5.1) mmol/L Chloride (98-107) mmol/L Carbon Dioxide (21-32) mmol/L Anion Gap (3-11) BUN (6-23) mg/dl Creatinine (0.6-1.4) mg/dl Est Cr Clr Drug Dosing ml/min eGFR BUN/Creatinine Ratio (10-20) Glucose (70-99(Fasting)) mg/dl POC Glucose 185 H 119 H 237 H (70-99) mg/dl Calcium (8.6-10.3) mg/dl Magnesium (1.7-2.4) mg/dl 25-OH Vitamin D Total (30-100) ng/ml 07/18/24 07/18/24 07/17/24 Range/Units 09:57 07:42 19:36 WBC 8.13 (4.8-10.8) K/ul RBC 4.21 L (4.70-6.10) M/uL Hgb 14.4 (14.0-18.0) g/dl Hct 41.9 L (42.0-52.0) % MCV 99.5 (80.0-100.0) fL MCH 34.2 H (25.0-34.0) pg MCHC 34.4 (32.0-36.0) g/dL RDW Std Deviation 48.6 H (36.4-46.3) fL RDW Coeff of Cindy 13.2 (11.5-14.5) % Plt Count 169 (130-400) K/uL MPV 10.1 (9.4-12.4) fL Sodium (136-145) mmol/L Potassium (3.5-5.1) mmol/L Chloride (98-107) mmol/L Carbon Dioxide (21-32) mmol/L Anion Gap (3-11) BUN (6-23) mg/dl Creatinine 0.74 (0.6-1.4) mg/dl Est Cr Clr Drug Dosing 110.6 ml/min eGFR 93.90 BUN/Creatinine Ratio (10-20) Glucose (70-99(Fasting)) mg/dl POC Glucose 108 H 192 H (70-99) mg/dl Calcium (8.6-10.3) mg/dl Magnesium (1.7-2.4) mg/dl 25-OH Vitamin D Total (30-100) ng/ml 07/17/24 07/17/24 07/17/24 Range/Units 16:20 14:10 11:20 WBC (4.8-10.8) K/ul RBC (4.70-6.10) M/uL Hgb (14.0-18.0) g/dl Hct (42.0-52.0) % MCV (80.0-100.0) fL MCH (25.0-34.0) pg MCHC (32.0-36.0) g/dL RDW Std Deviation (36.4-46.3) fL RDW Coeff of Cindy (11.5-14.5) % Plt Count (130-400) K/uL MPV (9.4-12.4) fL Sodium (136-145) mmol/L Potassium (3.5-5.1) mmol/L Chloride (98-107) mmol/L Carbon Dioxide (21-32) mmol/L Anion Gap (3-11) BUN (6-23) mg/dl Creatinine (0.6-1.4) mg/dl Est Cr Clr Drug Dosing ml/min eGFR BUN/Creatinine Ratio (10-20) Glucose (70-99(Fasting)) mg/dl POC Glucose 195 H 157 H 151 H (70-99) mg/dl Calcium (8.6-10.3) mg/dl Magnesium (1.7-2.4) mg/dl 25-OH Vitamin D Total (30-100) ng/ml 07/17/24 07/17/24 07/17/24 Range/Units 07:35 06:37 06:24 WBC 7.60 (4.8-10.8) K/ul RBC 4.29 L (4.70-6.10) M/uL Hgb 14.2 (14.0-18.0) g/dl Hct 42.8 (42.0-52.0) % MCV 99.8 (80.0-100.0) fL MCH 33.1 (25.0-34.0) pg MCHC 33.2 (32.0-36.0) g/dL RDW Std Deviation 48.2 H (36.4-46.3) fL RDW Coeff of Cindy 13.2 (11.5-14.5) % Plt Count 175 (130-400) K/uL MPV 10.2 (9.4-12.4) fL Sodium 136 (136-145) mmol/L Potassium 3.9 (3.5-5.1) mmol/L Chloride 95 L (98-107) mmol/L Carbon Dioxide 38 H (21-32) mmol/L Anion Gap 3 (3-11) BUN 34 H (6-23) mg/dl Creatinine 0.82 (0.6-1.4) mg/dl Est Cr Clr Drug Dosing 101.1 ml/min eGFR 91.04 BUN/Creatinine Ratio 41.5 H (10-20) Glucose 101 H (70-99(Fasting)) mg/dl POC Glucose 97 119 H (70-99) mg/dl Calcium 8.9 (8.6-10.3) mg/dl Magnesium (1.7-2.4) mg/dl 25-OH Vitamin D Total (30-100) ng/ml 07/16/24 07/16/24 07/16/24 Range/Units 20:39 16:18 11:30 WBC (4.8-10.8) K/ul RBC (4.70-6.10) M/uL Hgb (14.0-18.0) g/dl Hct (42.0-52.0) % MCV (80.0-100.0) fL MCH (25.0-34.0) pg MCHC (32.0-36.0) g/dL RDW Std Deviation (36.4-46.3) fL RDW Coeff of Cindy (11.5-14.5) % Plt Count (130-400) K/uL MPV (9.4-12.4) fL Sodium (136-145) mmol/L Potassium (3.5-5.1) mmol/L Chloride (98-107) mmol/L Carbon Dioxide (21-32) mmol/L Anion Gap (3-11) BUN (6-23) mg/dl Creatinine (0.6-1.4) mg/dl Est Cr Clr Drug Dosing ml/min eGFR BUN/Creatinine Ratio (10-20) Glucose (70-99(Fasting)) mg/dl POC Glucose 161 H 205 H 157 H (70-99) mg/dl Calcium (8.6-10.3) mg/dl Magnesium (1.7-2.4) mg/dl 25-OH Vitamin D Total (30-100) ng/ml 07/16/24 07/16/24 07/16/24 Range/Units 10:50 07:25 06:40 WBC (4.8-10.8) K/ul RBC (4.70-6.10) M/uL Hgb (14.0-18.0) g/dl Hct (42.0-52.0) % MCV (80.0-100.0) fL MCH (25.0-34.0) pg MCHC (32.0-36.0) g/dL RDW Std Deviation (36.4-46.3) fL RDW Coeff of Cindy (11.5-14.5) % Plt Count (130-400) K/uL MPV (9.4-12.4) fL Sodium (136-145) mmol/L Potassium (3.5-5.1) mmol/L Chloride (98-107) mmol/L Carbon Dioxide (21-32) mmol/L Anion Gap (3-11) BUN (6-23) mg/dl Creatinine 0.63 (0.6-1.4) mg/dl Est Cr Clr Drug Dosing 131.2 ml/min eGFR 98.58 BUN/Creatinine Ratio (10-20) Glucose (70-99(Fasting)) mg/dl POC Glucose 136 H 108 H (70-99) mg/dl Calcium (8.6-10.3) mg/dl Magnesium (1.7-2.4) mg/dl 25-OH Vitamin D Total (30-100) ng/ml 07/15/24 Range/Units 20:22 WBC (4.8-10.8) K/ul RBC (4.70-6.10) M/uL Hgb (14.0-18.0) g/dl Hct (42.0-52.0) % MCV (80.0-100.0) fL MCH (25.0-34.0) pg MCHC (32.0-36.0) g/dL RDW Std Deviation (36.4-46.3) fL RDW Coeff of Cindy (11.5-14.5) % Plt Count (130-400) K/uL MPV (9.4-12.4) fL Sodium (136-145) mmol/L Potassium (3.5-5.1) mmol/L Chloride (98-107) mmol/L Carbon Dioxide (21-32) mmol/L Anion Gap (3-11) BUN (6-23) mg/dl Creatinine (0.6-1.4) mg/dl Est Cr Clr Drug Dosing ml/min eGFR BUN/Creatinine Ratio (10-20) Glucose (70-99(Fasting)) mg/dl POC Glucose 228 H (70-99) mg/dl Calcium (8.6-10.3) mg/dl Magnesium (1.7-2.4) mg/dl 25-OH Vitamin D Total (30-100) ng/ml Diagnostic Findings Lumbar Spine CT 07/06/24 21:25 Exam(s): CT L SPINE EXAM: CT Lumbar Spine Without Intravenous Contrast CLINICAL HISTORY: Reason for exam: lumbar back pain, fall. TECHNIQUE: Axial computed tomography images of the lumbar spine without intravenous contrast. CTDI is 39 mGy and DLP is 1343 mGy-cm. Automated exposure control was utilized for the study. A dose lowering technique was utilized adhering to the principles of ALARA. COMPARISON: No relevant prior studies available. 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 Previous measurements: 3.1 x 3.3 x 7.0 cm. There is a chronic appearing T12 compression fracture with approximately 25% anterior height loss. No acute fracture or osseous destruction identified. Discs/spinal canal/neural foramina: There is multilevel thoracolumbar degenerative disc disease with marginal osteophytes and vacuum disc changes noted throughout the lumbar spine. There is a large circumferential disc osteophyte complex at L5-S1 with moderate to severe bilateral foraminal stenosis noted at L2-3 through L5-S1. Soft tissues: Unremarkable. Vasculature: There are moderate aortic atherosclerotic calcifications. Lungs: There is patchy nodular bilateral basilar airspace consolidation. IMPRESSION: 1. There is an enlarging 3.0 x 4.0 x 7.7 cm cm retrocrural periaortic alphonse mass at the level of the lower thoracic and upper lumbar spine. 2. There is a chronic appearing T12 compression fracture with approximately 25% anterior height loss. Electronically signed by: Rafa Najera MD 07/07/24 00:[address] 07/06/24 21:28 Exam(s): CT PELVIS Without Contrast EXAM: CT Pelvis Without Intravenous Contrast CLINICAL HISTORY: Reason for exam: posterior pelvis pain, fall. TECHNIQUE: Axial computed tomography images of the pelvis without intravenous contrast. CTDI is 39 mGy and DLP is 1343 mGy-cm. Automated exposure control was utilized for the study. A dose lowering technique was utilized adhering to the principles of ALARA. COMPARISON: No relevant prior studies available. FINDINGS: Bowel: Unremarkable. No obstruction. No mucosal thickening. Appendix: No findings to suggest acute appendicitis. Intraperitoneal space: The urinary bladder is distended.. No pelvic mass or free fluid identified. No free air. Bladder: Unremarkable. No stones. Reproductive: Unremarkable as visualized. Bones/joints: There is advanced lower lumbar degenerative disc disease. There are generalized decreased bony mineralization. No acute fracture or destructive osseous abnormality of the pelvis identified. No dislocation. Soft tissues: Unremarkable. Vasculature: Unremarkable. No lower abdominal aortic aneurysm. Lymph nodes: Unremarkable. No enlarged lymph nodes. IMPRESSION: 1. No acute fracture or destructive osseous abnormality of the pelvis identified. 2. The urinary bladder is distended.. 3. There is advanced lower lumbar degenerative disc disease. 4. There are generalized decreased bony mineralization. Electronically signed by: Rafa Najera MD 07/07/24 00:[address] 07/14/24 12:59 CT OF THE THORACIC SPINE CLINICAL HISTORY: severe back pain, retrocrural mass, compression Fx COMPARISON STUDY: Chest CT June 23, 2024. TECHNIQUE: Helical axial images of the thoracic spine were obtained. Sagittal and coronal reconstructions were viewed. Automated exposure control was utilized for the study. A dose lowering technique was utilized adhering to the principles of ALARA. FINDINGS: Alignment of the thoracic spine is anatomic. There are compression fractures involving the superior endplates of T2, T4, T9 and T12. Moderate loss of height of the T9 and T12 vertebra is noted. There is mild loss of height of the T2 and T4 vertebral bodies. There is no retropulsion. These fractures are similar to chest CT of June 23, 2024 and were also present on CT of November 13, 2022. No interval fractures are present. Central canal and neural foramen are suboptimally assessed given CT technique. No overtly suspicious osseous lesions are identified within the thoracic spine. There is mild multilevel disc space narrowing and moderate osteophytosis within the thoracic spine. Facet joints are intact. Innumerable pulmonary lesions are partially on this exam. These are better depicted on chest CT of June 23, 2024. There is underlying emphysema. A hypodense 6.6 x 3.6 x 3.6 cm retrocrural abnormalities present. This measures near water attenuation. IMPRESSION: 1. No acute thoracic spine fracture or subluxation. 2. Multiple old thoracic spine compression fractures, as described above. 3. Mild multilevel degenerative disc disease and facet arthrosis within the thoracic spine. 4. Partially visualized innumerable pulmonary lesions. These are likely neopl astic and suspicious for metastatic disease. 5. Indeterminate hypodense 6.6 x 3.6 x 3.6 cm retrocrural lesion. ACT 112: Negative or not required by law. Electronically signed by: Orion Goodrich M.D. 07/14/2024 3:52 PM Chest X-Ray 07/15/24 07:00 EXAM: XR chest 1V portable CLINICAL HISTORY: DYSPNEA. TECHNIQUE: An X-ray image of the chest is obtained in AP projection. COMPARISON: No prior studies are available for comparison. FINDINGS: Pulmonary Parenchyma: Patchy bilateral alveolar densities were seen. Diffuse prominent bronchovascular markings and hilar vessels. Blunting of right costophrenic angle. Left costophrenic obscured by ICD device. Heart and Mediastinum: Cardiomegaly ICD device seen Bony Thorax: The bony thorax appears intact without fractures or deformities. Soft Tissues: Soft tissues overlying the chest wall are unremarkable. IMPRESSION: 1. Patchy bilateral alveolar densities seen, diffuse prominent bronchovascular markings and hilar vessels due to either infectious process, versus pulmonary edema 2. Blunting of the right costophrenic angle could be due to pleural effusion 3. Cardiomegaly 4. ICD device seen Electronically signed by Pastor Nielsen 07-15-2024 08:08 AM Hip/Pelvis X-Ray 07/16/24 17:59 EXAM: Radiographs of the Left Hip 3 Views INDICATION: Left calf pain. TECHNIQUE: Front view pelvis and AP and frog leg lateral views of the left hip. COMPARISON: Pelvic CT 07/06/2024 FINDINGS: Limitations: None. Bones/joints: The pelvis is tilted to the right. There is mild symmetrical narrowing of the medial acetabular joints. Femoral heads intact. There is an oblique lucency across the intertrochanteric femur. There are similar lucencies in different obliquity which are clearly skin folds. Degenerative changes noted in the lower lumbar segments visualized. Soft tissues: No abnormality noted. No radiopaque foreign body noted. Vasculature: Atherosclerotic calcification in the groin. IMPRESSION: Oblique lucency across the intertrochanteric left femur is thought to be artifact. However, a hairline fracture is not completely excluded. If additional imaging is clinically warranted, CT is the modality of choice. ACT 112: Negative or not required by law. Electronically signed by Beverly Cardenas 07-16-2024 7:[address] 07/16/24 19:23 CT hip LT wo con HISTORY: 74 years-old Male abnl L hip x-rays, pain; fracture? COMPARISON: CT pelvis 07/06/2024 TECHNIQUE: Multiple axial CT images of the left hip were obtained without IV contrast. A dose lowering technique was used consistent with the principals of ALARA. FINDINGS: Decompressed urinary bladder with wall thickening. Prostatomegaly. No acute intrapelvic abnormality identified. Arterial calcifications. Unremarkable soft tissues and musculature. No hip joint effusion. 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 No acute fracture, dislocation, avascular necrosis or suspicious bone lesion. IMPRESSION: [id number] osteoarthritis of the left hip without acute fracture or dislocation. ACT 112: Negative or not required by law. The above report was generated using voice recognition software. It may contain grammatical, syntax or spelling errors. Electronically signed by: John Nichols M.D. 07/17/2024 2:[address] 07/17/24 13:00 CT-guided right lung mass core biopsy INDICATION: Bilateral lung masses PROCEDURE: Procedure and risks were explained. Informed consent was obtained. A final timeout was completed. Percutaneous biopsy was originally attempted on July 16, 2024, but this was unsuccessful due to patient movement/discomfort. The patient was then brought back today on July 17, 2024 for percutaneous lung biopsy with anesthesia. The patient was placed in a left decubitus position on the CT exam table. The right thorax was prepped and draped in sterile fashion. 1% lidocaine was utilized for skin anesthesia. The patient received monitored anesthesia care throughout the procedure. Utilizing CT guidance, a 19-gauge coaxial needle was advanced into the right lung mass. A 20-gauge core biopsy needle was advanced, and 2 cores were obtained and given to the pathologist for review. The coaxial needle was removed and Band-Aid applied. The patient tolerated the procedure well. Post CT imaging demonstrated no evidence for bleeding/pneumothorax. A chest x-ray will be obtained to hours post procedure and vital signs will be monitored via anesthesia protocol. IMPRESSION: Right lung mass core biopsy as above. Performed, dictated, and signed by Shawn Hernadez PA-C; to be co-signed by Dr. John Nichols. Electronically signed by: John Nichols M.D. 07/17/2024 2:55 PM Chest X-Ray 07/17/24 16:00 EXAM: XR chest 1V portable CLINICAL HISTORY: Right lung biopsy. TECHNIQUE: An X-ray image of the chest is obtained in AP projection. COMPARISON: 07/15/2024 FINDINGS: Pulmonary Parenchyma: Patchy bilateral, rounded and irregular densities again seen. Prominence of the hilar vessels again seen. Blunting of right costophrenic angle. Left costophrenic obscured by ICD device. Heart and Mediastinum: Cardiomegaly ICD device Bony Thorax: The bony thorax appears intact without fractures or deformities. Soft Tissues: Soft tissues overlying the chest wall are unremarkable. IMPRESSION: No visualized pneumothorax. Diffuse, rounded and irregular opacities are again seen. Electronically signed by Teddy Eugene 07-17-2024 4:31 PM PG Care Time/CCT Total # of Minutes Spent Total Time Spent with Patient: Total time spent is greater than 50% in coordination of care (as documented) at patient's floor/unit and/or counseling patient: I spent 100 minutes overall addressing this case: 10 min in medical data review/discussion with referring provider(s) and/or preparation for the visit 20 min in direct interaction with the patient/exam 45 min in Advance Care Planning/Goals of Care discussions as detailed above in note (must be >16min) 10 min in subsequent review and synthesis of assessment and plan 15 min communicating with other providers regarding the patient's case: primary team and nursing, pharmacy Advanced Care Planning 78279 Advanced Care Planning 30 Min 65095 Advanced Care Planning Additional 30 Min [place] [address] SUB INP/OBS CARE 3/50MIN (25 - SIGNIFICANT, SEPARATELY IDENTIFIABLE ) Patient Type Established Medical Decision Making High Complexity Diagnoses Cancer related pain G89.3 Dyspnea and respiratory abnormalities R06.00; R06.89 Advanced care planning/counseling discussion Z71.89 Weakness generalized R53.1 Intractable back pain M54.9 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
--- NOTE | 2024-07-22 20:35 | Communication Note ---
Date of Service: July 22, 2024 Palliative Med Necktie Maker pt remains awake and alert sitting up, SpO2 >94% no acute distress Will continue DIRECTOR OF STRATEGIC SOURCING only for now and no more continuous rate for now I have adjusted DIRECTOR OF STRATEGIC SOURCING interval to q15min instead of q20min Thank you for allowing us to participate in the ongoing care of this patient. Please page with any additional concerns. Roman Dyson DNP Director, Palliative Medicine
--- NOTE | 2024-07-23 16:02 | Hospitalist Progress Note ---
Date of Service July 23, 2024 Assessment & Plan (1) Intractable back pain: Plan: Patient originally presented to the ED on 07/07/24 for intractable back pain and weakness. (Possible, Suspected, Likely) Retrocrural tumor/cancer CT scan of thoracic spine: indeterminate hypodense 6.6x3.6x3.6cm retrocrural lesion. Innumerable pulmonary lesions - likely neoplastic and suspicious for metastatic disease Underwent IR bx of pulm nodule 07/17 - path results + for mucinous adenocarcinoma. Head CT pending Palliative consulted and following Started on Morphine COW WASHER 07/22 Finish prednisone taper, last dose 07/24 consider pain management consult if pain continues to remain uncontrolled. PT/OT - rehab advised by therapy Heme onc consultation 07/21 - discussed options with patient - patient is open to immunotherapy but also agreeable to hospice if he continues to decline continue to re-evaluate goals of care daily. 07/23 - patient continues to strongly consider hospice care. - he is to provide decision within the upcoming days of his decision. If he elects to not pursure hospice, he will require rehab upon discharge. CBC/BMP stable (2) Mucinous adenocarcinoma of lung: Plan: refer to plan #1 (3) Left hip pain: Plan: Left Hip CT: no fx. moderate OA if not intrinsic hip disease could be referred pain from the lumbar spine please refer to plan #1 for pain regimen (4) Chronic systolic CHF (congestive heart failure): Plan: EF 45% last Echo 03/31/24 with regional [facility] technically very difficult study per the report cont coreg BID Continue PO Bumex Consider SOREN/ARB therapy. (5) Diabetes mellitus, type 2: Plan: a1c 6.3% in 03/2024 controlled with lantus-novolog Plan Chronic conditions: BPH: Flomax 0.4mg, Finasteride 5mg HLD: Statin Alcohol use disorder - thiamine 200mg BID, no alcohol withdrawal observed while hospitalized Groin rash: nystatin powder Thoracic compression fx: miacalcin nasal spray daily FREDRICK: declines use of hospital issued CPAP A fib: Coreg, Xarelto COPD: duonebs prn CM was able to provide contact information for patient's daughter, Chuck Morris who is his POA. She was called 07/22 and updated on her father's hospitalization. Chuck has asked to only be notified of "major" events in the future. Phone number: [phone] Admission and Anticipated Discharge Date Admission Date: July 09, 2024 Subjective Patient seen and examined this morning. Patient appeared more comfortable in bed. He reports the pain medication has been helping. Goals of care discussion took place at time of encounter. Patient tells me he does not believe rehab is a feasible option for him and that he is considering hospice. He states that he feels bad for his as she has dementia but also reports he feels he is suffering. Patient is going to have a conversation with his daughter and provide an update in the coming days with his final decision. Physical Exam Constitutional: WD/WN, vitals as above Eyes: PERRL, conjunctivae normal, anicteric sclerae Respiratory: breathing unlabored Cardiovascular: well perfused Psychiatric: A+Ox3, euthymic affect Results & Data Results & Data Vital Signs (Past 12 Hours) Vital Signs Temp Pulse Resp BP Pulse Ox O2 Del Method O2 Flow Rate 07/23/24 15:54 36.6 C 71 17 115/67 91 Nasal Cannula 2 07/23/24 11:11 36.6 C 73 18 117/68 91 Nasal Cannula 2 07/23/24 08:06 36.6 C 72 19 127/72 90 Nasal Cannula 2 07/23/24 08:00 Nasal Cannula 2 PG Care Time/CCT Total # of Minutes Spent Total Time Spent with Patient: Total time spent is greater than 50% in coordination of care (as documented) at patient's floor/unit and/or counseling patient: Coding Level of Care Code 66810 SUB INP/OBS CARE 2/35MIN Diagnoses Intractable back pain M54.9 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
--- NOTE | 2024-07-23 18:27 | Palliative Care Progress Note ---
Date of Service July 23, 2024 Assessment & Plan (1) Cancer related pain: Plan: Will continue MS 1mg q15min prn [employer] , NO continuous rate Continue bowel regimen (2) Dyspnea and respiratory abnormalities: (3) Advanced care planning/counseling discussion: Plan: Haresh reaffirms DNR/DNI, does not want aggressive care if he acutely declines. If he worsens he would want comfort care. He has a lot of worries about his and what will happen to her when he dies. He states the daughter is busy and works , she cannot bear responsibility for his 's care but he is unsure what options there are now and has been speaking with dtr about some what if scenarios for care options of if he dies. 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 I am worried he is acutely worsening from his very advanced stage cancer. He may acutely decline and if he does, he wants to be comfort care. He continues to decline my offer update his daughter and will not provide contact information for daughter. The only info in chart is his who now has advanced dementia. Thank you for allowing us to participate in the ongoing care of this patient. Please page with any additional concerns. Roman Dyson DNP Director, Palliative Medicine Admission and Anticipated Discharge Date Admission Date: July 09, 2024 Subjective Haresh is awake and alert today Pain he feels is "much better" no dizziness no drowsiness using SOFTWARE [employer] Bolus only and says he has good relief but also notes he deliberately tries not to move too much to keep pain level down denies n/v/d/c had a BM yesterday, remains on a bowel regimen Spoke with his daughter last night, says she stops at the house to check in on his /her mother but has not wanted to be involved in decision making for him Review of Systems Review of Systems: All systems reviewed & are unremarkable except as noted in Subjective Physical Exam Constitutional: + acute distress, + ill appearing, + fra il appearing, + disheveled and + in distress Eyes: PERRL, conjunctivae normal, anicteric sclerae ENMT: Mouth: + muffled voice, + dentition abnormality, + gingival abnormality, + dental caries, + poor dentition and + loose teeth Neck: trachea midline, no thyromegaly normal visual inspection, + nuchal rigidity and + limited neck extension Respiratory: + uses accessory muscles, + cough, + pro longed expiratory phase, + pursed lip breathing and symmetric chest movement; + not able to speak in complete sentence Auscultation: + diminished lung sounds and + rhonchi Cardiovascular: Rate/Rhythm: + irregularly irregular Gastrointestinal (Abdomen): Inspection/Auscultation: normal bowel sounds and + significant pannus Percussion/Palpation: + guarding and abdomen soft; abdomen nontender and abdomen not rigid Musculoskeletal: Head/Neck/Chest: + limited ROM of neck Spine: + limited cervical ROM, + limited thoraco-lumbar ROM, + pain with thoraco-lumbar ROM, + thoracic spinal tenderness and + lumbar spinal tenderness Extremities: + limited ROM of extremities and + abnormal strength Skin: + turgor decreased, + skin atrophy, + dr y skin, + excoriations, + hair thinning and + scarring alopecia; + abnormal skin elasticity Neurologic: awake Psychiatric: Orientation: alert, oriented to person, oriented to place, or iented to time and cooperative Apperance: + disheveled Speech: + pressured speech Affect: + anxious affect and + labile affect Cognition: + recent memory not intact Insight: + limited insight and + impaired insight Judgment: + limited judgement Results & Data Vital Signs (Past 12 Hours) Vital Signs Temp Pulse Resp BP Pulse Ox O2 Del Method O2 Flow Rate 07/23/24 15:54 36.6 C 71 17 115/67 91 Nasal Cannula 2 07/23/24 11:11 36.6 C 73 18 117/68 91 Nasal Cannula 2 07/23/24 08:06 36.6 C 72 19 127/72 90 Nasal Cannula 2 07/23/24 08:00 Nasal Cannula 2 Laboratory Results 07/23/24 07/23/24 07/23/24 Range/Units Unknown 16:55 11:39 WBC (4.8-10.8) K/ul RBC (4.70-6.10) M/uL Hgb (14.0-18.0) g/dl Hct (42.0-52.0) % MCV (80.0-100.0) fL MCH (25.0-34.0) pg MCHC (32.0-36.0) g/dL RDW Std Deviation (36.4-46.3) fL RDW Coeff of Cindy (11.5-14.5) % Plt Count (130-400) K/uL MPV (9.4-12.4) fL Sodium (136-145) mmol/L Potassium (3.5-5.1) mmol/L Chloride (98-107) mmol/L Carbon Dioxide (21-32) mmol/L Anion Gap (3-11) BUN (6-23) mg/dl Creatinine (0.6-1.4) mg/dl Est Cr Clr Drug Dosing ml/min eGFR BUN/Creatinine Ratio (10-20) Glucose (70-99(Fasting)) mg/dl POC Glucose 135 H 120 H (70-99) mg/dl Calcium (8.6-10.3) mg/dl Magnesium (1.7-2.4) mg/dl 25-OH Vitamin D Total (30-100) ng/ml Lamar-TRK (I[facility]) Pending Lung Tumor Pnl Analysis Pending FISH Oncology Pending MET Exon 14 Skipping Pending IHC Stain and Interp Pending 07/23/24 07/22/24 07/22/24 Range/Units 07:46 20:23 16:41 WBC (4.8-10.8) K/ul RBC (4.70-6.10) M/uL Hgb (14.0-18.0) g/dl Hct (42.0-52.0) % MCV (80.0-100.0) fL MCH (25.0-34.0) pg MCHC (32.0-36.0) g/dL RDW Std Deviation (36.4-46.3) fL RDW Coeff of Cindy (11.5-14.5) % Plt Count (130-400) K/uL MPV (9.4-12.4) fL Sodium (136-145) mmol/L Potassium (3.5-5.1) mmol/L Chloride (98-107) mmol/L Carbon Dioxide (21-32) mmol/L Anion Gap (3-11) BUN (6-23) mg/dl Creatinine (0.6-1.4) mg/dl Est Cr Clr Drug Dosing ml/min eGFR BUN/Creatinine Ratio (10-20) Glucose (70-99(Fasting)) mg/dl POC Glucose 94 136 H 160 H (70-99) mg/dl Calcium (8.6-10.3) mg/dl Magnesium (1.7-2.4) mg/dl 25-OH Vitamin D Total (30-100) ng/ml [facility]ar-TRK ([facility]) Lung Tumor Pnl Analysis FISH Oncology MET Exon 14 Skipping IHC Stain and Interp 07/22/24 07/22/24 07/21/24 Range/Units 12:06 08:01 20:46 WBC 8.54 (4.8-10.8) K/ul RBC 4.44 L (4.70-6.10) M/uL Hgb 14.9 (14.0-18.0) g/dl Hct 43.1 (42.0-52.0) % MCV 97.1 (80.0-100.0) fL MCH 33.6 (25.0-34.0) pg MCHC 34.6 (32.0-36.0) g/dL RDW Std Deviation 48.8 H (36.4-46.3) fL RDW Coeff of Cindy 13.6 (11.5-14.5) % Plt Count 158 (130-400) K/uL MPV 9.9 (9.4-12.4) fL Sodium 134 L (136-145) mmol/L Potassium 4.1 (3.5-5.1) mmol/L Chloride 96 L (98-107) mmol/L Carbon Dioxide 35 H (21-32) mmol/L Anion Gap 3 (3-11) BUN 24 H (6-23) mg/dl Creatinine 0.60 (0.6-1.4) mg/dl Est Cr Clr Drug Dosing 138.1 ml/min eGFR 100.04 BUN/Creatinine Ratio 40.0 H (10-20) Glucose 85 (70-99(Fasting)) mg/dl POC Glucose 171 H 87 (70-99) mg/dl Calcium 8.8 (8.6-10.3) mg/dl Magnesium (1.7-2.4) mg/dl 25-OH Vitamin D Total (30-100) ng/ml [facility]-TRK ([facility]) Lung Tumor Pnl Analysis FISH Oncology MET Exon 14 Skipping IHC Stain and Interp 07/21/24 07/21/24 07/21/24 Range/Units 16:44 11:34 07:40 WBC (4.8-10.8) K/ul RBC (4.70-6.10) M/uL Hgb (14.0-18.0) g/dl Hct (42.0-52.0) % MCV (80.0-100.0) fL MCH (25.0-34.0) pg MCHC (32.0-36.0) g/dL RDW Std Deviation (36.4-46.3) fL RDW Coeff of Cindy (11.5-14.5) % Plt Count (130-400) K/uL MPV (9.4-12.4) fL Sodium 138 (136-145) mmol/L Potassium 3.9 (3.5-5.1) mmol/L Chloride 98 (98-107) mmol/L Carbon Dioxide 36 H (21-32) mmol/L Anion Gap 4 (3-11) BUN 26 H (6-23) mg/dl Creatinine 0.70 (0.6-1.4) mg/dl Est Cr Clr Drug Dosing 116.9 ml/min eGFR 95.49 BUN/Creatinine Ratio 37.1 H (10-20) Glucose 82 (70-99(Fasting)) mg/dl POC Glucose 138 H 117 H (70-99) mg/dl Calcium 8.9 (8.6-10.3) mg/dl Magnesium (1.7-2.4) mg/dl 25-OH Vitamin D Total (30-100) ng/ml [facility]-TRK ([facility]) Lung Tumor Pnl Analysis FISH Oncology MET Exon 14 Skipping IHC Stain and Interp 07/21/24 07/20/24 07/20/24 Range/Units 07:19 20:28 16:25 WBC (4.8-10.8) K/ul RBC (4.70-6.10) M/uL Hgb (14.0-18.0) g/dl Hct (42.0-52.0) % MCV (80.0-100.0) fL MCH (25.0-34.0) pg MCHC (32.0-36.0) g/dL RDW Std Deviation (36.4-46.3) fL RDW Coeff of Cindy (11.5-14.5) % Plt Count (130-400) K/uL MPV (9.4-12.4) fL Sodium (136-145) mmol/L Potassium (3.5-5.1) mmol/L Chloride (98-107) mmol/L Carbon Dioxide (21-32) mmol/L Anion Gap (3-11) BUN (6-23) mg/dl Creatinine (0.6-1.4) mg/dl Est Cr Clr Drug Dosing ml/min eGFR BUN/Creatinine Ratio (10-20) Glucose (70-99(Fasting)) mg/dl POC Glucose 74 139 H 168 H (70-99) mg/dl Calcium (8.6-10.3) mg/dl Magnesium (1.7-2.4) mg/dl 25-OH Vitamin D Total (30-100) ng/ml [facility]-TRK ([facility]) Lung Tumor Pnl Analysis FISH Oncology MET Exon 14 Skipping IHC Stain and Interp 07/20/24 07/20/24 07/20/24 Range/Units 11:18 07:52 07:25 WBC (4.8-10.8) K/ul RBC (4.70-6.10) M/uL Hgb (14.0-18.0) g/dl Hct (42.0-52.0) % MCV (80.0-100.0) fL MCH (25.0-34.0) pg MCHC (32.0-36.0) g/dL RDW Std Deviation (36.4-46.3) fL RDW Coeff of Cindy (11.5-14.5) % Plt Count (130-400) K/uL MPV (9.4-12.4) fL Sodium 138 (136-145) mmol/L Potassium 3.6 (3.5-5.1) mmol/L Chloride 98 (98-107) mmol/L Carbon Dioxide 36 H (21-32) mmol/L Anion Gap 4 (3-11) BUN 24 H (6-23) mg/dl Creatinine 0.67 (0.6-1.4) mg/dl Est Cr Clr Drug Dosing 122.1 ml/min eGFR 96.77 BUN/Creatinine Ratio 35.8 H (10-20) Glucose 77 (70-99(Fasting)) mg/dl POC Glucose 126 H 88 (70-99) mg/dl Calcium 8.8 (8.6-10.3) mg/dl Magnesium 1.7 (1.7-2.4) mg/dl 25-OH Vitamin D Total (30-100) ng/ml [facility]-TRK ([facility]) Lung Tumor Pnl Analysis FISH Oncology MET Exon 14 Skipping IHC Stain and Interp 07/19/24 07/19/24 07/19/24 Range/Units 20:49 16:39 11:35 WBC (4.8-10.8) K/ul RBC (4.70-6.10) M/uL Hgb (14.0-18.0) g/dl Hct (42.0-52.0) % MCV (80.0-100.0) fL MCH (25.0-34.0) pg MCHC (32.0-36.0) g/dL RDW Std Deviation (36.4-46.3) fL RDW Coeff of Cindy (11.5-14.5) % Plt Count (130-400) K/uL MPV (9.4-12.4) fL Sodium (136-145) mmol/L Potassium (3.5-5.1) mmol/L Chloride (98-107) mmol/L Carbon Dioxide (21-32) mmol/L Anion Gap (3-11) BUN (6-23) mg/dl Creatinine (0.6-1.4) mg/dl Est Cr Clr Drug Dosing ml/min eGFR BUN/Creatinine Ratio (10-20) Glucose (70-99(Fasting)) mg/dl POC Glucose 108 H 123 H 166 H (70-99) mg/dl Calcium (8.6-10.3) mg/dl Magnesium (1.7-2.4) mg/dl 25-OH Vitamin D Total (30-100) ng/ml [facility]ar-TRK ([facility]) Lung Tumor Pnl Analysis FISH Oncology MET Exon 14 Skipping IHC Stain and Interp 07/19/24 07/19/24 07/19/24 Range/Units 07:40 07:18 07:18 WBC (4.8-10.8) K/ul RBC (4.70-6.10) M/uL Hgb (14.0-18.0) g/dl Hct (42.0-52.0) % MCV (80.0-100.0) fL MCH (25.0-34.0) pg MCHC (32.0-36.0) g/dL RDW Std Deviation (36.4-46.3) fL RDW Coeff of Cindy (11.5-14.5) % Plt Count (130-400) K/uL MPV (9.4-12.4) fL Sodium (136-145) mmol/L Potassium (3.5-5.1) mmol/L Chloride (98-107) mmol/L Carbon Dioxide (21-32) mmol/L Anion Gap (3-11) BUN (6-23) mg/dl Creatinine (0.6-1.4) mg/dl Est Cr Clr Drug Dosing 127.9 ml/min eGFR 98.11 99.06 BUN/Creatinine Ratio 34.4 H (10-20) Glucose 85 (70-99(Fasting)) mg/dl POC Glucose 76 (70-99) mg/dl Calcium 8.9 (8.6-10.3) mg/dl Magnesium (1.7-2.4) mg/dl 25-OH Vitamin D Total 13.7 L (30-100) ng/ml Lamar-TRK ([facility]) Lung Tumor Pnl Analysis FISH Oncology MET Exon 14 Skipping IHC Stain and Interp 07/19/24 07/19/24 07/18/24 Range/Units 07:18 07:18 20:11 WBC (4.8-10.8) K/ul RBC (4.70-6.10) M/uL Hgb (14.0-18.0) g/dl Hct (42.0-52.0) % MCV (80.0-100.0) fL MCH (25.0-34.0) pg MCHC (32.0-36.0) g/dL RDW Std Deviation (36.4-46.3) fL RDW Coeff of Cindy (11.5-14.5) % Plt Count (130-400) K/uL MPV (9.4-12.4) fL Sodium 137 (136-145) mmol/L Potassium 4.2 (3.5-5.1) mmol/L Chloride 98 (98-107) mmol/L Carbon Dioxide 35 H (21-32) mmol/L Anion Gap 4 (3-11) BUN 22 (6-23) mg/dl Creatinine 0.64 0.62 (0.6-1.4) mg/dl Est Cr Clr Drug Dosing 132.0 ml/min eGFR BUN/Creatinine Ratio (10-20) Glucose (70-99(Fasting)) mg/dl POC Glucose 185 H (70-99) mg/dl Calcium (8.6-10.3) mg/dl Magnesium (1.7-2.4) mg/dl 25-OH Vitamin D Total (30-100) ng/ml Lamar-TRK (I[facility]) Lung Tumor Pnl Analysis FISH Oncology MET Exon 14 Skipping IHC Stain and Interp 07/18/24 07/18/24 07/18/24 Range/Units 16:31 11:36 09:57 WBC 8.13 (4.8-10.8) K/ul RBC 4.21 L (4.70-6.10) M/uL Hgb 14.4 (14.0-18.0) g/dl Hct 41.9 L (42.0-52.0) % MCV 99.5 (80.0-100.0) fL MCH 34.2 H (25.0-34.0) pg MCHC 34.4 (32.0-36.0) g/dL RDW Std Deviation 48.6 H (36.4-46.3) fL RDW Coeff of Cindy 13.2 (11.5-14.5) % Plt Count 169 (130-400) K/uL MPV 10.1 (9.4-12.4) fL Sodium (136-145) mmol/L Potassium (3.5-5.1) mmol/L Chloride (98-107) mmol/L Carbon Dioxide (21-32) mmol/L Anion Gap (3-11) BUN (6-23) mg/dl Creatinine 0.74 (0.6-1.4) mg/dl Est Cr Clr Drug Dosing 110.6 ml/min eGFR 93.90 BUN/Creatinine Ratio (10-20) Glucose (70-99(Fasting)) mg/dl POC Glucose 119 H 237 H (70-99) mg/dl Calcium (8.6-10.3) mg/dl Magnesium (1.7-2.4) mg/dl 25-OH Vitamin D Total (30-100) ng/ml Lamar-TRK ([facility]) Lung Tumor Pnl Analysis FISH Oncology MET Exon 14 Skipping IHC Stain and Interp 07/18/24 07/17/24 07/17/24 Range/Units 07:42 19:36 16:20 WBC (4.8-10.8) K/ul RBC (4.70-6.10) M/uL Hgb (14.0-18.0) g/dl Hct (42.0-52.0) % MCV (80.0-100.0) fL MCH (25.0-34.0) pg MCHC (32.0-36.0) g/dL RDW Std Deviation (36.4-46.3) fL RDW Coeff of Cindy (11.5-14.5) % Plt Count (130-400) K/uL MPV (9.4-12.4) fL Sodium (136-145) mmol/L Potassium (3.5-5.1) mmol/L Chloride (98-107) mmol/L Carbon Dioxide (21-32) mmol/L Anion Gap (3-11) BUN (6-23) mg/dl Creatinine (0.6-1.4) mg/dl Est Cr Clr Drug Dosing ml/min eGFR BUN/Creatinine Ratio (10-20) Glucose (70-99(Fasting)) mg/dl POC Glucose 108 H 192 H 195 H (70-99) mg/dl Calcium (8.6-10.3) mg/dl Magnesium (1.7-2.4) mg/dl 25-OH Vitamin D Total (30-100) ng/ml Lamar-TRK ([facility]) Lung Tumor Pnl Analysis FISH Oncology MET Exon 14 Skipping IHC Stain and Interp 07/17/24 07/17/24 07/17/24 Range/Units 14:10 11:20 07:35 WBC (4.8-10.8) K/ul RBC (4.70-6.10) M/uL Hgb (14.0-18.0) g/dl Hct (42.0-52.0) % MCV (80.0-100.0) fL MCH (25.0-34.0) pg MCHC (32.0-36.0) g/dL RDW Std Deviation (36.4-46.3) fL RDW Coeff of Cindy (11.5-14.5) % Plt Count (130-400) K/uL MPV (9.4-12.4) fL Sodium (136-145) mmol/L Potassium (3.5-5.1) mmol/L Chloride (98-107) mmol/L Carbon Dioxide (21-32) mmol/L Anion Gap (3-11) BUN (6-23) mg/dl Creatinine (0.6-1.4) mg/dl Est Cr Clr Drug Dosing ml/min eGFR BUN/Creatinine Ratio (10-20) Glucose (70-99(Fasting)) mg/dl POC Glucose 157 H 151 H 97 (70-99) mg/dl Calcium (8.6-10.3) mg/dl Magnesium (1.7-2.4) mg/dl 25-OH Vitamin D Total (30-100) ng/ml Lamar-TRK (I[facility]) Lung Tumor Pnl Analysis FISH Oncology MET Exon 14 Skipping IHC Stain and Interp 07/17/24 07/17/24 07/16/24 Range/Units 06:37 06:24 20:39 WBC 7.60 (4.8-10.8) K/ul RBC 4.29 L (4.70-6.10) M/uL Hgb 14.2 (14.0-18.0) g/dl Hct 42.8 (42.0-52.0) % MCV 99.8 (80.0-100.0) fL MCH 33.1 (25.0-34.0) pg MCHC 33.2 (32.0-36.0) g/dL RDW Std Deviation 48.2 H (36.4-46.3) fL RDW Coeff of Cindy 13.2 (11.5-14.5) % Plt Count 175 (130-400) K/uL MPV 10.2 (9.4-12.4) fL Sodium 136 (136-145) mmol/L Potassium 3.9 (3.5-5.1) mmol/L Chloride 95 L (98-107) mmol/L Carbon Dioxide 38 H (21-32) mmol/L Anion Gap 3 (3-11) BUN 34 H (6-23) mg/dl Creatinine 0.82 (0.6-1.4) mg/dl Est Cr Clr Drug Dosing 101.1 ml/min eGFR 91.04 BUN/Creatinine Ratio 41.5 H (10-20) Glucose 101 H (70-99(Fasting)) mg/dl POC Glucose 119 H 161 H (70-99) mg/dl Calcium 8.9 (8.6-10.3) mg/dl Magnesium (1.7-2.4) mg/dl 25-OH Vitamin D Total (30-100) ng/ml Lamar-TRK (I[facility]) Lung Tumor Pnl Analysis FISH Oncology MET Exon 14 Skipping IHC Stain and Interp Diagnostic Findings Lumbar Spine CT 07/06/24 21:25 Exam(s): CT L SPINE EXAM: CT Lumbar Spine Without Intravenous Contrast CLINICAL HISTORY: Reason for exam: lumbar back pain, fall. TECHNIQUE: Axial computed tomography images of the lumbar spine without intravenous contrast. CTDI is 39 mGy and DLP is 1343 mGy-cm. Automated exposure control was utilized for the study. A dose lowering technique was utilized adhering to the principles of ALARA. COMPARISON: No relevant prior studies available. 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 Previous measurements: 3.1 x 3.3 x 7.0 cm. There is a chronic appearing T12 compression fracture with approximately 25% anterior height loss. No acute fracture or osseous destruction identified. Discs/spinal canal/neural foramina: There is multilevel thoracolumbar degenerative disc disease with marginal osteophytes and vacuum disc changes noted throughout the lumbar spine. There is a large circumferential disc osteophyte complex at L5-S1 with moderate to severe bilateral foraminal stenosis noted at L2-3 through L5-S1. Soft tissues: Unremarkable. Vasculature: There are moderate aortic atherosclerotic calcifications. Lungs: There is patchy nodular bilateral basilar airspace consolidation. IMPRESSION: 1. There is an enlarging 3.0 x 4.0 x 7.7 cm cm retrocrural periaortic alphonse mass at the level of the lower thoracic and upper lumbar spine. 2. There is a chronic appearing T12 compression fracture with approximately 25% anterior height loss. Electronically signed by: Rafa Najera MD 07/07/24 00:[address] 07/06/24 21:28 Exam(s): CT PELVIS Without Contrast EXAM: CT Pelvis Without Intravenous Contrast CLINICAL HISTORY: Reason for exam: posterior pelvis pain, fall. TECHNIQUE: Axial computed tomography images of the pelvis without intravenous contrast. CTDI is 39 mGy and DLP is 1343 mGy-cm. Automated exposure control was utilized for the study. A dose lowering technique was utilized adhering to the principles of ALARA. COMPARISON: No relevant prior studies available. FINDINGS: Bowel: Unremarkable. No obstruction. No mucosal thickening. Appendix: No findings to suggest acute appendicitis. Intraperitoneal space: The urinary bladder is distended.. No pelvic mass or free fluid identified. No free air. Bladder: Unremarkable. No stones. Reproductive: Unremarkable as visualized. Bones/joints: There is advanced lower lumbar degenerative disc disease. There are generalized decreased bony mineralization. No acute fracture or destructive osseous abnormality of the pelvis identified. No dislocation. Soft tissues: Unremarkable. Vasculature: Unremarkable. No lower abdominal aortic aneurysm. Lymph nodes: Unremarkable. No enlarged lymph nodes. IMPRESSION: 1. No acute fracture or destructive osseous abnormality of the pelvis identified. 2. The urinary bladder is distended.. 3. There is advanced lower lumbar degenerative disc disease. 4. There are generalized decreased bony mineralization. Electronically signed by: Rafa Najera MD 07/07/24 00:[address] 07/14/24 12:59 CT OF THE THORACIC SPINE CLINICAL HISTORY: severe back pain, retrocrural mass, compression Fx COMPARISON STUDY: Chest CT June 23, 2024. TECHNIQUE: Helical axial images of the thoracic spine were obtained. Sagittal and coronal reconstructions were viewed. Automated exposure control was utilized for the study. A dose lowering technique was utilized adhering to the principles of ALARA. FINDINGS: Alignment of the thoracic spine is anatomic. There are compression fractures involving the superior endplates of T2, T4, T9 and T12. Moderate loss of height of the T9 and T12 vertebra is noted. There is mild loss of height of the T2 and T4 vertebral bodies. There is no retropulsion. These fractures are similar to chest CT of June 23, 2024 and were also present on CT of November 13, 2022. No interval fractures are present. Central canal and neural foramen are suboptimally assessed given CT technique. No overtly suspicious osseous lesions are identified within the thoracic spine. There is mild multilevel disc space narrowing and moderate osteophytosis within the thoracic spine. Facet joints are intact. Innumerable pulmonary lesions are partially on this exam. These are better depicted on chest CT of June 23, 2024. There is underlying emphysema. A hypodense 6.6 x 3.6 x 3.6 cm retrocrural abnormalities present. This measures near water attenuation. IMPRESSION: 1. No acute thoracic spine fracture or subluxation. 2. Multiple old thoracic spine compression fractures, as described above. 3. Mild multilevel degenerative disc disease and facet arthrosis within the thoracic spine. 4. Partially visualized innumerable pulmonary lesions. 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 5. Indeterminate hypodense 6.6 x 3.6 x 3.6 cm retrocrural lesion. ACT 112: Negative or not required by law. Electronically signed by: Orion Goodrich M.D. 07/14/2024 3:52 PM Hip/Pelvis X-Ray 07/16/24 17:59 EXAM: Radiographs of the Left Hip 3 Views INDICATION: Left calf pain. TECHNIQUE: Front view pelvis and AP and frog leg lateral views of the left hip. COMPARISON: Pelvic CT 07/06/2024 FINDINGS: Limitations: None. Bones/joints: The pelvis is tilted to the right. There is mild symmetrical narrowing of the medial acetabular joints. Femoral heads intact. There is an oblique lucency across the intertrochanteric femur. There are similar lucencies in different obliquity which are clearly skin folds. Degenerative changes noted in the lower lumbar segments visualized. Soft tissues: No abnormality noted. No radiopaque foreign body noted. Vasculature: Atherosclerotic calcification in the groin. IMPRESSION: Oblique lucency across the intertrochanteric left femur is thought to be artifact. However, a hairline fracture is not completely excluded. If additional imaging is clinically warranted, CT is the modality of choice. ACT 112: Negative or not required by law. Electronically signed by Beverly Cardenas 07-16-2024 7:[address] 07/16/24 19:23 CT hip LT wo con HISTORY: 74 years-old Male abnl L hip x-rays, pain; fracture? COMPARISON: CT pelvis 07/06/2024 TECHNIQUE: Multiple axial CT images of the left hip were obtained without IV contrast. A dose lowering technique was used consistent with the principals of SAADIA. FINDINGS: Decompressed urinary bladder with wall thickening. Prostatomegaly. No acute intrapelvic abnormality identified. Arterial calcifications. Unremarkable soft tissues and musculature. No hip joint effusion. 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 No acute fracture, dislocation, avascular necrosis or suspicious bone lesion. IMPRESSION: [id number] osteoarthritis of the left hip without acute fracture or dislocation. ACT 112: Negative or not required by law. The above report was generated using voice recognition software. It may contain grammatical, syntax or spelling errors. Electronically signed by: John Nichols M.D. 07/17/2024 2:[address] 07/17/24 13:00 CT-guided right lung mass core biopsy INDICATION: Bilateral lung masses PROCEDURE: Procedure and risks were explained. Informed consent was obtained. A final timeout was completed. Percutaneous biopsy was originally attempted on July 16, 2024, but this was unsuccessful due to patient movement/discomfort. The patient was then brought back today on July 17, 2024 for percutaneous lung biopsy with anesthesia. The patient was placed in a left decubitus position on the CT exam table. The right thorax was prepped and draped in sterile fashion. 1% lidocaine was utilized for skin anesthesia. The patient received monitored anesthesia care throughout the procedure. Utilizing CT guidance, a 19-gauge coaxial needle was advanced into the right lung mass. A 20-gauge core biopsy needle was advanced, and 2 cores were obtained and given to the pathologist for review. The coaxial needle was removed and Band-Aid applied. The patient tolerated the procedure well. Post CT imaging demonstrated no evidence for bleeding/pneumothorax. A chest x-ray will be obtained to hours post procedure and vital signs will be monitored via anesthesia protocol. IMPRESSION: Right lung mass core biopsy as above. Performed, dictated, and signed by Shawn Hernadez PA-C; to be co-signed by Dr. John Nichols. Electronically signed by: John Nichols M.D. 07/17/2024 2:55 PM Chest X-Ray 07/17/24 16:00 EXAM: XR chest 1V portable CLINICAL HISTORY: Right lung biopsy. TECHNIQUE: An X-ray image of the chest is obtained in AP projection. COMPARISON: 07/15/2024 FINDINGS: Pulmonary Parenchyma: Patchy bilateral, rounded and irregular densities again seen. Prominence of the hilar vessels again seen. Blunting of right costophrenic angle. Left costophrenic obscured by ICD device. Heart and Mediastinum: Cardiomegaly ICD device Bony Thorax: The bony thorax appears intact without fractures or deformities. Soft Tissues: Soft tissues overlying the chest wall are unremarkable. IMPRESSION: No visualized pneumothorax. Diffuse, rounded and irregular opacities are again seen. Electronically signed by Teddy Eugene 07-17-2024 4:31 PM PG Care Time/CCT Total # of Minutes Spent Total Time Spent with Patient: Total time spent is greater than 50% in coordination of care (as documented) at patient's floor/unit and/or counseling patient: I spent 70 minutes overall addressing this case: 5 min in medical data review/discussion with referring provider(s) and/or preparation for the visit 20 min in direct interaction with the patient/exam 20 min in Advance Care Planning/Goals of Care discussions as detailed above in note (must be >16min) 10 min in subsequent review and synthesis of assessment and plan 15 min communicating with other providers regarding the patient's case:primary team and care mgt Advanced Care Planning 33477 Advanced Care Planning 30 Min [place] [address] SUB INP/OBS CARE 3/50MIN (25 - SIGNIFICANT, SEPARATELY IDENTIFIABLE ) Patient Type Established History Comprehensive Exam Comprehensive Medical Decision Making High Complexity Diagnoses Cancer related pain G89.3 Dyspnea and respiratory abnormalities R06.00; R06.89 Advanced care planning/counseling discussion Z71.89 Weakness generalized R53.1 Intractable back pain M54.9 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
[2024-07-24] MEDS: BUMETANIDE 1 MG in SYRINGE 0 ML IV ONE (12:40)
--- NOTE | 2024-07-24 14:34 | Palliative Care Progress Note ---
Date of Service July 24, 2024 Assessment & Plan (1) Cancer related pain: Plan: Haresh has used MS 16mg IV which is 48mg PO MS (OME) Will begin MS Contin 20mg PO q12h/ Hold for somnolence or RR less than 14; please document RR with each dose administration.and continue [employer]GEANT MS only at 0.6mg q15m prn and see how he does through weekend .Hold Bowel regiemn continues (2) Dyspnea and respiratory abnormalities: (3) Advanced care planning/counseling discussion: Plan: A 30 min ACP face to face with pt and his sister and brother in law was held at bedside. He would like her to be his NOK contact and will give her info to nursing to get added to chart. I'm going to move him over to MS Contin and continue prn bolus only morphine at a lower dose thru the weekend. I updated primary team and nursing. I met with pt and family, went over results, answered questions re plans (i.e. 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 Sister in agreement with all of it. (4) Weakness generalized: (5) Intractable back pain: (6) Mucinous adenocarcinoma of lung: (7) Recurrent falls: (8) Palliative care by specialist: Plan As above Orders written Thank you for allowing us to participate in the ongoing care of this patient. Please page with any additional concerns. Roman Dyson DNP Director, Palliative Medicine Admission and Anticipated Discharge Date Admission Date: July 09, 2024 Subjective Haresh is more awake, comfortable and speaks of improved pain control His sister is here for a visit with He would like her to be his NOK contact and asks me to update He has used MS 16mg IV via [employer]GEANT demand only in past 24 hrs This is 48mg OMEs MS Review of Systems Review of Systems: All systems reviewed & are unremarkable except as noted in Subjective Physical Exam Constitutional: + acute distress, + ill appearing, + fra il appearing, + disheveled and + in distress Eyes: PERRL, conjunctivae normal, anicteric sclerae ENMT: Mouth: + muffled voice, + dentition abnormality, + gingival abnormality, + dental caries, + poor dentition and + loose teeth Neck: trachea midline, no thyromegaly normal visual inspection, + nuchal rigidity and + limited neck extension Respiratory: + cough (intermittent), able to speak in complete sentences, + prolonged expiratory phase and symmetric chest movement Auscultation: + diminished lung sounds and + rhonchi Cardiovascular: Rate/Rhythm: + irregularly irregular Gastrointestinal (Abdomen): Inspection/Auscultation: normal bowel sounds and + significant pannus Percussion/Palpation: abdomen soft; abdomen nontender, no guarding and abdomen not rigid Musculoskeletal: Head/Neck/Chest: + limited ROM of neck Spine: + limited cervical ROM, + limited thoraco-lumbar ROM, + pain with thoraco-lumbar ROM, + thoracic spinal tenderness and + lumbar spinal tenderness Extremities: + limited ROM of extremities and + abnormal strength Skin: + turgor decreased, + skin atrophy, + dr y skin, + excoriations, + hair thinning and + scarring alopecia; + abnormal skin elasticity Neurologic: awake Psychiatric: Orientation: alert, oriented to person, oriented to place, oriented to time and cooperative Apperance: + disheveled Speech: normal rate/rhythm/volume of speech Affect: + anxious affect and + labile affect Cognition: + recent memory not intact Insight: good insight Judgment: good judgement Results & Data Vital Signs (Past 12 Hours) Vital Signs Temp Pulse Resp BP Pulse Ox O2 Del Method O2 Flow Rate 07/24/24 12:30 36.5 C 76 18 129/80 90 Nasal Cannula 2 07/24/24 09:45 37.5 C 87 18 133/61 90 Nasal Cannula 2 07/24/24 07:30 Room Air 3 07/24/24 03:00 36.5 C 70 18 132/81 93 Nasal Cannula 2 Laboratory Results 07/24/24 07/24/24 07/23/24 Range/Units 11:42 07:34 Unknown WBC (4.8-10.8) K/ul RBC (4.70-6.10) M/uL Hgb (14.0-18.0) g/dl Hct (42.0-52.0) % MCV (80.0-100.0) fL MCH (25.0-34.0) pg MCHC (32.0-36.0) g/dL RDW Std Deviation (36.4-46.3) fL RDW Coeff of Cindy (11.5-14.5) % Plt Count (130-400) K/uL MPV (9.4-12.4) fL Sodium (136-145) mmol/L Potassium (3.5-5.1) mmol/L Chloride (98-107) mmol/L Carbon Dioxide (21-32) mmol/L Anion Gap (3-11) BUN (6-23) mg/dl Creatinine (0.6-1.4) mg/dl Est Cr Clr Drug Dosing ml/min eGFR BUN/Creatinine Ratio (10-20) Glucose (70-99(Fasting)) mg/dl POC Glucose 179 H 87 (70-99) mg/dl Calcium (8.6-10.3) mg/dl Magnesium (1.7-2.4) mg/dl 25-OH Vitamin D Total (30-100) ng/ml Lamar-TRK (IHC) Pending Lung Tumor Pnl Analysis Pending FISH Oncology Pending MET Exon 14 Skipping Pending IHC Stain and Interp Pending 07/23/24 07/23/24 07/23/24 Range/Units 20:27 16:55 11:39 WBC (4.8-10.8) K/ul RBC (4.70-6.10) M/uL Hgb (14.0-18.0) g/dl Hct (42.0-52.0) % MCV (80.0-100.0) fL MCH (25.0-34.0) pg MCHC (32.0-36.0) g/dL RDW Std Deviation (36.4-46.3) fL RDW Coeff of Cindy (11.5-14.5) % Plt Count (130-400) K/uL MPV (9.4-12.4) fL Sodium (136-145) mmol/L Potassium (3.5-5.1) mmol/L Chloride (98-107) mmol/L Carbon Dioxide (21-32) mmol/L Anion Gap (3-11) BUN (6-23) mg/dl Creatinine (0.6-1.4) mg/dl Est Cr Clr Drug Dosing ml/min eGFR BUN/Creatinine Ratio (10-20) Glucose (70-99(Fasting)) mg/dl POC Glucose 115 H 135 H 120 H (70-99) mg/dl Calcium (8.6-10.3) mg/dl Magnesium (1.7-2.4) mg/dl 25-OH Vitamin D Total (30-100) ng/ml Lamar-TRK (I[facility]) Lung Tumor Pnl Analysis FISH Oncology MET Exon 14 Skipping IHC Stain and Interp 07/23/24 07/22/24 07/22/24 Range/Units 07:46 20:23 16:41 WBC (4.8-10.8) K/ul RBC (4.70-6.10) M/uL Hgb (14.0-18.0) g/dl Hct (42.0-52.0) % MCV (80.0-100.0) fL MCH (25.0-34.0) pg MCHC (32.0-36.0) g/dL RDW Std Deviation (36.4-46.3) fL RDW Coeff of Cindy (11.5-14.5) % Plt Count (130-400) K/uL MPV (9.4-12.4) fL Sodium (136-145) mmol/L Potassium (3.5-5.1) mmol/L Chloride (98-107) mmol/L Carbon Dioxide (21-32) mmol/L Anion Gap (3-11) BUN (6-23) mg/dl Creatinine (0.6-1.4) mg/dl Est Cr Clr Drug Dosing ml/min eGFR BUN/Creatinine Ratio (10-20) Glucose (70-99(Fasting)) mg/dl POC Glucose 94 136 H 160 H (70-99) mg/dl Calcium (8.6-10.3) mg/dl Magnesium (1.7-2.4) mg/dl 25-OH Vitamin D Total (30-100) ng/ml Lamar-TRK (I[facility]) Lung Tumor Pnl Analysis FISH Oncology MET Exon 14 Skipping IHC Stain and Interp 07/22/24 07/22/24 07/21/24 Range/Units 12:06 08:01 20:46 WBC 8.54 (4.8-10.8) K/ul RBC 4.44 L (4.70-6.10) M/uL Hgb 14.9 (14.0-18.0) g/dl Hct 43.1 (42.0-52.0) % MCV 97.1 (80.0-100.0) fL MCH 33.6 (25.0-34.0) pg MCHC 34.6 (32.0-36.0) g/dL RDW Std Deviation 48.8 H (36.4-46.3) fL RDW Coeff of Cindy 13.6 (11.5-14.5) % Plt Count 158 (130-400) K/uL MPV 9.9 (9.4-12.4) fL Sodium 134 L (136-145) mmol/L Potassium 4.1 (3.5-5.1) mmol/L Chloride 96 L (98-107) mmol/L Carbon Dioxide 35 H (21-32) mmol/L Anion Gap 3 (3-11) BUN 24 H (6-23) mg/dl Creatinine 0.60 (0.6-1.4) mg/dl Est Cr Clr Drug Dosing 138.1 ml/min eGFR 100.04 BUN/Creatinine Ratio 40.0 H (10-20) Glucose 85 (70-99(Fasting)) mg/dl POC Glucose 171 H 87 (70-99) mg/dl Calcium 8.8 (8.6-10.3) mg/dl Magnesium (1.7-2.4) mg/dl 25-OH Vitamin D Total (30-100) ng/ml Lamar-TRK (IHC) Lung Tumor Pnl Analysis FISH Oncology MET Exon 14 Skipping IHC Stain and Interp 07/21/24 07/21/24 07/21/24 Range/Units 16:44 11:34 07:40 WBC (4.8-10.8) K/ul RBC (4.70-6.10) M/uL Hgb (14.0-18.0) g/dl Hct (42.0-52.0) % MCV (80.0-100.0) fL MCH (25.0-34.0) pg MCHC (32.0-36.0) g/dL RDW Std Deviation (36.4-46.3) fL RDW Coeff of Cindy (11.5-14.5) % Plt Count (130-400) K/uL MPV (9.4-12.4) fL Sodium 138 (136-145) mmol/L Potassium 3.9 (3.5-5.1) mmol/L Chloride 98 (98-107) mmol/L Carbon Dioxide 36 H (21-32) mmol/L Anion Gap 4 (3-11) BUN 26 H (6-23) mg/dl Creatinine 0.70 (0.6-1.4) mg/dl Est Cr Clr Drug Dosing 116.9 ml/min eGFR 95.49 BUN/Creatinine Ratio 37.1 H (10-20) Glucose 82 (70-99(Fasting)) mg/dl POC Glucose 138 H 117 H (70-99) mg/dl Calcium 8.9 (8.6-10.3) mg/dl Magnesium (1.7-2.4) mg/dl 25-OH Vitamin D Total (30-100) ng/ml Lamar-TRK (IHC) Lung Tumor Pnl Analysis FISH Oncology MET Exon 14 Skipping IHC Stain and Interp 07/21/24 07/20/24 07/20/24 Range/Units 07:19 20:28 16:25 WBC (4.8-10.8) K/ul RBC (4.70-6.10) M/uL Hgb (14.0-18.0) g/dl Hct (42.0-52.0) % MCV (80.0-100.0) fL MCH (25.0-34.0) pg MCHC (32.0-36.0) g/dL RDW Std Deviation (36.4-46.3) fL RDW Coeff of Cindy (11.5-14.5) % Plt Count (130-400) K/uL MPV (9.4-12.4) fL Sodium (136-145) mmol/L Potassium (3.5-5.1) mmol/L Chloride (98-107) mmol/L Carbon Dioxide (21-32) mmol/L Anion Gap (3-11) BUN (6-23) mg/dl Creatinine (0.6-1.4) mg/dl Est Cr Clr Drug Dosing ml/min eGFR BUN/Creatinine Ratio (10-20) Glucose (70-99(Fasting)) mg/dl POC Glucose 74 139 H 168 H (70-99) mg/dl Calcium (8.6-10.3) mg/dl Magnesium (1.7-2.4) mg/dl 25-OH Vitamin D Total (30-100) ng/ml Lamar-TRK (IHC) Lung Tumor Pnl Analysis FISH Oncology MET Exon 14 Skipping IHC Stain and Interp 07/20/24 07/20/24 07/20/24 Range/Units 11:18 07:52 07:25 WBC (4.8-10.8) K/ul RBC (4.70-6.10) M/uL Hgb (14.0-18.0) g/dl Hct (42.0-52.0) % MCV (80.0-100.0) fL MCH (25.0-34.0) pg MCHC (32.0-36.0) g/dL RDW Std Deviation (36.4-46.3) fL RDW Coeff of Cindy (11.5-14.5) % Plt Count (130-400) K/uL MPV (9.4-12.4) fL Sodium 138 (136-145) mmol/L Potassium 3.6 (3.5-5.1) mmol/L Chloride 98 (98-107) mmol/L Carbon Dioxide 36 H (21-32) mmol/L Anion Gap 4 (3-11) BUN 24 H (6-23) mg/dl Creatinine 0.67 (0.6-1.4) mg/dl Est Cr Clr Drug Dosing 122.1 ml/min eGFR 96.77 BUN/Creatinine Ratio 35.8 H (10-20) Glucose 77 (70-99(Fasting)) mg/dl POC Glucose 126 H 88 (70-99) mg/dl Calcium 8.8 (8.6-10.3) mg/dl Magnesium 1.7 (1.7-2.4) mg/dl 25-OH Vitamin D Total (30-100) ng/ml Lamar-TRK (IHC) Lung Tumor Pnl Analysis FISH Oncology MET Exon 14 Skipping IHC Stain and Interp 07/19/24 07/19/24 07/19/24 Range/Units 20:49 16:39 11:35 WBC (4.8-10.8) K/ul RBC (4.70-6.10) M/uL Hgb (14.0-18.0) g/dl Hct (42.0-52.0) % MCV (80.0-100.0) fL MCH (25.0-34.0) pg MCHC (32.0-36.0) g/dL RDW Std Deviation (36.4-46.3) fL RDW Coeff of Cindy (11.5-14.5) % Plt Count (130-400) K/uL MPV (9.4-12.4) fL Sodium (136-145) mmol/L Potassium (3.5-5.1) mmol/L Chloride (98-107) mmol/L Carbon Dioxide (21-32) mmol/L Anion Gap (3-11) BUN (6-23) mg/dl Creatinine (0.6-1.4) mg/dl Est Cr Clr Drug Dosing ml/min eGFR BUN/Creatinine Ratio (10-20) Glucose (70-99(Fasting)) mg/dl POC Glucose 108 H 123 H 166 H (70-99) mg/dl Calcium (8.6-10.3) mg/dl Magnesium (1.7-2.4) mg/dl 25-OH Vitamin D Total (30-100) ng/ml Lamar-TRK (IHC) Lung Tumor Pnl Analysis FISH Oncology MET Exon 14 Skipping IHC Stain and Interp 07/19/24 07/19/24 07/19/24 Range/Units 07:40 07:18 07:18 WBC (4.8-10.8) K/ul RBC (4.70-6.10) M/uL Hgb (14.0-18.0) g/dl Hct (42.0-52.0) % MCV (80.0-100.0) fL MCH (25.0-34.0) pg MCHC (32.0-36.0) g/dL RDW Std Deviation (36.4-46.3) fL RDW Coeff of Cindy (11.5-14.5) % Plt Count (130-400) K/uL MPV (9.4-12.4) fL Sodium (136-145) mmol/L Potassium (3.5-5.1) mmol/L Chloride (98-107) mmol/L Carbon Dioxide (21-32) mmol/L Anion Gap (3-11) BUN (6-23) mg/dl Creatinine (0.6-1.4) mg/dl Est Cr Clr Drug Dosing 127.9 ml/min eGFR 98.11 99.06 BUN/Creatinine Ratio 34.4 H (10-20) Glucose 85 (70-99(Fasting)) mg/dl POC Glucose 76 (70-99) mg/dl Calcium 8.9 (8.6-10.3) mg/dl Magnesium (1.7-2.4) mg/dl 25-OH Vitamin D Total 13.7 L (30-100) ng/ml Lamar-TRK (IHC) Lung Tumor Pnl Analysis FISH Oncology MET Exon 14 Skipping IHC Stain and Interp 07/19/24 07/19/24 07/18/24 Range/Units 07:18 07:18 20:11 WBC (4.8-10.8) K/ul RBC (4.70-6.10) M/uL Hgb (14.0-18.0) g/dl Hct (42.0-52.0) % MCV (80.0-100.0) fL MCH (25.0-34.0) pg MCHC (32.0-36.0) g/dL RDW Std Deviation (36.4-46.3) fL RDW Coeff of Cindy (11.5-14.5) % Plt Count (130-400) K/uL MPV (9.4-12.4) fL Sodium 137 (136-145) mmol/L Potassium 4.2 (3.5-5.1) mmol/L Chloride 98 (98-107) mmol/L Carbon Dioxide 35 H (21-32) mmol/L Anion Gap 4 (3-11) BUN 22 (6-23) mg/dl Creatinine 0.64 0.62 (0.6-1.4) mg/dl Est Cr Clr Drug Dosing 132.0 ml/min eGFR BUN/Creatinine Ratio (10-20) Glucose (70-99(Fasting)) mg/dl POC Glucose 185 H (70-99) mg/dl Calcium (8.6-10.3) mg/dl Magnesium (1.7-2.4) mg/dl 25-OH Vitamin D Total (30-100) ng/ml Lamar-TRK (IHC) Lung Tumor Pnl Analysis FISH Oncology MET Exon 14 Skipping IHC Stain and Interp 07/18/24 07/18/24 07/18/24 Range/Units 16:31 11:36 09:57 WBC 8.13 (4.8-10.8) K/ul RBC 4.21 L (4.70-6.10) M/uL Hgb 14.4 (14.0-18.0) g/dl Hct 41.9 L (42.0-52.0) % MCV 99.5 (80.0-100.0) fL MCH 34.2 H (25.0-34.0) pg MCHC 34.4 (32.0-36.0) g/dL RDW Std Deviation 48.6 H (36.4-46.3) fL RDW Coeff of Cindy 13.2 (11.5-14.5) % Plt Count 169 (130-400) K/uL MPV 10.1 (9.4-12.4) fL Sodium (136-145) mmol/L Potassium (3.5-5.1) mmol/L Chloride (98-107) mmol/L Carbon Dioxide (21-32) mmol/L Anion Gap (3-11) BUN (6-23) mg/dl Creatinine 0.74 (0.6-1.4) mg/dl Est Cr Clr Drug Dosing 110.6 ml/min eGFR 93.90 BUN/Creatinine Ratio (10-20) Glucose (70-99(Fasting)) mg/dl POC Glucose 119 H 237 H (70-99) mg/dl Calcium (8.6-10.3) mg/dl Magnesium (1.7-2.4) mg/dl 25-OH Vitamin D Total (30-100) ng/ml Lamar-TRK (IHC) Lung Tumor Pnl Analysis FISH Oncology MET Exon 14 Skipping IHC Stain and Interp 07/18/24 07/17/24 07/17/24 Range/Units 07:42 19:36 16:20 WBC (4.8-10.8) K/ul RBC (4.70-6.10) M/uL Hgb (14.0-18.0) g/dl Hct (42.0-52.0) % MCV (80.0-100.0) fL MCH (25.0-34.0) pg MCHC (32.0-36.0) g/dL RDW Std Deviation (36.4-46.3) fL RDW Coeff of Cindy (11.5-14.5) % Plt Count (130-400) K/uL MPV (9.4-12.4) fL Sodium (136-145) mmol/L Potassium (3.5-5.1) mmol/L Chloride (98-107) mmol/L Carbon Dioxide (21-32) mmol/L Anion Gap (3-11) BUN (6-23) mg/dl Creatinine (0.6-1.4) mg/dl Est Cr Clr Drug Dosing ml/min eGFR BUN/Creatinine Ratio (10-20) Glucose (70-99(Fasting)) mg/dl POC Glucose 108 H 192 H 195 H (70-99) mg/dl Calcium (8.6-10.3) mg/dl Magnesium (1.7-2.4) mg/dl 25-OH Vitamin D Total (30-100) ng/ml Lamar-TRK (IHC) Lung Tumor Pnl Analysis FISH Oncology MET Exon 14 Skipping IHC Stain and Interp Diagnostic Findings Lumbar Spine CT 07/06/24 21:25 Exam(s): CT L SPINE EXAM: CT Lumbar Spine Without Intravenous Contrast CLINICAL HISTORY: Reason for exam: lumbar back pain, fall. TECHNIQUE: Axial computed tomography images of the lumbar spine without intravenous contrast. CTDI is 39 mGy and DLP is 1343 mGy-cm. Automated exposure control was utilized for the study. A dose lowering technique was utilized adhering to the principles of ALARA. COMPARISON: No relevant prior studies available. 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 Previous measurements: 3.1 x 3.3 x 7.0 cm. There is a chronic appearing T12 compression fracture with approximately 25% anterior height loss. No acute fracture or osseous destruction identified. Discs/spinal canal/neural foramina: There is multilevel thoracolumbar degenerative disc disease with marginal osteophytes and vacuum disc changes noted throughout the lumbar spine. There is a large circumferential disc osteophyte complex at L5-S1 with moderate to severe bilateral foraminal stenosis noted at L2-3 through L5-S1. Soft tissues: Unremarkable. Vasculature: There are moderate aortic atherosclerotic calcifications. Lungs: There is patchy nodular bilateral basilar airspace consolidation. IMPRESSION: 1. There is an enlarging 3.0 x 4.0 x 7.7 cm cm retrocrural periaortic alphonse mass at the level of the lower thoracic and upper lumbar spine. 2. There is a chronic appearing T12 compression fracture with approximately 25% anterior height loss. Electronically signed by: Rafa Najera MD 07/07/24 00:[address] 07/06/24 21:28 Exam(s): CT PELVIS Without Contrast EXAM: CT Pelvis Without Intravenous Contrast CLINICAL HISTORY: Reason for exam: posterior pelvis pain, fall. TECHNIQUE: Axial computed tomography images of the pelvis without intravenous contrast. CTDI is 39 mGy and DLP is 1343 mGy-cm. Automated exposure control was utilized for the study. A dose lowering technique was utilized adhering to the principles of ALARA. COMPARISON: No relevant prior studies available. FINDINGS: Bowel: Unremarkable. No obstruction. No mucosal thickening. Appendix: No findings to suggest acute appendicitis. Intraperitoneal space: The urinary bladder is distended.. No pelvic mass or free fluid identified. No free air. Bladder: Unremarkable. No stones. Reproductive: Unremarkable as visualized. Bones/joints: There is advanced lower lumbar degenerative disc disease. There are generalized decreased bony mineralization. No acute fracture or destructive osseous abnormality of the pelvis identified. No dislocation. Soft tissues: Unremarkable. Vasculature: Unremarkable. No lower abdominal aortic aneurysm. Lymph nodes: Unremarkable. No enlarged lymph nodes. IMPRESSION: 1. No acute fracture or destructive osseous abnormality of the pelvis identified. 2. The urinary bladder is distended.. 3. There is advanced lower lumbar degenerative disc disease. 4. There are generalized decreased bony mineralization. Electronically signed by: Rafa Najera MD 07/07/24 00:[address] 07/14/24 12:59 CT OF THE THORACIC SPINE CLINICAL HISTORY: severe back pain, retrocrural mass, compression Fx COMPARISON STUDY: Chest CT June 23, 2024. TECHNIQUE: Helical axial images of the thoracic spine were obtained. Sagittal and coronal reconstructions were viewed. Automated exposure control was utilized for the study. A dose lowering technique was utilized adhering to the principles of ALARA. FINDINGS: Alignment of the thoracic spine is anatomic. There are compression fractures involving the superior endplates of T2, T4, T9 and T12. Moderate loss of height of the T9 and T12 vertebra is noted. There is mild loss of height of the T2 and T4 vertebral bodies. There is no retropulsion. These fractures are similar to chest CT of June 23, 2024 and were also present on CT of November 13, 2022. No interval fractures are present. Central canal and neural foramen are suboptimally assessed given CT technique. No overtly suspicious osseous lesions are identified within the thoracic spine. There is mild multilevel disc space narrowing and moderate osteophytosis within the thoracic spine. Facet joints are intact. Innumerable pulmonary lesions are partially on this exam. These are be tter depicted on chest CT of June 23, 2024. There is underlying emphysema. A hypodense 6.6 x 3.6 x 3.6 cm retrocrural abnormalities present. This measures near water attenuation. IMPRESSION: 1. No acute thoracic spine fracture or subluxation. 2. Multiple old thoracic spine compression fractures, as described above. 3. Mild multilevel degenerative disc disease and facet arthrosis within the thoracic spine. 4. Partially visualized innumerable pulmonary lesions. These are likely neoplastic and suspicious for metastatic disease. 5. Indeterminate hypodense 6.6 x 3.6 x 3.6 cm retrocrural lesion. ACT 112: Negative or not required by law. Electronically signed by: Orion Goodrich M.D. 07/14/2024 3:52 PM Hip/Pelvis X-Ray 07/16/24 17:59 EXAM: Radiographs of the Left Hip 3 Views INDICATION: Left calf pain. TECHNIQUE: Front view pelvis and AP and frog leg lateral views of the left hip. COMPARISON: Pelvic CT 07/06/2024 FINDINGS: Limitations: None. Bones/joints: The pelvis is tilted to the right. There is mild symmetrical narrowing of the medial acetabular joints. Femoral heads intact. There is an oblique lucency across the intertrochanteric femur. There are similar lucencies in different obliquity which are clearly skin folds. Degenerative changes noted in the lower lumbar segments visualized. Soft tissues: No abnormality noted. No radiopaque foreign body noted. Vasculature: Atherosclerotic calcification in the groin. IMPRESSION: Oblique lucency across the intertrochanteric left femur is thought to be artifact. However, a hairline fracture is not completely excluded. If additional imaging is clinically warranted, CT is the modality of choice. ACT 112: Negative or not required by law. Electronically signed by Beverly Cardenas 07-16-2024 7:[address] 07/16/24 19:23 CT hip LT wo con HISTORY: 74 years-old Male abnl L hip x-rays, pain; fracture? COMPARISON: CT pelvis 07/06/2024 TECHNIQUE: Multiple axial CT images of the left hip were obtained without IV contrast. A dose lowering technique was used consistent with the principals of SAADIA. FINDINGS: Decompressed urinary bladder with wall thickening. Prostatomegaly. No acute intrapelvic abnormality identified. Arterial calcifications. Unremarkable soft tissues and musculature. No hip joint effusion. 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 No acute fracture, dislocation, avascular necrosis or suspicious bone lesion. IMPRESSION: [id number] osteoarthritis of the left hip without acute fracture or dislocation. ACT 112: Negative or not required by law. The above report was generated using voice recognition software. It may contain grammatical, syntax or spelling errors. Electronically signed by: John Nichols M.D. 07/17/2024 2:[address] 07/17/24 13:00 CT-guided right lung mass core biopsy INDICATION: Bilateral lung masses PROCEDURE: Procedure and risks were explained. Informed consent was obtained. A final timeout was completed. Percutaneous biopsy was originally attempted on July 16, 2024, but this was unsuccessful due to patient movement/discomfort. The patient was then brought back today on July 17, 2024 for percutaneous lung biopsy with anesthesia. The patient was placed in a left decubitus position on the CT exam table. The right thorax was prepped and draped in sterile fashion. 1% lidocaine was utilized for skin anesthesia. The patient received monitored anesthesia care throughout the procedure. Utilizing CT guidance, a 19-gauge coaxial needle was advanced into the right lung mass. A 20-gauge core biopsy needle was advanced, and 2 cores were obtained and given to the pathologist for review. The coaxial needle was removed and Band-Aid applied. The patient tolerated the procedure well. Post CT imaging demonstrated no evidence for bleeding/pneumothorax. A chest x-ray will be obtained to hours post procedure and vital signs will be monitored via anesthesia protocol. IMPRESSION: Right lung mass core biopsy as above. Performed, dictated, and signed by Shawn Hernadez PA-C; to be co-signed by Dr. John Nichols. Electronically signed by: John Nichols M.D. 07/17/2024 2:55 PM Chest X-Ray 07/17/24 16:00 EXAM: XR chest 1V portable CLINICAL HISTORY: Right lung biopsy. TECHNIQUE: An X-ray image of the chest is obtained in AP projection. COMPARISON: 07/15/2024 FINDINGS: Pulmonary Parenchyma: Patchy bilateral, rounded and irregular densities again seen. Prominence of the hilar vessels again seen. Blunting of right costophrenic angle. Left costophrenic obscured by ICD device. Heart and Mediastinum: Cardiomegaly ICD device Bony Thorax: The bony thorax appears intact without fractures or deformities. Soft Tissues: Soft tissues overlying the chest wall are unremarkable. IMPRESSION: No visualized pneumothorax. Diffuse, rounded and irregular opacities are again seen. Electronically signed by Teddy Eugene 07-17-2024 4:31 PM Medications Administered Vital Signs Temp 36.5 C 07/24/24 12:30 Pulse 76 07/24/24 12:30 Resp 18 07/24/24 12:30 BP 129/80 07/24/24 12:30 Pulse Ox 90 07/24/24 12:30 O2 Del Method Nasal Cannula 07/24/24 12:30 O2 Flow Rate 2 07/24/24 12:30 Intake & Output 07/23/24 07/24/24 07/24/24 18:59 06:59 18:59 Output Total 250 / 975 725 / 975 600 / 600 Balance -250 / -975 -725 / -975 -600 / -600 Output: Urine 250 / 975 725 / 975 600 / 600 PG Care Time/CCT Total # of Minutes Spent Total Time Spent with Patient: Total time spent is greater than 50% in coordination of care (as documented) at patient's floor/unit and/or counseling patient: I spent 75 minutes overall addressing this case: 5 min in medical data review/discussion with referring provider(s) and/or preparation for the visit 15 min in direct interaction with the patient/exam 30 min in Advance Care Planning/Goals of Care discussions as detailed above in note (must be >16min) 10 min in subsequent review and synthesis of assessment and plan 15 min communicating with other providers regarding the patient's case: primary team and nursing Advanced Care Planning 57591 Advanced Care Planning 30 Min [place] [address] SUB INP/OBS CARE 3/50MIN (25 - SIGNIFICANT, SEPARATELY IDENTIFIABLE ) Patient Type Established Medical Decision Making High Complexity Diagnoses Cancer related pain G89.3 Dyspnea and respiratory abnormalities R06.00; R06.89 Advanced care planning/counseling discussion Z71.89 Weakness generalized R53.1 Intractable back pain M54.9 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
--- NOTE | 2024-07-24 15:51 | Hospitalist Progress Note ---
Date of Service July 24, 2024 Assessment & Plan (1) Intractable back pain: Plan: Patient originally presented to the ED on 07/07/24 for intractable back pain and weakness. (Possible, Suspected, Likely) Retrocrural tumor/cancer CT scan of thoracic spine: indeterminate hypodense 6.6x3.6x3.6cm retrocrural lesion. Innumerable pulmonary lesions - likely neoplastic and suspicious for metastatic disease Underwent IR bx of pulm nodule 07/17 - path results + for mucinous adenocarcinoma. Head CT pending Palliative consulted and following- start MS Contin 20mg PO q12h. Morphine FIBER TECHNOLOGIST stay at 0.6mg q 15m prn over the weekend. consider pain management consult if pain continues to remain uncontrolled. PT/OT - rehab advised by therapy Heme onc consultation- patient is open to immunotherapy but also agreeable to hospice if he continues to decline continue to re-evaluate goals of care daily. Discussed w/ palliative care 07/24 - patient open to rehab at this time but also open to MEDICAL RESEARCH TECH if he acutely declines. CBC/BMP stable (2) Mucinous adenocarcinoma of lung: Plan: refer to plan #1 (3) Left hip pain: Plan: Left Hip CT: no fx. moderate OA if not intrinsic hip disease could be referred pain from the lumbar spine please refer to plan #1 for pain regimen (4) Chronic systolic CHF (congestive heart failure): Plan: EF 45% last Echo 03/31/24 with regional [facility] technically very difficult study per the report cont coreg BID Continue PO Bumex, additional 1mg IV Bumex given 07/24 Try to obtain standing weights if able. Consider SOREN/ARB therapy. (5) Diabetes mellitus, type 2: Plan: a1c 6.3% in 03/2024 controlled with lantus-novolog Plan Chronic conditions: BPH: Flomax 0.4mg, Finasteride 5mg HLD: Statin Alcohol use disorder - thiamine 200mg BID, no alcohol withdrawal observed while hospitalized Groin rash: nystatin powder Thoracic compression fx: miacalcin nasal spray daily FREDRICK: declines use of hospital issued CPAP A fib: Coreg, Xarelto COPD: duonebs prn CM was able to provide contact information for patient's daughter, Chuck Morris who is his POA. She was called 07/22 and updated on her father's hospitalization. Cuhck has asked to only be notified of "major" events in the future. Phone number: [phone] Admission and Anticipated Discharge Date Admission Date: July 09, 2024 Subjective Patient seen and examined this morning. Patient reports an 8-10 pound weight gain since he has been in his hospital stay. He states he asked the nurses to weight him this morning. However per review of weight, he has lost ~2 kg since previous day and down ~14kg since his admission date. He reports a cough but denies any worsening of his SOB. denies any additional complaints. reports his pain has been controlled on the morphine FIBER TECHNOLOGIST. Physical Exam Constitutional: WD/WN, vitals as above Eyes: PERRL, conjunctivae normal, anicteric sclerae Respiratory: rales b/l Cardiovascular: RRR, no murmur, no edema Results & Data Results & Data Vital Signs (Past 12 Hours) Vital Signs Temp Pulse Resp BP Pulse Ox O2 Del Method O2 Flow Rate 07/24/24 12:30 36.5 C 76 18 129/80 90 Nasal Cannula 2 07/24/24 09:45 37.5 C 87 18 133/61 90 Nasal Cannula 2 07/24/24 07:30 Room Air 3 PG Care Time/CCT Total # of Minutes Spent Total Time Spent with Patient: Total time spent is greater than 50% in coordination of care (as documented) at patient's floor/unit and/or counseling patient: Coding Level of Care Code 70825 SUB INP/OBS CARE 2/35MIN Diagnoses Intractable back pain M54.9 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
[2024-07-25 07:06] LABS: Hematocrit (blood only) 35.5 % (42.0-52.0); Hemoglobin 12.2 g/dl (14.0-18.0); Mean Corpuscular Hemoglobin 33.5 pg (25.0-34.0); Mean Corpuscular Hgb Conc 34.4 g/dL (32.0-36.0); Mean Corpuscular Volume 97.5 fL (80.0-100.0); Mean Platelet Volume 9.8 fL (9.4-12.4); Platelet Count 131 K/uL (130-400); RDW Coefficient of Variation 13.5 % (11.5-14.5); RDW Standard Deviation 48.5 fL (36.4-46.3); Red Blood Count 3.64 M/uL (4.70-6.10); White Blood Count 8.66 K/ul (4.8-10.8)
[2024-07-25 07:25] LABS: BUN Creatinine Ratio 40.7 (10-20); Calcium 8.7 mg/dl (8.6-10.3); Creatinine Clr Calc Pharmacy 139.1 ml/min; Potassium 3.8 mmol/L (3.5-5.1)
[2024-07-25] MEDS: MoRPHine SULFATE CR 15 MG TABCR PO SCH (09:50)
--- NOTE | 2024-07-25 15:04 | Hospitalist Progress Note ---
Date of Service July 25, 2024 Assessment & Plan (1) Intractable back pain: Plan: Patient originally presented to the ED on 07/07/24 for intractable back pain and weakness. (Possible, Suspected, Likely) Retrocrural tumor/cancer CT scan of thoracic spine: indeterminate hypodense 6.6x3.6x3.6cm retrocrural lesion. Innumerable pulmonary lesions - likely neoplastic and suspicious for metastatic disease Underwent IR bx of pulm nodule 07/17 - path results + for mucinous adenocarcinoma. Palliative consulted and following- start MS Contin 15mg (no 20mg pills) Q12 hours, Morphine DIE TRIMMER stay at 0.6mg q 15m prn over the weekend. consider pain management consult if pain continues to remain uncontrolled. PT/OT - rehab advised by therapy Heme onc consultation- patient is open to immunotherapy but also agreeable to hospice if he continues to decline continue to re-evaluate goals of care daily. Discussed w/ palliative care 07/24 - patient open to rehab at this time but also open to BUSINESS INFO CONSULTANT if he acutely declines. H dropped from 14.9 on 07/22 to 12.2 on 07/25 -- CBC/BMP tomorrow. (2) Mucinous adenocarcinoma of lung: Plan: refer to plan #1 (3) Left hip pain: Plan: Left Hip CT: no fx. moderate OA if not intrinsic hip disease could be referred pain from the lumbar spine please refer to plan #1 for pain regimen (4) Chronic systolic CHF (congestive heart failure): Plan: EF 45% last Echo 03/31/24 with regional [facility] technically very difficult study per the report cont coreg BID Continue PO Bumex, additional 1mg IV Bumex given 07/24 Try to obtain standing weights if able. Consider SOREN/ARB therapy. (5) Diabetes mellitus, type 2: Plan: a1c 6.3% in 03/2024 controlled with lantus-novolog Plan Chronic conditions: BPH: Flomax 0.4mg, Finasteride 5mg HLD: Statin Alcohol use disorder - thiamine 200mg BID, no alcohol withdrawal observed while hospitalized Groin rash: nystatin powder Thoracic compression fx: miacalcin nasal spray daily FREDRICK: declines use of hospital issued CPAP A fib: Coreg, Xarelto COPD: duonebs prn CM was able to provide contact information for patient's daughter, Chuck Morris who is his POA. She was called 07/22 and updated on her father's hospitalization. Chuck has asked to only be notified of "major" events in the future. Phone number: [phone] Admission and Anticipated Discharge Date Admission Date: July 09, 2024 Subjective Haresh reports that he is doing okay today. No new complaints. States he is unsure if he slept well last night. He does complain of fatigue. He asks how to appropriately manage his pain and utilize his DIE TRIMMER pump. He denies shortness of breath. Complains of lower back and bilateral hip pain. States he has a sore on his sacrum that the nurses are treating. Review of Systems Constitutional: + fatigue; no fever and no chills Respiratory: no cough and no dyspnea Cardiovascular: no chest pain and no dyspnea Gastrointestinal: no abdominal pain, no nausea, no vomiting and no change in bowel habits Genitourinary: no dysuria or no difficulty urinating Musculoskeletal: + back pain and + joint pain (Bilateral hips) Integumentary: + problem reported (reports sacral wound ) Physical Exam Constitutional: WD/WN, vitals as above Respiratory: normal respiratory effort, lungs clear to auscultation Cardiovascular: RRR, no murmur, no edema Gastrointestinal (Abdomen): Inspection/Auscultation: normal bowel sounds Percussion/Palpation: abdomen soft; abdomen nontender Psychiatric: Orientation: alert and oriented x 3 Results & Data Results & Data Vital Signs (Past 12 Hours) Vital Signs Temp Pulse Resp BP Pulse Ox O2 Del Method O2 Flow Rate 07/25/24 09:30 Nasal Cannula 3 07/25/24 08:49 36.7 C 75 16 155/89 H 93 Nasal Cannula 2 Laboratory Results 07/25/24 07/25/24 07/25/24 Range/Units 11:57 08:06 06:33 WBC 8.66 (4.8-10.8) K/ul RBC 3.64 L (4.70-6.10) M/uL Hgb 12.2 L (14.0-18.0) g/dl Hct 35.5 L (42.0-52.0) % MCV 97.5 (80.0-100.0) fL MCH 33.5 (25.0-34.0) pg MCHC 34.4 (32.0-36.0) g/dL RDW Std Deviation 48.5 H (36.4-46.3) fL RDW Coeff of Cindy 13.5 (11.5-14.5) % Plt Count 131 (130-400) K/uL MPV 9.8 (9.4-12.4) fL Sodium 135 L (136-145) mmol/L Potassium 3.8 (3.5-5.1) mmol/L Chloride 98 (98-107) mmol/L Carbon Dioxide 33 H (21-32) mmol/L Anion Gap 4 (3-11) BUN 24 H (6-23) mg/dl Creatinine 0.59 L (0.6-1.4) mg/dl Est Cr Clr Drug Dosing 139.1 ml/min eGFR 100.55 BUN/Creatinine Ratio 40.7 H (10-20) Glucose 86 (70-99(Fasting)) mg/dl POC Glucose 182 H 110 H (70-99) mg/dl Calcium 8.7 (8.6-10.3) mg/dl 07/24/24 07/24/24 Range/Units 20:30 16:52 WBC (4.8-10.8) K/ul RBC (4.70-6.10) M/uL Hgb (14.0-18.0) g/dl Hct (42.0-52.0) % MCV (80.0-100.0) fL MCH (25.0-34.0) pg MCHC (32.0-36.0) g/dL RDW Std Deviation (36.4-46.3) fL RDW Coeff of Cindy (11.5-14.5) % Plt Count (130-400) K/uL MPV (9.4-12.4) fL Sodium (136-145) mmol/L Potassium (3.5-5.1) mmol/L Chloride (98-107) mmol/L Carbon Dioxide (21-32) mmol/L Anion Gap (3-11) BUN (6-23) mg/dl Creatinine (0.6-1.4) mg/dl Est Cr Clr Drug Dosing ml/min eGFR BUN/Creatinine Ratio (10-20) Glucose (70-99(Fasting)) mg/dl POC Glucose 137 H 108 H (70-99) mg/dl Calcium (8.6-10.3) mg/dl PG Care Time/CCT Total # of Minutes Spent Total Time Spent with Patient: Total time spent is greater than 50% in coordination of care (as documented) at patient's floor/unit and/or counseling patient: Coding [place] [address] SUB INP/OBS CARE 2/35MIN Patient Type Established History Expanded Problem Focused Exam Expanded Problem Focused Medical Decision Making Moderate Complexity Diagnoses Intractable back pain M54.9 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
[2024-07-26 07:30] LABS: Hematocrit (blood only) 37.2 % (42.0-52.0); Hemoglobin 12.9 g/dl (14.0-18.0); Mean Corpuscular Hemoglobin 33.9 pg (25.0-34.0); Mean Corpuscular Hgb Conc 34.7 g/dL (32.0-36.0); Mean Corpuscular Volume 97.6 fL (80.0-100.0); Mean Platelet Volume 9.7 fL (9.4-12.4); Platelet Count 140 K/uL (130-400); RDW Coefficient of Variation 13.4 % (11.5-14.5); RDW Standard Deviation 48.4 fL (36.4-46.3); Red Blood Count 3.81 M/uL (4.70-6.10); White Blood Count 6.58 K/ul (4.8-10.8)
[2024-07-26] MEDS: CARBOHYDRATES FOR HYPOGLYCEMIA PO PRN (07:40)
[2024-07-26] MEDS ORDERED: DEXTROSE 50% 50 ML SYRINGE IV PRN (07:46)
[2024-07-26] MEDS ORDERED: GLUCOSE 40% GEL 15 GM TUBE PO PRN (07:46)
[2024-07-26] MEDS ORDERED: GLUCAGON FOR INJ 1 MG VIAL SQ PRN (07:46)
[2024-07-26] MEDS ORDERED: GLUCOSE 10 TAB/TUBE PO PRN (07:46)
[2024-07-26 07:54] LABS: BUN Creatinine Ratio 37.7 (10-20); Calcium 8.7 mg/dl (8.6-10.3); Creatinine Clr Calc Pharmacy 154.8 ml/min; Potassium 3.9 mmol/L (3.5-5.1)
--- NOTE | 2024-07-26 15:40 | Hospitalist Progress Note ---
Date of Service July 26, 2024 Assessment & Plan (1) Intractable back pain: Plan: Patient originally presented to the ED on 07/07/24 for intractable back pain and weakness. (Possible, Suspected, Likely) Retrocrural tumor/cancer -CT scan of thoracic spine: indeterminate hypodense 6.6x3.6x3.6cm retrocrural lesion. Innumerable pulmonary lesions - likely neoplastic and suspicious for metastatic disease -Underwent IR bx of pulm nodule 07/17 - path results + for mucinous adenocarcinoma. -Palliative consulted and following- start MS Contin 15mg (no 20mg pills) Q12 hours, Morphine RAG CUTTING MACHINE TENDER stay at 0.6mg q 15m prn over the weekend. Reports impro vement of his pain with the addition of the MS Contin. Extensively discussed the goals of pain control, set realistic expectations, and encouraged him to use a dose of medicine a few minutes prior to moving in bed to help reduce how much pain he experience when moving. Will continue to monitor his use and make adjustments as necessary. He would like to be able to get OOB to the chair if able in the next few days, he felt this would improve his mood and make him feel accomplished - now that pain is better controlled, he feels optimistic this can be accomplished. -Can consider pain management consult if pain continues to remain uncontrolled. -PT/OT - rehab advised by therapy -Heme onc consultation- patient is open to immunotherapy but also agreeable to hospice if he continues to decline continue to re-evaluate goals of care daily. -Discussed w/ palliative care 07/24 - patient open to rehab at this time but also open to PERFORMANCE SOLUTIONS SPECIALIST if he acutely declines. (2) Mucinous adenocarcinoma of lung: Plan: refer to plan #1 (3) Left hip pain: Plan: Left Hip CT: no fx. moderate OA if not intrinsic hip disease could be referred pain from the lumbar spine please refer to plan #1 for pain regimen (4) Chronic systolic CHF (congestive heart failure): Plan: EF 45% last Echo 03/31/24 with regional [facility] technically very difficult study per the report cont coreg BID Continue PO Bumex, additional 1mg IV Bumex given 07/24 Try to obtain standing weights if able. Consider SROEN/ARB therapy. (5) Diabetes mellitus, type 2: Plan: a1c 6.3% in 03/2024 controlled with lantus-novolog Plan Chronic conditions: BPH: Flomax 0.4mg, Finasteride 5mg HLD: Statin Alcohol use disorder - thiamine 200mg BID, no alcohol withdrawal observed while hospitalized Groin rash: nystatin powder Thoracic compression fx: miacalcin nasal spray daily FREDRICK: declines use of hospital issued CPAP A fib: Coreg, Xarelto COPD: duonebs prn CM was able to provide contact information for patient's daughter, Chuck Morris who is his POA. She was called 07/22 and updated on her father's hospitalization. Chuck has asked to only be notified of "major" events in the future. Phone number: [phone] Admission and Anticipated Discharge Date Admission Date: July 09, 2024 Subjective Haresh reports that he is doing better today, feels his pain is much more controlled, states he was actually able to have a decent nights sleep because he was not in as much pain. He reports he has only had to use his RAG CUTTING MACHINE TENDER 3 time so far today, which he feels is less than previous. He also states he is able to bear the pain when he rolls side to side, which he wasn't able to before. No new complaints. He asked again how to appropriately manage his pain and utilize his RAG CUTTING MACHINE TENDER pump, which we discussed at length. He denies shortness of breath. Complains of lower back and bilateral hip pain. He would like to set a goal for himself now that his pain is better controlled, we discussed potentially getting OOB to the chair, which he would really like to be able to do. Did have an episode of hypoglycemia today. Review of Systems Constitutional: + fatigue; no fever and no chills Respiratory: no cough and no dyspnea Cardiovascular: no chest pain and no dyspnea Gastrointestinal: no abdominal pain, no nausea, no vomiting and no change in bowel habits Genitourinary: no dysuria or no difficulty urinating Musculoskeletal: + back pain and + joint pain (Bilateral hips) Physical Exam Constitutional: WD/WN, vitals as above Respiratory: normal respiratory effort, lungs clear to auscultation Cardiovascular: RRR, no murmur, no edema Gastrointestinal (Abdomen): Inspection/Auscultation: normal bowel sounds Percussion/Palpation: abdomen soft; abdomen nontender Skin: Dressing intact in sacral area. Psychiatric: Orientation: alert and oriented x 3 Results & Data Results & Data Vital Signs (Past 12 Hours) Vital Signs Temp Pulse Resp BP Pulse Ox O2 Del Method O2 Flow Rate 07/26/24 11:25 36.9 C 71 18 101/61 94 Nasal Cannula 4 07/26/24 07:30 36.7 C 69 18 143/87 H 94 Nasal Cannula 4 07/26/24 07:16 Nasal Cannula 3 Laboratory Results 07/26/24 07/26/24 07/26/24 Range/Units 11:25 07:59 07:27 WBC (4.8-10.8) K/ul RBC (4.70-6.10) M/uL Hgb (14.0-18.0) g/dl Hct (42.0-52.0) % MCV (80.0-100.0) fL MCH (25.0-34.0) pg MCHC (32.0-36.0) g/dL RDW Std Deviation (36.4-46.3) fL RDW Coeff of Cindy (11.5-14.5) % Plt Count (130-400) K/uL MPV (9.4-12.4) fL Sodium (136-145) mmol/L Potassium (3.5-5.1) mmol/L Chloride (98-107) mmol/L Carbon Dioxide (21-32) mmol/L Anion Gap (3-11) BUN (6-23) mg/dl Creatinine (0.6-1.4) mg/dl Est Cr Clr Drug Dosing ml/min eGFR BUN/Creatinine Ratio (10-20) Glucose (70-99(Fasting)) mg/dl POC Glucose 163 H 81 68 L* (70-99) mg/dl Calcium (8.6-10.3) mg/dl 07/26/24 07/25/24 07/25/24 Range/Units 06:57 20:25 16:59 WBC 6.58 (4.8-10.8) K/ul RBC 3.81 L (4.70-6.10) M/uL Hgb 12.9 L (14.0-18.0) g/dl Hct 37.2 L (42.0-52.0) % MCV 97.6 (80.0-100.0) fL MCH 33.9 (25.0-34.0) pg MCHC 34.7 (32.0-36.0) g/dL RDW Std Deviation 48.4 H (36.4-46.3) fL RDW Coeff of Cindy 13.4 (11.5-14.5) % Plt Count 140 (130-400) K/uL MPV 9.7 (9.4-12.4) fL Sodium 135 L (136-145) mmol/L Potassium 3.9 (3.5-5.1) mmol/L Chloride 99 (98-107) mmol/L Carbon Dioxide 32 (21-32) mmol/L Anion Gap 4 (3-11) BUN 20 (6-23) mg/dl Creatinine 0.53 L (0.6-1.4) mg/dl Est Cr Clr Drug Dosing 154.8 ml/min eGFR 103.86 BUN/Creatinine Ratio 37.7 H (10-20) Glucose 74 (70-99(Fasting)) mg/dl POC Glucose 117 H 88 (70-99) mg/dl Calcium 8.7 (8.6-10.3) mg/dl PG Care Time/CCT Total # of Minutes Spent Total Time Spent with Patient: Total time spent is greater than 50% in coordination of care (as documented) at patient's floor/unit and/or counseling patient: Coding [place] [address] SUB INP/OBS CARE 2/35MIN Patient Type Established Medical Decision Making Moderate Complexity Diagnoses Intractable back pain M54.9 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
[2024-07-27] MEDS: LANTUS PER UNIT CHARGE SQ SCH (09:35)
--- NOTE | 2024-07-27 10:52 | Communication Note ---
Date of Service: July 27, 2024 Pall Med Catering Service Manager Paged with update of acute changes and decline patient resp rate variable, he is less alert MS HARNESS INSTALLER only has been stopped I called his sister Guerda and went over the acute changes. She said they had an unusually bright conversation and visit yesterday and she thinks "it must be the calm before the storm, I'm not surprised this is happening, I think we knew it could always get worse." She is in agreement with AUTOMATIC PINSETTER ADJUSTER if he continues to decline, which reaffirms patient's own expressed wishes documented in prior conversations with me as well as during the family meeting held Saturday with pt, sister and brother in law. Primary team updated. MS HARNESS INSTALLER only has beens topped. MS Contin received earlier this AM. Thank you for allowing us to participate in the ongoing care of this patient. Please page with any additional concerns. Roman Dyson DNP Director, Palliative Medicine
--- NOTE | 2024-07-27 14:58 | Hospitalist Progress Note ---
Date of Service July 27, 2024 Assessment & Plan (1) Intractable back pain: (2) Mucinous adenocarcinoma of lung: (3) Left hip pain: (4) Chronic systolic CHF (congestive heart failure): (5) Diabetes mellitus, type 2: Plan: a1c 6.3% in 03/2024 controlled with lantus-novolog Plan Haresh Morris is a 74yo male with history of HTN, DM, COPD, AF and FREDRICK presenting with generalized weakness and intractable back pain. Inability to stand or ambulate secondary to pain. 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 Innumerable pulmonary lesions - likely neoplastic and suspicious for metastatic disease. IR bx of pulm nodules confirms mucinous adenocarcinoma Continue: scheduled PO tylenol, Lidoderm patch. Completed prednisone taper. Heme onc consultation- patient is open to immunotherapy but also agreeable to hospice if he continues to decline Palliative consulted and following- start MS Contin 15mg Q12 hours. PRN STAFF ANALYST dosing discontinued after episodes of lethargy/tachypnea and diaphoresis. C ontinue bowel regimen. - if worsening clinical status, pt and sister would want ANALYTICAL CHEMIST -Can consider pain management consult if pain continues to remain uncontrolled. -PT/OT - recommend rehab, however currently not in a state place referrals/apply for auth #Left hip pain Left Hip CT: no fx. moderate OA Pain control as above. #CHF EF 45% last Echo 03/31/24 with regional [facility] Continue Coreg and PO Bumex Consider SOREN/ARB therapy. #DMT2 a1c 6.3% in 03/2024 with lows - Lantus decreased to 5mg daily BPH: Flomax 0.4mg, Finasteride 5mg HLD: Statin Alcohol use disorder - thiamine 200mg BID, no alcohol withdrawal observed while hospitalized Groin rash: nystatin powder FREDRICK: declines use of hospital issued CPAP A fib: Coreg, Xarelto COPD: duonebs prn Dispo: continued inpatient stay, no escelation of care from current Dvt proh: [employer] ESPARZA was able to provide contact information for patient's daughter, Chuck Morris who is his POA. She was called 07/22 and updated on her father's hospitalization. Chuck has asked to only be notified of "major" events in the future. Phone number: [phone] Sister has been helpful with decision making Admission and Anticipated Discharge Date Admission Date: July 09, 2024 Subjective Alerted by nursing to come to bedside around ~1020, at this time patient could respond to his name, by eyes would roll back into his head quickly. diaphoretics and tachypneic. Spoke with palliaitve care provider елена Underwood who had seen him in prior days. States he did have some episodes like this but did not last long. and then would become more alert. Discussion to stop morphine bolus from STAFF ANALYST. She spoke with sister who confirms would want ANALYTICAL CHEMIST if continues to worsening Revisted at lunch time - has oxymask in place, more alert and able to hold a conversation. States he wants to try to sit up on the side of the bed, but not interested in eating. Review of Systems Review of Systems: All systems reviewed & are unremarkable except as noted in Subjective Physical Exam Physical Exam: Exam this morning General: lying in bed, minimally responsive Resp: accessory muscle use, tachpenic, increased to 5L CV: RRR, no murmur, Abd: normal bowel sounds, non tender, soft Extremities: Moves all extremities Neuro: A&O x1, Results & Data Results & Data Vital Signs (Past 12 Hours) Vital Signs Temp Pulse Resp BP BP Pulse Ox O2 Del Method 07/27/24 11:06 70 97/62 L 93 Oxymask 07/27/24 10:55 97.9 F 66 10 L 82/50 L 90 Nasal Cannula 07/27/24 07:30 Nasal Cannula 07/27/24 07:20 98.6 F 69 18 115/71 90 Nasal Cannula 07/27/24 04:38 98.1 F 76 18 141/68 H Nasal Cannula 07/27/24 03:20 98.4 F 70 18 148/88 H 93 Nasal Cannula O2 Flow Rate 07/27/24 11:06 5 07/27/24 10:55 4 07/27/24 07:30 4 07/27/24 07:20 4 07/27/24 04:38 07/27/24 03:20 4 Laboratory Results POC glucose reviewed PG Care Time/CCT Total # of Minutes Spent Total Time Spent with Patient: Total time spent is greater than 50% in coordination of care (as documented) at patient's floor/unit and/or counseling patient: Coding Level of Care Code 46025 SUB INP/OBS CARE MIN Diagnoses Intractable back pain M54.9 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
[2024-07-28 07:21] LABS: Hematocrit (blood only) 36.2 % (42.0-52.0); Hemoglobin 12.2 g/dl (14.0-18.0); Mean Corpuscular Hemoglobin 32.8 pg (25.0-34.0); Mean Corpuscular Hgb Conc 33.7 g/dL (32.0-36.0); Mean Corpuscular Volume 97.3 fL (80.0-100.0); Mean Platelet Volume 10.1 fL (9.4-12.4); Platelet Count 141 K/uL (130-400); RDW Standard Deviation 49.8 fL (36.4-46.3); Red Blood Count 3.72 M/uL (4.70-6.10); White Blood Count 10.69 K/ul (4.8-10.8)
[2024-07-28 07:52] LABS: BUN Creatinine Ratio 41.8 (10-20); Calcium 8.9 mg/dl (8.6-10.3); Creatinine Clr Calc Pharmacy 89.5 ml/min; Potassium 3.7 mmol/L (3.5-5.1)
--- NOTE | 2024-07-28 11:58 | XRay Report ---
XR chest 1V portable CLINICAL HISTORY: increasing O2 need, r/o pna, effusion COMPARISON STUDY: 07/17/2024 FINDINGS: Multiple bilateral masslike densities are once again noted in the lung contreras. There is sub tle increased parenchymal density identified within the left lung base compared with the prior examin ation. There is no pleural effusion. There is no pneumothorax. Mild cardiomegaly and pulmonary vascul ar congestion are persistent. Multiple lead pacing/defibrillating device once again noted. IMPRESSION: Findings suspicious for left lower lobe infiltrate. ACT 112: Negative or not required by law. Electronically signed by: Mya Vila M.D. 07/28/2024 11:57 AM
[2024-07-28] MEDS: MoRPHine SULFATE IR 15 MG TAB (IMMEDIATE RELEASE) PO PRN (12:46)
[2024-07-28] MEDS ORDERED: PIPERACILLIN/TAZOBACTAM 4.5 GM/100 ML BAG IV SCH ×2 (13:45)
--- NOTE | 2024-07-28 13:54 | Hospitalist Progress Note ---
Date of Service July 28, 2024 Assessment & Plan (1) Intractable back pain: (2) Mucinous adenocarcinoma of lung: (3) Left hip pain: (4) Chronic systolic CHF (congestive heart failure): (5) Diabetes mellitus, type 2: Plan Haresh Morris is a 74yo male with history of HTN, DM, COPD, AF and FREDRICK presenting with generalized weakness and intractable back pain. Inability to stand or ambulate secondary to pain. 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 Innumerable pulmonary lesions - likely neoplastic and suspicious for metastatic disease. IR bx of pulm nodules confirms mucinous adenocarcinoma Continue: scheduled PO tylenol, Lidoderm patch. Completed prednisone taper. 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 Heme onc consultation- patient is open to immunotherapy but also agreeable to hospice if he continues to decline. PD-L1 testing and molecular testing pending. Palliative consulted and following- start MS Contin 15mg Q12 hours. PRN STUDIO TECHNICIAN VIDEO OPERATOR dosing discontinued after episodes of lethargy/tachypnea and diaphoresis. Continue bowel regimen. - if worsening clinical status, pt and sister would want INTERMEDIATE TEACHER -Can consider pain management consult if pain continues to remain uncontrolled. -PT/OT - recommend rehab, pt confirmed with me last evening 07/27 with daughter/ present that he would want to go to rehab, will need updated PT/OT evals #Pneumonia Seen on CXR 07/28 - will treat as HAP start Zosyn. MRSA swab pending, add vancomycin if positive #Left hip pain Left Hip CT: no fx. moderate OA Pain control as above. #CHF EF 45% last Echo 03/31/24 with regional [facility] Continue Coreg and PO Bumex Consider SOREN/ARB therapy - but currently BP cannot tolerate #DMT2 a1c 6.3% in 03/2024 with lows - Lantus decreased to 5mg daily - BSG now acceptable, no lows BPH: Flomax 0.4mg, Finasteride 5mg HLD: Statin Alcohol use disorder - thiamine 200mg BID, no alcohol withdrawal observed while hospitalized Groin rash: nystatin powder FREDRICK: declines use of hospital issued CPAP A fib: Coreg, Xarelto COPD: duonebs prn Dispo: continued inpatient stay, no escalation of care from current Dvt proh: [facility] [employer] [facility] was able to provide contact information for patient's daughter, Chuck Morris who is his POA. She was called 07/22 and updated on her father's hospitalization. Chuck has asked to only be notified of "major" events in the future. Phone number: [phone] Sister has been helpful with decision making daughter and updated at bedside 07/27 Admission and Anticipated Discharge Date Admission Date: July 09, 2024 Supervising Physician Co-Signing Physician Notes PA Supervision Note: I did not personally see or examine the patient today, but I verified all harden points of VIDAL Hansen's assessment and plan with the following exceptions/additions: None Subjective patient seen lying in bed, was able to sit at the side of the bed to eat breakfast today. states he was able to tolerate that for some time. Does have moist cough while i am in the room some tangential thoughts regarding his phone and CPAP machine states he would be agreeable to IV antibiotics Review of Systems Review of Systems: All systems reviewed & are unremarkable except as noted in Subjective Physical Exam Physical Exam: General: NAD, VS as above Resp: normal respiratory effort, moist cough, coarse lung sounds, on 6L NC CV: RRR, no murmur, Abd: normal bowel sounds, non tender,soft Extremities: Moves all extremities,trace LE edema Results & Data Results & Data Vital Signs (Past 12 Hours) Vital Signs Temp Pulse Resp BP Pulse Ox O2 Del Method O2 Flow Rate 07/28/24 07:49 97.5 F L 70 16 98/69 L 94 Room Air 07/28/24 07:35 Nasal Cannula 6 Laboratory Results cbc and chemistry reviewed Diagnostic Findings cxr reviewed PG Care Time/CCT Total # of Minutes Spent Total Time Spent with Patient: Total time spent is greater than 50% in coordination of care (as documented) at patient's floor/unit and/or counseling patient: Coding Level of Care Code 39574 SUB INP/OBS CARE 3/50MIN Diagnoses Intractable back pain M54.9 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
[2024-07-28] MEDS: PIPERACILLIN/TAZOBACTAM 4.5 GM/100 ML BAG IV ONE (14:09)
[2024-07-28] MEDS ORDERED: VANCOMYCIN CONSULT ACTIVE PRN (15:27)
--- NOTE | 2024-07-28 16:39 | Pharmacy Report ---
Pharmacy PK ABX Note - Date of Service July 28, 2024 - Assessment and Plan Assessment 74 year old M receiving vancomycin and zosyn for potential pneumonia. MRSA nasal swab positive. PMHx significant for htn, DM, COPD. Presenting with generalized weakness and intractable back pain/adenocarcinoma of lung. CT scan of spine with concerns for metastatic disease. Plan Vancomycin * Loading dose: 2750mg IV x 1 * Maintenance dose: 1250 mg IV every 12 hours * Regimen is predicted to achieve target AUC/JUSTEN of 400-600 mg/L.hr * Will plan to order level if continued >48 hours Pharmacy will continue to follow and will adjust dose/frequency as necessary. Thank you. Pharmacy has transitioned to AUC monitoring for vancomycin. AUC/JUSTEN is the preferred PK/PD target and is associated with decreased risk of nephrotoxicity compared to traditional trough targets.
[2024-07-28] MEDS: VANCOMYCIN HCL 2,750 MG in SODIUM CHLORIDE 0.9% 500 ML IV ONE (17:00)
--- NOTE | 2024-07-28 20:38 | Communication Note ---
Date of Service: July 28, 2024 Palliative Med Brief Note Tolerating transition to oral MS Contin with MSIR for BTP, mentation continues to improve off IV Still willing to go to rehab IV Abtx underway Recommend airway clearance therapies, OOB to chair, mobilize as often as possible. TS 22min Thank you for allowing us to participate in the ongoing care of this patient. Please page with any additional concerns. Roman Dyson DNP Director, Palliative Medicine
[2024-07-28] MEDS: PIPERACILLIN/TAZOBACTAM 4.5 GM/100 ML BAG IV SCH (21:15)
[2024-07-29] MEDS: VANCOMYCIN HCL 1,250 MG in SODIUM CHLORIDE 0.9% 250 ML IV SCH (05:46)
[2024-07-29 08:00] LABS: Basophils # (auto) 0.02 K/uL (0.00-0.20); Basophils % (auto) 0.3 %; Eosinophils # (auto) 0.14 K/uL (0.00-0.50); Eosinophils % (auto) 2.3 %; Hemoglobin 11.9 g/dl (14.0-18.0); Immature Granulocytes # (auto) 0.03 K/uL (0.01-0.20); Immature Granulocytes % (auto) 0.5 %; Lymphocytes # (auto) 0.79 K/uL (1.20-3.40); Lymphocytes % (auto) 12.8 %; Mean Corpuscular Hemoglobin 33.1 pg (25.0-34.0); Mean Corpuscular Hgb Conc 33.1 g/dL (32.0-36.0); Mean Platelet Volume 10.1 fL (9.4-12.4); Monocytes # (auto) 0.28 K/uL (0.11-0.59); Monocytes % (auto) 4.5 %; Neutrophils # (auto) 4.92 K/uL (1.40-6.50); Neutrophils % (auto) 79.6 %; Platelet Count 142 K/uL (130-400); RDW Coefficient of Variation 13.9 % (11.5-14.5); White Blood Count 6.18 K/ul (4.8-10.8)
[2024-07-29 08:18] LABS: BUN Creatinine Ratio 44.6 (10-20); Calcium 8.6 mg/dl (8.6-10.3); Creatinine Clr Calc Pharmacy 125.3 ml/min; Potassium 3.9 mmol/L (3.5-5.1)
[2024-07-29] MEDS: guaiFENesin 600 MG TABCR PO SCH (09:44)
--- NOTE | 2024-07-29 13:24 | Palliative Care Progress Note ---
Date of Service July 29, 2024 Assessment & Plan (1) Cancer related pain: Plan: Continue current regimen of MS Contin and MSIR, tolerating well No changes today (2) Therapeutic opioid-induced constipation (OIC): Plan: Some issues with likely OIC, will increase Senna S 2 tabs BID and add daily Miralax. Mineral oil suppository if no relief in 1-2 days (3) Dyspnea and respiratory abnormalities: (4) Advanced care planning/counseling discussion: Plan: 20 min face to face ACP discussion Haresh advises he has no new changes to his plan of care/preferences for care. Goal overall is to have QOL and gain some meaningful time with family while dealing with adv cancer which he is aware is not curable. Willing to try rehab with goal of getting to onc OP and trying a therapy to manage cancer and allow more time with QOL balance but if he has acute decline/worsening/not improving with rehab then he desires move to [facility] with [facility] if possible but is aware this cannot be done at home due to 's adv dementia and lack of caregivers. 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 Please page with any additional concerns. Roman Dyson DNP Director, Palliative Medicine Admission and Anticipated Discharge Date Admission Date: July 09, 2024 Subjective Haresh has used 2 PRN doses of MSIR Feels pain is manageable Awake and alert, taking PO but remains constipated, last BM ? 2 - 3 days ago denies abd pain, no n/v/d afebrile OOB to chair awaiting SNF rehab for dispo Review of Systems Review of Systems: All systems reviewed & are unremarkable except as noted in Subjective Physical Exam Constitutional: + acute distress, + ill appearing and + frail appearing Eyes: PERRL, conjunctivae normal, anicteric sclerae ENMT: Mouth: + dental caries, + poor dentition and + loose teeth Neck: trachea midline, no thyromegaly normal visual inspection and + limited neck extension Respiratory: + cough (intermittent), able to speak in complete sentences, + prolonged expiratory phase and symmetric chest movement Auscultation: + diminished lung sounds and + rhonchi Cardiovascular: Rate/Rhythm: + irregularly irregular Gastrointestinal (Abdomen): Inspection/Auscultation: normal bowel sounds and + significant pannus Percussion/Palpation: abdomen soft; abdomen nontender and no guarding Musculoskeletal: Head/Neck/Chest: + limited ROM of neck Spine: + limited cervical ROM, + limited thoraco-lumbar ROM, + pain with thoraco-lumbar ROM, + thoracic spinal tenderness and + lumbar spinal tenderness Extremities: + limited ROM of extremities and + abnormal strength Skin: + turgor decreased, + skin atrophy, + dr y skin, + excoriations, + hair thinning and + scarring alopecia; + abnormal skin elasticity Neurologic: awake Psychiatric: Orientation: alert, oriented to person, oriented to place, oriented to time and cooperative Speech: normal rate/rhythm/volume of speech Insight: good insight Judgment: good judgement Results & Data Vital Signs (Past 12 Hours) Vital Signs O2 Del Method O2 Flow Rate 07/29/24 07:37 Nasal Cannula 6 Laboratory Results 07/29/24 07/29/24 07/29/24 Range/Units 11:21 07:37 07:05 WBC 6.18 (4.8-10.8) K/ul RBC 3.60 L (4.70-6.10) M/uL Hgb 11.9 L (14.0-18.0) g/dl Hct 36.0 L (42.0-52.0) % MCV 100.0 (80.0-100.0) fL MCH 33.1 (25.0-34.0) pg MCHC 33.1 (32.0-36.0) g/dL RDW Std Deviation 51.0 H (36.4-46.3) fL RDW Coeff of Cindy 13.9 (11.5-14.5) % Plt Count 142 (130-400) K/uL MPV 10.1 (9.4-12.4) fL Immature Gran % (Auto) 0.5 % Neut % (Auto) 79.6 % Lymph % (Auto) 12.8 % [place] % (Auto) 4.5 % Eos % (Auto) 2.3 % Baso % (Auto) 0.3 % Neut # (Auto) 4.92 (1.40-6.50) K/uL Lymph # (Auto) 0.79 L (1.20-3.40) K/uL [place] # (Auto) 0.28 (0.11-0.59) K/uL Eos # (Auto) 0.14 (0.00-0.50) K/uL Baso # (Auto) 0.02 (0.00-0.20) K/uL Immature Gran # (Auto) 0.03 (0.01-0.20) K/uL Sodium 138 (136-145) mmol/L Potassium 3.9 (3.5-5.1) mmol/L Chloride 102 (98-107) mmol/L Carbon Dioxide 34 H (21-32) mmol/L Anion Gap 2 L (3-11) BUN 29 H (6-23) mg/dl Creatinine 0.65 (0.6-1.4) mg/dl Est Cr Clr Drug Dosing 125.3 ml/min eGFR 97.66 BUN/Creatinine Ratio 44.6 H (10-20) Glucose 97 (70-99(Fasting)) mg/dl POC Glucose 153 H 96 (70-99) mg/dl Calcium 8.6 (8.6-10.3) mg/dl Nasal Screen MRSA (PCR) (Negative) [facility] (IHC) Lung Tumor Pnl Analysis FISH Oncology MET Exon 14 Skipping IHC Stain and Interp 07/28/24 07/28/24 07/28/24 Range/Units Unknown 20:53 16:25 WBC (4.8-10.8) K/ul RBC (4.70-6.10) M/uL Hgb (14.0-18.0) g/dl Hct (42.0-52.0) % MCV (80.0-100.0) fL MCH (25.0-34.0) pg MCHC (32.0-36.0) g/dL RDW Std Deviation (36.4-46.3) fL RDW Coeff of Cindy (11.5-14.5) % Plt Count (130-400) K/uL MPV (9.4-12.4) fL Immature Gran % (Auto) % Neut % (Auto) % Lymph % (Auto) % [place] % (Auto) % Eos % (Auto) % Baso % (Auto) % Neut # (Auto) (1.40-6.50) K/uL Lymph # (Auto) (1.20-3.40) K/uL [place] # (Auto) (0.11-0.59) K/uL Eos # (Auto) (0.00-0.50) K/uL Baso # (Auto) (0.00-0.20) K/uL Immature Gran # (Auto) (0.01-0.20) K/uL Sodium (136-145) mmol/L Potassium (3.5-5.1) mmol/L Chloride (98-107) mmol/L Carbon Dioxide (21-32) mmol/L Anion Gap (3-11) BUN (6-23) mg/dl Creatinine (0.6-1.4) mg/dl Est Cr Clr Drug Dosing ml/min eGFR BUN/Creatinine Ratio (10-20) Glucose (70-99(Fasting)) mg/dl POC Glucose 91 258 H (70-99) mg/dl Calcium (8.6-10.3) mg/dl Nasal Screen MRSA (PCR) Positive A (Negative) [facility] (IHC) Lung Tumor Pnl Analysis FISH Oncology MET Exon 14 Skipping IHC Stain and Interp 07/28/24 07/28/24 07/28/24 Range/Units 11:22 07:00 06:58 WBC 10.69 (4.8-10.8) K/ul RBC 3.72 L (4.70-6.10) M/uL Hgb 12.2 L (14.0-18.0) g/dl Hct 36.2 L (42.0-52.0) % MCV 97.3 (80.0-100.0) fL MCH 32.8 (25.0-34.0) pg MCHC 33.7 (32.0-36.0) g/dL RDW Std Deviation 49.8 H (36.4-46.3) fL RDW Coeff of Cindy 14.0 (11.5-14.5) % Plt Count 141 (130-400) K/uL MPV 10.1 (9.4-12.4) fL Immature Gran % (Auto) % Neut % (Auto) % Lymph % (Auto) % [place] % (Auto) % Eos % (Auto) % Baso % (Auto) % Neut # (Auto) (1.40-6.50) K/uL Lymph # (Auto) (1.20-3.40) K/uL [place] # (Auto) (0.11-0.59) K/uL Eos # (Auto) (0.00-0.50) K/uL Baso # (Auto) (0.00-0.20) K/uL Immature Gran # (Auto) (0.01-0.20) K/uL Sodium 139 (136-145) mmol/L Potassium 3.7 (3.5-5.1) mmol/L Chloride 100 (98-107) mmol/L Carbon Dioxide 34 H (21-32) mmol/L Anion Gap 5 (3-11) BUN 38 H (6-23) mg/dl Creatinine 0.91 (0.6-1.4) mg/dl Est Cr Clr Drug Dosing 89.5 ml/min eGFR 87.35 BUN/Creatinine Ratio 41.8 H (10-20) Glucose 143 H (70-99(Fasting)) mg/dl POC Glucose 138 H 141 H (70-99) mg/dl Calcium 8.9 (8.6-10.3) mg/dl Nasal Screen MRSA (PCR) (Negative) [facility] (IHC) Lung Tumor Pnl Analysis FISH Oncology MET Exon 14 Skipping IHC Stain and Interp 07/27/24 07/27/24 07/27/24 Range/Units 20:30 16:38 11:42 WBC (4.8-10.8) K/ul RBC (4.70-6.10) M/uL Hgb (14.0-18.0) g/dl Hct (42.0-52.0) % MCV (80.0-100.0) fL MCH (25.0-34.0) pg MCHC (32.0-36.0) g/dL RDW Std Deviation (36.4-46.3) fL RDW Coeff of Cindy (11.5-14.5) % Plt Count (130-400) K/uL MPV (9.4-12.4) fL Immature Gran % (Auto) % Neut % (Auto) % Lymph % (Auto) % [place] % (Auto) % Eos % (Auto) % Baso % (Auto) % Neut # (Auto) (1.40-6.50) K/uL Lymph # (Auto) (1.20-3.40) K/uL [place] # (Auto) (0.11-0.59) K/uL Eos # (Auto) (0.00-0.50) K/uL Baso # (Auto) (0.00-0.20) K/uL Immature Gran # (Auto) (0.01-0.20) K/uL Sodium (136-145) mmol/L Potassium (3.5-5.1) mmol/L Chloride (98-107) mmol/L Carbon Dioxide (21-32) mmol/L Anion Gap (3-11) BUN (6-23) mg/dl Creatinine (0.6-1.4) mg/dl Est Cr Clr Drug Dosing ml/min eGFR BUN/Creatinine Ratio (10-20) Glucose (70-99(Fasting)) mg/dl POC Glucose 139 H 163 H 144 H (70-99) mg/dl Calcium (8.6-10.3) mg/dl Nasal Screen MRSA (PCR) (Negative) [facility] (IHC) Lung Tumor Pnl Analysis FISH Oncology MET Exon 14 Skipping IHC Stain and Interp 07/27/24 07/27/24 07/26/24 Range/Units 11:40 07:52 20:35 WBC (4.8-10.8) K/ul RBC (4.70-6.10) M/uL Hgb (14.0-18.0) g/dl Hct (42.0-52.0) % MCV (80.0-100.0) fL MCH (25.0-34.0) pg MCHC (32.0-36.0) g/dL RDW Std Deviation (36.4-46.3) fL RDW Coeff of Cindy (11.5-14.5) % Plt Count (130-400) K/uL MPV (9.4-12.4) fL Immature Gran % (Auto) % Neut % (Auto) % Lymph % (Auto) % [place] % (Auto) % Eos % (Auto) % Baso % (Auto) % Neut # (Auto) (1.40-6.50) K/uL Lymph # (Auto) (1.20-3.40) K/uL [place] # (Auto) (0.11-0.59) K/uL Eos # (Auto) (0.00-0.50) K/uL Baso # (Auto) (0.00-0.20) K/uL Immature Gran # (Auto) (0.01-0.20) K/uL Sodium (136-145) mmol/L Potassium (3.5-5.1) mmol/L Chloride (98-107) mmol/L Carbon Dioxide (21-32) mmol/L Anion Gap (3-11) BUN (6-23) mg/dl Creatinine (0.6-1.4) mg/dl Est Cr Clr Drug Dosing ml/min eGFR BUN/Creatinine Ratio (10-20) Glucose (70-99(Fasting)) mg/dl POC Glucose 136 H 130 H 143 H (70-99) mg/dl Calcium (8.6-10.3) mg/dl Nasal Screen MRSA (PCR) (Negative) [facility] (IHC) Lung Tumor Pnl Analysis FISH Oncology MET Exon 14 Skipping IHC Stain and Interp 07/26/24 07/26/24 07/26/24 Range/Units 16:36 11:25 07:59 WBC (4.8-10.8) K/ul RBC (4.70-6.10) M/uL Hgb (14.0-18.0) g/dl Hct (42.0-52.0) % MCV (80.0-100.0) fL MCH (25.0-34.0) pg MCHC (32.0-36.0) g/dL RDW Std Deviation (36.4-46.3) fL RDW Coeff of Cindy (11.5-14.5) % Plt Count (130-400) K/uL MPV (9.4-12.4) fL Immature Gran % (Auto) % Neut % (Auto) % Lymph % (Auto) % [place] % (Auto) % Eos % (Auto) % Baso % (Auto) % Neut # (Auto) (1.40-6.50) K/uL Lymph # (Auto) (1.20-3.40) K/uL [place] # (Auto) (0.11-0.59) K/uL Eos # (Auto) (0.00-0.50) K/uL Baso # (Auto) (0.00-0.20) K/uL Immature Gran # (Auto) (0.01-0.20) K/uL Sodium (136-145) mmol/L Potassium (3.5-5.1) mmol/L Chloride (98-107) mmol/L Carbon Dioxide (21-32) mmol/L Anion Gap (3-11) BUN (6-23) mg/dl Creatinine (0.6-1.4) mg/dl Est Cr Clr Drug Dosing ml/min eGFR BUN/Creatinine Ratio (10-20) Glucose (70-99(Fasting)) mg/dl POC Glucose 99 163 H 81 (70-99) mg/dl Calcium (8.6-10.3) mg/dl Nasal Screen MRSA (PCR) (Negative) [facility] (IHC) Lung Tumor Pnl Analysis FISH Oncology MET Exon 14 Skipping IHC Stain and Interp 07/26/24 07/26/24 07/25/24 Range/Units 07:27 06:57 20:25 WBC 6.58 (4.8-10.8) K/ul RBC 3.81 L (4.70-6.10) M/uL Hgb 12.9 L (14.0-18.0) g/dl Hct 37.2 L (42.0-52.0) % MCV 97.6 (80.0-100.0) fL MCH 33.9 (25.0-34.0) pg MCHC 34.7 (32.0-36.0) g/dL RDW Std Deviation 48.4 H (36.4-46.3) fL RDW Coeff of Cindy 13.4 (11.5-14.5) % Plt Count 140 (130-400) K/uL MPV 9.7 (9.4-12.4) fL Immature Gran % (Auto) % Neut % (Auto) % Lymph % (Auto) % [place] % (Auto) % Eos % (Auto) % Baso % (Auto) % Neut # (Auto) (1.40-6.50) K/uL Lymph # (Auto) (1.20-3.40) K/uL [place] # (Auto) (0.11-0.59) K/uL Eos # (Auto) (0.00-0.50) K/uL Baso # (Auto) (0.00-0.20) K/uL Immature Gran # (Auto) (0.01-0.20) K/uL Sodium 135 L (136-145) mmol/L Potassium 3.9 (3.5-5.1) mmol/L Chloride 99 (98-107) mmol/L Carbon Dioxide 32 (21-32) mmol/L Anion Gap 4 (3-11) BUN 20 (6-23) mg/dl Creatinine 0.53 L (0.6-1.4) mg/dl Est Cr Clr Drug Dosing 154.8 ml/min eGFR 103.86 BUN/Creatinine Ratio 37.7 H (10-20) Glucose 74 (70-99(Fasting)) mg/dl POC Glucose 68 L* 117 H (70-99) mg/dl Calcium 8.7 (8.6-10.3) mg/dl Nasal Screen MRSA (PCR) (Negative) [facility] (IHC) Lung Tumor Pnl Analysis FISH Oncology MET Exon 14 Skipping IHC Stain and Interp 07/25/24 07/25/24 07/25/24 Range/Units 16:59 11:57 08:06 WBC (4.8-10.8) K/ul RBC (4.70-6.10) M/uL Hgb (14.0-18.0) g/dl Hct (42.0-52.0) % MCV (80.0-100.0) fL MCH (25.0-34.0) pg MCHC (32.0-36.0) g/dL RDW Std Deviation (36.4-46.3) fL RDW Coeff of Cindy (11.5-14.5) % Plt Count (130-400) K/uL MPV (9.4-12.4) fL Immature Gran % (Auto) % Neut % (Auto) % Lymph % (Auto) % [place] % (Auto) % Eos % (Auto) % Baso % (Auto) % Neut # (Auto) (1.40-6.50) K/uL Lymph # (Auto) (1.20-3.40) K/uL [place] # (Auto) (0.11-0.59) K/uL Eos # (Auto) (0.00-0.50) K/uL Baso # (Auto) (0.00-0.20) K/uL Immature Gran # (Auto) (0.01-0.20) K/uL Sodium (136-145) mmol/L Potassium (3.5-5.1) mmol/L Chloride (98-107) mmol/L Carbon Dioxide (21-32) mmol/L Anion Gap (3-11) BUN (6-23) mg/dl Creatinine (0.6-1.4) mg/dl Est Cr Clr Drug Dosing ml/min eGFR BUN/Creatinine Ratio (10-20) Glucose (70-99(Fasting)) mg/dl POC Glucose 88 182 H 110 H (70-99) mg/dl Calcium (8.6-10.3) mg/dl Nasal Screen MRSA (PCR) (Negative) [facility] (IHC) Lung Tumor Pnl Analysis FISH Oncology MET Exon 14 Skipping IHC Stain and Interp 07/25/24 07/24/24 07/24/24 Range/Units 06:33 20:30 16:52 WBC 8.66 (4.8-10.8) K/ul RBC 3.64 L (4.70-6.10) M/uL Hgb 12.2 L (14.0-18.0) g/dl Hct 35.5 L (42.0-52.0) % MCV 97.5 (80.0-100.0) fL MCH 33.5 (25.0-34.0) pg MCHC 34.4 (32.0-36.0) g/dL RDW Std Deviation 48.5 H (36.4-46.3) fL RDW Coeff of Cindy 13.5 (11.5-14.5) % Plt Count 131 (130-400) K/uL MPV 9.8 (9.4-12.4) fL Immature Gran % (Auto) % Neut % (Auto) % Lymph % (Auto) % [place] % (Auto) % Eos % (Auto) % Baso % (Auto) % Neut # (Auto) (1.40-6.50) K/uL Lymph # (Auto) (1.20-3.40) K/uL [place] # (Auto) (0.11-0.59) K/uL Eos # (Auto) (0.00-0.50) K/uL Baso # (Auto) (0.00-0.20) K/uL Immature Gran # (Auto) (0.01-0.20) K/uL Sodium 135 L (136-145) mmol/L Potassium 3.8 (3.5-5.1) mmol/L Chloride 98 (98-107) mmol/L Carbon Dioxide 33 H (21-32) mmol/L Anion Gap 4 (3-11) BUN 24 H (6-23) mg/dl Creatinine 0.59 L (0.6-1.4) mg/dl Est Cr Clr Drug Dosing 139.1 ml/min eGFR 100.55 BUN/Creatinine Ratio 40.7 H (10-20) Glucose 86 (70-99(Fasting)) mg/dl POC Glucose 137 H 108 H (70-99) mg/dl Calcium 8.7 (8.6-10.3) mg/dl Nasal Screen MRSA (PCR) (Negative) [facility] (IHC) Lung Tumor Pnl Analysis FISH Oncology MET Exon 14 Skipping IHC Stain and Interp 07/24/24 07/24/24 07/23/24 Range/Units 11:42 07:34 Unknown WBC (4.8-10.8) K/ul RBC (4.70-6.10) M/uL Hgb (14.0-18.0) g/dl Hct (42.0-52.0) % MCV (80.0-100.0) fL MCH (25.0-34.0) pg MCHC (32.0-36.0) g/dL RDW Std Deviation (36.4-46.3) fL RDW Coeff of Cindy (11.5-14.5) % Plt Count (130-400) K/uL MPV (9.4-12.4) fL Immature Gran % (Auto) % Neut % (Auto) % Lymph % (Auto) % [place] % (Auto) % Eos % (Auto) % Baso % (Auto) % Neut # (Auto) (1.40-6.50) K/uL Lymph # (Auto) (1.20-3.40) K/uL [place] # (Auto) (0.11-0.59) K/uL Eos # (Auto) (0.00-0.50) K/uL Baso # (Auto) (0.00-0.20) K/uL Immature Gran # (Auto) (0.01-0.20) K/uL Sodium (136-145) mmol/L Potassium (3.5-5.1) mmol/L Chloride (98-107) mmol/L Carbon Dioxide (21-32) mmol/L Anion Gap (3-11) BUN (6-23) mg/dl Creatinine (0.6-1.4) mg/dl Est Cr Clr Drug Dosing ml/min eGFR BUN/Creatinine Ratio (10-20) Glucose (70-99(Fasting)) mg/dl POC Glucose 179 H 87 (70-99) mg/dl Calcium (8.6-10.3) mg/dl Nasal Screen MRSA (PCR) (Negative) [facility] (IHC) Pending Lung Tumor Pnl Analysis Pending FISH Oncology Pending MET Exon 14 Skipping Pending IHC Stain and Interp Pending 07/23/24 07/23/24 07/23/24 Range/Units 20:27 16:55 11:39 WBC (4.8-10.8) K/ul RBC (4.70-6.10) M/uL Hgb (14.0-18.0) g/dl Hct (42.0-52.0) % MCV (80.0-100.0) fL MCH (25.0-34.0) pg MCHC (32.0-36.0) g/dL RDW Std Deviation (36.4-46.3) fL RDW Coeff of Cindy (11.5-14.5) % Plt Count (130-400) K/uL MPV (9.4-12.4) fL Immature Gran % (Auto) % Neut % (Auto) % Lymph % (Auto) % [place] % (Auto) % Eos % (Auto) % Baso % (Auto) % Neut # (Auto) (1.40-6.50) K/uL Lymph # (Auto) (1.20-3.40) K/uL [place] # (Auto) (0.11-0.59) K/uL Eos # (Auto) (0.00-0.50) K/uL Baso # (Auto) (0.00-0.20) K/uL Immature Gran # (Auto) (0.01-0.20) K/uL Sodium (136-145) mmol/L Potassium (3.5-5.1) mmol/L Chloride (98-107) mmol/L Carbon Dioxide (21-32) mmol/L Anion Gap (3-11) BUN (6-23) mg/dl Creatinine (0.6-1.4) mg/dl Est Cr Clr Drug Dosing ml/min eGFR BUN/Creatinine Ratio (10-20) Glucose (70-99(Fasting)) mg/dl POC Glucose 115 H 135 H 120 H (70-99) mg/dl Calcium (8.6-10.3) mg/dl Nasal Screen MRSA (PCR) (Negative) [facility] (IHC) Lung Tumor Pnl Analysis FISH Oncology MET Exon 14 Skipping IHC Stain and Interp 07/23/24 07/22/24 07/22/24 Range/Units 07:46 20:23 16:41 WBC (4.8-10.8) K/ul RBC (4.70-6.10) M/uL Hgb (14.0-18.0) g/dl Hct (42.0-52.0) % MCV (80.0-100.0) fL MCH (25.0-34.0) pg MCHC (32.0-36.0) g/dL RDW Std Deviation (36.4-46.3) fL RDW Coeff of Cindy (11.5-14.5) % Plt Count (130-400) K/uL MPV (9.4-12.4) fL Immature Gran % (Auto) % Neut % (Auto) % Lymph % (Auto) % [place] % (Auto) % Eos % (Auto) % Baso % (Auto) % Neut # (Auto) (1.40-6.50) K/uL Lymph # (Auto) (1.20-3.40) K/uL [place] # (Auto) (0.11-0.59) K/uL Eos # (Auto) (0.00-0.50) K/uL Baso # (Auto) (0.00-0.20) K/uL Immature Gran # (Auto) (0.01-0.20) K/uL Sodium (136-145) mmol/L Potassium (3.5-5.1) mmol/L Chloride (98-107) mmol/L Carbon Dioxide (21-32) mmol/L Anion Gap (3-11) BUN (6-23) mg/dl Creatinine (0.6-1.4) mg/dl Est Cr Clr Drug Dosing ml/min eGFR BUN/Creatinine Ratio (10-20) Glucose (70-99(Fasting)) mg/dl POC Glucose 94 136 H 160 H (70-99) mg/dl Calcium (8.6-10.3) mg/dl Nasal Screen MRSA (PCR) (Negative) [facility] (IHC) Lung Tumor Pnl Analysis FISH Oncology MET Exon 14 Skipping IHC Stain and Interp Diagnostic Findings Lumbar Spine CT 07/06/24 21:25 Exam(s): CT L SPINE EXAM: CT Lumbar Spine Without Intravenous Contrast CLINICAL HISTORY: Reason for exam: lumbar back pain, fall. TECHNIQUE: Axial computed tomography images of the lumbar spine without intravenous contrast. CTDI is 39 mGy and DLP is 1343 mGy-cm. Automated exposure control was utilized for the study. A dose lowering technique was utilized adhering to the principles of ALARA. COMPARISON: No relevant prior studies available. 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 Previous measurements: 3.1 x 3.3 x 7.0 cm. There is a chronic appearing T12 compression fracture with approximately 25% anterior height loss. No acute fracture or osseous destruction identified. Discs/spinal canal/neural foramina: There is multilevel thoracolumbar degenerative disc disease with marginal osteophytes and vacuum disc changes noted throughout the lumbar spine. There is a large circumferential disc osteophyte complex at L5-S1 with moderate to severe bilateral foraminal stenosis noted at L2-3 through L5-S1. Soft tissues: Unremarkable. Vasculature: There are moderate aortic atherosclerotic calcifications. Lungs: There is patchy nodular bilateral basilar airspace consolidation. IMPRESSION: 1. There is an enlarging 3.0 x 4.0 x 7.7 cm cm retrocrural periaortic alphonse mass at the level of the lower thoracic and upper lumbar spine. 2. There is a chronic appearing T12 compression fracture with approximately 25% anterior height loss. Electronically signed by: Rafa Najera MD 07/07/24 00:[address] 07/06/24 21:28 Exam(s): CT PELVIS Without Contrast EXAM: CT Pelvis Without Intravenous Contrast CLINICAL HISTORY: Reason for exam: posterior pelvis pain, fall. TECHNIQUE: Axial computed tomography images of the pelvis without intravenous contrast. CTDI is 39 mGy and DLP is 1343 mGy-cm. Automated exposure control was utilized for the study. A dose lowering technique was utilized adhering to the principles of ALARA. COMPARISON: No relevant prior studies available. FINDINGS: Bowel: Unremarkable. No obstruction. No mucosal thickening. Appendix: No findings to suggest acute appendicitis. Intraperitoneal space: The urinary bladder is distended.. No pelvic mass or free fluid identified. No free air. Bladder: Unremarkable. No stones. Reproductive: Unremarkable as visualized. Bones/joints: There is advanced lower lumbar degenerative disc disease. There are generalized decreased bony mineralization. No acute fracture or destructive osseous abnormality of the pelvis identified. No dislocation. Soft tissues: Unremarkable. Vasculature: Unremarkable. No lower abdominal aortic aneurysm. Lymph nodes: Unremarkable. No enlarged lymph nodes. IMPRESSION: 1. No acute fracture or destructive osseous abnormality of the pelvis identified. 2. The urinary bladder is distended.. 3. There is advanced lower lumbar degenerative disc disease. 4. There are generalized decreased bony mineralization. Electronically signed by: Rafa Najera MD 07/07/24 00:[address] 07/14/24 12:59 CT OF THE THORACIC SPINE CLINICAL HISTORY: severe back pain, retrocrural mass, compression Fx COMPARISON STUDY: Chest CT June 23, 2024. TECHNIQUE: Helical axial images of the thoracic spine were obtained. Sagittal and coronal reconstructions were viewed. Automated exposure control was utilized for the study. A dose lowering technique was utilized adhering to the principles of ALARA. FINDINGS: Alignment of the thoracic spine is anatomic. There are compression fractures involving the superior endplates of T2, T4, T9 and T12. Moderate loss of height of the T9 and T12 vertebra is noted. There is mild loss of height of the T2 and T4 vertebral bodies. There is no retropulsion. These fractures are similar to chest CT of June 23, 2024 and were also present on CT of November 13, 2022. No interval fractures are present. Central canal and neural foramen are suboptimally assessed given CT technique. No overtly suspicious osseous lesions are identified within the thoracic spine. There is mild multilevel disc space narrowing and moderate osteophytosis within the thoracic spine. Facet joints are intact. Innumerable pulmonary lesions are partially on this exam. These are better depicted on chest CT of June 23, 2024. There is underlying emphysema. A hypodense 6.6 x 3.6 x 3.6 cm retrocrural abnormalities present. This measures near water attenuation. IMPRESSION: 1. No acute thoracic spine fracture or subluxation. 2. Multiple old thoracic spine compression fractures, as described above. 3. Mild multilevel degenerative disc disease and facet arthrosis within the thoracic spine. 4. Partially visualized innumerable pulmonary lesions. These are likely neoplastic and suspicious for metastatic disease. 5. Indeterminate hypodense 6.6 x 3.6 x 3.6 cm retrocrural lesion. ACT 112: Negative or not required by law. Electronically signed by: Orion Goodrich M.D. 07/14/2024 3:52 PM Hip/Pelvis X-Ray 07/16/24 17:59 EXAM: Radiographs of the Left Hip 3 Views INDICATION: Left calf pain. TECHNIQUE: Front view pelvis and AP and frog leg lateral views of the left hip. COMPARISON: Pelvic CT 07/06/2024 FINDINGS: Limitations: None. Bones/joints: The pelvis is tilted to the right. There is mild symmetrical narrowing of the medial acetabular joints. Femoral heads intact. There is an oblique lucency across the intertrochanteric femur. There are similar lucencies in different obliquity which are clearly skin folds. Degenerative changes noted in the lower lumbar segments visualized. Soft tissues: No abnormality noted. No radiopaque foreign body noted. Vasculature: Atherosclerotic calcification in the groin. IMPRESSION: Oblique lucency across the intertrochanteric left femur is thought to be artifact. However, a hairline fracture is not completely excluded. If additional imaging is clinically warranted, CT is the modality of choice. ACT 112: Negative or not required by law. Electronically signed by Beverly Cardenas 07-16-2024 7:[address] 07/16/24 19:23 CT hip LT wo con HISTORY: 74 years-old Male abnl L hip x-rays, pain; fracture? COMPARISON: CT pelvis 07/06/2024 TECHNIQUE: Multiple axial CT images of the left hip were obtained without IV contrast. A dose lowering technique was used consistent with the principals of ALARA. FINDINGS: Decompressed urinary bladder with wall thickening. Prostatomegaly. No acute intrapelvic abnormality identified. Arterial calcifications. Unremarkable soft tissues and musculature. No hip joint effusion. 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 No acute fracture, dislocation, avascular necrosis or suspicious bone lesion. IMPRESSION: [id number] osteoarthritis of the left hip without acute fracture or dislocation. ACT 112: Negative or not required by law. The above report was generated using voice recognition software. It may contain grammatical, syntax or spelling errors. Electronically signed by: John Nichols M.D. 07/17/2024 2:[address] 07/17/24 13:00 CT-guided right lung mass core biopsy INDICATION: Bilateral lung masses PROCEDURE: Procedure and risks were explained. Informed consent was obtained. A final timeout was completed. Percutaneous biopsy was originally attempted on July 16, 2024, but this was unsuccessful due to patient movement/discomfort. The patient was then brought back today on July 17, 2024 for percutaneous lung biopsy with anesthesia. The patient was placed in a left decubitus position on the CT exam table. The right thorax was prepped and draped in sterile fashion. 1% lidocaine was utilized for skin anesthesia. The patient received monitored anesthesia care throughout the procedure. Utilizing CT guidance, a 19-gauge coaxial needle was advanced into the right lung mass. A 20-gauge core biopsy needle was advanced, and 2 cores were obtained and given to the pathologist for review. The coaxial needle was removed and Band-Aid applied. The patient tolerated the procedure well. Post CT imaging demonstrated no evidence for bleeding/pneumothorax. A chest x-ray will be obtained to hours post procedure and vital signs will be monitored via anesthesia protocol. IMPRESSION: Right lung mass core biopsy as above. Performed, dictated, and signed by Shawn Hernadez PA-C; to be co-signed by Dr. John Nichols. Electronically signed by: John Nichols M.D. 07/17/2024 2:55 PM Chest X-Ray 07/28/24 11:13 XR chest 1V portable CLINICAL HISTORY: increasing O2 need, r/o pna, effusion COMPARISON STUDY: 07/17/2024 FINDINGS: Multiple bilateral masslike densities are once again noted in the lung contreras. There is subtle increased parenchymal density identified within the left lung base compared with the prior examination. There is no pleural effusion. There is no pneumothorax. Mild cardiomegaly and pulmonary vascular congestion are persistent. Multiple lead pacing/defibrillating device once again noted. IMPRESSION: Findings suspicious for left lower lobe infiltrate. ACT 112: Negative or not required by law. Electronically signed by: Mya Vila M.D. 07/28/2024 11:57 AM PG Care Time/CCT Total # of Minutes Spent Total Time Spent with Patient: Total time spent is greater than 50% in coordination of care (as documented) at patient's floor/unit and/or counseling patient: I spent 60 minutes overall addressing this case: 5 min in medical data review/discussion with referring provider(s) and/or preparation for the visit 15min in direct interaction with the patient/exam 20 min in Advance Care Planning/Goals of Care discussions as detailed above in note (must be >16min) 10 min in subsequent review and synthesis of assessment and plan 10 min communicating with other providers regarding the patient's case: nursing, primary team, care mgt Advanced Care Planning 84236 Advanced Care Planning 30 [place] [address] SUB INP/OBS CARE 3/50MIN (25 - SIGNIFICANT, SEPARATELY IDENTIFIABLE ) Patient Type Established Medical Decision Making High Complexity Diagnoses Cancer related pain G89.3 Therapeutic opioid-induced constipation (OIC) K59.03; T40.2X5A Dyspnea and respiratory abnormalities R06.00; R06.89 Advanced care planning/counseling discussion Z71.89 Weakness generalized R53.1 Recurrent falls R29.6 Palliative care by specialist Z51.5 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
--- NOTE | 2024-07-29 13:28 | Hospitalist Progress Note ---
Date of Service July 29, 2024 Assessment & Plan (1) Intractable back pain: (2) Mucinous adenocarcinoma of lung: (3) Left hip pain: (4) Chronic systolic CHF (congestive heart failure): (5) Diabetes mellitus, type 2: Plan Haresh Morris is a 74yo male with history of HTN, DM, COPD, AF and FREDRICK presenting with generalized weakness and intractable back pain. Inability to stand or ambulate secondary to pain. Unable to obtain MRI due to incompatible pacemaker. Lumbar/thoracic Spine CT showed considerable DJD, but no metastatic disease. With known pulmonary lesions and retrocrural mass from imaging from prior admission. Was seen by pulmonology, biopsy arranged, confirming mucinous adenocarcinoma. Completed a course of prednisone, but was still struggling with pain control with multiple modalities (tylenol/oxy/baclofen/butrans patch) and palliative care was consulted. Was briefly on morphine TERRAZZO LAYER but this has been weaned off d/t lethargy. Seen by heme/onc, would not be a good candidate for chemotherapy, but possible for immunotherapy or targeted treatment. 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 PRN Tylenol. Heme onc consulted- Possible immunotheapy candidate. PD-L1 testing and molecular testing pending. Asked to revisit 07/29 to help patient with decision making process, would want to get head imaging before d/c if going to pursue treatment. 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 Bowel regimen added. PT/OT - recommend rehab, worked with PT/OT 07/29, asked CM to restart process for rehab changed tylenol to prn, stopped baclofen. #Pneumonia Seen on CXR 07/28 - will treat as HAP Continue Zosyn. MRSA swab positive- continue vancomycin Mucinex PO q12. FV. wean O2 as able - suspect will have O2 needs at discharge #Left hip pain Left Hip CT: no fx. moderate OA Pain control as above. #CHF EF 45% last Echo 03/31/24 with regional [facility] Continue Coreg and PO Bumex Consider SOREN/ARB therapy - but currently BP cannot tolerate #DMT2 a1c 6.3% in 03/2024. No home medications with lows - Lantus decreased to 5mg daily still having some lows. Now that off steroids, will d/c lantus and just use SSI BPH: Flomax 0.4mg, Finasteride 5mg HLD: Statin Alcohol use disorder - no symptoms of withdrawal while inpatient, will decrease thiamine to daily, had 20 days of 200mg BID, likely does not need to continue at discharge Groin rash: nystatin powder FREDRICK: declines use of hospital issued CPAP A fib: Coreg, Xarelto COPD: duonebs prn Pt has been on scheduled hydroxyzine since admission, unclear exactly what this is used for, conflicting information in prior notes. Called pharmacy it is ordered 3-4 times a day prn. Will change to prn for itching. Dispo: continued inpatient stay, no escalation of care from current, working on rehab placement Dvt proh: Home [facility] DaughterChuck ([phone]) not wanting to be involved in decision making. Sister has been helpful with decision making. daughter and updated at bedside 07/27 Admission and Anticipated Discharge Date Admission Date: July 09, 2024 Supervising Physician Co-Signing Physician Notes PA Supervision Note: I did not personally see or examine the patient today, but I verified all harden points of VIDAL Hansen's assessment and plan with the following exceptions/additions: None Subjective Patient seen lying in bed, more alert today and thought are less tangential. He understands he is being treated for pneumonia. He does not feel like he has been coughing today. Tells me he is agreeable to rehab Unsure if he would want immunotherapy - states if it is going to cost thousands of dollars and only give me four more weeks he would not want it Reports pain is controlled Review of Systems Review of Systems: All systems reviewed & are unremarkable except as noted in Subjective Physical Exam Physical Exam: General: NAD, VS as above Resp: normal respiratory effort, 4L NC, dimiished in bases, no coughing during interview CV: RRR, no murmur, Abd: normal bowel sounds, non tender,soft Extremities: Moves all extremities,trace LE edema Results & Data Results & Data Vital Signs (Past 12 Hours) Vital Signs O2 Del Method O2 Flow Rate 07/29/24 07:37 Nasal Cannula 6 Laboratory Results cbc and chemistry reviewed PG Care Time/CCT Total # of Minutes Spent Total Time Spent with Patient: Total time spent is greater than 50% in coordination of care (as documented) at patient's floor/unit and/or counseling patient: Coding Level of Care Code 95120 SUB INP/OBS CARE 3/50MIN Diagnoses Intractable back pain M54.9 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
[2024-07-29] MEDS ORDERED: hydrOXYzine HCl 25 MG TAB PO PRN (13:45)
[2024-07-29] MEDS: POLYETHYLENE (MIRALAX) 17 GM PACK PO SCH (13:50)
[2024-07-29] MEDS ORDERED: ACETAMINOPHEN 500 MG TAB PO PRN (15:32)
[2024-07-29] MEDS: carvediloL 12.5 MG TAB PO ONE (21:03)
[2024-07-29] MEDS: DOCUSATE SODIUM/SENNA 50/8.6MG TAB PO SCH (21:07)
--- NOTE | 2024-07-30 09:10 | Palliative Care Progress Note ---
Date of Service July 30, 2024 Assessment & Plan (1) Cancer related pain: Plan: Pt reports pain well managed on current regimen, does express some anticipatory and breakthrough pain with activity, minimal PRN use noted. Continue current regimen of MS Contin and MSIR, tolerating well No changes today (2) Therapeutic opioid-induced constipation (OIC): Plan: Some issues with likely OIC, educated pt on need for preventative therapy while on opiod medications. Had small BM today. Continue Senna S 2 tabs BID and daily Miralax. (3) Dyspnea and respiratory abnormalities: Plan: Pt c/o pain with deep inspiration, continue pain mgmt as above. (4) Advanced care planning/counseling discussion: Plan: Pt reinforced his desire for rehab and continuing cancer directed treatments with goal of more time and QOLat home with his . Patient exhibits current possession of decisional capacity based on the ability to convey understanding of personal PMHx, current medical condition, treatment options and the risks / benefits of those options, as well as ability to make decisions based on such knowledge. Pt does not require a proxy for medical decisions. Per PA [id number], in absence of written documentation of patient wishes, pt's proxy for medical decisions would be his , however she suffers from advanced dementia. Pt has verbally expressed that he trusts and would like his sister as his proxy for medical decisions in event he lacks decisional capacity during this or any future admission. This is consistent with previous ACP meeting as documented by other HCPs. (5) Weakness generalized: Plan: encourage PO nutrition/hydration and OOB/Pt/OT as able. (6) Palliative care by specialist: Plan: Pt agreeable to ongoing palliative care involvement in his care for Sx management and navigation throughout disease progression. Plan As Above Admission and Anticipated Discharge Date Admission Date: July 09, 2024 Review of Systems Review of Systems: All systems reviewed & are unremarkable except as noted in Subjective Physical Exam Physical Exam: General: NAD, VS as above Resp: normal respiratory effort, 4L NC, dimiished in bases, no coughing during interview CV: RRR, no murmur, Abd: normal bowel sounds, non tender,soft Extremities: Moves all extremities,trace LE edema Results & Data Vital Signs (Past 12 Hours) Vital Signs Temp Pulse Resp BP BP Pulse Ox O2 Del Method 07/30/24 07:45 37 C 81 20 140/79 91 Nasal Cannula 01/29/25 22:11 37 C 73 20 135/78 95 Nasal Cannula O2 Flow Rate 07/30/24 07:45 07/29/24 22:11 3 Laboratory Results Abnormal lab results 07/29/24 07/29/24 07/30/24 Range/Units 16:26 20:47 07:51 POC Glucose 104 H 105 H 115 H (70-99) mg/dl Diagnostic Findings Lumbar Spine CT 07/06/24 21:25 Exam(s): CT L SPINE EXAM: CT Lumbar Spine Without Intravenous Contrast CLINICAL HISTORY: Reason for exam: lumbar back pain, fall. TECHNIQUE: Axial computed tomography images of the lumbar spine without intravenous contrast. CTDI is 39 mGy and DLP is 1343 mGy-cm. Automated exposure control was utilized for the study. A dose lowering technique was utilized adhering to the principles of ALARA. COMPARISON: No relevant prior studies available. 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 Previous measurements: 3.1 x 3.3 x 7.0 cm. There is a chronic appearing T12 compression fracture with approximately 25% anterior height loss. No acute fracture or osseous destruction identified. Discs/spinal canal/neural foramina: There is multilevel thoracolumbar degenerative disc disease with marginal osteophytes and vacuum disc changes noted throughout the lumbar spine. There is a large circumferential disc osteophyte complex at L5-S1 with moderate to severe bilateral foraminal stenosis noted at L2-3 through L5-S1. Soft tissues: Unremarkable. Vasculature: There are moderate aortic atherosclerotic calcifications. Lungs: There is patchy nodular bilateral basilar airspace consolidation. IMPRESSION: 1. There is an enlarging 3.0 x 4.0 x 7.7 cm cm retrocrural periaortic alphonse mass at the level of the lower thoracic and upper lumbar spine. 2. There is a chronic appearing T12 compression fracture with approximately 25% anterior height loss. Electronically signed by: Rafa Najera MD 07/07/24 00:[address] 07/06/24 21:28 Exam(s): CT PELVIS Without Contrast EXAM: CT Pelvis Without Intravenous Contrast CLINICAL HISTORY: Reason for exam: posterior pelvis pain, fall. TECHNIQUE: Axial computed tomography images of the pelvis without intravenous contrast. CTDI is 39 mGy and DLP is 1343 mGy-cm. Automated exposure control was utilized for the study. A dose lowering technique was utilized adhering to the principles of ALARA. COMPARISON: No relevant prior studies available. FINDINGS: Bowel: Unremarkable. No obstruction. No mucosal thickening. Appendix: No findings to suggest acute appendicitis. Intraperitoneal space: The urinary bladder is distended.. No pelvic mass or free fluid identified. No free air. Bladder: Unremarkable. No stones. Reproductive: Unremarkable as visualized. Bones/joints: There is advanced lower lumbar degenerative disc disease. There are generalized decreased bony mineralization. No acute fracture or destructive osseous abnormality of the pelvis identified. No dislocation. Soft tissues: Unremarkable. Vasculature: Unremarkable. No lower abdominal aortic aneurysm. Lymph nodes: Unremarkable. No enlarged lymph nodes. IMPRESSION: 1. No acute fracture or destructive osseous abnormality of the pelvis identified. 2. The urinary bladder is distended.. 3. There is advanced lower lumbar degenerative disc disease. 4. There are generalized decreased bony mineralization. Electronically signed by: Rafa Najera MD 07/07/24 00:[address] 07/14/24 12:59 CT OF THE THORACIC SPINE CLINICAL HISTORY: severe back pain, retrocrural mass, compression Fx COMPARISON STUDY: Chest CT June 23, 2024. TECHNIQUE: Helical axial images of the thoracic spine were obtained. Sagittal and coronal reconstructions were viewed. Automated exposure control was utilized for the study. A dose lowering technique was utilized adhering to the principles of ALARA. FINDINGS: Alignment of the thoracic spine is anatomic. There are compression fractures involving the superior endplates of T2, T4, T9 and T12. Moderate loss of height of the T9 and T12 vertebra is noted. There is mild loss of height of the T2 and T4 vertebral bodies. There is no retropulsion. These fractures are similar to chest CT of June 23, 2024 and were also present on CT of November 13, 2022. No interval fractures are present. Central canal and neural foramen are suboptimally assessed given CT technique. No overtly suspicious osseous lesions are identified within the thoracic spine. There is mild multilevel disc space narrowing and moderate osteophytosis within the thoracic spine. Facet joints are intact. Innumerable pulmonary lesions are partially on this exam. These are better depicted on chest CT of June 23, 2024. There is underlying emphysema. A hypodense 6.6 x 3.6 x 3.6 cm retrocrural abnormalities present. This measures near water attenuation. IMPRESSION: 1. No acute thoracic spine fracture or subluxation. 2. Multiple old thoracic spine compression fractures, as described above. 3. Mild multilevel degenerative disc disease and facet arthrosis within the thoracic spine. 4. Partially visualized innumerable pulmonary lesions. These are likely neoplastic and suspicious for metastatic disease. 5. Indeterminate hypodense 6.6 x 3.6 x 3.6 cm retrocrural lesion. ACT 112: Negative or not required by law. Electronically signed by: Orion Goodrich M.D. 07/14/2024 3:52 PM Hip/Pelvis X-Ray 07/16/24 17:59 EXAM: Radiographs of the Left Hip 3 Views INDICATION: Left calf pain. TECHNIQUE: Front view pelvis and AP and frog leg lateral views of the left hip. COMPARISON: Pelvic CT 07/06/2024 FINDINGS: Limitations: None. Bones/joints: The pelvis is tilted to the right. There is mild symmetrical narrowing of the medial acetabular joints. Femoral heads intact. There is an oblique lucency across the intertrochanteric femur. There are similar lucencies in different obliquity which are clearly skin folds. Degenerative changes noted in the lower lumbar segments visualized. Soft tissues: No abnormality noted. No radiopaque foreign body noted. Vasculature: Atherosclerotic calcification in the groin. IMPRESSION: Oblique lucency across the intertrochanteric left femur is thought to be artifact. However, a hairline fracture is not completely excluded. If additional imaging is clinically warranted, CT is the modality of choice. ACT 112: Negative or not required by law. Electronically signed by Beverly Cardenas 07-16-2024 7:[address] 07/16/24 19:23 CT hip LT wo con HISTORY: 74 years-old Male abnl L hip x-rays, pain; fracture? COMPARISON: CT pelvis 07/06/2024 TECHNIQUE: Multiple axial CT images of the left hip were obtained without IV contrast. A dose lowering technique was used consistent with the principals of ALARA. FINDINGS: Decompressed urinary bladder with wall thickening. Prostatomegaly. No acute intrapelvic abnormality identified. Arterial calcifications. Unremarkable soft tissues and musculature. No hip joint effusion. Ekct-ug-[id number] osteoarthritis of the left femoral acetabular joint. No acute fracture, dislocation, avascular necrosis or suspicious bone lesion. IMPRESSION: Imvp-[id number] osteoarthritis of the left hip without acute fracture or dislocation. ACT 112: Negative or not required by law. The above report was generated using voice recognition software. It may contain grammatical, syntax or spelling errors. Electronically signed by: John Nichols M.D. 07/17/2024 2:[address] 07/17/24 13:00 CT-guided right lung mass core biopsy INDICATION: Bilateral lung masses PROCEDURE: Procedure and risks were explained. Informed consent was obtained. A final timeout was completed. Percutaneous biopsy was originally attempted on July 16, 2024, but this was unsuccessful due to patient movement/discomfort. The patient was then brought back today on July 17, 2024 for percutaneous lung biopsy with anesthesia. The patient was placed in a left decubitus position on the CT exam table. The right thorax was prepped and draped in sterile fashion. 1% lidocaine was utilized for skin anesthesia. The patient received monitored anesthesia care throughout the procedure. Utilizing CT guidance, a 19-gauge coaxial needle was advanced into the right lung mass. A 20-gauge core biopsy needle was advanced, and 2 cores were obtained and given to the pathologist for review. The coaxial needle was removed and Band-Aid applied. The patient tolerated the procedure well. Post CT imaging demonstrated no evidence for bleeding/pneumothorax. A chest x-ray will be obtained to hours post procedure and vital signs will be monitored via anesthesia protocol. IMPRESSION: Right lung mass core biopsy as above. Performed, dictated, and signed by Shawn Hernadez PA-C; to be co-signed by Dr. John Nichols. Electronically signed by: John Nichols M.D. 07/17/2024 2:55 PM Chest X-Ray 07/28/24 11:13 XR chest 1V portable CLINICAL HISTORY: increasing O2 need, r/o pna, effusion COMPARISON STUDY: 07/17/2024 FINDINGS: Multiple bilateral masslike densities are once again noted in the lung contreras. There is subtle increased parenchymal density identified within the left lung base compared with the prior examination. There is no pleural effusion. There is no pneumothorax. Mild cardiomegaly and pulmonary vascular congestion are persistent. Multiple lead pacing/defibrillating device once again noted. IMPRESSION: Findings suspicious for left lower lobe infiltrate. ACT 112: Negative or not required by law. Electronically signed by: Mya Vila M.D. 07/28/2024 11:57 AM Medications Administered Current Inpatient Medications Acetaminophen (Acetaminophen 500 Mg Tab) 1,000 mg PO TID PRN PRN Reason: Mild Pain (Scale 1, 2, 3) Stop: 08/06/24 08:59 Albuterol (Albut/Ipratrop 3mg/0.5mg Neb 3 Ml Vial) 3 ml NEB Q4 PRN; Protocol PRN Reason: Shortness Of Breath Or Wheezing Stop: 08/20/24 11:27 Allopurinol (Allopurinol 300 Mg Tab) 300 mg PO HS EUGENE Stop: 08/06/24 20:59 Last Admin: 07/29/24 21:03 Dose: 300 mg Bumetanide (Bumetanide 1 Mg Tab) 1 mg PO QAM EUGENE Stop: 08/21/24 08:59 Last Admin: 07/30/24 07:47 Dose: 1 mg Carvedilol (Carvedilol 12.5 Mg Tab) 12.5 mg PO QAM EUGENE Stop: 08/06/24 08:59 Last Admin: 07/30/24 07:47 Dose: 12.5 mg Carvedilol (Carvedilol 25 Mg Tab) 25 mg PO PM EUGENE Stop: 08/06/24 20:59 Last Admin: 07/28/24 21:17 Dose: 25 mg Dextrose (Dextrose 50% 50 Ml Syringe) 25 - 50 ml IV UD PRN; Protocol PRN Reason: Hypoglycemia Protocol Stop: 08/25/24 07:45 Diclofenac Sodium (Diclofenac Sod 1% Gel 100 Gm Tube) 1 gm EXT QID PRN; Protocol PRN Reason: Pain Stop: 08/06/24 03:36 Last Admin: 07/13/24 21:09 Dose: 1 gm Ergocalciferol (Ergocalciferol 1250 Mcg (50,000 Units) Cap) 1,250 mcg PO Cuevas@0900 EUGENE Stop: 08/18/24 10:59 Last Admin: 07/26/24 08:21 Dose: 1,250 mcg Finasteride (Finasteride 5 Mg Tab) 5 mg PO DAILY EUGENE Stop: 08/06/24 08:59 Last Admin: 07/30/24 07:31 Dose: 5 mg Glucagon (Glucagon For Inj 1 Mg Vial) 1 mg SQ UD PRN; Protocol PRN Reason: Hypoglycemia Protocol Stop: 08/25/24 07:45 Glucose (Glucose 40% Gel 15 Gm Tube) 15 - 30 gm PO UD PRN; Protocol PRN Reason: Hypoglycemia Protocol Stop: 08/25/24 07:45 Glucose (Glucose 10 Tab/Tube) 4 - 8 tab PO UD PRN; Protocol PRN Reason: Hypoglycemia Protocol Stop: 08/25/24 07:45 Guaifenesin (Guaifenesin 600 Mg Tabcr) 600 mg PO Q12 EUGENE Stop: 08/28/24 08:59 Last Admin: 07/30/24 07:31 Dose: 600 mg Hydroxyzine HCl (Hydroxyzine Hcl 25 Mg Tab) 25 mg PO QID PRN PRN Reason: Itching Stop: 08/06/24 08:59 Piperacillin Sod/Tazobactam Sod (Zosyn) 4.5 gm in 100 mls @ 25 mls/hr IV Q8H [facility]; Protocol Stop: 08/04/24 19:59 Last Infusion: 07/30/24 10:05 Dose: Infused Vancomycin HCl 1,250 mg/ (Sodium Chloride) 275 mls @ 200 mls/hr IV Q12H [facility] Stop: 08/05/24 03:59 Last Infusion: 07/30/24 06:01 Dose: Infused Insulin Aspart (Insulin Aspart Per Unit Charge) 0 units SC ACHS [facility] Stop: 08/16/24 16:29 Last Admin: 07/30/24 09:06 Dose: 3 units Lidocaine (Lidocaine 5% 1 Patch) 1 patch TD QAM [facility] Stop: 08/06/24 08:59 Last Admin: 07/30/24 07:50 Dose: 1 patch Lorazepam (Lorazepam 2 Mg/1 Ml Vial) 1 mg IV Q4H PRN PRN Reason: Anxiety/Agitation Stop: 08/21/24 11:32 Miscellaneous (Order Awaiting Action Eplerenone 25 Mg) 1 each N/A QS [facility] Stop: 08/06/24 07:59 Last Admin: 07/15/24 16:10 Dose: Not Given Miscellaneous (Remove Lidoderm Patch) 1 each N/A DAILY@2100 [facility] Stop: 08/06/24 20:59 Last Admin: 07/29/24 21:05 Dose: 1 each Miscellaneous (Incremental Development Manager Titration ) 1 each N/A UD PRN PRN 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: 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 Dose Titration x 1 Stop: 08/21/24 11:28 Miscellaneous (Carbohydrates For Hypoglycemia ) 15 - 30 gm PO UD PRN PRN Reason: Hypoglycemia Protocol Stop: 08/25/24 07:45 Last Admin: 07/26/24 07:40 Dose: 15 gm Miscellaneous Information (Vancomycin Consult Active) 1 each N/A UD PRN PRN Reason: Consult Stop: 08/27/24 15:26 Morphine Sulfate (Morphine Sulfate Cr 15 Mg Tabcr) 15 mg PO Q12 EUGENE Stop: 08/08/24 09:29 Last Admin: 07/30/24 08:54 Dose: 15 mg Morphine Sulfate (Morphine Sulfate Ir 15 Mg Tab (Immediate Release)) 15 mg PO Q4H PRN PRN Reason: Pain Stop: 08/10/24 16:33 Last Admin: 07/28/24 18:06 Dose: 15 mg Naloxone HCl (Naloxone Hcl 0.4 Mg/1 Ml Vial/Carp) 0.1 mg IV Q5M PRN; Protocol PRN Reason: Oversedation/Resp Depression Stop: 08/05/24 11:28 Nystatin (Nystatin Powder 15gm Btl) 1 appln EXT TID [facility] Stop: 08/15/24 20:59 Last Admin: 07/30/24 07:48 Dose: 1 appln Ondansetron HCl (Ondansetron Inj 2 Mg/Ml 2 Ml Vial) 4 mg IV Q6H PRN PRN Reason: Nausea And Vomiting Stop: 08/06/24 03:36 Last Admin: 07/08/24 22:14 Dose: 4 mg Polyethylene Glycol (Polyethylene (Miralax) 17 Gm Pack) 17 gm PO DAILY PRN PRN Reason: Constipation Stop: 08/20/24 14:15 Polyethylene Glycol (Polyethylene (Miralax) 17 Gm Pack) 17 gm PO DAILY [facility] Stop: 08/28/24 13:14 Last Admin: 07/30/24 08:53 Dose: 17 gm Rivaroxaban (Rivaroxaban 20 Mg Tab) 20 mg PO QPM UEGENE Stop: 08/06/24 20:59 Last Admin: 07/29/24 21:09 Dose: 20 mg Rosuvastatin Calcium (Rosuvastatin Calcium 5 Mg Tab) 5 mg PO DAILY [facility] Stop: 08/06/24 08:59 Last Admin: 07/30/24 07:52 Dose: 5 mg Senna/Docusate Sodium (Docusate Sodium/Senna 50/8.6mg Tab) 2 tab PO BID EUGENE Stop: 08/28/24 20:59 Last Admin: 07/30/24 08:53 Dose: 2 tab Tamsulosin HCl (Tamsulosin Hcl 0.4 Mg Cap) 0.4 mg PO DAILY EUGENE Stop: 08/06/24 08:59 Last Admin: 07/30/24 07:31 Dose: 0.4 mg Thiamine HCl (Thiamine Hcl 100 Mg Tab) 200 mg PO BID EUGENE Stop: 08/17/24 08:59 Last Admin: 07/30/24 07:30 Dose: 200 mg PG Care Time/CCT Total # of Minutes Spent Total Time Spent with Patient: Total time spent is greater than 50% in coordination of care (as documented) at patient's floor/unit and/or counseling patient: Coding Level of Care Code 10526 SUB INP/OBS CARE 2/35MIN Diagnoses Cancer related pain G89.3 Therapeutic opioid-induced constipation (OIC) K59.03; T40.2X5A Dyspnea and respiratory abnormalities R06.00; R06.89 Advanced care planning/counseling discussion Z71.89 Weakness generalized R53.1 Palliative care by specialist Z51.5
--- NOTE | 2024-07-30 12:51 | Hospitalist Progress Note ---
Date of Service July 30, 2024 Assessment & Plan (1) Intractable back pain: (2) Mucinous adenocarcinoma of lung: (3) Left hip pain: (4) Chronic systolic CHF (congestive heart failure): (5) Diabetes mellitus, type 2: Plan Haresh Morris is a 74yo male with history of HTN, DM, COPD, AF and FREDRICK presenting with generalized weakness and intractable back pain. Inability to stand or ambulate secondary to pain. Unable to obtain MRI due to incompatible pacemaker. Lumbar/thoracic Spine CT showed considerable DJD, but no metastatic disease. With known pulmonary lesions and retrocrural mass from imaging from prior admission. Was seen by pulmonology, biopsy arranged, confirming mucinous adenocarcinoma. Completed a course of prednisone, but was still struggling with pain control with multiple modalities (tylenol/oxy/baclofen/butrans patch) and palliative care was consulted. Was briefly on morphine FARMWORKER RICE but this has been weaned off d/t lethargy. Seen by heme/onc, would not be a good candidate for chemotherapy, but possible for immunotherapy or targeted treatment. 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 PRN Tylenol. Heme onc consulted- Possible immunotherapy candidate. PD-L1 testing and molecular testing pending. Asked to revisit 07/29 to help patient with decision making process, would want to get head imaging before d/c if going to pursue treatment. Palliative consulted- if worsening clinical status, pt and sister would want DENTAL SALES REPRESENTATIVE. Bowel regimen added. PT/OT - recommend rehab, worked with PT/OT 07/29, asked CM to restart process for rehab #Pneumonia Seen on CXR 07/28 - will treat as HAP Continue Zosyn. MRSA swab positive- continue vancomycin Mucinex PO q12. FV. wean O2 as able - suspect will have O2 needs at discharge #Left hip pain Left Hip CT: no fx. moderate OA Pain control as above. #CHF EF 45% last Echo 03/31/24 with regional [facility] Continue Coreg and PO Bumex Consider SOREN/ARB therapy - if BP remains normal over next 24 hours will consider adding low dose #DMT2 a1c 6.3% in 03/2024. No home medications Now that off steroids, will d/c lantus and just use SSI BPH: Flomax 0.4mg, Finasteride 5mg HLD: Statin Alcohol use disorder - no symptoms of withdrawal while inpatient, will decrease thiamine to daily, does not need to continue at discharge Groin rash: nystatin powder FREDRICK: declines use of hospital issued CPAP A fib: Coreg, Xarelto COPD: duonebs prn Pt has been on scheduled hydroxyzine since admission, unclear exactly what this is used for, conflicting information in prior notes. Called pharmacy it is ordered 3-4 times a day prn. Will change to prn for itching. Dispo: continued inpatient stay, no escalation of care from current, working on rehab placement Dvt proh: Home Eliquis Daughter, Chuck ([phone]) not wanting to be involved in decision making. Sister has been helpful with decision making. daughter and updated at bedside 07/27 Admission and Anticipated Discharge Date Admission Date: July 09, 2024 Supervising Physician Co-Signing Physician Notes PA Supervision Note: I did not personally see or examine the patient today, but I verified all harden points of VIDAL Hansen's assessment and plan with the following exceptions/additions: None Subjective Haresh seen lying in bed, seems more uncomfortable today. He is agreeable to his as needed morphine. Reports pain on his sacral/buttock area. There is a known wound there however has not been able to participate in wound care due to pain. Encouraged out of bed to the chair for meals for pressure relief, RN notified of this as well. Do not see flutter valve present on patient's belongings will notify respiratory to have this brought in for the patient. Review of Systems Review of Systems: All systems reviewed & are unremarkable except as noted in Subjective Physical Exam Physical Exam: General: NAD, VS as above, appears uncomfortable Resp: normal respiratory effort, 3L NC, diminished in bases, nonproductive cough CV: RRR, no murmur, : Erythema to scrotum, not warm to palpation Abd: normal bowel sounds, non tender,soft Extremities: Moves all extremities, Results & Data Results & Data Vital Signs (Past 12 Hours) Vital Signs Temp Pulse Resp BP Pulse Ox O2 Del Method O2 Flow Rate 07/30/24 07:45 98.6 F 81 20 140/79 91 Nasal Cannula 07/30/24 07:15 Nasal Cannula 2 PG Care Time/CCT Total # of Minutes Spent Total Time Spent with Patient: Total time spent is greater than 50% in coordination of care (as documented) at patient's floor/unit and/or counseling patient: Coding Level of Care Code 56420 SUB INP/OBS CARE 2/35MIN Diagnoses Intractable back pain M54.9 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
--- NOTE | 2024-07-30 17:09 | Hematology/Oncology Prog Note ---
Date of Service July 30, 2024 Assessment & Plan (1) Mucinous adenocarcinoma of lung: Plan -Neotype/PDL1 results still pending -Can get brain imaging prior to discharge -Outpatient follow up with me to discuss molecular results and treatment options Admission and Anticipated Discharge Date Admission Date: July 09, 2024 Subjective Awaiting molecular testing/PDL1 results Results & Data Vital Signs (Past 12 Hours) Vital Signs Temp Pulse Resp BP BP Pulse Ox O2 Del Method 07/30/24 15:30 36.6 C 74 18 99/62 L 97 Room Air 07/30/24 15:25 36.7 C 72 16 118/71 92 Nasal Cannula 07/30/24 13:14 36.5 C 70 20 137/71 91 Nasal Cannula 07/30/24 07:45 37 C 81 20 140/79 91 Nasal Cannula 07/30/24 07:15 Nasal Cannula O2 Flow Rate 07/30/24 15:30 07/30/24 15:25 3 07/30/24 13:14 2 07/30/24 07:45 07/30/24 07:15 2
[2024-07-30] MEDS: LINEZOLID 600 MG TAB PO SCH (17:19)
[2024-07-31 07:33] LABS: Creatinine Clr Calc Pharmacy 147.5 ml/min
--- NOTE | 2024-07-31 14:30 | Hospitalist Progress Note ---
Date of Service July 31, 2024 Assessment & Plan (1) Intractable back pain: (2) Mucinous adenocarcinoma of lung: (3) Left hip pain: (4) Chronic systolic CHF (congestive heart failure): (5) Diabetes mellitus, type 2: Plan Haresh Morris is a 74yo male with history of HTN, DM, COPD, AF and FREDRICK presenting with generalized weakness and intractable back pain. Inability to stand or ambulate secondary to pain. Unable to obtain MRI due to incompatible pacemaker. Lumbar/thoracic Spine CT showed considerable DJD, but no metastatic disease. With known pulmonary lesions and retrocrural mass from imaging from prior admission. Was seen by pulmonology, biopsy arranged, confirming mucinous adenocarcinoma. Completed a course of prednisone, but was still struggling with pain control with multiple modalities (tylenol/oxy/baclofen/butrans patch) and palliative care was consulted. 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 Seen by heme/onc, would not be a good candidate for chemotherapy, but possible for immunotherapy or targeted treatment. 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 PRN Tylenol. Heme onc consulted- Possible immunotherapy candidate. PD-L1 testing and molecular testing pending. Consider brain MRI prior to d/c if pt can tolerate for staging purposes. Palliative consulted- if worsening clinical status, pt and sister would want METAL WEIGHER. Bowel regimen added. PT/OT - recommend rehab, Center care next week #Pneumonia Seen on CXR 07/28 - will treat as HAP Continue Zosyn. MRSA swab positive- switched to linezolid. Plan for 7 day course. Mucinex PO q12. FV. wean O2 as able - suspect will have O2 needs at discharge #Left hip pain Left Hip CT: no fx. moderate OA Pain control as above. #CHF EF 45% last Echo 03/31/24 with regional [facility] Continue Coreg and PO Bumex Consider SOREN/ARB therapy - BP labile and with increasing scheduled narcotics will defer additional for now #DMT2 a1c 6.3% in 03/2024. No home medications Now that off steroids, will d/c lantus and just use SSI #BPH: Flomax 0.4mg, Finasteride 5mg #HLD: Statin #Alcohol use disorder - no symptoms of withdrawal while inpatient, will decrease thiamine to daily, does not need to continue at discharge #Genevivee intertrigo: nystatin powder #FREDRICK: declines use of hospital issued CPAP #A fib: Coreg, Xarelto #COPD: duonebs prn Pt has been on scheduled hydroxyzine since admission, unclear exactly what this is used for, conflicting information in prior notes. Called pharmacy it is ordered 3-4 times a day prn. Changed to prn for itching. Dispo: continued inpatient stay, no escalation of care from current, working on rehab placement Dvt proh: Home Eliquis Daughter, Chuck ([phone]) not wanting to be involved in decision making. Sister has been helpful with decision making. Discussed with Jess, Palliative care EMILY Admission and Anticipated Discharge Date Admission Date: July 09, 2024 Supervising Physician Co-Signing Physician Notes PA Supervision Note: I did not personally see or examine the patient today, but I verified all harden points of VIDAL Hansen's assessment and plan with the following exceptions/additions: None Subjective Patient seen lying in bed, appears very uncomfortable -asking to be repositioned. Attempted to sit at the side of the bed which he was able to do for a few minutes. did not relieve his pain, but reports "different pain" Poor appetite Discussed continuing to try to get to rehb vs going back on IV pain medications and focusing on comfort and patient would like to keep trying to get better. Patient and I agree attempting an MRI today would not be a good idea Review of Systems Review of Systems: All systems reviewed & are unremarkable except as noted in Subjective Physical Exam Physical Exam: General: NAD, VS as above, appears uncomfortable Resp: normal respiratory effort, 4L NC, diminished in bases, no cough today CV: RRR, no murmur, : Erythema to scrotum, not warm to palpation Abd: normal bowel sounds, non tender,soft Extremities: Moves all extremities, Results & Data Results & Data Vital Signs (Past 12 Hours) Vital Signs Temp Pulse Resp BP Pulse Ox O2 Del Method O2 Flow Rate 07/31/24 07:40 98.1 F 70 16 130/77 91 Nasal Cannula 3 07/31/24 07:28 Nasal Cannula 3 PG Care Time/CCT Total # of Minutes Spent Total Time Spent with Patient: Total time spent is greater than 50% in coordination of care (as documented) at patient's floor/unit and/or counseling patient: Coding Level of Care Code 45966 SUB INP/OBS CARE 2/35MIN Diagnoses Intractable back pain M54.9 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
[2024-07-31 20:02] VITALS: RESP 20; TEMP 97.7
[2024-07-31] MEDS: MoRPHine SULFATE CR 15 MG TABCR PO SCH (20:57)
[2024-08-01 08:21] VITALS: BP 109/66; PULSE 74; O2SAT 95
--- NOTE | 2024-08-01 12:03 | Hospitalist Progress Note ---
Date of Service August 01, 2024 Assessment & Plan (1) Intractable back pain: (2) Mucinous adenocarcinoma of lung: (3) Left hip pain: (4) Chronic systolic CHF (congestive heart failure): (5) Diabetes mellitus, type 2: Plan Haresh Morris is a 74yo male with history of HTN, DM, COPD, AF and FREDRICK presenting with generalized weakness and intractable back pain. Inability to stand or ambulate secondary to pain. Unable to obtain MRI due to incompatible pacemaker. Lumbar/thoracic Spine CT showed considerable DJD, but no metastatic disease. With known pulmonary lesions and retrocrural mass from imaging from prior admission. Was seen by pulmonology, biopsy arranged, confirming mucinous adenocarcinoma. Completed a course of prednisone, but was still struggling with pain control with multiple modalities (tylenol/oxy/baclofen/butrans patch) and palliative care was consulted. Was briefly on morphine BACK STAYER but this has been weaned off d/t lethargy. Seen by heme/onc, would not be a good candidate for chemotherapy, but possible for immunotherapy or targeted treatment. 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 PRN Tylenol. Heme onc consulted- Possible immunotherapy candidate. PD-L1 testing and molecular testing pending. Consider brain MRI prior to d/c if pt can tolerate for staging purposes. However currently leaning towards no treatment. Palliative consulted- if worsening clinical status, pt and sister would want NEUROSURGICAL NURSE. Bowel regimen added. PT/OT - recommend rehab, Center care next week #Pneumonia Seen on CXR 07/28 - will treat as HAP Continue Zosyn. MRSA swab positive- switched to linezolid. Plan for 7 day course. Mucinex PO q12. FV. wean O2 as able - suspect will have O2 needs at discharge #Left hip pain Left Hip CT: no fx. moderate OA Pain control as above. #CHF EF 45% last Echo 03/31/24 with regional [facility] Continue Coreg and PO Bumex Consider SOREN/ARB therapy - BP labile and with increasing scheduled narcotics will defer additional for now #DMT2 a1c 6.3% in 03/2024. No home medications Well controlled with SSI #BPH: Flomax 0.4mg, Finasteride 5mg #HLD: Statin #Alcohol use disorder - no symptoms of withdrawal while inpatient, will decrease thiamine to daily, does not need to continue at discharge #Genevieve intertrigo: nystatin powder #FREDRICK: declines use of hospital issued CPAP #A fib: Pamella, David #COPD: duonebs prn Dispo: continued inpatient stay, no escalation of care from current, working on rehab placement, however pt to discuss with family again regarding hospice this evening Dvt proh: Home Eliquis Daughter, Chuck ([phone]) not wanting to be involved in decision making. Sister has been helpful with decision making. Admission and Anticipated Discharge Date Admission Date: July 09, 2024 Subjective Patient seen sitting up in bed, appears more comfortable than yesterday. Says h is pain control is better but struggling to find comfortable positions with his sacral wound and his back did sit at the edge of the bed this morning would like to forego MRI at this time - leaning towards no treatment. Again discussed the option of hospice and focusing on comfort and he is going to consider and talk to his family tonight. reassured that he is able to make these decisions and can change path of care at any time. Review of Systems Review of Systems: All systems reviewed & are unremarkable except as noted in Subjective Physical Exam Physical Exam: General: NAD, VS as above, appears more comfortable that yesterday Resp: normal respiratory effort, 4L NC, diminished in bases, + dry cough CV: RRR, no murmur, Abd: normal bowel sounds, non tender,soft Extremities: Moves all extremities, Results & Data Results & Data Vital Signs (Past 12 Hours) Vital Signs Temp Pulse Resp BP Pulse Ox O2 Del Method O2 Flow Rate 08/01/24 08:57 Nasal Cannula 4 08/01/24 08:20 97.7 F 74 20 109/66 95 Nasal Cannula 4 Laboratory Results POC glucose reviewed PG Care Time/CCT Total # of Minutes Spent Total Time Spent with Patient: Total time spent is greater than 50% in coordination of care (as documented) at patient's floor/unit and/or counseling patient: Coding Level of Care Code 29847 SUB INP/OBS CARE 07/25MIN Diagnoses Intractable back pain M54.9 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
[2024-08-01] MEDS ORDERED: STAT IV Infusion **Titration per Protocol STA (15:44)
[2024-08-01] MEDS ORDERED: GLYCOPYRROLATE 0.2 MG/ML VIAL IV PRN (15:44)
[2024-08-01] MEDS ORDERED: NYSTATIN POWDER 15GM BTL EXT PRN (15:50)
[2024-08-01] MEDS ORDERED: LIDOCAINE 5% 1 PATCH TD PRN (15:50)
--- NOTE | 2024-08-01 15:55 | Communication Note ---
Date of Service: August 01, 2024 Notified by bedside RN that patient had multiple family members at bedside and has decided he wants to focus on comfort. Went to bedside, many family members present. Haresh realizes he is not going to be able to return to the life he once had. He has "gotten to see all the people he loves" and wants to focus on his comfort. Will start Dilaudid drip. Plan to place [facility] this evening after family members leave. Palliative care provider notified. Medications: Diluadid gtt Ativan IV prn Robinul prn zofran IV prn
[2024-08-01] MEDS: HYDROmorphone 100 MG/100 ML BAG IV SCH (16:38)
--- NOTE | 2024-08-02 09:58 | Hospitalist Progress Note ---
Date of Service August 02, 2024 Assessment & Plan (1) Comfort measures only status: (2) Intractable back pain: (3) Mucinous adenocarcinoma of lung: (4) Left hip pain: (5) Chronic systolic CHF (congestive heart failure): (6) Diabetes mellitus, type 2: Plan Haresh Morris is a 74yo male with history of HTN, DM, COPD, AF and FREDRICK presenting with generalized weakness and intractable back pain. Inability to stand or ambulate secondary to pain. Unable to obtain MRI due to incompatible pacemaker. Lumbar/thoracic Spine CT showed considerable DJD, but no metastatic disease. With known pulmonary lesions and retrocrural mass from imaging from prior admission. Was seen by pulmonology, biopsy arranged, confirming mucinous adenocarcinoma. Completed a course of prednisone, but was still struggling with pain control with multiple modalities (tylenol/oxy/baclofen/butrans patch) and palliative care was consulted. Was briefly on morphine MARKET RESEARCH INTERN but this has been weaned off d/t lethargy. Seen by heme/onc, would not be a good candidate for chemotherapy, but possible for immunotherapy or targeted treatment. After multiple trials of titration of pain medications with minimal relief, patient made the decision to transfer to comfort measures only status on 08/01 and started on diluadid drip. 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 Decision to not puruse further treatment. LIGHTER #Pneumonia abx stopped with LIGHTER #CHF home medications stopped with LIGHTER #DMT2 a1c 6.3% in 03/2024. No home medications - no further SSI/BSG Dispo: L[facility]TER, re-eval saturday if appropiate to leave hospital. unfortunately, home with hospice is not an option Admission and Anticipated Discharge Date Admission Date: July 09, 2024 Subjective Patient seen lying in bed, alert and oreitned. Pain is more controlled that yesterday but still reports 11/07 - notified RN. attempting to use the urinal - plan to reeval this afternoon to ensure comfort Review of Systems Review of Systems: All systems reviewed & are unremarkable except as noted in Subjective Physical Exam Physical Exam: General: NAD, vitals as above, lying in bed Pulm: breathing unlabored CV: well perfused extremities: moves all extremities A&O x 3 Still making faces suggestive of pain with any movement PG Care Time/CCT Total # of Minutes Spent Total Time Spent with Patient: Total time spent is greater than 50% in coordination of care (as documented) at patient's floor/unit and/or counseling patient: Coding Level of Care Code 95502 SUB INP/OBS CARE 07/25MIN Diagnoses Comfort measures only status Z51.5 Intractable back pain M54.9 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
[2024-08-02] MEDS: HYDROmorphone BOLUS from BAG IV PRN (12:18)
--- NOTE | 2024-08-03 10:41 | Palliative Care Progress Note ---
Date of Service August 03, 2024 Assessment & Plan (1) Palliative care by specialist: (2) Comfort measures only status: (3) Intractable back pain: (4) Left hip pain: (5) Recurrent falls: (6) Cancer related pain: Plan Haresh Morris is a 74yo male admitted on 07/09 with severe back pain and found to have a retrocural mass. 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 BUTTON MACHINE OPERATOR Symptom manamgement: Pain/dyspnea/tachypnea Continue to titrate dilaudid drip per protocol for comfort Increase Btp dose to dilaudid 0.5mg IVP PRN [id number] Nausea/vomitting zofran 4mg IVP q4h PRN Agitation ativan 1 mg IVP q4h PRN Hyperactive delirium haldol 5mg IVP q6h PRN Secretions - if repositioning not effective robinul 0.4mg IV q4h PRN atropine SL 3 drops Q1h PRN Nursing care: Discontinue all medications not directed towards comfort. Detether pt from IV tubing, monitor cables, and check vitals once per shift. Please continue HFNC and titrate down as able for patient comfort. Use medications above PRN for dyspnea/tachypnea and do not increase oxygen once titrated down. Assess q1h for pain/dyspnea and treat accordingly. Admission and Anticipated Discharge Date Admission Date: July 09, 2024 Subjective Assessed pt at bedside, he was transitioned to comfort directed care over weekend. He has had frequent need for PRN medications for comfort and is now on dilaudid infusion at 0.9mg/hr with ongoing need for bolus dosing for BTP. Pt is sleeping quietly after receiving bath this morning, did not attempt to awaken in concert with comfort directed care. He appears comfortable, NAD on RA. No visitors at bedside. Review of Systems Review of Systems: Unobtainable due to cognitive status Physical Exam Physical Exam: General: NAD, vitals as above, lying in bed Pulm: breathing unlabored RA CV: well perfused extremities: moves all extremities sleeping quietly, did not attempt to awaken in concert with comfort directed care. Results & Data Vital Signs (Past 12 Hours) Vital Signs O2 Del Method O2 Flow Rate 08/03/24 09:00 Nasal Cannula 2 Laboratory Results No further labs or diagnostics in concert with comfort directed care. Diagnostic Findings No further labs or diagnostics in concert with comfort directed care. Medications Administered Current Inpatient Medications Diclofenac Sodium (Diclofenac Sod 1% Gel 100 Gm Tube) 1 gm EXT QID PRN; Protocol PRN Reason: Pain Stop: 08/06/24 03:36 Last Admin: 07/13/24 21:09 Dose: 1 gm Glycopyrrolate (Glycopyrrolate 0.2 Mg/Ml Vial) 0.4 mg IV Q4H PRN PRN Reason: Rattling Secretions or Pulm Congestion Stop: 08/31/24 15:43 Hydromorphone HCl (Hydromorphone Bolus From Bag) 0.2 mg IV Q15M PRN PRN Reason: Comfort Care Parameters Stop: 08/15/24 15:43 Last Admin: 08/03/24 07:57 Dose: 0.2 mg Hydroxyzine HCl (Hydroxyzine Hcl 25 Mg Tab) 25 mg PO QID PRN PRN Reason: Itching Stop: 08/06/24 08:59 Hydromorphone HCl (Dilaudid) 100 mg in 100 mls @ 0.9 mls/hr IV .Q96H EUGENE; Protocol Stop: 08/15/24 15:44 Last Titration: 08/03/24 07:56 Dose: 0.9 mg/hr, 0.9 mls/hr Lidocaine (Lidocaine 5% 1 Patch) 1 patch TD Q24H PRN PRN Reason: Pain Stop: 08/31/24 15:49 Lorazepam (Lorazepam 2 Mg/1 Ml Vial) 1 mg IV Q4H PRN PRN Reason: Anxiety/Agitation Stop: 08/21/24 11:32 Miscellaneous (Remove Lidoderm Patch) 1 each N/A DAILY@2100 EUGENE Stop: 08/06/24 20:59 Last Admin: 08/02/24 21:42 Dose: 1 each Miscellaneous (Incremental Expense Clerk Titration ) 1 each N/A UD PRN PRN Reason: INCOME TAX ADMINISTRATOR Dose Titration x 1 Stop: 08/21/24 11:28 Nystatin (Nystatin Powder 15gm Btl) 1 appln EXT TID PRN PRN Reason: Affected Skin Folds Stop: 08/15/24 20:59 Ondansetron HCl (Ondansetron Inj 2 Mg/Ml 2 Ml Vial) 4 mg IV Q6H PRN PRN Reason: Nausea And Vomiting Stop: 08/06/24 03:36 Last Admin: 07/08/24 22:14 Dose: 4 mg PG Care Time/CCT Total # of Minutes Spent Total Time Spent with Patient: Total time spent is greater than 50% in coordination of care (as documented) at patient's floor/unit and/or counseling patient: C[place] [address] SUB INP/OBS CARE 3/50MIN Patient Type Established History Expanded Problem Focused Exam Expanded Problem Focused Medical Decision Making Moderate Complexity Diagnoses Palliative care by specialist Z51.5 Comfort measures only status Z51.5 Intractable back pain M54.9 Left hip pain M25.552 Recurrent falls R29.6 Cancer related pain G89.3
[2024-08-03] MEDS ORDERED: HYDROmorphone BOLUS from BAG IV PRN (10:49)
[2024-08-03] MEDS: LORazepam 2 MG/1 ML VIAL IV PRN (12:45)
--- NOTE | 2024-08-03 13:32 | Hospitalist Progress Note ---
Date of Service August 03, 2024 Assessment & Plan (1) Comfort measures only status: (2) Intractable back pain: (3) Mucinous adenocarcinoma of lung: (4) Left hip pain: (5) Chronic systolic CHF (congestive heart failure): (6) Diabetes mellitus, type 2: Plan Haresh Morris is a 74yo male with history of HTN, DM, COPD, AF and FREDRICK presenting with generalized weakness and intractable back pain. Inability to stand or ambulate secondary to pain. Unable to obtain MRI due to incompatible pacemaker. Lumbar/thoracic Spine CT showed considerable DJD, but no metastatic disease. With known pulmonary lesions and retrocrural mass from imaging from prior admission. Was seen by pulmonology, biopsy arranged, confirming mucinous adenocarcinoma. Completed a course of prednisone, but was still struggling with pain control with multiple modalities (tylenol/oxy/baclofen/butrans patch) and palliative care was consulted. Was briefly on morphine DIRECTOR DISTRIBUTION but this has been weaned off d/t lethargy. Seen by heme/onc, would not be a good candidate for chemotherapy, but possible for immunotherapy or targeted treatment. After multiple trials of titration of pain medications with minimal relief, patient made the decision to transfer to comfort measures only status on 08/01 and started on diluadid drip. #Comfort Measures only Continue Dilaudid drip prn ativan IV prn robinul prn zofran IV Palliative care following - referral for GIP sent 08/03 due to complexity in con trolling patient's pain and the fact that he is unable to return home on hospice. 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 Decision to not pursue further treatment. PIE CRUST MIXER #Pneumonia abx stopped with PIE CRUST MIXER #CHF home medications stopped with PIE CRUST MIXER #DMT2 a1c 6.3% in 03/2024. No home medications - no further SSI/BSG Dispo: PIE CRUST MIXER unfortunately, home with hospice is not an option. GIP consultation pending. Discussed with palliative care 08/03. Admission and Anticipated Discharge Date Admission Date: July 09, 2024 Subjective Patient seen and examined this morning. Patient awake to converse. Patient grimaced in pain when trying to reposition himself in bed. He also reported he could not take a deep breath. Physical Exam Physical Exam: General: NAD, vitals as above, lying in bed Pulm: breathing unlabored CV: well perfused extremities: moves all extremities A&O x 3 Face appears in pain w/ movement Results & Data Results & Data Vital Signs (Past 12 Hours) Vital Signs O2 Del Method O2 Flow Rate 08/03/24 09:00 Nasal Cannula 2 PG Care Time/CCT Total # of Minutes Spent Total Time Spent with Patient: Total time spent is greater than 50% in coordination of care (as documented) at patient's floor/unit and/or counseling patient: Coding Level of Care Code 26063 SUB INP/OBS CARE 2/35MIN Diagnoses Comfort measures only status Z51.5 Intractable back pain M54.9 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
--- NOTE | 2024-08-04 08:54 | Discharge Summary ---
Discharge Summary Date of Service August 04, 2024 Principal Dx & Hospital Course #1 = Principal Diagnosis (1) Comfort measures only status: (2) Intractable back pain: (3) Mucinous adenocarcinoma of lung: (4) Left hip pain: (5) Chronic systolic CHF (congestive heart failure): (6) Diabetes mellitus, type 2: Plan Haresh Morris is a 74yo male with history of HTN, DM, COPD, AF and FREDRICK presenting with generalized weakness and intractable back pain. Inability to stand or ambulate secondary to pain. Unable to obtain MRI due to incompatible pacemaker. Lumbar/thoracic Spine CT showed considerable DJD, but no metastatic disease. With known pulmonary lesions and retrocrural mass from imaging from prior admission. Was seen by pulmonology, biopsy arranged, confirming mucinous adenocarcinoma. Completed a course of prednisone, but was still struggling with pain control with multiple modalities (tylenol/oxy/baclofen/butrans patch) and palliative care was consulted. 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 Seen by heme/onc, would not be a good candidate for chemotherapy, but possible for immunotherapy or targeted treatment. After multiple trials of titration of pain medications with minimal relief, patient made the decision to transfer to comfort measures only status on 08/01 and started on diluadid drip. Patient evaluated by GIP on 08/03 and is transitioning to GIP on 08/04/2024. #Comfort Measures only Continue Dilaudid drip prn ativan IV prn robinul prn zofran IV Palliative care following - referral for GIP sent 08/03 due to complexity in controlling patient's pain and the fact that he is unable to return home on hospice. 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 Decision to not pursue further treatment. PROFESSIONAL WRESTLER #Pneumonia abx stopped with PROFESSIONAL WRESTLER #CHF home medications stopped with PROFESSIONAL WRESTLER #DMT2 a1c 6.3% in 03/2024. No home medications - no further SSI/BSG Admission HPI Per Admitting Provider Haresh Morris is a 74yo male with history of HTN, DM, COPD, AF and FREDRICK presenting with generalized weakness and intractable back pain. Patient with recent admission to [facility] from 06/22 - 06/27 for scrotal cellulitis. Patient was treated with Ceftriaxone and Flagyl, then Cipro IV with significant improvement. Patient was also found to have innumerable pulmonary nodules in the lung bases consistent with metastatic disease as well as a retrocrural mass. Patient ultimately discharged with Cipro and Flagyl. Instructed to followup with Oncology/IR for biopsy of newly found lesions. Patient reports that last night he was at home - he was climbing up the stairs to go to bed when he became very weak and had severe pain in his lower back. He missed the last step and fell to his knees. He was unable to get up due to generalized weakness. Patient slept on the floor overnight. In the morning his neighbors were able to get him up and into bed. Patient then spent the day in bed and was unable to get out due to weakness. Patient continued to have severe pain in his lower back, unable to ambulate. Otherwise no fever, chills, chest pain, cough, SOB, nausea, vomiting, diarrhea or abdominal pain. No additional complaints. ER Course: Dilaudid 0.5mg IV x 2 Zofran 4mg IV NSS x 1500mL Discharge Plan Discharge Items Patient Disposition: Hospice - Medical Facility Reason For Visit: BACK PAIN Discharge Diagnosis: Stage IV Lung Cancer Activity: Resume your previous activity Non-emergency contact: Primary Care Provider Call non-emergency contact if: you have any medication questions Follow-up/Referrals: Kojo Jacinto MD [Primary Care Provider] - Diet: Regular Addtl Attending Provider Instructions: Transfer to inpatient hospice. Pending Studies at Discharge: No Stand-Alone Forms: My [facility] Skilled Items Patient informed of condition?: Yes DNR: Yes Discharge Level of Care: Other Communicable Disease: No Discharge Prognosis: Other Lines: None Urinary Catheter: Yes Medications and DC Order Prescriptions: New glycopyrrolate 0.2 mg/mL Solution 0.4 mg IV Q4H PRN (Reason: secretions) Qty: 25 0RF lorazepam 2 mg/mL Solution 1 mg IV Q4H PRN (Reason: anxiety) Qty: 25 0RF lidocaine 5 % Adhesive Patch,Medicated 1 patch transdermal Q24H PRN (Reason: pain (scale score 7-10)) Qty: 15 0RF hydroxyzine HCl 25 mg Tablet 25 mg PO QID PRN (Reason: itching) Qty: 7 0RF nystatin [Nystop] 100,000 unit/gram Powder 1 applic EXT TID PRN (Reason: itching) Qty: 15 0RF ondansetron HCl (PF) 4 mg/2 mL Solution 4 mg IV Q6H PRN (Reason: nausea and vomiting) Qty: 20 0RF diclofenac sodium [Voltaren Arthritis Pain] 1 % Gel 1 g EXT QID PRN (Reason: pain) Qty: 100 0RF Hydromorphone Bolus From Bag [Dilaudid Bolus From Bag] 0.5 mg IV Q15M PRN (Reason: pain, severe) Qty: 2 0RF Incremental Nursing Attendant Titration 1 ea Not Applicable UD PRN (Reason: pain, severe) Qty: 1 0RF Remove Lidoderm Patch 1 ea Not Applicable DAILY@2100 Qty: 1 0RF Discontinued triamcinolone acetonide 0.1 % cream 1 appln TOP DIRECTED PRN (Reason: Skin Irritation) tamsulosin 0.4 mg capsule 0 mg PO DAILY Rx Instructions: Last filled 09/2023 x30 day supply. Original Directions: 0.4mg by mouth daily Adult 50 Plus Probiotic 4 billion cell capsule 4,000 mmu cells PO DAILY Rx Instructions: administer with a meal. Unable to verify OTC meds at this date/time. rosuvastatin 5 mg tablet 5 mg PO DAILY Xarelto 20 mg tablet 20 mg PO QPM Qty: 90 1RF Rx Instructions: Must administer with evening meal. Per [facility]. nystatin 100,000 unit/gram cream 1 applic topical BID Qty: 15 2RF Medical Marijuana 0 dose inhalation BID PRN (Reason: Pain) Rx Instructions: INHALATION OR DROP (OIL). Unable to verify OTC meds at this date/time. allopurinol 300 mg tablet 300 mg PO HS multivitamin Tablet 1 tab PO QAM Rx Instructions: Unable to verify OTC meds at this date/time. acetaminophen [Tylenol] 325 mg Tablet 650 mg PO QID PRN (Reason: Pain) Rx Instructions: Unable to verify OTC meds at this date/time. eplerenone 25 mg tablet 25 mg PO QAM diclofenac sodium 1 % gel 1 ea TOPICAL QID PRN (Reason: Pain) Rx Instructions: Unable to verify OTC meds at this date/time. hydroxyzine HCl 25 mg tablet 0 mg PO UD Rx Instructions: Last filled 01/2024. Original Directions: 25mg by mouth TID-QID carvedilol 12.5 mg tablet See Rx Instructions .ROUTE .COMPLEX Rx Instructions: Take 12.5mg by mouth in the morning and 25mg by mouth at bedtime Ocuvite Adult 50 Plus 250 mg (90 mg-160 mg) Capsule 1 cap PO BID Rx Instructions: Unable to verify OTC meds at this date/time. bumetanide 1 mg tablet 1 mg PO QAM finasteride 5 mg tablet 5 mg PO DAILY No Action (DME) CPAP Supplies Misc .Route Qty: 1 0RF Rx Instructions: Patient needs new tubing, attachments, filters, and masks. Lifetime need, aero care Discharge Orders: Discharge Order (Routine); Ordered 08/04/24 Ordered By: Liza Parker Admission Data Admit Date/Time: 07/09/24 08:41 Attending Provider: Tacos Cornelius Admit Provider: Britta Blum Primary Care Provider: Kojo Jacinto Other Providers: [facility]; [id number],CAPPT; [place],[facility]; [facility]; Jhon Benton; Noman Troy; Merle Cueva; Zuhair Kerr; Rossi Jimenez; Aarti Cruz; Zechariah Holguin; Jackie Tovar; Florence Mendoza; [facility],No Attending; Ernestina Eldridge; Vivian Dyson; [facility] Hospital Stay Data Consultations 07/13/24 08:01 Consult Pulmonology Routine 07/16/24 13:34 Consult Anesthesiology Routine 07/21/24 11:01 Consult Palliative Care Routine 07/21/24 13:56 Consult Oncology Routine 07/21/24 13:59 Consult Oncology Routine Procedures Performed Operation Date: 07/17/24 13:[address] Lung Biopsy with Anesthesia Sedation - Shawn Hernadez PA-C Diagnostic Imagining Performed 07/06/24 21:25 CT lumbar spine wo con Stat 07/06/24 21:28 CT pelvis wo con Stat 07/14/24 12:59 CT thoracic spine wo con Routine 07/16/24 19:23 CT hip LT wo con Routine 07/17/24 13:00 IR biopsy lung RT CT Routine Pending Results Patient Have Any Pending Studies at Discharge: No Discharge Instructions Given to Patient (Per Discharging Provider) Transfer to inpatient hospice. Total Time Total Time Spent Total Time Spent (In Minutes): 35 Total Time Includes: Examination of the Patient, Medication Reconciliation and Communication With Other Providers Coding Level of Care Code 16720 INP/OBS DISCH >30 MIN Diagnoses Comfort measures only status Z51.5 Intractable back pain M54.9 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
== END 2024-08-04 09:12 | disposition hospice, inpatient (51) | DRG 180 ==
LOC: 3W 19:07 → ED 19:07 → SUATTDRO 07-07 02:20 → 3W 07-07 03:14 → SUATTDRO 07-09 08:41

== ENCOUNTER 2024-08-04 09:12 | Inpatient (IN) ==
[2024-08-04] MEDS ORDERED: HYDROMORPHONE IV PRN (09:30)
[2024-08-04] MEDS ORDERED: INCREMENTAL PCA TITRATION PRN (09:30)
[2024-08-04] MEDS ORDERED: hydrOXYzine HCl 25 MG TAB PO PRN (09:30)
[2024-08-04] MEDS ORDERED: ONDANSETRON INJ 2 MG/ML 2 ML VIAL IV PRN (09:30)
[2024-08-04] MEDS ORDERED: DICLOFENAC SOD 1% GEL 100 GM TUBE EXT PRN (09:30)
[2024-08-04] MEDS ORDERED: LIDOCAINE 5% 1 PATCH TD PRN (10:15)
[2024-08-04] MEDS ORDERED: STAT IV Infusion **Titration per Protocol STA (11:02)
[2024-08-04] MEDS: HYDROmorphone 100 MG/100 ML BAG IV SCH (11:29)
--- NOTE | 2024-08-04 14:09 | Hospitalist Progress Note ---
Date of Service August 04, 2024 - no bill Assessment & Plan (1) Comfort measures only status: (2) Mucinous adenocarcinoma of lung: Plan Haresh Morris is a 74yo male with history of HTN, DM, COPD, AF and FREDRICK presenting with generalized weakness and intractable back pain. Inability to stand or ambulate secondary to pain. Unable to obtain MRI due to incompatible pacemaker. Lumbar/thoracic Spine CT showed considerable DJD, but no metastatic disease. With known pulmonary lesions and retrocrural mass from imaging from prior admission. Was seen by pulmonology, biopsy arranged, confirming mucinous adenocarcinoma. Completed a course of prednisone, but was still struggling with pain control with multiple modalities (tylenol/oxy/baclofen/butrans patch) and palliative care was consulted. 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 Seen by heme/onc, would not be a good candidate for chemotherapy, but possible for immunotherapy or targeted treatment. After multiple trials of titration of pain medications with minimal relief, patient made the decision to transfer to comfort measures only status on 08/01 and started on diluadid drip. Patient discharged from inpatient services and readmitted under inpatient hospice services 08/04. 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 Decision to not pursue further treatment. MOUNTER CLARINETS #Pneumonia abx stopped with MOUNTER CLARINETS #CHF home medications stopped with MOUNTER CLARINETS Discussed w/ [facility] Hospice nurse at bedside 08/04. Admission and Anticipated Discharge Date Admission Date: August 04, 2024 Subjective Patient seen and examined this morning. Patient re-admitted under GIP Patient denied SOB this morning. He appeared comfortable. Physical Exam Constitutional: comfortable Eyes: PERRL, conjunctivae normal, anicteric sclerae Respiratory: breathing unlabored Cardiovascular: well perfused PG Care Time/CCT Total # of Minutes Spent Total Time Spent with Patient: Total time spent is greater than 50% in coordination of care (as documented) at patient's floor/unit and/or counseling patient: Coding Level of Care Code None Diagnoses Comfort measures only status Z51.5 Mucinous adenocarcinoma of lung C34.90
[2024-08-04 15:33] VITALS: BP 159/94; PULSE 74; RESP 16; TEMP 97.7; O2SAT 91
[2024-08-04] MEDS ORDERED: REMOVE LIDODERM SCH (21:00)
[2024-08-04] MEDS: DOCUSATE SODIUM 100 MG CAP PO SCH (21:57)
--- NOTE | 2024-08-05 13:19 | Hospitalist Progress Note ---
Date of Service August 05, 2024 Assessment & Plan (1) Comfort measures only status: (2) Mucinous adenocarcinoma of lung: Plan Haresh Morris is a 74yo male with history of HTN, DM, COPD, AF and FREDRICK presenting with generalized weakness and intractable back pain. Inability to stand or ambulate secondary to pain. Unable to obtain MRI due to incompatible pacemaker. Lumbar/thoracic Spine CT showed considerable DJD, but no metastatic disease. With known pulmonary lesions and retrocrural mass from imaging from prior admission. Was seen by pulmonology, biopsy arranged, confirming mucinous adenocarcinoma. Completed a course of prednisone, but was still struggling with pain control with multiple modalities (tylenol/oxy/baclofen/butrans patch) and palliative care was consulted. 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 Seen by heme/onc, would not be a good candidate for chemotherapy, but possible for immunotherapy or targeted treatment. After multiple trials of titration of pain medications with minimal relief, patient made the decision to transfer to comfort measures only status on 08/01 and started on diluadid drip. Patient discharged from inpatient services and readmitted under inpatient hospice services 08/04. 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 Decision to not pursue further treatment. METAL MINER BLASTING #Pneumonia abx stopped with METAL MINER BLASTING #CHF home medications stopped with METAL MINER BLASTING Admission and Anticipated Discharge Date Admission Date: August 04, 2024 Subjective Patient seen and examined this morning. patient alert and conversing in conversation at time of encounter. Patient reports his pain is well managed and he is not having any shortness of breath. Physical Exam Constitutional: WD/WN, vitals as above Respiratory: breathing unlabored Cardiovascular: well perfused Results & Data Results & Data Vital Signs (Past 12 Hours) Vital Signs O2 Del Method FiO2 08/05/24 10:00 Nasal Cannula 2 PG Care Time/CCT Total # of Minutes Spent Total Time Spent with Patient: Total time spent is greater than 50% in coordination of care (as documented) at patient's floor/unit and/or counseling patient: Coding Level of Care Code 64593 SUB INP/OBS CARE 2/35MIN Diagnoses Comfort measures only status Z51.5 Mucinous adenocarcinoma of lung C34.90
[2024-08-05] MEDS: LORazepam 2 MG/1 ML VIAL IV PRN (20:00)
[2024-08-05] MEDS: HYDROmorphone BOLUS from BAG IV PRN (20:05)
--- NOTE | 2024-08-06 14:04 | Hospitalist Progress Note ---
Date of Service August 06, 2024 Assessment & Plan (1) Comfort measures only status: (2) Mucinous adenocarcinoma of lung: Plan Haresh Morris is a 74yo male with history of HTN, DM, COPD, AF and FREDRICK presenting with generalized weakness and intractable back pain. Inability to stand or ambulate secondary to pain. Unable to obtain MRI due to incompatible pacemaker. Lumbar/thoracic Spine CT showed considerable DJD, but no metastatic disease. With known pulmonary lesions and retrocrural mass from imaging from prior admission. Was seen by pulmonology, biopsy arranged, confirming mucinous adenocarcinoma. Completed a course of prednisone, but was still struggling with pain control with multiple modalities (tylenol/oxy/baclofen/butrans patch) and palliative care was consulted. 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 Seen by heme/onc, would not be a good candidate for chemotherapy, but possible for immunotherapy or targeted treatment. After multiple trials of titration of pain medications with minimal relief, patient made the decision to transfer to comfort measures only status on 08/01 and started on diluadid drip. Patient discharged from inpatient services and readmitted under inpatient hospice services 08/04. #Comfort Measures only prn Ativan IV prn Robinul prn Zofran IV Colace BID added for constipation Discussed with Dr. Edgar from [facility] hospice recommendations for moving forward - Fentanyl 75mcg TDQ 72hr Continue current Dilaudid prn order 12 hours after Fentanyl patch applied, decrease Dilaudid basal rate to 0.5mg/hr. 24 hours after Fentanyl patch applied, discontinue Dilaudid basal. Zyprexa 5mg HS w/ a 1x additional prn dose of 5mg Zyprexa to use 1 hour following initial dose Continue 1mg IV Ativan q 4h. 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 Decision to not pursue further treatment. DIRECTOR OF GRANTS #Pneumonia abx stopped with DIRECTOR OF GRANTS #CHF home medications stopped with DIRECTOR OF GRANTS Admission and Anticipated Discharge Date Admission Date: August 04, 2024 Subjective Patient seen and examined this morning. Patient appeared agitated and confused at time of encounter. He kept repeating "the troops are coming". Patient also asked what "cold swing" meant repeatedly as well. He was fidgeting with his hospital gown. Patient did report his pain was manageable and he denied any shortness of breath. Patient was pausing in between sentences to catch his breath at points in the conversation as well. Physical Exam Constitutional: agitated in bed Respiratory: breathing unlabored Psychiatric: confused, agitated, hallucinating Results & Data Results & Data Vital Signs (Past 12 Hours) Vital Signs O2 Del Method O2 Flow Rate 08/06/24 07:42 Nasal Cannula 2 PG Care Time/CCT Total # of Minutes Spent Total Time Spent with Patient: Total time spent is greater than 50% in coordination of care (as documented) at patient's floor/unit and/or counseling patient: Coding Level of Care Code 61881 SUB INP/OBS CARE 3/50MIN Diagnoses Comfort measures only status Z51.5 Mucinous adenocarcinoma of lung C34.90
[2024-08-06] MEDS ORDERED: HYDROmorphone BOLUS from BAG IV PRN (16:13)
[2024-08-06] MEDS ORDERED: STAT IV Infusion **Titration per Protocol STA (16:13)
[2024-08-06] MEDS: fentaNYL 75 MCG/HR TDSY TD SCH (16:25)
[2024-08-06] MEDS: OLANZapine 5 MG TABLET PO SCH (20:40)
[2024-08-06] MEDS: CHECK fentaNYL PATCH PLACEMENT SCH (23:41)
[2024-08-07] MEDS ORDERED: HYDROmorphone 100 MG/100 ML BAG IV SCH (04:15)
--- NOTE | 2024-08-07 14:19 | Hospitalist Progress Note ---
Date of Service August 07, 2024 Assessment & Plan (1) Comfort measures only status: (2) Mucinous adenocarcinoma of lung: Plan Haresh Morris is a 74yo male with history of HTN, DM, COPD, AF and FREDRICK presenting with generalized weakness and intractable back pain. Inability to stand or ambulate secondary to pain. Unable to obtain MRI due to incompatible pacemaker. Lumbar/thoracic Spine CT showed considerable DJD, but no metastatic disease. With known pulmonary lesions and retrocrural mass from imaging from prior admission. Was seen by pulmonology, biopsy arranged, confirming mucinous adenocarcinoma. Completed a course of prednisone, but was still struggling with pain control with multiple modalities (tylenol/oxy/baclofen/butrans patch) and palliative care was consulted. 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 Seen by heme/onc, would not be a good candidate for chemotherapy, but possible for immunotherapy or targeted treatment. After multiple trials of titration of pain medications with minimal relief, patient made the decision to transfer to comfort measures only status on 08/01 and started on diluadid drip. Patient discharged from inpatient services and readmitted under inpatient hospice services 08/04. #Comfort Measures only prn Ativan IV --> switched to 1mg IV q2h prn as patient remains agitated and restless while transitioning to his fentanyl patch. prn Robinul prn Zofran IV Colace BID added for constipation [facility] hospice recommendations for moving forward - Fentanyl 75mcg TDQ 72hr Continue current Dilaudid prn order 12 hours after Fentanyl patch applied, decrease Dilaudid basal rate to 0.5mg/hr. 24 hours after Fentanyl patch applied, discontinue Dilaudid basal. 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 Decision to not pursue further treatment. SYSTEMS ANALYSIS MANAGER #Pneumonia abx stopped with SYSTEMS ANALYSIS MANAGER #CHF home medications stopped with SYSTEMS ANALYSIS MANAGER Patient is to likely be placed in a Personal Care facility, hopefully next week after he reaches comfort on his medications and placement is found. Discussed w/ CM 08/07 Discussed w/ [facility] hospice nurse 08/07. Admission and Anticipated Discharge Date Admission Date: August 04, 2024 Subjective Patient seen and examined this morning. Patient agitated at time of encounter. He was attempting to get out of bed saying he had to "walk to supper". Nurse also notified that patient has remained restless and agitated throughout the morning/afternoon despite IV Ativan. Physical Exam Constitutional: restless, agitated Respiratory: breathing unlabored Cardiovascular: well perfused Results & Data Results & Data Vital Signs (Past 12 Hours) Vital Signs O2 Del Method O2 Flow Rate 08/07/24 07:40 Nasal Cannula 2 PG Care Time/CCT Total # of Minutes Spent Total Time Spent with Patient: Total time spent is greater than 50% in coordination of care (as documented) at patient's floor/unit and/or counseling patient: Coding Level of Care Code 97820 SUB INP/OBS CARE 2/35MIN Diagnoses Comfort measures only status Z51.5 Mucinous adenocarcinoma of lung C34.90
[2024-08-07] MEDS ORDERED: OLANZapine 5 MG TABLET PO PRN (14:33)
[2024-08-07] MEDS: LORazepam 2 MG/1 ML VIAL IV PRN (15:13)
[2024-08-08] MEDS: HYDROmorphone INJ 0.5 MG/0.5 ML SYR IV PRN (08:15)
[2024-08-08] MEDS: HYDROmorphone INJ 1 MG/ML SYRINGE IV PRN (11:55)
[2024-08-08] MEDS: LORazepam 2 MG/1 ML VIAL IV SCH (13:42)
[2024-08-08] MEDS: LIDOCAINE 2% JELLY 5 ML TUBE EXT PRN (18:16)
--- NOTE | 2024-08-08 23:30 | Hospitalist Progress Note ---
Date of Service August 08, 2024 Assessment & Plan (1) Comfort measures only status: (2) Mucinous adenocarcinoma of lung: Plan Haresh Morris is a 74yo male with history of HTN, DM, COPD, AF and FREDRICK presenting with generalized weakness and intractable back pain. Inability to stand or ambulate secondary to pain. Unable to obtain MRI due to incompatible pacemaker. Lumbar/thoracic Spine CT showed considerable DJD, but no metastatic disease. With known pulmonary lesions and retrocrural mass from imaging from prior admission. Was seen by pulmonology, biopsy arranged, confirming mucinous adenocarcinoma. Completed a course of prednisone, but was still struggling with pain control with multiple modalities (tylenol/oxy/baclofen/butrans patch) and palliative care was consulted. 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 Seen by heme/onc, would not be a good candidate for chemotherapy, but possible for immunotherapy or targeted treatment. After multiple trials of titration of pain medications with minimal relief, patient made the decision to transfer to comfort measures only status on 08/01 and started on diluadid drip. Patient discharged from inpatient services and readmitted under inpatient hospice services 08/04. #Comfort Measures only prn Ativan IV --> switched to 1mg IV q2h prn as patient remains agitated and restless while transitioning to his fentanyl patch. prn Robinul prn Zofran IV Colace BID added for constipation [facility] hospice recommendations for moving forward - Fentanyl 75mcg TDQ 72hr Continue current Dilaudid prn order 12 hours after Fentanyl patch applied, decrease Dilaudid basal rate to 0.5mg/hr. 24 hours after Fentanyl patch applied, discontinue Dilaudid basal. 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 Decision to not pursue further treatment. MOLD FILLER PLASTIC DOLLS #Pneumonia abx stopped with MOLD FILLER PLASTIC DOLLS #CHF home medications stopped with MOLD FILLER PLASTIC DOLLS Patient is to likely be placed in a Personal Care facility, hopefully next week after he reaches comfort on his medications and placement is found. Discussed w/ CM 08/07 Discussed w/ [facility] hospice nurse 08/07. Admission and Anticipated Discharge Date Admission Date: August 04, 2024 Subjective Patient agitated at encounter. Physical Exam Constitutional: restless, agitated Respiratory: breathing unlabored Cardiovascular: well perfused Results & Data Results & Data Vital Signs (Past 12 Hours) Vital Signs O2 Del Method O2 Flow Rate 08/08/24 20:10 Nasal Cannula 2 08/08/24 14:04 Nasal Cannula 2 PG Care Time/CCT Total # of Minutes Spent Total Time Spent with Patient: Total time spent is greater than 50% in coordination of care (as documented) at patient's floor/unit and/or counseling patient: Coding Level of Care Code 07682 SUB INP/OBS CARE 2/35MIN Diagnoses Comfort measures only status Z51.5 Mucinous adenocarcinoma of lung C34.90
[2024-08-09] MEDS: fentaNYL 100 MCG/HR TDSY TD SCH (12:14)
[2024-08-09] MEDS: LORazepam 2 MG/1 ML VIAL IV SCH (12:20)
[2024-08-09] MEDS: CHECK fentaNYL PATCH PLACEMENT SCH (15:53)
[2024-08-09] MEDS: OLANZapine ZYDIS 5 MG ORALLY DIS. TAB PO SCH (21:41)
[2024-08-09] MEDS: GLYCOPYRROLATE 0.2 MG/ML VIAL IV PRN (21:46)
--- NOTE | 2024-08-09 23:29 | Hospitalist Progress Note ---
Date of Service August 09, 2024 Assessment & Plan (1) Comfort measures only status: (2) Mucinous adenocarcinoma of lung: Plan Haresh Morris is a 74yo male with history of HTN, DM, COPD, AF and FREDRICK presenting with generalized weakness and intractable back pain. Inability to stand or ambulate secondary to pain. Unable to obtain MRI due to incompatible pacemaker. Lumbar/thoracic Spine CT showed considerable DJD, but no metastatic disease. With known pulmonary lesions and retrocrural mass from imaging from prior admission. Was seen by pulmonology, biopsy arranged, confirming mucinous adenocarcinoma. Completed a course of prednisone, but was still struggling with pain control with multiple modalities (tylenol/oxy/baclofen/butrans patch) and palliative care was consulted. 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 Seen by heme/onc, would not be a good candidate for chemotherapy, but possible for immunotherapy or targeted treatment. After multiple trials of titration of pain medications with minimal relief, patient made the decision to transfer to comfort measures only status on 08/01 and started on diluadid drip. Patient discharged from inpatient services and readmitted under inpatient hospice services 08/04. #Comfort Measures only prn Ativan IV --> switched to 1mg IV q2h prn as patient remains agitated and restless while transitioning to his fentanyl patch. prn Robinul prn Zofran IV Colace BID added for constipation [facility] hospice recommendations for moving forward - Fentanyl 75mcg TDQ 72hr Continue current Dilaudid prn order 12 hours after Fentanyl patch applied, decrease Dilaudid basal rate to 0.5mg/hr. 24 hours after Fentanyl patch applied, discontinue Dilaudid basal. 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 Decision to not pursue further treatment. CRYSTALIZER #Pneumonia abx stopped with CRYSTALIZER #CHF home medications stopped with CRYSTALIZER Patient is to likely be placed in a Personal Care facility, hopefully next week after he reaches comfort on his medications and placement is found. Discussed w/ CM 08/07 Discussed w/ [facility] hospice nurse 08/07. Admission and Anticipated Discharge Date Admission Date: August 04, 2024 Subjective Patient resless. Physical Exam Constitutional: restless, agitated Respiratory: breathing unlabored Cardiovascular: well perfused Results & Data Results & Data Vital Signs (Past 12 Hours) Vital Signs O2 Del Method O2 Flow Rate 08/09/24 21:00 Nasal Cannula 2 08/09/24 15:11 Nasal Cannula 2 PG Care Time/CCT Total # of Minutes Spent Total Time Spent with Patient: Total time spent is greater than 50% in coordination of care (as documented) at patient's floor/unit and/or counseling patient: Coding Level of Care Code 10847 SUB INP/OBS CARE 235MIN Diagnoses Comfort measures only status Z51.5 Mucinous adenocarcinoma of lung C34.90
--- NOTE | 2024-08-10 08:18 | Hospitalist Progress Note ---
Date of Service August 10, 2024 Assessment & Plan (1) Comfort measures only status: (2) Mucinous adenocarcinoma of lung: Plan Haresh Morris is a 74yo male with history of HTN, DM, COPD, AF and FREDRICK presenting with generalized weakness and intractable back pain. Inability to stand or ambulate secondary to pain. Unable to obtain MRI due to incompatible pacemaker. Lumbar/thoracic Spine CT showed considerable DJD, but no metastatic disease. With known pulmonary lesions and retrocrural mass from imaging from prior admission. Was seen by pulmonology, biopsy arranged, confirming mucinous adenocarcinoma. Completed a course of prednisone, but was still struggling with pain control with multiple modalities (tylenol/oxy/baclofen/butrans patch) and palliative care was consulted. 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 Seen by heme/onc, would not be a good candidate for chemotherapy, but possible for immunotherapy or targeted treatment. After multiple trials of titration of pain medications with minimal relief, patient made the decision to transfer to comfort measures only status on 08/01 and started on diluadid drip. Patient discharged from inpatient services and readmitted under inpatient hospice services 08/04. #Comfort Measures only prn Ativan IV --> switched to 1mg IV q2h prn as patient remains agitated and restless while transitioning to his fentanyl patch. prn Robinul prn Zofran IV Colace BID added for constipation 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 Decision to not pursue further treatment. PM TECHNICIAN #Pneumonia abx stopped with PM TECHNICIAN #CHF home medications stopped with PM TECHNICIAN Patient is to likely be placed in a Personal Care facility, hopefully next week after he reaches comfort on his medications and placement is found. Discussed w/ CM 08/10 Admission and Anticipated Discharge Date Admission Date: August 04, 2024 Subjective pt states his pain control is fair understands will likely need snf like setting and hospice for pain control Physical Exam Physical Exam: awake and alert some rhonchi at lung bases states he has pain all over Results & Data Results & Data Vital Signs (Past 12 Hours) Vital Signs O2 Del Method O2 Flow Rate 08/09/24 21:00 Nasal Cannula 2 PG Care Time/CCT Total # of Minutes Spent Total Time Spent with Patient: Total time spent is greater than 50% in coordination of care (as documented) at patient's floor/unit and/or counseling patient: Coding Level of Care Code 72713 SUB INP/OBS CARE 3/50MIN Diagnoses Comfort measures only status Z51.5 Mucinous adenocarcinoma of lung C34.90
[2024-08-10] MEDS: NYSTATIN POWDER 15GM BTL EXT PRN (09:09)
[2024-08-10] MEDS ORDERED: MoRPHine SULFATE 10 MG/0.5 ML UDP PO PRN ×2 (16:12→16:14)
[2024-08-10] MEDS: ACETAMINOPHEN 500 MG TAB PO SCH (20:12)
--- NOTE | 2024-08-11 11:13 | Hospitalist Progress Note ---
Date of Service August 11, 2024 Assessment & Plan (1) Comfort measures only status: (2) Mucinous adenocarcinoma of lung: Plan Haresh Morris is a 74yo male with history of HTN, DM, COPD, AF and FREDRICK presenting with generalized weakness and intractable back pain. Inability to stand or ambulate secondary to pain. Unable to obtain MRI due to incompatible pacemaker. Lumbar/thoracic Spine CT showed considerable DJD, but no metastatic disease. With known pulmonary lesions and retrocrural mass from imaging from prior admission. Was seen by pulmonology, biopsy arranged, confirming mucinous adenocarcinoma. Completed a course of prednisone, but was still struggling with pain control with multiple modalities (tylenol/oxy/baclofen/butrans patch) and palliative care was consulted. 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 Seen by heme/onc, would not be a good candidate for chemotherapy, but possible for immunotherapy or targeted treatment. After multiple trials of titration of pain medications with minimal relief, patient made the decision to transfer to comfort measures only status on 08/01 and started on diluadid drip. Patient discharged from inpatient services and readmitted under inpatient hospice services 08/04. Evaluation 08/11/2024 patient may be nearing active time of 9 #Comfort Measures only prn Ativan IV --> switched to 1mg IV q2h prn as patient remains agitated and restless while transitioning to his fentanyl patch. 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 Decision to not pursue further treatment. KNIFE FINISHER #Pneumonia abx stopped with KNIFE FINISHER #CHF home medications stopped with KNIFE FINISHER Discussed with case management on 08/11 patient may be transitioning into active dying at this time will not move the patient until determine if he is progressing more rapidly towards Admission and Anticipated Discharge Date Admission Date: August 04, 2024 Subjective Patient is lethargic he does arouse falls back to sleep easily looks like he may be transitioning into the active phase of dying at this time we will wearing a magnet on his pacemaker Physical Exam Physical Exam: Both speech falls asleep easily Coarse lung sounds minor labored breathing Cardiac exam is regular Abdomen is doughy feeling bowel sounds are quiet PG Care Time/CCT Total # of Minutes Spent Total Time Spent with Patient: Total time spent is greater than 50% in coordination of care (as documented) at patient's floor/unit and/or counseling patient: Coding Level of Care Code 62504 SUB INP/OBS CARE 2/35MIN Diagnoses Comfort measures only status Z51.5 Mucinous adenocarcinoma of lung C34.90
[2024-08-11] MEDS: HYDROmorphone INJ 1 MG/ML SYRINGE IV PRN (14:25)
--- NOTE | 2024-08-11 15:48 | Discharge Summary ---
Discharge Summary Date of Service August 12, 2024 Pt at 0652 AM from respiratory failure from adenocarcinoma Principal Dx & Hospital Course #1 = Principal Diagnosis (1) Comfort measures only status: (2) Mucinous adenocarcinoma of lung: Plan Haresh Morris is a 74yo male with history of HTN, DM, COPD, AF and FREDRICK presenting with generalized weakness and intractable back pain. Inability to stand or ambulate secondary to pain. Unable to obtain MRI due to incompatible pacemaker. Lumbar/thoracic Spine CT showed considerable DJD, but no metastatic disease. With known pulmonary lesions and retrocrural mass from imaging from prior admission. Was seen by pulmonology, biopsy arranged, confirming mucinous adenocarcinoma. Completed a course of prednisone, but was still struggling with pain control with multiple modalities (tylenol/oxy/baclofen/butrans patch) and palliative care was consulted. 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 Seen by heme/onc, would not be a good candidate for chemotherapy, but possible for immunotherapy or targeted treatment. After multiple trials of titration of pain medications with minimal relief, patient made the decision to transfer to comfort measures only status on 08/01 and started on diluadid drip. Patient discharged from inpatient services and readmitted under inpatient hospice services 08/04. 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 Decision to not pursue further treatment. CS ASSOCIATE #Pneumonia abx stopped with CS ASSOCIATE #CHF home medications stopped with CS ASSOCIATE Discharge Exam Pt while on comfort care Discharge Plan Discharge Items Patient Disposition: Other Date/Time: 08/13/24 06:52 Total Time Total Time Spent Total Time Spent (In Minutes): pt was pronounced by resident service, less than 30 minutes to prepare documents Coding Level of Care Code 02340 IN/OBS DISCH 30 MIN/LESS Diagnoses Comfort measures only status Z51.5 Mucinous adenocarcinoma of lung C34.90
[2024-08-11] MEDS: HYDROmorphone INJ 1 MG/ML SYRINGE IV SCH (16:35)
--- NOTE | 2024-08-12 15:43 | Hospitalist Progress Note ---
Date of Service August 12, 2024 Assessment & Plan (1) Comfort measures only status: (2) Mucinous adenocarcinoma of lung: Plan Haresh Morris is a 74yo male with history of HTN, DM, COPD, AF and FREDRICK presenting with generalized weakness and intractable back pain. Inability to stand or ambulate secondary to pain. Unable to obtain MRI due to incompatible pacemaker. Lumbar/thoracic Spine CT showed considerable DJD, but no metastatic disease. With known pulmonary lesions and retrocrural mass from imaging from prior admission. Was seen by pulmonology, biopsy arranged, confirming mucinous adenocarcinoma. Completed a course of prednisone, but was still struggling with pain control with multiple modalities (tylenol/oxy/baclofen/butrans patch) and palliative care was consulted. 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 Seen by heme/onc, would not be a good candidate for chemotherapy, but possible for immunotherapy or targeted treatment. After multiple trials of titration of pain medications with minimal relief, patient made the decision to transfer to comfort measures only status on 08/01 dying process has progressed is on inpatient hospice and expected in next few days Patient discharged from inpatient services and readmitted under inpatient hospice services 08/04. Evaluation 08/12/2024 patient may be nearing active time of dying #Comfort Measures only prn Ativan IV --> switched to 1mg IV q2h prn as patient remains agitated and restless while transitioning to his fentanyl patch. 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 Decision to not pursue further treatment. VENEER MEASURER #Pneumonia abx stopped with VENEER MEASURER #CHF home medications stopped with VENEER MEASURER Discussed with case management on 08/12 patient transitioning into active dying at this time will not move the patient Admission and Anticipated Discharge Date Admission Date: August 04, 2024 Subjective Patient is lethargic, labored breathing, transitioning into the active phase of dying at this time family is comfortable with pt dying in hospital Physical Exam Physical Exam: pt with labored breathing slower rate Results & Data Results & Data Vital Signs (Past 12 Hours) Vital Signs O2 Del Method O2 Flow Rate 08/12/24 11:16 Nasal Cannula 2 PG Care Time/CCT Total # of Minutes Spent Total Time Spent with Patient: Total time spent is greater than 50% in coordination of care (as documented) at patient's floor/unit and/or counseling patient: Coding Level of Care Code 18513 SUB INP/OBS CARE 2/35MIN Diagnoses Comfort measures only status Z51.5 Mucinous adenocarcinoma of lung C34.90
--- NOTE | 2024-08-13 06:57 | Death Pronouncement Note ---
Date of Service August 13, 2024 Pronouncement Note Admission Date Admission Date: August 04, 2024 Date and Time of Date of : 08/13/24 Time of : 06:52 Contributing Factors (1) Comfort measures only status: (2) Mucinous adenocarcinoma of lung: Summary Additional details: I was called to pronounce the of Haresh Morris ( 1950) by Halle Mercado on 08/13/2024 Upon entering the room, patient was found to be in a terminal state. They were unresponsive to, and did not withdrawal from, verbal or tactile stimuli. They were unresponsive to corneal, pupillary, and oculocephalic reflexes. On cardiopulmonary exam, they were found to be without detectable carotid pulses, and without spontaneous heart tones or respirations. Time of was pronounced by me on 08/13/2024 at 0652. Attending physician was notified was notified. Next of kin was notified by Halle Mercado RN. Signed: Harshil Early DO Additional Data Attending physician: Harrison Hartman MD
== END 2024-08-13 09:40 | disposition expired | DRG 951 ==
LOC: 3W 09:12 → SUATTDRO 09:12